=== PATIENT | female | born 1950 | race Caucasian/White ===

== ENCOUNTER → 2018-09-05 10:08 | Outpatient (CLI) | payer OTHER, SELFPAY ==
[2018-09-05 12:05] LABS: Hematocrit 44.3 % (36-46); Hemoglobin 15.4 g/dL (12.0-16.0); Mean Corpuscular HGB Conc 34.7 % (30-36); Mean Corpuscular Volume 92.1 fL (80-100); Platelet Count 171 X10^3/uL (150-400); Red Blood Cell Count 4.81 X10^6/uL (4.0-5.2); Red Cell Distribution Width 12.8 % (11.6-14.8); White Blood Cell Count 5.8 X10^3/uL (4.5-11.0)
[2018-09-05 12:30] LABS: Alanine Aminotransferase 29 IU/L (9-52); Albumin 4.1 g/dL (3.5-5.0); Albumin Globulin Ratio 1.5 (1.0-2.8); Alkaline Phosphatase 52 U/L (38-126); Aspartate Aminotransferase 19 IU/L (14-36); Bilirubin Total 0.8 mg/dL (0.2-1.3); Blood Urea Nitrogen 16 mg/dL (7-17); Calcium 9.4 mg/dL (8.4-10.2); Carbon Dioxide 29 mmol/L (22-32); Chloride 105 mmol/L (98-107); Cholesterol 161 mg/dL (140-199); Estimated Glomerular Filt Rate > 60.0 mL/min (>60); Globulin 2.7 g/dL (1.7-4.1); Glucose 108 mg/dL (80-110); HDL Cholesterol 46 mg/dL (40-60); HEMOLYSIS 15 (0-50); LDL Cholesterol Calculated 94 mg/dL (<100); Potassium 3.6 mmol/L (3.4-5.1); Sodium 145 mmol/L (137-145); Total Protein 6.8 g/dL (6.3-8.2); Triglycerides 105 mg/dL (35-150)
[2018-09-05 13:07] LABS: Thyroid Stimulating Hormone 2.31 uIU/mL (0.47-4.68)
[2018-09-05 20:02] LABS: Neutrophils Absolute Manual 3480 /uL (3000-5900); RBC Morphology Normal Morphology; Total Cells Counted 100
== END ==
PROVIDERS: PCP Family Medicine; Visit Provider Family Medicine
DX: E78.5 Hyperlipidemia, unspecified (principal); I10 Essential (primary) hypertension
CPT/HCPCS: 36415; 80053; 80061; 84443; 85025

== ENCOUNTER 2019-06-19 11:15 | Outpatient (RCR) | payer OTHER, SELFPAY ==
--- NOTE | 2019-03-05 14:37 | PT.OIE ---
Current Diagnoses Pain in right shoulder (03/05/19) Muscle weakness (generalized) (03/05/19) Past Medical History (Last Updated 09/08/18 @ 14:12 by Alicia Ya) Hypertension (Chronic 2005) Chronic back pain (Chronic 05/2014) Herpes (Chronic 1968) Statin myopathy (Chronic) Chicken pox (Resolved 1959) Depression (Resolved 1994) Hemorrhoids (Resolved 1983) Measles (Resolved 1959) Mumps (Resolved 1959) Rubella (Resolved 1959) Past Surgical History (Last Updated 09/08/18 @ 14:14 by Alicia Ya) Anesthesia (Resolved) Status post delivery (Resolved 1979) Status post delivery (Resolved 1981) Status post delivery (Resolved 1983) Status post cholecystectomy (Resolved) Status post tonsillectomy and adenoidectomy (Resolved 1955) Provider Visit Care Team Role Provider Type Zunilda Keyes MD Attending Provider Physician Primary Care Provider Specialty: [facility] Address: [address] [place] [address] Email: [email or web address] Physical Therapy Initial Evaluation PT-OP-A Visit Information Start: 03/02/19 16:56 Freq: Status: Active Protocol: Document 03/05/19 08:19 LRN (Rec: 03/05/19 09:21 VINCENTN [id number]) Out-Patient Physical Therapy Visit Information Visit Information Visit Type Initial Evaluation Visit Start Time 08:19 Visit Stop Time 09:10 Total Visit Minutes 51 Visit Number 1 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 She describes her pain as an insidious onset, but does recall her grandson jumping into her arms once, otherwise she denies any incident or injury to the shoulder. She states the R shoulder has progressively worsened. She is worse at night after working all day and states the shoulder aches all over with pain radiating into the elbow. If she moves wrong she gets a shooting pain. Reaching overhead and lifting is most painful. At rest she feels like her shoulder is falling out of the socket, so she feels the need to rest it on a pillow. She states her R shoulder hurts most of the time, aches at night, but once she gets to sleep she has no problem sleeping. She sleeps on L side with arm propped up on a pillow. She states her L shoulder is now starting to hurt because she is having to compensate for the right. She reports a prior incident of R shoulder pain when she picked up a huge sack of clothes, heard a pop, and had R shoulder pain. At that time tests showed a possible small tear. She had physical therapy with good results. Prior Treatments and Tests None. Future Testing and Treatments Planned None Developmental History Developmental History She sought medical care in November 2018, was seen by physician in December and was able to schedule for physical therapy today, 03/05/2019. Treatment Goals Patient/Caregiver Goals Pt goal is to have no pain in the R shoulder. Prior Functional Status Baseline Function- ADL's Independent Baseline Function- Mobility Independent Baseline Function- Work/School Looking after grandkids, ages 4,6,7 & 12, and does cooking and cleaning. Baseline Function- Other Always sleeps on L side. Able to cook, & clean without pain . Current Functional Impairments (Reported) Functional Limitations- ADL's Difficulty removing clothes, putting dishes high up on cupboards, lifting with R arm a gallon of milk, & making beds. Laundry is not a problem. Functional Limitations- Other Cooking and cleaning causes R shoulder pain. Personal Factors Other Personal Factors That May Effect Pt takes care of her grandkids Therapy/Recovery . PT-OP-C Subjective Start: 03/02/19 16:56 Freq: Status: Active Protocol: Document 03/05/19 08:19 LRN (Rec: 03/05/19 09:21 LRN [id number]) Patient Questionnaires Quick Dash- Upper Extremity Quick Dash UE Score 45.45 Quick Dash UE Impairment 40 to 59% Impaired (Score 40- 59) OP-PT Pain Assessment Location R shoulder Pain Location Details Around R shoulder joint and into the shoulder of the upper arm. Intensity 5 Scale Used Numeric (1 - 10) Description Aching Description- Other In AM, painfree R shoulder at rest. Frequency Constant Radiating Location Down lateral R arm to deltoid insertion. Pain Aggravating Factors Activity Lifting Pain Alleviating Factors Cold Heat Medication Other Pain Alleviating Factors IBP Patient Stated Pain Goal No pain Home Pain Medication Use Pain Medications Used Yes Home Pain Medication Frequency IBP as needed PT-OP-F Manual Assessment Start: 03/02/19 16:56 Freq: Status: Active Protocol: Document 03/05/19 08:19 LRN (Rec: 03/05/19 09:21 LRN [id number]) Manual Assessments Soft Tissue Assessment Soft Tissue Mobility Assessment Increased tension and tenderness to palpation at R UT, Levator Scapula, Supraspinatus, Deltoid, Pec Minor & Major, Rhomboids and Teres Major/Minor, Cervical paraspinals & Biceps Longus tendon attachment on the humerus. Joint Mobility Assessment Joint Mobility Assessment Decreased in Cervical spine due to pain. Other Manual Assessments Other Manual Assessments C3, C4, C5 tenderness at Transverse processes and facet joints. C5, C6, C7 tenderness at Transverse processes and rotated left. PT-OP-H Neuro Start: 03/02/19 16:56 Freq: Status: Active Protocol: Document 03/05/19 08:19 LRN (Rec: 03/05/19 09:21 LRN [id number]) Sensation Evaluation Gross Sensation Gross Sensation WNL Comments Summary Comments Sensation is normal to soft touch. Deep Tendon Reflex & Clonus Assessment Deep Tendon Reflex Bilateral Tricep Deep Tendon Reflex 0 Absent Bilateral Brachioradialis Deep Tendon Reflex 1+ Diminished Bilateral Bicep Deep Tendon Reflex 2+ Normal PT-OP-J Posture/Palpation/Skin Start: 03/02/19 16:56 Freq: Status: Active Protocol: Document 03/05/19 08:19 LRN (Rec: 03/05/19 09:21 LRN [id number]) Posture Evaluation Position Standing Evaluation View All positions Head/C-Spine Posture Forward Head T-Spine Posture Flattened Shoulder Posture (L) Rounded (R) Rounded (R) Forward (L) Elevated Scapula Posture (R) Depressed Arm Posture (L) Internally Rotated Palpation Assessment Location R shoulder Palpation Location Generally in shoulder and down upper arm, humeral head Palpation Findings Soft Tissue Tightness Tenderness PT-OP-K Range of Motion Start: 03/02/19 16:56 Freq: Status: Active Protocol: Document 03/05/19 08:19 LRN (Rec: 03/05/19 09:21 LRN [id number]) Cervical Spine Range of Motion Cervical Spine Active Percentage Testing Position Sitting Comments AROM is WNL. SB right caused L neck stiffness and kink Shoulder Goniometric Range of Motion Shoulder Measured in Degrees Right Active Shoulder ROM WFL Yes Testing Position Sitting Left Active Shoulder ROM WFL Yes Testing Position Sitting Shoulder ROM Limitations Shoulder ROM Limitations Pain Comments End-range pain, ROM was WNLs. PT-OP-L Special Tests Start: 03/02/19 16:56 Freq: Status: Active Protocol: Document 03/05/19 08:19 LRN (Rec: 03/05/19 09:21 LRN [id number]) Special Tests Cervical Spine Special Tests Traction Test Results Decreased R shoulder pain Shoulder Special Tests Elevation Impingement Test Results Positive Comments Onset of R shoulder pain. Briceño Teto Impingement Test Results Positive Comments Onset of R shoulder pain. PT-OP-M Strength Start: 03/02/19 16:56 Freq: Status: Active Protocol: Document 03/05/19 08:19 LRN (Rec: 03/05/19 09:21 LRN [id number]) Cervical Spine Strength Cervical Spine Manual Muscle Testing Testing Position Sitting Reason Not Measured WFL Shoulder Strength Shoulder Manual Muscle Testing Right Flexion 3 Fair Left Flexion 3- Fair- PT-OP-Q Treatments Start: 03/02/19 16:56 Freq: Status: Active Protocol: Document 03/05/19 08:19 LRN (Rec: 03/05/19 09:21 LRN [id number]) Therapeutic Exercises Supine Exercises Cervical Supine Exercise Name Deep Cervical Neck Flexors ( Neck Elongation) Reps/Minutes 8 reps Comments 2' Shoulder ER Side right Reps/Minutes 10 x Comments 2' Manual Therapy Treatment Manual Traction Cervical Body Position Supine Reps/Duration 4' Self-Care/Home Management Treatment Education Patient Education Home Exercise Program Activities Self-Care/Home Management Activities I/S pt in Neck Elongation & windshield wipe ex. PT-OP-T Assessment and Plan Start: 03/02/19 16:56 Freq: Status: Active Protocol: Document 03/05/19 08:19 LRN (Rec: 03/05/19 09:21 LRN [id number]) Physical Therapy Assessment Rehab Potential Rehabilitation Potential Good Evaluation Complexity Number of Personal Factors/Comorbidities 1-2 Number of Body Systems Impaired 4 or More Clinical Presentation at Evaluation Stable Impairments Impairments Activity Tolerance Functional Activities Functional Mobility Pain Posture ROM Soft Tissue Mobility Strength Other Concerns Age Related Concerns >65 yrs old Impact to self and family Barriers to Rehabilitation Caring for grandchildren Goals Three Impairment Pain with lifting 1 gallon and reaching into cabinets overhead. Care Home Goal (LTG) Improve R shoulder strength and scapulohumeral rhythm such that the pt will be able to lift a a gallon jug and reach into cabinets overhead without stokes. Two Impairment Pain in R shoulder with reaching overhead Short Term Goal (STG) Pt's normal R shoulder AROM and ability to dress without pain. STG Duration 03/30/19 One Impairment Pt lacks independent self care program. Rat Culturist Goal (LTG) Pt will be independent with a self care HEP LTG Duration 05/04/19 Assessment Summary Assessment Pt presents with a mechanical and soft tissue dysfunction of the neck and R shoulder, limiting mobility and function due to pain with R shoulder AROM and use. The pt shows positive signs of cervical involvement, possibly disc related, involving possibly C3 -C7. The pt will benefit from skilled physical therapy to improve mobility, strength and function of the R arm with treatments to the neck and R shoulder in order to return the patient to her prior level of function. Physical Therapy Plan Frequency and Duration Frequency of Treatment 2x/Week Therapeutic Interventions Therapeutic Interventions Aquatic Therapy Home Exercise Program Joint Mobilizations Manual Therapy Neuromuscular Re-education Patient/Caregiver Education Self-Care/Home Management Soft Tissue Mobilization Taping Therapeutic Exercises Modalities Cold Pack/Ice Massage Electric Stimulation Hot Packs Traction- Mechanical Ultrasound Next Visit Focus/Plan Next Note Type Treatment Note Next Visit Plan Manual mobilization of Cervical and thoracic spine, R rotator cuff stengthening & ending with mechanical cervical traction.
--- NOTE | 2019-03-05 14:38 | PT.OIE ---
Current Diagnoses Pain in right shoulder (03/05/19) Muscle weakness (generalized) (03/05/19) Past Medical History (Last Updated 09/08/18 @ 14:12 by Alicia Ya) Hypertension (Chronic 2005) Chronic back pain (Chronic 05/2014) Herpes (Chronic 1968) Statin myopathy (Chronic) Chicken pox (Resolved 1959) Depression (Resolved 1994) Hemorrhoids (Resolved 1983) Measles (Resolved 1959) Mumps (Resolved 1959) Rubella (Resolved 1959) Past Surgical History (Last Updated 09/08/18 @ 14:14 by Alicia Ya) Anesthesia (Resolved) Status post delivery (Resolved 1979) Status post delivery (Resolved 1981) Status post delivery (Resolved 1983) Status post cholecystectomy (Resolved) Status post tonsillectomy and adenoidectomy (Resolved 1955) Provider Visit Care Team Role Provider Type Zunilda Keyes MD Attending Provider Physician Primary Care Provider Specialty: [facility] Address: [address] [place] [address] Email: [email or web address] Physical Therapy Initial Evaluation PT-OP-A Visit Information Start: 03/02/19 16:56 Freq: Status: Active Protocol: Document 03/05/19 08:19 LRN (Rec: 03/05/19 09:21 VINCENTN [id number]) Out-Patient Physical Therapy Visit Information Visit Information Visit Type Initial Evaluation Visit Start Time 08:19 Visit Stop Time 09:10 Total Visit Minutes 51 Visit Number 1 Number of RN SURGICAL PCU Visits 0 Evaluation Information Evaluation Date 03/05/19 Precautions Precautions Back pain PT-OP-B Current Condition Start: 03/02/19 16:56 Freq: Status: Active Protocol: Document 03/05/19 08:19 LRN (Rec: 03/05/19 09:21 LRN [id number]) Current Condition History of Current Condition Onset Date 09/2018 Current Complaints R shoulder pain, mostly constant ache History of Current Condition Pt states she noticed one day that she could barely hold a gallon of milk with her R arm. She describes her pain as an insidious onset, but does recall her grandson jumping into her arms once, otherwise she denies any incident or injury to the shoulder. She states the R shoulder has progressively worsened. She is worse at night after working all day and states the shoulder aches all over with pain radiating into the elbow. If she moves wrong she gets a shooting pain. Reaching overhead and lifting is most painful. At rest she feels like her shoulder is falling out of the socket, so she feels the need to rest it on a pillow. She states her R shoulder hurts most of the time, aches at night, but once she gets to sleep she has no problem sleeping. She sleeps on L side with arm propped up on a pillow. She states her L shoulder is now starting to hurt because she is having to compensate for the right. She reports a prior incident of R shoulder pain when she picked up a huge sack of clothes, heard a pop, and had R shoulder pain. At that time tests showed a possible small tear. She had physical therapy with good results. Prior Treatments and Tests None. Future Testing and Treatments Planned None Developmental History Developmental History She sought medical care in November 2018, was seen by physician in December and was able to schedule for physical therapy today, 03/05/2019. Treatment Goals Patient/Caregiver Goals Pt goal is to have no pain in the R shoulder. Prior Functional Status Baseline Function- ADL's Independent Baseline Function- Mobility Independent Baseline Function- Work/School Looking after grandkids, ages 4,6,7 & 12, and does cooking and cleaning. Baseline Function- Other Always sleeps on L side. Able to cook, & clean without pain . Current Functional Impairments (Reported) Functional Limitations- ADL's Difficulty removing clothes, putting dishes high up on cupboards, lifting with R arm a gallon of milk, & making beds. Laundry is not a problem. Functional Limitations- Other Cooking and cleaning causes R shoulder pain. Personal Factors Other Personal Factors That May Effect Pt takes care of her grandkids Therapy/Recovery . PT-OP-C Subjective Start: 03/02/19 16:56 Freq: Status: Active Protocol: Document 03/05/19 08:19 LRN (Rec: 03/05/19 09:21 LRN [id number]) Patient Questionnaires Quick Dash- Upper Extremity Quick Dash UE Score 45.45 Quick Dash UE Impairment 40 to 59% Impaired (Score 40- 59) OP-PT Pain Assessment Location R shoulder Pain Location Details Around R shoulder joint and into the shoulder of the upper arm. Intensity 5 Scale Used Numeric (1 - 10) Description Aching Description- Other In AM, painfree R shoulder at rest. Frequency Constant Radiating Location Down lateral R arm to deltoid insertion. Pain Aggravating Factors Activity Lifting Pain Alleviating Factors Cold Heat Medication Other Pain Alleviating Factors IBP Patient Stated Pain Goal No pain Home Pain Medication Use Pain Medications Used Yes Home Pain Medication Frequency IBP as needed PT-OP-F Manual Assessment Start: 03/02/19 16:56 Freq: Status: Active Protocol: Document 03/05/19 08:19 LRN (Rec: 03/05/19 09:21 LRN [id number]) Manual Assessments Soft Tissue Assessment Soft Tissue Mobility Assessment Increased tension and tenderness to palpation at R UT, Levator Scapula, Supraspinatus, Deltoid, Pec Minor & Major, Rhomboids and Teres Major/Minor, Cervical paraspinals & Biceps Longus tendon attachment on the humerus. Joint Mobility Assessment Joint Mobility Assessment Decreased in Cervical spine due to pain. Other Manual Assessments Other Manual Assessments C3, C4, C5 tenderness at Transverse processes and facet joints. C5, C6, C7 tenderness at Transverse processes and rotated left. PT-OP-H Neuro Start: 03/02/19 16:56 Freq: Status: Active Protocol: Document 03/05/19 08:19 LRN (Rec: 03/05/19 09:21 LRN [id number]) Sensation Evaluation Gross Sensation Gross Sensation WNL Comments Summary Comments Sensation is normal to soft touch. Deep Tendon Reflex & Clonus Assessment Deep Tendon Reflex Bilateral Tricep Deep Tendon Reflex 0 Absent Bilateral Brachioradialis Deep Tendon Reflex 1+ Diminished Bilateral Bicep Deep Tendon Reflex 2+ Normal PT-OP-J Posture/Palpation/Skin Start: 03/02/19 16:56 Freq: Status: Active Protocol: Document 03/05/19 08:19 LRN (Rec: 03/05/19 09:21 LRN [id number]) Posture Evaluation Position Standing Evaluation View All positions Head/C-Spine Posture Forward Head T-Spine Posture Flattened Shoulder Posture (L) Rounded (R) Rounded (R) Forward (L) Elevated Scapula Posture (R) Depressed Arm Posture (L) Internally Rotated Palpation Assessment Location R shoulder Palpation Location Generally in shoulder and down upper arm, humeral head Palpation Findings Soft Tissue Tightness Tenderness PT-OP-K Range of Motion Start: 03/02/19 16:56 Freq: Status: Active Protocol: Document 03/05/19 08:19 LRN (Rec: 03/05/19 09:21 LRN [id number]) Cervical Spine Range of Motion Cervical Spine Active Percentage Testing Position Sitting Comments AROM is WNL. SB right caused L neck stiffness and kink Shoulder Goniometric Range of Motion Shoulder Measured in Degrees Right Active Shoulder ROM WFL Yes Testing Position Sitting Left Active Shoulder ROM WFL Yes Testing Position Sitting Shoulder ROM Limitations Shoulder ROM Limitations Pain Comments End-range pain, ROM was WNLs. PT-OP-L Special Tests Start: 03/02/19 16:56 Freq: Status: Active Protocol: Document 03/05/19 08:19 LRN (Rec: 03/05/19 09:21 LRN [id number]) Special Tests Cervical Spine Special Tests Traction Test Results Decreased R shoulder pain Shoulder Special Tests Elevation Impingement Test Results Positive Comments Onset of R shoulder pain. Briceño Teto Impingement Test Results Positive Comments Onset of R shoulder pain. PT-OP-M Strength Start: 03/02/19 16:56 Freq: Status: Active Protocol: Document 03/05/19 08:19 LRN (Rec: 03/05/19 09:21 LRN [id number]) Cervical Spine Strength Cervical Spine Manual Muscle Testing Testing Position Sitting Reason Not Measured WFL Shoulder Strength Shoulder Manual Muscle Testing Right Flexion 3 Fair Left Flexion 3- Fair- PT-OP-Q Treatments Start: 03/02/19 16:56 Freq: Status: Active Protocol: Document 03/05/19 08:19 LRN (Rec: 03/05/19 09:21 LRN [id number]) Therapeutic Exercises Supine Exercises Cervical Supine Exercise Name Deep Cervical Neck Flexors ( Neck Elongation) Reps/Minutes 8 reps Comments 2' Shoulder ER Side right Reps/Minutes 10 x Comments 2' Manual Therapy Treatment Manual Traction Cervical Body Position Supine Reps/Duration 4' Self-Care/Home Management Treatment Education Patient Education Home Exercise Program Activities Self-Care/Home Management Activities I/S pt in Neck Elongation & windshield wipe ex. PT-OP-T Assessment and Plan Start: 03/02/19 16:56 Freq: Status: Active Protocol: Document 03/05/19 08:19 LRN (Rec: 03/05/19 09:21 LRN [id number]) Physical Therapy Assessment Rehab Potential Rehabilitation Potential Good Evaluation Complexity Number of Personal Factors/Comorbidities 1-2 Number of Body Systems Impaired 4 or More Clinical Presentation at Evaluation Stable Impairments Impairments Activity Tolerance Functional Activities Functional Mobility Pain Posture ROM Soft Tissue Mobility Strength Other Concerns Age Related Concerns >65 yrs old Impact to self and family Barriers to Rehabilitation Caring for grandchildren Goals Three Impairment Pain with lifting 1 gallon and reaching into cabinets overhead. Correction Goal (LTG) Improve R shoulder strength and scapulohumeral rhythm such that the pt will be able to lift a a gallon jug and reach into cabinets overhead without stokes. LTG Duration 05/04/19 Two Impairment Pain in R shoulder with reaching overhead Short Term Goal (STG) Pt's normal R shoulder AROM and ability to dress without pain. STG Duration 03/30/19 One Impairment Pt lacks independent self care program. Correction Goal (LTG) Pt will be independent with a self care HEP LTG Duration 05/04/19 Assessment Summary Assessment Pt presents with a mechanical and soft tissue dysfunction of the neck and R shoulder, limiting mobility and function due to pain with R shoulder AROM and use. The pt shows positive signs of cervical involvement, possibly disc related, involving possibly C3 -C7. The pt will benefit from skilled physical therapy to improve mobility, strength and function of the R arm with treatments to the neck and R shoulder in order to return the patient to her prior level of function. Physical Therapy Plan Frequency and Duration Frequency of Treatment 2x/Week Plan of Care Start Date 03/05/19 Plan of Care End Date 05/04/19 Therapeutic Interventions Therapeutic Interventions Aquatic Therapy Home Exercise Program Joint Mobilizations Manual Therapy Neuromuscular Re-education Patient/Caregiver Education Self-Care/Home Management Soft Tissue Mobilization Taping Therapeutic Exercises Modalities Cold Pack/Ice Massage Electric Stimulation Hot Packs Traction- Mechanical Ultrasound Next Visit Focus/Plan Next Note Type Treatment Note Next Visit Plan Manual mobilization of Cervical and thoracic spine, R rotator cuff stengthening & ending with mechanical cervical traction.
--- NOTE | 2019-03-05 14:39 | PT.OPPOC ---
Current Diagnoses Pain in right shoulder (03/05/19) Muscle weakness (generalized) (03/05/19) Provider Visit Care Team Role Provider Type Zunilda Keyes MD Attending Provider Physician Primary Care Provider Specialty: Family Practice Address: [address] [place] [address], [facility] Email: [email or web address] Plan Of Care PT-OP-T Assessment and Plan Start: 03/02/19 16:56 Freq: Status: Active Protocol: Document 03/05/19 08:19 LRN (Rec: 03/05/19 09:21 LRN [id number]) Physical Therapy Assessment Rehab Potential Rehabilitation Potential Good Evaluation Complexity Number of Personal Factors/Comorbidities 1-2 Number of Body Systems Impaired 4 or More Clinical Presentation at Evaluation Stable Impairments Impairments Activity Tolerance Functional Activities Functional Mobility Pain Posture ROM Soft Tissue Mobility Strength Other Concerns Age Related Concerns >65 yrs old Impact to self and family Barriers to Rehabilitation Caring for grandchildren Goals Three Impairment Pain with lifting 1 gallon and reaching into cabinets overhead. Snf Goal (LTG) Improve R shoulder strength and scapulohumeral rhythm such that the pt will be able to lift a a gallon jug and reach into cabinets overhead without stokes. LTG Duration 05/04/19 Two Impairment Pain in R shoulder with reaching overhead Short Term Goal (STG) Pt's normal R shoulder AROM and ability to dress without pain. STG Duration 03/30/19 One Impairment Pt lacks independent self care program. Snf Goal (LTG) Pt will be independent with a self care HEP LTG Duration 05/04/19 Assessment Summary Assessment Pt presents with a mechanical and soft tissue dysfunction of the neck and R shoulder, limiting mobility and function due to pain with R shoulder AROM and use. The pt shows positive signs of cervical involvement, possibly disc related, involving possibly C3 -C7. The pt will benefit from skilled physical therapy to improve mobility, strength and function of the R arm with treatments to the neck and R shoulder in order to return the patient to her prior level of function. Physical Therapy Plan Frequency and Duration Frequency of Treatment 2x/Week Plan of Care Start Date 03/05/19 Plan of Care End Date 05/04/19 Therapeutic Interventions Therapeutic Interventions Aquatic Therapy Home Exercise Program Joint Mobilizations Manual Therapy Neuromuscular Re-education Patient/Caregiver Education Self-Care/Home Management Soft Tissue Mobilization Taping Therapeutic Exercises Modalities Cold Pack/Ice Massage Electric Stimulation Hot Packs Traction- Mechanical Ultrasound Next Visit Focus/Plan Next Note Type Treatment Note Next Visit Plan Manual mobilization of Cervical and thoracic spine, R rotator cuff stengthening & ending with mechanical cervical traction. Plan of Care Dates Plan of Care Start Date 03/05/19 Plan of Care End Date 05/04/19 Please Sign and Return: I have reviewed this Plan of Care and certify that the skilled therapy services above are required to meet the patient?s needs. Physician Signature Date Printed Name and Credentials Clinical Instructor Signature Printed Name and Credentials
--- NOTE | 2019-03-08 16:36 | PT.OTN ---
Current Diagnoses Pain in right shoulder (03/08/19) Physical Therapy Treatment Note PT-OP-A Visit Information Start: 03/02/19 16:56 Freq: Status: Active Protocol: Document 03/08/19 08:18 LRN (Rec: 03/08/19 09:04 LRN [id number]) Out-Patient Physical Therapy Visit Information Visit Information Visit Type Treatment Note Visit Start Time 08:18 Visit Stop Time 09:03 Total Visit Minutes 45 Visit Number 2 Number of MUSEUM EDUCATOR Visits 0 Evaluation Information Evaluation Date 03/05/19 Precautions Precautions Back pain PT-OP-B Current Condition Start: 03/02/19 16:56 Freq: Status: Active Protocol: Document 03/05/19 08:19 LRN (Rec: 03/05/19 09:21 LRN [id number]) Current Condition History of Current Condition Onset Date 09/2018 Current Complaints R shoulder pain, mostly constant ache History of Current Condition Pt states she noticed one day that she could barely hold a gallon of milk with her R arm. She describes her pain as an insidious onset, but does recall her grandson jumping into her arms once, otherwise she denies any incident or injury to the shoulder. She states the R shoulder has progressively worsened. She is worse at night after working all day and states the shoulder aches all over with pain radiating into the elbow. If she moves wrong she gets a shooting pain. Reaching overhead and lifting is most painful. At rest she feels like her shoulder is falling out of the socket, so she feels the need to rest it on a pillow. She states her R shoulder hurts most of the time, aches at night, but once she gets to sleep she has no problem sleeping. She sleeps on L side with arm propped up on a pillow. She states her L shoulder is now starting to hurt because she is having to compensate for the right. She reports a prior incident of R shoulder pain when she picked up a huge sack of clothes, heard a pop, and had R shoulder pain. At that time tests showed a possible small tear. She had physical therapy with good results. Prior Treatments and Tests None. Future Testing and Treatments Planned None Developmental History Developmental History She sought medical care in November 2018, was seen by physician in December and was able to schedule for physical therapy today, 03/05/2019. Treatment Goals Patient/Caregiver Goals Pt goal is to have no pain in the R shoulder. 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 Baseline Function- Other Always sleeps on L side. Able to cook, & clean without pain . Current Functional Impairments (Reported) Functional Limitations- ADL's Difficulty removing clothes, putting dishes high up on cupboards, lifting with R arm a gallon of milk, & making beds. Laundry is not a problem. Functional Limitations- Other Cooking and cleaning causes R shoulder pain. Personal Factors Other Personal Factors That May Effect Pt takes care of her grandkids Therapy/Recovery . PT-OP-C Subjective Start: 03/02/19 16:56 Freq: Status: Active Protocol: Document 03/08/19 08:18 LRN (Rec: 03/08/19 09:04 LRN [id number]) OP-PT Subjective Patient Comments Patient Comments Neck and R shoulder Pain 03/07 PT-OP-F Manual Assessment Start: 03/02/19 16:56 Freq: Status: Active Protocol: Document 03/05/19 08:19 LRN (Rec: 03/05/19 09:21 LRN [id number]) Manual Assessments Soft Tissue Assessment Soft Tissue Mobility Assessment Increased tension and tenderness to palpation at R UT, Levator Scapula, Supraspinatus, Deltoid, Pec Minor & Major, Rhomboids and Teres Major/Minor, Cervical paraspinals & Biceps Longus tendon attachment on the humerus. Joint Mobility Assessment Joint Mobility Assessment Decreased in Cervical spine due to pain. Other Manual Assessments Other Manual Assessments C3, C4, C5 tenderness at Transverse processes and facet joints. C5, C6, C7 tenderness at Transverse processes and rotated left. PT-OP-H Neuro Start: 03/02/19 16:56 Freq: Status: Active Protocol: Document 03/05/19 08:19 LRN (Rec: 03/05/19 09:21 LRN [id number]) Sensation Evaluation Gross Sensation Gross Sensation WNL Comments Summary Comments Sensation is normal to soft touch. Deep Tendon Reflex & Clonus Assessment Deep Tendon Reflex Bilateral Tricep Deep Tendon Reflex 0 Absent Bilateral Brachioradialis Deep Tendon Reflex 1+ Diminished Bilateral Bicep Deep Tendon Reflex 2+ Normal PT-OP-J Posture/Palpation/Skin Start: 03/02/19 16:56 Freq: Status: Active Protocol: Document 03/05/19 08:19 LRN (Rec: 03/05/19 09:21 LRN [id number]) Posture Evaluation Position Standing Evaluation View All positions Head/C-Spine Posture Forward Head T-Spine Posture Flattened Shoulder Posture (L) Rounded (R) Rounded (R) Forward (L) Elevated Scapula Posture (R) Depressed Arm Posture (L) Internally Rotated Palpation Assessment Location R shoulder Palpation Location Generally in shoulder and down upper arm, humeral head Palpation Findings Soft Tissue Tightness Tenderness PT-OP-K Range of Motion Start: 03/02/19 16:56 Freq: Status: Active Protocol: Document 03/05/19 08:19 LRN (Rec: 03/05/19 09:21 LRN [id number]) Cervical Spine Range of Motion Cervical Spine Active Percentage Testing Position Sitting Comments AROM is WNL. SB right caused L neck stiffness and kink Shoulder Goniometric Range of Motion Shoulder Measured in Degrees Right Active Shoulder ROM WFL Yes Testing Position Sitting Left Active Shoulder ROM WFL Yes Testing Position Sitting Shoulder ROM Limitations Shoulder ROM Limitations Pain Comments End-range pain, ROM was WNLs. PT-OP-L Special Tests Start: 03/02/19 16:56 Freq: Status: Active Protocol: Document 03/05/19 08:19 LRN (Rec: 03/05/19 09:21 LRN [id number]) Special Tests Cervical Spine Special Tests Traction Test Results Decreased R shoulder pain Shoulder Special Tests Elevation Impingement Test Results Positive Comments Onset of R shoulder pain. Briceño Teto Impingement Test Results Positive Comments Onset of R shoulder pain. PT-OP-M Strength Start: 03/02/19 16:56 Freq: Status: Active Protocol: Document 03/05/19 08:19 LRN (Rec: 03/05/19 09:21 LRN [id number]) Cervical Spine Strength Cervical Spine Manual Muscle Testing Testing Position Sitting Reason Not Measured WFL Shoulder Strength Shoulder Manual Muscle Testing Right Flexion 3 Fair Left Flexion 3- Fair- PT-OP-Q Treatments Start: 03/02/19 16:56 Freq: Status: Active Protocol: Document 03/08/19 08:18 LRN (Rec: 03/08/19 09:04 LRN [id number]) Therapeutic Exercises Supine Exercises R shoulder PROM Side right Shoulder ER Supine Exercise Name Shoulder ER with T-Band Side right Sitting Exercises Scapular pinches Side bilateral Resistance Lev 2 T-Band Reps/Minutes 15 x 2 Shoulder ER Sitting Exercise Name Strengthening Side bilateral Resistance Lev 2 T-Band Reps/Minutes 15 x 2 Deep Cervical Neck Flexors Reps/Minutes 3' Comments Manual cuing of finger pressure on top of head Manual Therapy Treatment Soft Tissue Mobilization C7-T2 Body Location C5-T1, primarily R side Mobilization Type Myofascial Release Strumming Intensity/Depth Moderate Body Position Prone Manual Traction Cervical Body Position Supine Reps/Duration 2' PT-OP-R Modalities Start: 03/02/19 16:56 Freq: Status: Active Protocol: Document 03/08/19 08:18 LRN (Rec: 03/08/19 09:04 LRN [id number]) Ultrasound Therapy Treatment R Shoulder Treatment Duration (minutes) 8 Patient Position Sitting Coupling Medium Ultrasound Gel Mode Setting Pulsed Duty Cycle 50% Intensity Setting (w/cm2) 1.0 R Neck Treatment Duration (minutes) 8 Patient Position Sitting Coupling Medium Ultrasound Gel Mode Setting Continuous Intensity Setting (w/cm2) 1.5 PT-OP-T Assessment and Plan Start: 03/02/19 16:56 Freq: Status: Active Protocol: Document 03/08/19 08:18 LRN (Rec: 03/08/19 09:04 LRN [id number]) Physical Therapy Assessment Assessment Summary Assessment The pt shows positive signs of cervical involvement, possibly disc related, involving possibly C3-C7 with R shoulder pain symptoms. The pt responded well to therapy with improved R shoulder mobility without an increase in pain. Physical Therapy Plan Frequency and Duration Frequency of Treatment 2x/Week Plan of Care Start Date 03/05/19 Plan of Care End Date 05/04/19 Next Visit Focus/Plan Next Note Type Treatment Note Next Visit Plan Manual mobilization of Cervical and upper thoracic spine, R rotator cuff stengthening & ending with cervical traction (?mechanical vs manual).
--- NOTE | 2019-03-12 15:39 | PT.OTN ---
Current Diagnoses Pain in right shoulder (03/12/19) Physical Therapy Treatment Note PT-OP-A Visit Information Start: 03/02/19 16:56 Freq: Status: Active Protocol: Document 03/12/19 08:15 LRN (Rec: 03/12/19 09:17 LRN [id number]) Out-Patient Physical Therapy Visit Information Visit Information Visit Type Treatment Note Visit Start Time 08:15 Visit Stop Time 09:10 Total Visit Minutes 55 Visit Number 3 Number of BOARD OF DIRECTORS Visits 0 Evaluation Information Evaluation Date 03/05/19 Precautions Precautions Back pain PT-OP-B Current Condition Start: 03/02/19 16:56 Freq: Status: Active Protocol: Document 03/05/19 08:19 LRN (Rec: 03/05/19 09:21 LRN [id number]) Current Condition History of Current Condition Onset Date 09/2018 Current Complaints R shoulder pain, mostly constant ache History of Current Condition Pt states she noticed one day that she could barely hold a gallon of milk with her R arm. She describes her pain as an insidious onset, but does recall her grandson jumping into her arms once, otherwise she denies any incident or injury to the shoulder. She states the R shoulder has progressively worsened. She is worse at night after working all day and states the shoulder aches all over with pain radiating into the elbow. If she moves wrong she gets a shooting pain. Reaching overhead and lifting is most painful. At rest she feels like her shoulder is falling out of the socket, so she feels the need to rest it on a pillow. She states her R shoulder hurts most of the time, aches at night, but once she gets to sleep she has no problem sleeping. She sleeps on L side with arm propped up on a pillow. She states her L shoulder is now starting to hurt because she is having to compensate for the right. She reports a prior incident of R shoulder pain when she picked up a huge sack of clothes, heard a pop, and had R shoulder pain. At that time tests showed a possible small tear. She had physical therapy with good results. Prior Treatments and Tests None. Future Testing and Treatments Planned None Developmental History Developmental History She sought medical care in November 2018, was seen by physician in December and was able to schedule for physical therapy today, 03/05/2019. Treatment Goals Patient/Caregiver Goals Pt goal is to have no pain in the R shoulder. 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 Baseline Function- Other Always sleeps on L side. Able to cook, & clean without pain . Current Functional Impairments (Reported) Functional Limitations- ADL's Difficulty removing clothes, putting dishes high up on cupboards, lifting with R arm a gallon of milk, & making beds. Laundry is not a problem. Functional Limitations- Other Cooking and cleaning causes R shoulder pain. Personal Factors Other Personal Factors That May Effect Pt takes care of her grandkids Therapy/Recovery . PT-OP-C Subjective Start: 03/02/19 16:56 Freq: Status: Active Protocol: Document 03/12/19 08:15 LRN (Rec: 03/12/19 09:17 LRN [id number]) OP-PT Subjective Patient Comments Patient Comments Pt states she was not able to do too much exercising. States her shoulder is more sore because she did a lot of driving 2 days ago. PT-OP-F Manual Assessment Start: 03/02/19 16:56 Freq: Status: Active Protocol: Document 03/05/19 08:19 LRN (Rec: 03/05/19 09:21 LRN [id number]) Manual Assessments Soft Tissue Assessment Soft Tissue Mobility Assessment Increased tension and tenderness to palpation at R UT, Levator Scapula, Supraspinatus, Deltoid, Pec Minor & Major, Rhomboids and Teres Major/Minor, Cervical paraspinals & Biceps Longus tendon attachment on the humerus. Joint Mobility Assessment Joint Mobility Assessment Decreased in Cervical spine due to pain. Other Manual Assessments Other Manual Assessments C3, C4, C5 tenderness at Transverse processes and facet joints. C5, C6, C7 tenderness at Transverse processes and rotated left. PT-OP-H Neuro Start: 03/02/19 16:56 Freq: Status: Active Protocol: Document 03/05/19 08:19 LRN (Rec: 03/05/19 09:21 LRN [id number]) Sensation Evaluation Gross Sensation Gross Sensation WNL Comments Summary Comments Sensation is normal to soft touch. Deep Tendon Reflex & Clonus Assessment Deep Tendon Reflex Bilateral Tricep Deep Tendon Reflex 0 Absent Bilateral Brachioradialis Deep Tendon Reflex 1+ Diminished Bilateral Bicep Deep Tendon Reflex 2+ Normal PT-OP-J Posture/Palpation/Skin Start: 03/02/19 16:56 Freq: Status: Active Protocol: Document 03/05/19 08:19 LRN (Rec: 03/05/19 09:21 LRN [id number]) Posture Evaluation Position Standing Evaluation View All positions Head/C-Spine Posture Forward Head T-Spine Posture Flattened Shoulder Posture (L) Rounded (R) Rounded (R) Forward (L) Elevated Scapula Posture (R) Depressed Arm Posture (L) Internally Rotated Palpation Assessment Location R shoulder Palpation Location Generally in shoulder and down upper arm, humeral head Palpation Findings Soft Tissue Tightness Tenderness PT-OP-K Range of Motion Start: 03/02/19 16:56 Freq: Status: Active Protocol: Document 03/05/19 08:19 LRN (Rec: 03/05/19 09:21 LRN [id number]) Cervical Spine Range of Motion Cervical Spine Active Percentage Testing Position Sitting Comments AROM is WNL. SB right caused L neck stiffness and kink Shoulder Goniometric Range of Motion Shoulder Measured in Degrees Right Active Shoulder ROM WFL Yes Testing Position Sitting Left Active Shoulder ROM WFL Yes Testing Position Sitting Shoulder ROM Limitations Shoulder ROM Limitations Pain Comments End-range pain, ROM was WNLs. PT-OP-L Special Tests Start: 03/02/19 16:56 Freq: Status: Active Protocol: Document 03/05/19 08:19 LRN (Rec: 03/05/19 09:21 LRN [id number]) Special Tests Cervical Spine Special Tests Traction Test Results Decreased R shoulder pain Shoulder Special Tests Elevation Impingement Test Results Positive Comments Onset of R shoulder pain. Briceño Teto Impingement Test Results Positive Comments Onset of R shoulder pain. PT-OP-M Strength Start: 03/02/19 16:56 Freq: Status: Active Protocol: Document 03/05/19 08:19 LRN (Rec: 03/05/19 09:21 LRN [id number]) Cervical Spine Strength Cervical Spine Manual Muscle Testing Testing Position Sitting Reason Not Measured WFL Shoulder Strength Shoulder Manual Muscle Testing Right Flexion 3 Fair Left Flexion 3- Fair- PT-OP-Q Treatments Start: 03/02/19 16:56 Freq: Status: Active Protocol: Document 03/12/19 08:15 LRN (Rec: 03/12/19 09:17 LRN [id number]) Therapeutic Exercises Supine Exercises Lat Pull Down Side bilateral Equipment Used Bar/Lev 2 T-Band R shoulder PROM Supine Exercise Name Jorge shoulder AROM Side bilateral Comments With and without C/S manual traction given Cervical Supine Exercise Name Isometric Deep Cervical Ext strengthening Reps/Minutes 10x with 5 sec hold Shoulder ER Supine Exercise Name Shoulder Active ER Comments Pain on return from ER; therefore discontinued after trial Sidelying Exercises Shoulder ER Side right Reps/Minutes 15x Sitting Exercises Scapular pinches Sitting Exercise Name In Standing: Training for Scapular depression/retraction Side right Reps/Minutes 15' Shoulder ER Sitting Exercise Name In standing: Jorge Shoulder ER with scapular retraction/ depression Side bilateral Equipment Used Lev 2 T-Band Comments Pt had difficulty performing it with scapular retraction/ depression Manual Therapy Treatment Soft Tissue Mobilization Pectoralis Minor/Enoc Body Location Left side Mobilization Type Sustained Pressure Trigger Point Release Intensity/Depth Superficial Body Position Supine Upper Trap/Suprapinatus Mobilization Type Strumming Intensity/Depth Moderate Body Position Prone C7-T2 Body Location C7-T3 paraspinals Mobilization Type Strumming Trigger Point Release Intensity/Depth Moderate Body Position Prone Comments Pt had some difficulty with nasal drainage and breathing that was indicated after treatment. Manual Traction Cervical Details Manual C/S traction with/ without AROM shoulders Body Position Supine Reps/Duration 5' Self-Care/Home Management Treatment Education Patient Education Home Exercise Program Activities Self-Care/Home Management Activities Issued and reviewed HEP: Sidelie active R shoulder ER PT-OP-R Modalities Start: 03/02/19 16:56 Freq: Status: Active Protocol: Document 03/12/19 08:15 LRN (Rec: 03/12/19 09:17 LR [id number]) Hot Pack/Cold Pack Treatment Cold Pack Location R shoulder Patient Position Supine Treatment Duration (minutes) 10 Patient Tolerance Good PT-OP-T Assessment and Plan Start: 03/02/19 16:56 Freq: Status: Active Protocol: Document 03/12/19 08:15 LRN (Rec: 03/12/19 09:17 [facility] [id number]) Physical Therapy Assessment Assessment Summary Assessment Pt shows positive signs of cervical involvement, involving possibly C3-C7 with R & L shoulder pain symptoms. Pt has improved painfree R shoulder mobility in supine. Pain primarily with return from end-range flexion @ ~20 deg's flexion. Pt also demonstrates poor scapulohumeral rhythm due to lack of scapular depression with retraction. Physical Therapy Plan Frequency and Duration Frequency of Treatment 2x/Week Plan of Care Start Date 03/05/19 Plan of Care End Date 05/04/19 Next Visit Focus/Plan Next Note Type Treatment Note Next Visit Plan Review scapular depression/ retraction, and in supine or sitting: manual mobilization of Cervical and upper thoracic spine, R rotator cuff stengthening & cervical traction (?mechanical vs manual).
--- NOTE | 2019-03-15 14:54 | PT.OTN ---
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 She describes her pain as an insidious onset, but does recall her grandson jumping into her arms once, otherwise she denies any incident or injury to the shoulder. She states the R shoulder has progressively worsened. She is worse at night after working all day and states the shoulder aches all over with pain radiating into the elbow. If she moves wrong she gets a shooting pain. Reaching overhead and lifting is most painful. At rest she feels like her shoulder is falling out of the socket, so she feels the need to rest it on a pillow. She states her R shoulder hurts most of the time, aches at night, but once she gets to sleep she has no problem sleeping. She sleeps on L side with arm propped up on a pillow. She states her L shoulder is now starting to hurt because she is having to compensate for the right. She reports a prior incident of R shoulder pain when she picked up a huge sack of clothes, heard a pop, and had R shoulder pain. At that time tests showed a possible small tear. She had physical therapy with good results. Prior Treatments and Tests None. Future Testing and Treatments Planned None Developmental History Developmental History She sought medical care in November 2018, was seen by physician in December and was able to schedule for physical therapy today, 03/05/2019. Treatment Goals Patient/Caregiver Goals Pt goal is to have no pain in the R shoulder. 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 Baseline Function- Other Always sleeps on L side. Able to cook, & clean without pain . Current Functional Impairments (Reported) Functional Limitations- ADL's Difficulty removing clothes, putting dishes high up on cupboards, lifting with R arm a gallon of milk, & making beds. Laundry is not a problem. Functional Limitations- Other Cooking and cleaning causes R shoulder pain. Personal Factors Other Personal Factors That May Effect Pt takes care of her maria fernandads Therapy/Recovery . PT-OP-C Subjective Start: 03/02/19 16:56 Freq: Status: Active Protocol: Document 03/15/19 08:17 LRN (Rec: 03/15/19 09:04 LRN [id number]) OP-PT Subjective Patient Comments Patient Comments Last night she felt pretty good. Feels good after therapy. No change from last visit. This morning pain in R shoulder in sitting no pain in supine. PT-OP-F Manual Assessment Start: 03/02/19 16:56 Freq: Status: Active Protocol: Document 03/05/19 08:19 LRN (Rec: 03/05/19 09:21 LRN [id number]) Manual Assessments Soft Tissue Assessment Soft Tissue Mobility Assessment Increased tension and tenderness to palpation at R UT, Levator Scapula, Supraspinatus, Deltoid, Pec Minor & Major, Rhomboids and Teres Major/Minor, Cervical paraspinals & Biceps Longus tendon attachment on the humerus. Joint Mobility Assessment Joint Mobility Assessment Decreased in Cervical spine due to pain. Other Manual Assessments Other Manual Assessments C3, C4, C5 tenderness at Transverse processes and facet joints. C5, C6, C7 tenderness at Transverse processes and rotated left. PT-OP-H Neuro Start: 03/02/19 16:56 Freq: Status: Active Protocol: Document 03/05/19 08:19 LRN (Rec: 03/05/19 09:21 LRN [id number]) Sensation Evaluation Gross Sensation Gross Sensation WNL Comments Summary Comments Sensation is normal to soft touch. Deep Tendon Reflex & Clonus Assessment Deep Tendon Reflex Bilateral Tricep Deep Tendon Reflex 0 Absent Bilateral Brachioradialis Deep Tendon Reflex 1+ Diminished Bilateral Bicep Deep Tendon Reflex 2+ Normal PT-OP-J Posture/Palpation/Skin Start: 03/02/19 16:56 Freq: Status: Active Protocol: Document 03/05/19 08:19 LRN (Rec: 03/05/19 09:21 LRN [id number]) Posture Evaluation Position Standing Evaluation View All positions Head/C-Spine Posture Forward Head T-Spine Posture Flattened Shoulder Posture (L) Rounded (R) Rounded (R) Forward (L) Elevated Scapula Posture (R) Depressed Arm Posture (L) Internally Rotated Palpation Assessment Location R shoulder Palpation Location Generally in shoulder and down upper arm, humeral head Palpation Findings Soft Tissue Tightness Tenderness PT-OP-K Range of Motion Start: 03/02/19 16:56 Freq: Status: Active Protocol: Document 03/05/19 08:19 LRN (Rec: 03/05/19 09:21 LRN [id number]) Cervical Spine Range of Motion Cervical Spine Active Percentage Testing Position Sitting Comments AROM is WNL. SB right caused L neck stiffness and kink Shoulder Goniometric Range of Motion Shoulder Measured in Degrees Right Active Shoulder ROM WFL Yes Testing Position Sitting Left Active Shoulder ROM WFL Yes Testing Position Sitting Shoulder ROM Limitations Shoulder ROM Limitations Pain Comments End-range pain, ROM was WNLs. PT-OP-L Special Tests Start: 03/02/19 16:56 Freq: Status: Active Protocol: Document 03/05/19 08:19 LRN (Rec: 03/05/19 09:21 LRN [id number]) Special Tests Cervical Spine Special Tests Traction Test Results Decreased R shoulder pain Shoulder Special Tests Elevation Impingement Test Results Positive Comments Onset of R shoulder pain. Briceño Teto Impingement Test Results Positive Comments Onset of R shoulder pain. PT-OP-M Strength Start: 03/02/19 16:56 Freq: Status: Active Protocol: Document 03/05/19 08:19 LRN (Rec: 03/05/19 09:21 LRN [id number]) Cervical Spine Strength Cervical Spine Manual Muscle Testing Testing Position Sitting Reason Not Measured WFL Shoulder Strength Shoulder Manual Muscle Testing Right Flexion 3 Fair Left Flexion 3- Fair- PT-OP-Q Treatments Start: 03/02/19 16:56 Freq: Status: Active Protocol: Document 03/15/19 08:17 LRN (Rec: 03/15/19 09:04 LRN [id number]) Therapeutic Exercises Supine Exercises Lat Pull Down Side bilateral Equipment Used Bar/Lev 2 T-Band Sitting Exercises Scapular Depression Sitting Exercise Name Scapular Depression Side right Resistance Manual Standing Exercises Scapular Depression Standing Exercise Name Scapular Depression Side bilateral Scapular pinches Side bilateral Shoulder IR Side bilateral Resistance Lev 2 T-Band Reps/Minutes 15 x Shoulder ER Side bilateral Resistance Lev 2 T-Band Reps/Minutes 15 x Manual Therapy Treatment Manual Traction Cervical Details Manual C/S traction supine & sitting Body Position Supine Reps/Duration 4' PT-OP-R Modalities Start: 03/02/19 16:56 Freq: Status: Active Protocol: Document 03/15/19 08:17 LRN (Rec: 03/15/19 09:04 LRN [id number]) Hot Pack/Cold Pack Treatment Cold Pack Location R shoulder Patient Position Supine Treatment Duration (minutes) 10 Patient Tolerance Good Ultrasound Therapy Treatment R Shoulder Treatment Duration (minutes) 8 Patient Position Sitting Coupling Medium Ultrasound Gel Mode Setting Pulsed Duty Cycle 50% Intensity Setting (w/cm2) 1.0 R Neck Treatment Duration (minutes) 8 Patient Position Sitting Coupling Medium Ultrasound Gel Mode Setting Continuous Intensity Setting (w/cm2) 1.5 PT-OP-T Assessment and Plan Start: 03/02/19 16:56 Freq: Status: Active Protocol: Document 03/15/19 08:17 LRN (Rec: 03/15/19 09:04 LRN [id number]) Physical Therapy Assessment Assessment Summary Assessment Pt has R shoulder pain in sitting not relieved with cervical traction but relieved with supine positioning. Possible C3-C7 involvement, but today only R shoulder pain . Pain primarily with return from end-range flexion @ ~20 deg's flexion. Pt with poor scapulohumeral rhythm due to minimal scapular depression with retraction. Relief of pain with ultrasound and some pain relief with cryotherapy. Physical Therapy Plan Frequency and Duration Frequency of Treatment 2x/Week Plan of Care Start Date 03/05/19 Plan of Care End Date 05/04/19 Next Visit Focus/Plan Next Note Type Treatment Note Next Visit Plan Review scapular depression/ retraction, and in supine or prone: manual mobilization of Cervical and upper thoracic spine, R rotator cuff stengthening & cervical traction (?mechanical vs manual), end with US or MH/ IFES trial to R shoulder.
--- NOTE | 2019-03-19 17:03 | PT.OTN ---
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 She describes her pain as an insidious onset, but does recall her grandson jumping into her arms once, otherwise she denies any incident or injury to the shoulder. She states the R shoulder has progressively worsened. She is worse at night after working all day and states the shoulder aches all over with pain radiating into the elbow. If she moves wrong she gets a shooting pain. Reaching overhead and lifting is most painful. At rest she feels like her shoulder is falling out of the socket, so she feels the need to rest it on a pillow. She states her R shoulder hurts most of the time, aches at night, but once she gets to sleep she has no problem sleeping. She sleeps on L side with arm propped up on a pillow. She states her L shoulder is now starting to hurt because she is having to compensate for the right. She reports a prior incident of R shoulder pain when she picked up a huge sack of clothes, heard a pop, and had R shoulder pain. At that time tests showed a possible small tear. She had physical therapy with good results. Prior Treatments and Tests None. Future Testing and Treatments Planned None Developmental History Developmental History She sought medical care in November 2018, was seen by physician in December and was able to schedule for physical therapy today, 03/05/2019. Treatment Goals Patient/Caregiver Goals Pt goal is to have no pain in the R shoulder. 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 Baseline Function- Other Always sleeps on L side. Able to cook, & clean without pain . Current Functional Impairments (Reported) Functional Limitations- ADL's Difficulty removing clothes, putting dishes high up on cupboards, lifting with R arm a gallon of milk, & making beds. Laundry is not a problem. Functional Limitations- Other Cooking and cleaning causes R shoulder pain. Personal Factors Other Personal Factors That May Effect Pt takes care of her grandkids Therapy/Recovery . PT-OP-C Subjective Start: 03/02/19 16:56 Freq: Status: Active Protocol: Document 03/19/19 08:16 LRN (Rec: 03/19/19 09:06 LRN [id number]) OP-PT Subjective Patient Comments Patient Comments States her R arm hurt a lot after the last session and the midback. Took medication and the next day the shoulder felt good. Today there is tightness. PT-OP-F Manual Assessment Start: 03/02/19 16:56 Freq: Status: Active Protocol: Document 03/05/19 08:19 LRN (Rec: 03/05/19 09:21 LRN [id number]) Manual Assessments Soft Tissue Assessment Soft Tissue Mobility Assessment Increased tension and tenderness to palpation at R UT, Levator Scapula, Supraspinatus, Deltoid, Pec Minor & Major, Rhomboids and Teres Major/Minor, Cervical paraspinals & Biceps Longus tendon attachment on the humerus. Joint Mobility Assessment Joint Mobility Assessment Decreased in Cervical spine due to pain. Other Manual Assessments Other Manual Assessments C3, C4, C5 tenderness at Transverse processes and facet joints. C5, C6, C7 tenderness at Transverse processes and rotated left. PT-OP-H Neuro Start: 03/02/19 16:56 Freq: Status: Active Protocol: Document 03/05/19 08:19 LRN (Rec: 03/05/19 09:21 LRN [id number]) Sensation Evaluation Gross Sensation Gross Sensation WNL Comments Summary Comments Sensation is normal to soft touch. Deep Tendon Reflex & Clonus Assessment Deep Tendon Reflex Bilateral Tricep Deep Tendon Reflex 0 Absent Bilateral Brachioradialis Deep Tendon Reflex 1+ Diminished Bilateral Bicep Deep Tendon Reflex 2+ Normal PT-OP-J Posture/Palpation/Skin Start: 03/02/19 16:56 Freq: Status: Active Protocol: Document 03/05/19 08:19 LRN (Rec: 03/05/19 09:21 LRN [id number]) Posture Evaluation Position Standing Evaluation View All positions Head/C-Spine Posture Forward Head T-Spine Posture Flattened Shoulder Posture (L) Rounded (R) Rounded (R) Forward (L) Elevated Scapula Posture (R) Depressed Arm Posture (L) Internally Rotated Palpation Assessment Location R shoulder Palpation Location Generally in shoulder and down upper arm, humeral head Palpation Findings Soft Tissue Tightness Tenderness PT-OP-K Range of Motion Start: 03/02/19 16:56 Freq: Status: Active Protocol: Document 03/05/19 08:19 LRN (Rec: 03/05/19 09:21 LRN [id number]) Cervical Spine Range of Motion Cervical Spine Active Percentage Testing Position Sitting Comments AROM is WNL. SB right caused L neck stiffness and kink Shoulder Goniometric Range of Motion Shoulder Measured in Degrees Right Active Shoulder ROM WFL Yes Testing Position Sitting Left Active Shoulder ROM WFL Yes Testing Position Sitting Shoulder ROM Limitations Shoulder ROM Limitations Pain Comments End-range pain, ROM was WNLs. PT-OP-L Special Tests Start: 03/02/19 16:56 Freq: Status: Active Protocol: Document 03/05/19 08:19 LRN (Rec: 03/05/19 09:21 LRN [id number]) Special Tests Cervical Spine Special Tests Traction Test Results Decreased R shoulder pain Shoulder Special Tests Elevation Impingement Test Results Positive Comments Onset of R shoulder pain. Briceño Teto Impingement Test Results Positive Comments Onset of R shoulder pain. PT-OP-M Strength Start: 03/02/19 16:56 Freq: Status: Active Protocol: Document 03/05/19 08:19 LRN (Rec: 03/05/19 09:21 LRN [id number]) Cervical Spine Strength Cervical Spine Manual Muscle Testing Testing Position Sitting Reason Not Measured WFL Shoulder Strength Shoulder Manual Muscle Testing Right Flexion 3 Fair Left Flexion 3- Fair- PT-OP-Q Treatments Start: 03/02/19 16:56 Freq: Status: Active Protocol: Document 03/19/19 08:16 LRN (Rec: 03/19/19 09:06 LRN [id number]) Cardio Equipment Recumbent Elliptical (Biodex) Duration (Minutes) 5 Resistance 1 Seat Position 8 Therapeutic Exercises Supine Exercises Lat Pull Down Side bilateral Equipment Used Bar/Lev 2 T-Band Reps/Minutes 15x R shoulder PROM Supine Exercise Name Jorge shoulder AROM Side bilateral Comments With and without C/S manual traction given Cervical Supine Exercise Name Isometric Deep Cervical Ext strengthening Reps/Minutes 10x with 5 sec hold Sidelying Exercises Shoulder ER Sidelying Exercise Name Shoulder ER Side right Resistance 2# Reps/Minutes 10 x 2, 5x Manual Therapy Treatment Soft Tissue Mobilization Upper Trap/Suprapinatus Mobilization Type Strumming Intensity/Depth Moderate Body Position Prone C7-T2 Body Location R Paraspinals Mobilization Type Sustained Pressure Trigger Point Release Intensity/Depth Moderate Body Position Supine Joint Mobilizations T3-T5 Joint T3-T4, T4-T5 Direction R Rotation Grade II Body Position Sidelying Comments Pt in L sidelye PT-OP-R Modalities Start: 03/02/19 16:56 Freq: Status: Active Protocol: Document 03/19/19 08:16 LRN (Rec: 03/19/19 09:06 LRN [id number]) Ultrasound Therapy Treatment R Shoulder Treatment Duration (minutes) 8 Frequency Setting (mHz) 1 Mode Setting Pulsed Duty Cycle 50% Comments R biceps tendon and supraspinatus attachment & Deltoid PT-OP-T Assessment and Plan Start: 03/02/19 16:56 Freq: Status: Active Protocol: Document 03/19/19 08:16 LRN (Rec: 03/19/19 09:06 LRN [id number]) Physical Therapy Assessment Goals Three Impairment Pain with lifting 1 gallon and reaching into cabinets overhead. Care Home Goal (LTG) Improve R shoulder strength and scapulohumeral rhythm such that the pt will be able to lift a a gallon jug and reach into cabinets overhead without stokes. LTG Duration 05/04/19 Two Impairment Pain in R shoulder with reaching overhead Short Term Goal (STG) Pt's normal R shoulder AROM and ability to dress without pain. STG Duration 03/30/19 One Impairment Pt lacks independent self care program. Immigration Law Specialist Goal (LTG) Pt will be independent with a self care HEP LTG Duration 05/04/19 Assessment Summary Assessment Pt R shoulder pain s/p therapy session in R Middle Deltoid. Pt had no pain with PROM in supine today. Ultrasound did not relieve the pain. Pt has a flattened mid thoracic probably causing her pain post therapy last session. Poor scapulohumeral rhythm but pt might not tolerate RC strengthening due to almost reverse curvature of the upper T/S spine at this time. Physical Therapy Plan Frequency and Duration Frequency of Treatment 2x/Week Plan of Care Start Date 03/05/19 Plan of Care End Date 05/04/19 Next Visit Focus/Plan Next Note Type Treatment Note Next Visit Plan Add T/S mob for flexion (T3-T6 ). Cont scapular depression/ retraction, and in supine; manual traction of Cervical spine, careful R rotator cuff stengthening, end MH/IFES trial to R shoulder/neck.
--- NOTE | 2019-03-22 16:30 | PT.OTN ---
Current Diagnoses Pain in right shoulder (03/22/19) Physical Therapy Treatment Note PT-OP-A Visit Information Start: 03/02/19 16:56 Freq: Status: Active Protocol: Document 03/22/19 08:16 LRN (Rec: 03/22/19 09:03 LRN [id number]) Out-Patient Physical Therapy Visit Information Visit Information Visit Type Treatment Note Visit Start Time 08:16 Visit Stop Time 09:06 Total Visit Minutes 50 Visit Number 6 Number of ENGRAVER PICTURE Visits 0 Evaluation Information Evaluation Date 03/05/19 Precautions Precautions Back pain PT-OP-B Current Condition Start: 03/02/19 16:56 Freq: Status: Active Protocol: Document 03/05/19 08:19 LRN (Rec: 03/05/19 09:21 LRN [id number]) Current Condition History of Current Condition Onset Date 09/2018 Current Complaints R shoulder pain, mostly constant ache History of Current Condition Pt states she noticed one day that she could barely hold a gallon of milk with her R arm. She describes her pain as an insidious onset, but does recall her grandson jumping into her arms once, otherwise she denies any incident or injury to the shoulder. She states the R shoulder has progressively worsened. She is worse at night after working all day and states the shoulder aches all over with pain radiating into the elbow. If she moves wrong she gets a shooting pain. Reaching overhead and lifting is most painful. At rest she feels like her shoulder is falling out of the socket, so she feels the need to rest it on a pillow. She states her R shoulder hurts most of the time, aches at night, but once she gets to sleep she has no problem sleeping. She sleeps on L side with arm propped up on a pillow. She states her L shoulder is now starting to hurt because she is having to compensate for the right. She reports a prior incident of R shoulder pain when she picked up a huge sack of clothes, heard a pop, and had R shoulder pain. At that time tests showed a possible small tear. She had physical therapy with good results. Prior Treatments and Tests None. Future Testing and Treatments Planned None Developmental History Developmental History She sought medical care in November 2018, was seen by physician in December and was able to schedule for physical therapy today, 03/05/2019. Treatment Goals Patient/Caregiver Goals Pt goal is to have no pain in the R shoulder. 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 Baseline Function- Other Always sleeps on L side. Able to cook, & clean without pain . Current Functional Impairments (Reported) Functional Limitations- ADL's Difficulty removing clothes, putting dishes high up on cupboards, lifting with R arm a gallon of milk, & making beds. Laundry is not a problem. Functional Limitations- Other Cooking and cleaning causes R shoulder pain. Personal Factors Other Personal Factors That May Effect Pt takes care of her grandkids Therapy/Recovery . PT-OP-C Subjective Start: 03/02/19 16:56 Freq: Status: Active Protocol: Document 03/22/19 08:16 LRN (Rec: 03/22/19 09:03 LRN [id number]) OP-PT Subjective Patient Comments Patient Comments States her shoulder didn't hurt as bad as the time before , but did hurt after last session and does hurt today. PT-OP-F Manual Assessment Start: 03/02/19 16:56 Freq: Status: Active Protocol: Document 03/05/19 08:19 LRN (Rec: 03/05/19 09:21 LRN [id number]) Manual Assessments Soft Tissue Assessment Soft Tissue Mobility Assessment Increased tension and tenderness to palpation at R UT, Levator Scapula, Supraspinatus, Deltoid, Pec Minor & Major, Rhomboids and Teres Major/Minor, Cervical paraspinals & Biceps Longus tendon attachment on the humerus. Joint Mobility Assessment Joint Mobility Assessment Decreased in Cervical spine due to pain. Other Manual Assessments Other Manual Assessments C3, C4, C5 tenderness at Transverse processes and facet joints. C5, C6, C7 tenderness at Transverse processes and rotated left. PT-OP-H Neuro Start: 03/02/19 16:56 Freq: Status: Active Protocol: Document 03/05/19 08:19 LRN (Rec: 03/05/19 09:21 LRN [id number]) Sensation Evaluation Gross Sensation Gross Sensation WNL Comments Summary Comments Sensation is normal to soft touch. Deep Tendon Reflex & Clonus Assessment Deep Tendon Reflex Bilateral Tricep Deep Tendon Reflex 0 Absent Bilateral Brachioradialis Deep Tendon Reflex 1+ Diminished Bilateral Bicep Deep Tendon Reflex 2+ Normal PT-OP-J Posture/Palpation/Skin Start: 03/02/19 16:56 Freq: Status: Active Protocol: Document 03/05/19 08:19 LRN (Rec: 03/05/19 09:21 LRN [id number]) Posture Evaluation Position Standing Evaluation View All positions Head/C-Spine Posture Forward Head T-Spine Posture Flattened Shoulder Posture (L) Rounded (R) Rounded (R) Forward (L) Elevated Scapula Posture (R) Depressed Arm Posture (L) Internally Rotated Palpation Assessment Location R shoulder Palpation Location Generally in shoulder and down upper arm, humeral head Palpation Findings Soft Tissue Tightness Tenderness PT-OP-K Range of Motion Start: 03/02/19 16:56 Freq: Status: Active Protocol: Document 03/05/19 08:19 LRN (Rec: 03/05/19 09:21 LRN [id number]) Cervical Spine Range of Motion Cervical Spine Active Percentage Testing Position Sitting Comments AROM is WNL. SB right caused L neck stiffness and kink Shoulder Goniometric Range of Motion Shoulder Measured in Degrees Right Active Shoulder ROM WFL Yes Testing Position Sitting Left Active Shoulder ROM WFL Yes Testing Position Sitting Shoulder ROM Limitations Shoulder ROM Limitations Pain Comments End-range pain, ROM was WNLs. PT-OP-L Special Tests Start: 03/02/19 16:56 Freq: Status: Active Protocol: Document 03/05/19 08:19 LRN (Rec: 03/05/19 09:21 LRN [id number]) Special Tests Cervical Spine Special Tests Traction Test Results Decreased R shoulder pain Shoulder Special Tests Elevation Impingement Test Results Positive Comments Onset of R shoulder pain. Briceño Teto Impingement Test Results Positive Comments Onset of R shoulder pain. PT-OP-M Strength Start: 03/02/19 16:56 Freq: Status: Active Protocol: Document 03/05/19 08:19 LRN (Rec: 03/05/19 09:21 LRN [id number]) Cervical Spine Strength Cervical Spine Manual Muscle Testing Testing Position Sitting Reason Not Measured WFL Shoulder Strength Shoulder Manual Muscle Testing Right Flexion 3 Fair Left Flexion 3- Fair- PT-OP-Q Treatments Start: 03/02/19 16:56 Freq: Status: Active Protocol: Document 03/22/19 08:16 LRN (Rec: 03/22/19 09:03 LRN [id number]) Cardio Equipment Recumbent Elliptical (Biodex) Duration (Minutes) 6 Resistance 1 Seat Position 8 Therapeutic Exercises Supine Exercises R shoulder PROM Supine Exercise Name R shoulder PROM/Arom Side bilateral Comments With and without C/S manual traction given Sitting Exercises Upper thoracic stretch Sitting Exercise Name Rounding shoulders and lying over T-Ball (red) Reps/Minutes 6' Scapular Depression Sitting Exercise Name Scapular Depression Side bilateral Reps/Minutes 8' Comments Manual cuing Standing Exercises Upper Rhomboid stretch Standing Exercise Name Doorway stretch (arms above 90 deg's) Side bilateral Reps/Minutes 3' Comments Upper thoracic rhomboid stretch Scapular Depression Standing Exercise Name Scapular Depression Side bilateral Manual Therapy Treatment Joint Mobilizations T3-T5 Joint T3-T4, T4-T5 Direction Flex mob Grade III Body Position Sitting Reps/Duration 5' Manual Techniques MWM Type R scapular depression/ retraction with flex Body Location R Scapula Body Position sitting & supine Reps/Duration 20' PT-OP-R Modalities Start: 03/02/19 16:56 Freq: Status: Active Protocol: Document 03/19/19 08:16 LRN (Rec: 03/19/19 09:06 LRN [id number]) Ultrasound Therapy Treatment R Shoulder Treatment Duration (minutes) 8 Frequency Setting (mHz) 1 Mode Setting Pulsed Duty Cycle 50% Comments R biceps tendon and supraspinatus attachment & Deltoid PT-OP-T Assessment and Plan Start: 03/02/19 16:56 Freq: Status: Active Protocol: Document 03/22/19 08:16 LRN (Rec: 03/22/19 09:03 LRN [id number]) Physical Therapy Assessment Assessment Summary Assessment Pt had no pain with AROM in supine or sitting with MWM of scapula after T/S mobs and stretching. Pt is able to round out the upper>mid thoracic spine with doorway stretching. Poor scapulohumeral rhythm. Further training needed. Physical Therapy Plan Frequency and Duration Frequency of Treatment 2x/Week Plan of Care Start Date 03/05/19 Plan of Care End Date 05/04/19 Next Visit Focus/Plan Next Note Type Treatment Note Next Visit Plan Cont T/S mob for flexion (T3- T6), MWM for training of scapular depression/retraction , careful R rotator cuff stengthening. Pt doing cervical traction at home with her purchased home device (10 -20' per session as needed).
--- NOTE | 2019-03-26 17:00 | PT.OTN ---
Current Diagnoses Pain in right shoulder (03/26/19) Physical Therapy Treatment Note PT-OP-A Visit Information Start: 03/02/19 16:56 Freq: Status: Active Protocol: Document 03/26/19 08:15 LRN (Rec: 03/26/19 09:05 LRN [id number]) Out-Patient Physical Therapy Visit Information Visit Information Visit Type Treatment Note Visit Start Time 08:15 Visit Stop Time 09:05 Total Visit Minutes 50 Visit Number 7 Number of LETTERER Visits 0 Evaluation Information Evaluation Date 03/05/19 Precautions Precautions Back pain PT-OP-B Current Condition Start: 03/02/19 16:56 Freq: Status: Active Protocol: Document 03/05/19 08:19 LRN (Rec: 03/05/19 09:21 LRN [id number]) Current Condition History of Current Condition Onset Date 09/2018 Current Complaints R shoulder pain, mostly constant ache History of Current Condition Pt states she noticed one day that she could barely hold a gallon of milk with her R arm. She describes her pain as an insidious onset, but does recall her grandson jumping into her arms once, otherwise she denies any incident or injury to the shoulder. She states the R shoulder has progressively worsened. She is worse at night after working all day and states the shoulder aches all over with pain radiating into the elbow. If she moves wrong she gets a shooting pain. Reaching overhead and lifting is most painful. At rest she feels like her shoulder is falling out of the socket, so she feels the need to rest it on a pillow. She states her R shoulder hurts most of the time, aches at night, but once she gets to sleep she has no problem sleeping. She sleeps on L side with arm propped up on a pillow. She states her L shoulder is now starting to hurt because she is having to compensate for the right. She reports a prior incident of R shoulder pain when she picked up a huge sack of clothes, heard a pop, and had R shoulder pain. At that time tests showed a possible small tear. She had physical therapy with good results. Prior Treatments and Tests None. Future Testing and Treatments Planned None Developmental History Developmental History She sought medical care in November 2018, was seen by physician in December and was able to schedule for physical therapy today, 03/05/2019. Treatment Goals Patient/Caregiver Goals Pt goal is to have no pain in the R shoulder. 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 Baseline Function- Other Always sleeps on L side. Able to cook, & clean without pain . Current Functional Impairments (Reported) Functional Limitations- ADL's Difficulty removing clothes, putting dishes high up on cupboards, lifting with R arm a gallon of milk, & making beds. Laundry is not a problem. Functional Limitations- Other Cooking and cleaning causes R shoulder pain. Personal Factors Other Personal Factors That May Effect Pt takes care of her grandkids Therapy/Recovery . PT-OP-C Subjective Start: 03/02/19 16:56 Freq: Status: Active Protocol: Document 03/26/19 08:15 LRN (Rec: 03/26/19 09:05 LRN [id number]) OP-PT Subjective Patient Comments Patient Comments States she was lifting things with the R shouloder and did ex that night and is in pain today with lifting of the arm. Feels she is way better. Slept OK, can lie on the shoulder to sleep. PT-OP-F Manual Assessment Start: 03/02/19 16:56 Freq: Status: Active Protocol: Document 03/05/19 08:19 LRN (Rec: 03/05/19 09:21 LRN [id number]) Manual Assessments Soft Tissue Assessment Soft Tissue Mobility Assessment Increased tension and tenderness to palpation at R UT, Levator Scapula, Supraspinatus, Deltoid, Pec Minor & Major, Rhomboids and Teres Major/Minor, Cervical paraspinals & Biceps Longus tendon attachment on the humerus. Joint Mobility Assessment Joint Mobility Assessment Decreased in Cervical spine due to pain. Other Manual Assessments Other Manual Assessments C3, C4, C5 tenderness at Transverse processes and facet joints. C5, C6, C7 tenderness at Transverse processes and rotated left. PT-OP-H Neuro Start: 03/02/19 16:56 Freq: Status: Active Protocol: Document 03/05/19 08:19 LRN (Rec: 03/05/19 09:21 LRN [id number]) Sensation Evaluation Gross Sensation Gross Sensation WNL Comments Summary Comments Sensation is normal to soft touch. Deep Tendon Reflex & Clonus Assessment Deep Tendon Reflex Bilateral Tricep Deep Tendon Reflex 0 Absent Bilateral Brachioradialis Deep Tendon Reflex 1+ Diminished Bilateral Bicep Deep Tendon Reflex 2+ Normal PT-OP-J Posture/Palpation/Skin Start: 03/02/19 16:56 Freq: Status: Active Protocol: Document 03/05/19 08:19 LRN (Rec: 03/05/19 09:21 LRN [id number]) Posture Evaluation Position Standing Evaluation View All positions Head/C-Spine Posture Forward Head T-Spine Posture Flattened Shoulder Posture (L) Rounded (R) Rounded (R) Forward (L) Elevated Scapula Posture (R) Depressed Arm Posture (L) Internally Rotated Palpation Assessment Location R shoulder Palpation Location Generally in shoulder and down upper arm, humeral head Palpation Findings Soft Tissue Tightness Tenderness PT-OP-K Range of Motion Start: 03/02/19 16:56 Freq: Status: Active Protocol: Document 03/05/19 08:19 LRN (Rec: 03/05/19 09:21 LRN [id number]) Cervical Spine Range of Motion Cervical Spine Active Percentage Testing Position Sitting Comments AROM is WNL. SB right caused L neck stiffness and kink Shoulder Goniometric Range of Motion Shoulder Measured in Degrees Right Active Shoulder ROM WFL Yes Testing Position Sitting Left Active Shoulder ROM WFL Yes Testing Position Sitting Shoulder ROM Limitations Shoulder ROM Limitations Pain Comments End-range pain, ROM was WNLs. PT-OP-L Special Tests Start: 03/02/19 16:56 Freq: Status: Active Protocol: Document 03/05/19 08:19 LRN (Rec: 03/05/19 09:21 LRN [id number]) Special Tests Cervical Spine Special Tests Traction Test Results Decreased R shoulder pain Shoulder Special Tests Elevation Impingement Test Results Positive Comments Onset of R shoulder pain. Briceño Teto Impingement Test Results Positive Comments Onset of R shoulder pain. PT-OP-M Strength Start: 03/02/19 16:56 Freq: Status: Active Protocol: Document 03/05/19 08:19 LRN (Rec: 03/05/19 09:21 LRN [id number]) Cervical Spine Strength Cervical Spine Manual Muscle Testing Testing Position Sitting Reason Not Measured WFL Shoulder Strength Shoulder Manual Muscle Testing Right Flexion 3 Fair Left Flexion 3- Fair- PT-OP-Q Treatments Start: 04/05/19 16:56 Freq: Status: Active Protocol: Document 03/26/19 08:15 LRN (Rec: 03/26/19 09:05 LRN [id number]) Cardio Equipment Recumbent Elliptical (Biodex) Duration (Minutes) 7 Resistance 1 Seat Position 8 Other MWM to start: scapular retraction with PA of Humeral head Therapeutic Exercises Supine Exercises Shoulder IR Supine Exercise Name Active IR with MWM Reps/Minutes 10x 2 Lat Pull Down Side bilateral Equipment Used Bar/Lev 2 T-Band Reps/Minutes 15x2 R shoulder PROM Supine Exercise Name R shoulder PROM/Arom Side bilateral Comments With and without C/S manual traction given Sitting Exercises Upper thoracic stretch Sitting Exercise Name Rounding shoulders and lying over T-Ball (red) Reps/Minutes 4' Standing Exercises Upper Rhomboid stretch Standing Exercise Name Doorway stretch (arms above 90 deg's) Side bilateral Reps/Minutes 3' Comments Upper thoracic rhomboid stretch Scapular Depression Standing Exercise Name Scapular Depression Side bilateral Manual Therapy Treatment Soft Tissue Mobilization Upper Trap/Suprapinatus Mobilization Type Strumming Intensity/Depth Moderate Body Position Prone C7-T2 Body Location R Paraspinals Mobilization Type Sustained Pressure Trigger Point Release Intensity/Depth Moderate Body Position Supine Joint Mobilizations T3-T5 Joint T3-T4, T4-T5 Direction Flex mob Grade III Body Position Sitting Reps/Duration 5' Manual Techniques MWM Type R scapular depression/ retraction with flex Body Location R Scapula Body Position sitting & supine Reps/Duration 20' PT-OP-R Modalities Start: 03/02/19 16:56 Freq: Status: Active Protocol: Document 03/19/19 08:16 LRN (Rec: 03/19/19 09:06 LRN [id number]) Ultrasound Therapy Treatment R Shoulder Treatment Duration (minutes) 8 Frequency Setting (mHz) 1 Mode Setting Pulsed Duty Cycle 50% Comments R biceps tendon and supraspinatus attachment & Deltoid PT-OP-T Assessment and Plan Start: 03/02/19 16:56 Freq: Status: Active Protocol: Document 03/26/19 08:15 LRN (Rec: 03/26/19 09:05 LRN [id number]) Physical Therapy Assessment Goals Three Impairment Pain with lifting 1 gallon and reaching into cabinets overhead. Special Distribution Clerk Goal (LTG) Improve R shoulder strength and scapulohumeral rhythm such that the pt will be able to lift a a gallon jug and reach into cabinets overhead without stokes. LTG Duration 05/04/19 Two Impairment Pain in R shoulder with reaching overhead Short Term Goal (STG) Pt's normal R shoulder AROM and ability to dress without pain. STG Duration 03/30/19 One Impairment Pt lacks independent self care program. Penitentiary Goal (LTG) Pt will be independent with a self care HEP LTG Duration 05/04/19 Assessment Summary Assessment Able to achieve painfree full range for R shoulder flex, ER with MWM to mobilize scapula in retraction/depression. R Rhomboids tight, possible Subscapularis soft tissue dysfunction with tenderness along the medial scapular border. Pt can raise arms overhead after MWM training. 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 Possible use of US at R medial scapular border for pain relief. Pt doing cervical traction at home with her purchased home device (10-20' per session as needed).
--- NOTE | 2019-03-29 09:21 | PT.OTN ---
Current Diagnoses Pain in right shoulder (03/29/19) Physical Therapy Treatment Note PT-OP-A Visit Information Start: 03/02/19 16:56 Freq: Status: Active Protocol: Document 03/29/19 08:15 LRN (Rec: 03/29/19 09:18 LRN [id number]) Out-Patient Physical Therapy Visit Information Visit Information Visit Type Treatment Note Visit Start Time 08:15 Visit Stop Time 09:00 Total Visit Minutes 45 Visit Number 8 Number of DRAFTER SEISMOGRAPH Visits 0 Evaluation Information Evaluation Date 03/05/19 Precautions Precautions Back pain PT-OP-B Current Condition Start: 03/02/19 16:56 Freq: Status: Active Protocol: Document 03/05/19 08:19 LRN (Rec: 03/05/19 09:21 LRN [id number]) Current Condition History of Current Condition Onset Date 09/2018 Current Complaints R shoulder pain, mostly constant ache History of Current Condition Pt states she noticed one day that she could barely hold a gallon of milk with her R arm. She describes her pain as an insidious onset, but does recall her grandson jumping into her arms once, otherwise she denies any incident or injury to the shoulder. She states the R shoulder has progressively worsened. She is worse at night after working all day and states the shoulder aches all over with pain radiating into the elbow. If she moves wrong she gets a shooting pain. Reaching overhead and lifting is most painful. At rest she feels like her shoulder is falling out of the socket, so she feels the need to rest it on a pillow. She states her R shoulder hurts most of the time, aches at night, but once she gets to sleep she has no problem sleeping. She sleeps on L side with arm propped up on a pillow. She states her L shoulder is now starting to hurt because she is having to compensate for the right. She reports a prior incident of R shoulder pain when she picked up a huge sack of clothes, heard a pop, and had R shoulder pain. At that time tests showed a possible small tear. She had physical therapy with good results. Prior Treatments and Tests None. Future Testing and Treatments Planned None Developmental History Developmental History She sought medical care in November 2018, was seen by physician in December and was able to schedule for physical therapy today, 03/05/2019. Treatment Goals Patient/Caregiver Goals Pt goal is to have no pain in the R shoulder. 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 Baseline Function- Other Always sleeps on L side. Able to cook, & clean without pain . Current Functional Impairments (Reported) Functional Limitations- ADL's Difficulty removing clothes, putting dishes high up on cupboards, lifting with R arm a gallon of milk, & making beds. Laundry is not a problem. Functional Limitations- Other Cooking and cleaning causes R shoulder pain. Personal Factors Other Personal Factors That May Effect Pt takes care of her grandkids Therapy/Recovery . PT-OP-C Subjective Start: 03/02/19 16:56 Freq: Status: Active Protocol: Document 03/29/19 08:15 LRN (Rec: 03/29/19 09:18 LRN [id number]) OP-PT Subjective Patient Comments Patient Comments .............. PT-OP-F Manual Assessment Start: 03/02/19 16:56 Freq: Status: Active Protocol: Document 03/05/19 08:19 LRN (Rec: 03/05/19 09:21 LRN [id number]) Manual Assessments Soft Tissue Assessment Soft Tissue Mobility Assessment Increased tension and tenderness to palpation at R UT, Levator Scapula, Supraspinatus, Deltoid, Pec Minor & Major, Rhomboids and Teres Major/Minor, Cervical paraspinals & Biceps Longus tendon attachment on the humerus. Joint Mobility Assessment Joint Mobility Assessment Decreased in Cervical spine due to pain. Other Manual Assessments Other Manual Assessments C3, C4, C5 tenderness at Transverse processes and facet joints. C5, C6, C7 tenderness at Transverse processes and rotated left. PT-OP-H Neuro Start: 03/02/19 16:56 Freq: Status: Active Protocol: Document 03/05/19 08:19 LRN (Rec: 03/05/19 09:21 LRN [id number]) Sensation Evaluation Gross Sensation Gross Sensation WNL Comments Summary Comments Sensation is normal to soft touch. Deep Tendon Reflex & Clonus Assessment Deep Tendon Reflex Bilateral Tricep Deep Tendon Reflex 0 Absent Bilateral Brachioradialis Deep Tendon Reflex 1+ Diminished Bilateral Bicep Deep Tendon Reflex 2+ Normal PT-OP-J Posture/Palpation/Skin Start: 03/02/19 16:56 Freq: Status: Active Protocol: Document 03/05/19 08:19 LRN (Rec: 03/05/19 09:21 LRN [id number]) Posture Evaluation Position Standing Evaluation View All positions Head/C-Spine Posture Forward Head T-Spine Posture Flattened Shoulder Posture (L) Rounded (R) Rounded (R) Forward (L) Elevated Scapula Posture (R) Depressed Arm Posture (L) Internally Rotated Palpation Assessment Location R shoulder Palpation Location Generally in shoulder and down upper arm, humeral head Palpation Findings Soft Tissue Tightness Tenderness PT-OP-K Range of Motion Start: 03/02/19 16:56 Freq: Status: Active Protocol: Document 03/05/19 08:19 LRN (Rec: 03/05/19 09:21 LRN [id number]) Cervical Spine Range of Motion Cervical Spine Active Percentage Testing Position Sitting Comments AROM is WNL. SB right caused L neck stiffness and kink Shoulder Goniometric Range of Motion Shoulder Measured in Degrees Right Active Shoulder ROM WFL Yes Testing Position Sitting Left Active Shoulder ROM WFL Yes Testing Position Sitting Shoulder ROM Limitations Shoulder ROM Limitations Pain Comments End-range pain, ROM was WNLs. PT-OP-L Special Tests Start: 03/02/19 16:56 Freq: Status: Active Protocol: Document 03/05/19 08:19 LRN (Rec: 03/05/19 09:21 LRN [id number]) Special Tests Cervical Spine Special Tests Traction Test Results Decreased R shoulder pain Shoulder Special Tests Elevation Impingement Test Results Positive Comments Onset of R shoulder pain. Briceño Teto Impingement Test Results Positive Comments Onset of R shoulder pain. PT-OP-M Strength Start: 03/02/19 16:56 Freq: Status: Active Protocol: Document 03/05/19 08:19 LRN (Rec: 03/05/19 09:21 LRN [id number]) Cervical Spine Strength Cervical Spine Manual Muscle Testing Testing Position Sitting Reason Not Measured WFL Shoulder Strength Shoulder Manual Muscle Testing Right Flexion 3 Fair Left Flexion 3- Fair- PT-OP-Q Treatments Start: 03/02/19 16:56 Freq: Status: Active Protocol: Document 03/29/19 08:15 LRN (Rec: 03/29/19 09:18 LRN [id number]) Cardio Equipment Upper Body Ergometer (UBE) Duration (Minutes) 8 RPM 70 Seat Position 14 Height 3.5 Therapeutic Exercises Supine Exercises Lat Pull Down Side bilateral Equipment Used Bar/Lev 3 T-Band Reps/Minutes 10x1 R shoulder PROM Supine Exercise Name R shoulder PROM/Arom Side bilateral Reps/Minutes 4' Sitting Exercises Lifting overhead Sitting Exercise Name Press ups overhead holding wgt w/both hands Side bilateral Resistance 1.5 Equipment Used Hand weight Comments 30 & 90 deg's arch pain on lift without cognitive scapular training Upper thoracic stretch Sitting Exercise Name Rounding shoulders and lying over T-Ball (red) Reps/Minutes 4' Scapular Depression Sitting Exercise Name Scapular Depression Side bilateral Reps/Minutes 8' Comments Manual cuing Manual Therapy Treatment Manual Techniques MWM Type R scapular depression/ retraction with flex Body Location R Scapula Body Position sitting & supine Reps/Duration 15' Self-Care/Home Management Treatment Education Patient Education Safety Activities Self-Care/Home Management Activities Reviewed with pt her inflatable cervical traction unit for safety and discussed usage. PT-OP-R Modalities Start: 03/02/19 16:56 Freq: Status: Active Protocol: Document 03/19/19 08:16 LRN (Rec: 03/19/19 09:06 LRN [id number]) Ultrasound Therapy Treatment R Shoulder Treatment Duration (minutes) 8 Frequency Setting (mHz) 1 Mode Setting Pulsed Duty Cycle 50% Comments R biceps tendon and supraspinatus attachment & Deltoid PT-OP-T Assessment and Plan Start: 03/02/19 16:56 Freq: Status: Active Protocol: Document 03/29/19 08:15 LRN (Rec: 03/29/19 09:18 LRN [id number]) Physical Therapy Assessment Goals Three Impairment Pain with lifting 1 gallon and reaching into cabinets overhead. Mcfp Goal (LTG) Improve R shoulder strength and scapulohumeral rhythm such that the pt will be able to lift a a gallon jug and reach into cabinets overhead without stokes. LTG Duration 05/04/19 Two Impairment Pain in R shoulder with reaching overhead Short Term Goal (STG) Pt's normal R shoulder AROM and ability to dress without pain. STG Duration 03/30/19 One Impairment Pt lacks independent self care program. Development Officer Goal (LTG) Pt will be independent with a self care HEP LTG Duration 05/04/19 Assessment Summary Assessment Pain free R shoulder AROM in sit and supine with MWM of scapular depression and mild retraction. Tightness present in R Rhomboids. Palpable pain at R subacromial region, possibly Supraspinatus and/or Subscapularis attachment. Physical Therapy Plan Frequency and Duration Frequency of Treatment 2x/Week Plan of Care Start Date 03/05/19 Plan of Care End Date 05/04/19 Next Visit Focus/Plan Next Note Type Treatment Note Next Visit Plan Start scapularhumeral rhythm training for lifting. Cont T /S for flexion (T3-T6) & stretch R rhomboids, MWM for training of R scapular depression/retraction, careful R rotator cuff stengthening with pt report of prior RCT of unknown muscle group, possibly Subscapularis or Supraspinatus or Subscapularis . Check for need of US at R medial scapular border for pain relief. Pt doing cervical traction at home with her purchased home device (10 -20' per session as needed).
--- NOTE | 2019-04-02 16:57 | PT.OTN ---
Current Diagnoses Pain in right shoulder (04/02/19) Physical Therapy Treatment Note PT-OP-A Visit Information Start: 03/02/19 16:56 Freq: Status: Active Protocol: Document 04/02/19 08:18 LRN (Rec: 04/02/19 09:04 LRN [id number]) Out-Patient Physical Therapy Visit Information Visit Information Visit Type Treatment Note Visit Start Time 08:18 Visit Stop Time 09:00 Total Visit Minutes 42 Visit Number 9 Number of JEEPER OPERATOR Visits 0 Evaluation Information Evaluation Date 03/05/19 Precautions Precautions Back pain PT-OP-B Current Condition Start: 03/02/19 16:56 Freq: Status: Active Protocol: Document 03/05/19 08:19 LRN (Rec: 03/05/19 09:21 LRN [id number]) Current Condition History of Current Condition Onset Date 09/2018 Current Complaints R shoulder pain, mostly constant ache History of Current Condition Pt states she noticed one day that she could barely hold a gallon of milk with her R arm. She describes her pain as an insidious onset, but does recall her grandson jumping into her arms once, otherwise she denies any incident or injury to the shoulder. She states the R shoulder has progressively worsened. She is worse at night after working all day and states the shoulder aches all over with pain radiating into the elbow. If she moves wrong she gets a shooting pain. Reaching overhead and lifting is most painful. At rest she feels like her shoulder is falling out of the socket, so she feels the need to rest it on a pillow. She states her R shoulder hurts most of the time, aches at night, but once she gets to sleep she has no problem sleeping. She sleeps on L side with arm propped up on a pillow. She states her L shoulder is now starting to hurt because she is having to compensate for the right. She reports a prior incident of R shoulder pain when she picked up a huge sack of clothes, heard a pop, and had R shoulder pain. At that time tests showed a possible small tear. She had physical therapy with good results. Prior Treatments and Tests None. Future Testing and Treatments Planned None Developmental History Developmental History She sought medical care in November 2018, was seen by physician in December and was able to schedule for physical therapy today, 03/05/2019. Treatment Goals Patient/Caregiver Goals Pt goal is to have no pain in the R shoulder. 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 Baseline Function- Other Always sleeps on L side. Able to cook, & clean without pain . Current Functional Impairments (Reported) Functional Limitations- ADL's Difficulty removing clothes, putting dishes high up on cupboards, lifting with R arm a gallon of milk, & making beds. Laundry is not a problem. Functional Limitations- Other Cooking and cleaning causes R shoulder pain. Personal Factors Other Personal Factors That May Effect Pt takes care of her grandkids Therapy/Recovery . PT-OP-C Subjective Start: 03/02/19 16:56 Freq: Status: Active Protocol: Document 04/02/19 08:18 LRN (Rec: 04/02/19 09:04 LRN [id number]) OP-PT Subjective Patient Comments Patient Comments States she is doing better. When she has the pain she pulls her scapula down and in and her pain goes away. PT-OP-F Manual Assessment Start: 03/02/19 16:56 Freq: Status: Active Protocol: Document 03/05/19 08:19 LRN (Rec: 03/05/19 09:21 LRN [id number]) Manual Assessments Soft Tissue Assessment Soft Tissue Mobility Assessment Increased tension and tenderness to palpation at R UT, Levator Scapula, Supraspinatus, Deltoid, Pec Minor & Major, Rhomboids and Teres Major/Minor, Cervical paraspinals & Biceps Longus tendon attachment on the humerus. Joint Mobility Assessment Joint Mobility Assessment Decreased in Cervical spine due to pain. Other Manual Assessments Other Manual Assessments C3, C4, C5 tenderness at Transverse processes and facet joints. C5, C6, C7 tenderness at Transverse processes and rotated left. PT-OP-H Neuro Start: 03/02/19 16:56 Freq: Status: Active Protocol: Document 03/05/19 08:19 LRN (Rec: 03/05/19 09:21 LRN [id number]) Sensation Evaluation Gross Sensation Gross Sensation WNL Comments Summary Comments Sensation is normal to soft touch. Deep Tendon Reflex & Clonus Assessment Deep Tendon Reflex Bilateral Tricep Deep Tendon Reflex 0 Absent Bilateral Brachioradialis Deep Tendon Reflex 1+ Diminished Bilateral Bicep Deep Tendon Reflex 2+ Normal PT-OP-J Posture/Palpation/Skin Start: 03/02/19 16:56 Freq: Status: Active Protocol: Document 03/05/19 08:19 LRN (Rec: 03/05/19 09:21 LRN [id number]) Posture Evaluation Position Standing Evaluation View All positions Head/C-Spine Posture Forward Head T-Spine Posture Flattened Shoulder Posture (L) Rounded (R) Rounded (R) Forward (L) Elevated Scapula Posture (R) Depressed Arm Posture (L) Internally Rotated Palpation Assessment Location R shoulder Palpation Location Generally in shoulder and down upper arm, humeral head Palpation Findings Soft Tissue Tightness Tenderness PT-OP-K Range of Motion Start: 03/02/19 16:56 Freq: Status: Active Protocol: Document 03/05/19 08:19 LRN (Rec: 03/05/19 09:21 LRN [id number]) Cervical Spine Range of Motion Cervical Spine Active Percentage Testing Position Sitting Comments AROM is WNL. SB right caused L neck stiffness and kink Shoulder Goniometric Range of Motion Shoulder Measured in Degrees Right Active Shoulder ROM WFL Yes Testing Position Sitting Left Active Shoulder ROM WFL Yes Testing Position Sitting Shoulder ROM Limitations Shoulder ROM Limitations Pain Comments End-range pain, ROM was WNLs. PT-OP-L Special Tests Start: 03/02/19 16:56 Freq: Status: Active Protocol: Document 03/05/19 08:19 LRN (Rec: 03/05/19 09:21 LRN [id number]) Special Tests Cervical Spine Special Tests Traction Test Results Decreased R shoulder pain Shoulder Special Tests Elevation Impingement Test Results Positive Comments Onset of R shoulder pain. Briceño Teto Impingement Test Results Positive Comments Onset of R shoulder pain. PT-OP-M Strength Start: 03/02/19 16:56 Freq: Status: Active Protocol: Document 03/05/19 08:19 LRN (Rec: 03/05/19 09:21 LRN [id number]) Cervical Spine Strength Cervical Spine Manual Muscle Testing Testing Position Sitting Reason Not Measured WFL Shoulder Strength Shoulder Manual Muscle Testing Right Flexion 3 Fair Left Flexion 3- Fair- PT-OP-Q Treatments Start: 03/02/19 16:56 Freq: Status: Active Protocol: Document 04/02/19 08:18 LRN (Rec: 04/02/19 09:04 LRN [id number]) Cardio Equipment Upper Body Ergometer (UBE) Duration (Minutes) 9 RPM 70 Seat Position 14 Height 3.5 Other fwd/bkwd Therapeutic Exercises Supine Exercises Shoulder IR Supine Exercise Name Active IR Reps/Minutes 5x Lat Pull Down Side bilateral Equipment Used Bar/Lev 3 T-Band Reps/Minutes 10x1 R shoulder PROM Supine Exercise Name R shoulder PROM/Arom Side bilateral Reps/Minutes 2' Sitting Exercises Lifting overhead Sitting Exercise Name Press ups overhead holding wgt w/both hands Side bilateral Resistance 1#, 2# Equipment Used Hand weight Comments No pain with full arch Upper thoracic stretch Sitting Exercise Name Rounding shoulders and lying over T-Ball (red) Reps/Minutes 4' Standing Exercises Shoulder Horiz ADD Standing Exercise Name R Shoulder horiz AD Side right Comments 10x after MWM Upper Rhomboid stretch Standing Exercise Name Doorway stretch (arms above 90 deg's) Side bilateral Reps/Minutes 4' Comments Upper thoracic rhomboid stretch, focus on R Manual Therapy Treatment Joint Mobilizations T3-T5 Joint T3-T4, T4-T5 Direction Flex mob Grade III Body Position Sitting Reps/Duration 5' Manual Techniques MWM Type R scapular depression/ retraction with flex & horiz ADD Body Location R Scapula Body Position sitting & supine Reps/Duration 15' Self-Care/Home Management Treatment Education Patient Education Home Exercise Program Activities Self-Care/Home Management Activities I/S pt to start overhead lift ex at home 2#, stretch to R rhomboid in doorway and sitting forward bending. PT-OP-R Modalities Start: 03/02/19 16:56 Freq: Status: Active Protocol: Document 03/19/19 08:16 LRN (Rec: 03/19/19 09:06 LRN [id number]) Ultrasound Therapy Treatment R Shoulder Treatment Duration (minutes) 8 Frequency Setting (mHz) 1 Mode Setting Pulsed Duty Cycle 50% Comments R biceps tendon and supraspinatus attachment & Deltoid PT-OP-T Assessment and Plan Start: 03/02/19 16:56 Freq: Status: Active Protocol: Document 04/02/19 08:18 LRN (Rec: 04/02/19 09:04 LRN [id number]) Physical Therapy Assessment Assessment Summary Assessment Pt progressing, she is able to independently reach overhead with a light weight without pain. Tightness is present in R Rhomboids, but no pain with palpation at R medial scapular border. Palpable pain at R subacromial region, possibly Supraspinatus and/or Subscapularis attachment. Pt is not using Cervical pillow unless needed for neck or shoulder pain. Physical Therapy Plan Frequency and Duration Frequency of Treatment 2x/Week Plan of Care Start Date 03/05/19 Plan of Care End Date 05/04/19 Next Visit Focus/Plan Next Note Type Progress Note Next Visit Plan SHR training for lifting overhead Mobilize T3-T6 for flex MWM for SHR training Very careful RC strengthening due to possible injury to Supra or Subscap, if needed .
--- NOTE | 2019-04-05 16:59 | PT.OTN ---
Current Diagnoses Pain in right shoulder (04/05/19) Physical Therapy Treatment Note PT-OP-A Visit Information Start: 03/02/19 16:56 Freq: Status: Active Protocol: Document 04/05/19 08:17 LRN (Rec: 04/05/19 09:20 LRN [id number]) Out-Patient Physical Therapy Visit Information Visit Information Visit Type Progress Note Visit Start Time 08:17 Visit Stop Time 09:01 Total Visit Minutes 46 Visit Number 10 Number of MANUFACTURING RECRUITER Visits 0 Evaluation Information Evaluation Date 03/05/19 Precautions Precautions Back pain PT-OP-B Current Condition Start: 03/02/19 16:56 Freq: Status: Active Protocol: Document 03/05/19 08:19 LRN (Rec: 03/05/19 09:21 LRN [id number]) Current Condition History of Current Condition Onset Date 09/2018 Current Complaints R shoulder pain, mostly constant ache History of Current Condition Pt states she noticed one day that she could barely hold a gallon of milk with her R arm. She describes her pain as an insidious onset, but does recall her grandson jumping into her arms once, otherwise she denies any incident or injury to the shoulder. She states the R shoulder has progressively worsened. She is worse at night after working all day and states the shoulder aches all over with pain radiating into the elbow. If she moves wrong she gets a shooting pain. Reaching overhead and lifting is most painful. At rest she feels like her shoulder is falling out of the socket, so she feels the need to rest it on a pillow. She states her R shoulder hurts most of the time, aches at night, but once she gets to sleep she has no problem sleeping. She sleeps on L side with arm propped up on a pillow. She states her L shoulder is now starting to hurt because she is having to compensate for the right. She reports a prior incident of R shoulder pain when she picked up a huge sack of clothes, heard a pop, and had R shoulder pain. At that time tests showed a possible small tear. She had physical therapy with good results. Prior Treatments and Tests None. Future Testing and Treatments Planned None Developmental History Developmental History She sought medical care in November 2018, was seen by physician in December and was able to schedule for physical therapy today, 03/05/2019. Treatment Goals Patient/Caregiver Goals Pt goal is to have no pain in the R shoulder. 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 Baseline Function- Other Always sleeps on L side. Able to cook, & clean without pain . Current Functional Impairments (Reported) Functional Limitations- ADL's Difficulty removing clothes, putting dishes high up on cupboards, lifting with R arm a gallon of milk, & making beds. Laundry is not a problem. Functional Limitations- Other Cooking and cleaning causes R shoulder pain. Personal Factors Other Personal Factors That May Effect Pt takes care of her grandkids Therapy/Recovery . PT-OP-C Subjective Start: 03/02/19 16:56 Freq: Status: Active Protocol: Document 04/05/19 08:17 LRN (Rec: 04/05/19 09:20 LRN [id number]) OP-PT Subjective Patient Comments Patient Comments 80% better. Going on cruise ship vacation May 20. PT-OP-F Manual Assessment Start: 03/02/19 16:56 Freq: Status: Active Protocol: Document 03/05/19 08:19 LRN (Rec: 03/05/19 09:21 LRN [id number]) Manual Assessments Soft Tissue Assessment Soft Tissue Mobility Assessment Increased tension and tenderness to palpation at R UT, Levator Scapula, Supraspinatus, Deltoid, Pec Minor & Major, Rhomboids and Teres Major/Minor, Cervical paraspinals & Biceps Longus tendon attachment on the humerus. Joint Mobility Assessment Joint Mobility Assessment Decreased in Cervical spine due to pain. Other Manual Assessments Other Manual Assessments C3, C4, C5 tenderness at Transverse processes and facet joints. C5, C6, C7 tenderness at Transverse processes and rotated left. PT-OP-H Neuro Start: 03/02/19 16:56 Freq: Status: Active Protocol: Document 03/05/19 08:19 LRN (Rec: 03/05/19 09:21 LRN [id number]) Sensation Evaluation Gross Sensation Gross Sensation WNL Comments Summary Comments Sensation is normal to soft touch. Deep Tendon Reflex & Clonus Assessment Deep Tendon Reflex Bilateral Tricep Deep Tendon Reflex 0 Absent Bilateral Brachioradialis Deep Tendon Reflex 1+ Diminished Bilateral Bicep Deep Tendon Reflex 2+ Normal PT-OP-J Posture/Palpation/Skin Start: 03/02/19 16:56 Freq: Status: Active Protocol: Document 03/05/19 08:19 LRN (Rec: 03/05/19 09:21 LRN [id number]) Posture Evaluation Position Standing Evaluation View All positions Head/C-Spine Posture Forward Head T-Spine Posture Flattened Shoulder Posture (L) Rounded (R) Rounded (R) Forward (L) Elevated Scapula Posture (R) Depressed Arm Posture (L) Internally Rotated Palpation Assessment Location R shoulder Palpation Location Generally in shoulder and down upper arm, humeral head Palpation Findings Soft Tissue Tightness Tenderness PT-OP-K Range of Motion Start: 03/02/19 16:56 Freq: Status: Active Protocol: Document 04/05/19 08:17 LRN (Rec: 04/05/19 09:20 LRN [id number]) Shoulder Goniometric Range of Motion Shoulder Measured in Degrees Right Active Shoulder ROM WFL Yes Testing Position Sitting Internal Rotation Behind Back (text) L4, T2 Left Active Shoulder ROM WFL Yes Testing Position Sitting Internal Rotation Behind Back (text) L4, T2 Shoulder ROM Limitations Shoulder ROM Limitations Pain Comments R shoulder AROM is normal, except with occasional painful arc. PT-OP-L Special Tests Start: 03/02/19 16:56 Freq: Status: Active Protocol: Document 03/05/19 08:19 LRN (Rec: 03/05/19 09:21 LRN [id number]) Special Tests Cervical Spine Special Tests Traction Test Results Decreased R shoulder pain Shoulder Special Tests Elevation Impingement Test Results Positive Comments Onset of R shoulder pain. Briceño Teto Impingement Test Results Positive Comments Onset of R shoulder pain. PT-OP-M Strength Start: 03/02/19 16:56 Freq: Status: Active Protocol: Document 03/05/19 08:19 LRN (Rec: 03/05/19 09:21 LRN [id number]) Cervical Spine Strength Cervical Spine Manual Muscle Testing Testing Position Sitting Reason Not Measured WFL Shoulder Strength Shoulder Manual Muscle Testing Right Flexion 3 Fair Left Flexion 3- Fair- PT-OP-Q Treatments Start: 03/02/19 16:56 Freq: Status: Active Protocol: Document 04/05/19 08:17 LRN (Rec: 04/05/19 09:20 LRN [id number]) Cardio Equipment Upper Body Ergometer (UBE) Duration (Minutes) 10 RPM 65 Seat Position 13 Height 3.5 Other fwd/bkwd Therapeutic Exercises Supine Exercises Lat Pull Down Side bilateral Equipment Used Bar/Lev 3 T-Band Reps/Minutes 15x1 Sitting Exercises Upper thoracic stretch Sitting Exercise Name Rounding shoulders and lying over T-Ball (red) Reps/Minutes 4' Comments Stretch in lower intrascapular area: in sitting and standing Standing Exercises Lifting Overhead Standing Exercise Name Press ups overhead holding wgt w/both hands Side bilateral Resistance 2#, 3# Reps/Minutes 10x, 10x2 respectively Manual Therapy Treatment Joint Mobilizations T3-T5 Joint T3-T4, T4-T5 Direction Flex mob Grade III Body Position Sitting Reps/Duration 8' Self-Care/Home Management Treatment Activities Self-Care/Home Management Activities I/S Pt to stretch lower on the doorway stretch and sitting stretch (~T3-T6) and to do no more than 3x10@3# on overhead lift ex. PT-OP-R Modalities Start: 03/02/19 16:56 Freq: Status: Active Protocol: Document 03/19/19 08:16 LRN (Rec: 03/19/19 09:06 [facility] [id number]) Ultrasound Therapy Treatment R Shoulder Treatment Duration (minutes) 8 Frequency Setting (mHz) 1 Mode Setting Pulsed Duty Cycle 50% Comments R biceps tendon and supraspinatus attachment & Deltoid PT-OP-T Assessment and Plan Start: 03/02/19 16:56 Freq: Status: Active Protocol: Document 04/05/19 08:17 LRN (Rec: 04/05/19 09:20 [facility] [id number]) Physical Therapy Assessment Rehab Potential Rehabilitation Potential Good Evaluation Complexity Number of Personal Factors/Comorbidities 1-2 Number of Body Systems Impaired 4 or More Clinical Presentation at Evaluation Stable Impairments Impairments Activity Tolerance Functional Activities Functional Mobility Pain Posture ROM Soft Tissue Mobility Strength Goals Three Impairment Pain with lifting 1 gallon and reaching into cabinets overhead. Route Process Administrator Goal (LTG) Improve R shoulder strength and scapulohumeral rhythm such that the pt will be able to lift a a gallon jug and reach into cabinets overhead without stokes. LTG Duration 05/04/19 (05/06/19: Goal Partially Met) Two Impairment Pain in R shoulder with reaching overhead Short Term Goal (STG) Pt's normal R shoulder AROM and ability to dress without pain. STG Duration 03/30/19 (05/06/19: Goal Partially Met) One Impairment Pt lacks independent self care program. Route Process Administrator Goal (LTG) Pt will be independent with a self care HEP LTG Duration 05/04/19 (04/05/19: Not met, progressing) Progress Towards Goals Progress Comments #3: Goal Partially Met. Can reach into cabinet without pain. Not yet able to lift a gallon jug without pain. Weakness is present. #2: Goal Partially Met. Removing Shirt causes a little pain, otherwise painfree. #1: Goal Progressing on placement on HEP. Assessment Summary Assessment Pt notes being 80% better. She occasional R shoulder pain with AROM. She is limited in strength for reaching into cupboards due to pain at end range. She has R shoulder pain with strength testing flexion and abduction, indicating probable Supraspinatus dysfunction. With mostly normal R shoulder ROM the pt has recently been progressed with strengthening of the shoulder. The pt will benefit from continued skilled physical therapy for strengthening of the R shoulder to return to her prior level of functional use of the R UE. Physical Therapy Plan Frequency and Duration Frequency of Treatment 2x/Week Plan of Care Start Date 03/05/19 Plan of Care End Date 05/04/19 Therapeutic Interventions Therapeutic Interventions Home Exercise Program Joint Mobilizations Manual Therapy Neuromuscular Re-education Patient/Caregiver Education Self-Care/Home Management Soft Tissue Mobilization Taping Therapeutic Exercises Modalities Cold Pack/Ice Massage Electric Stimulation Hot Packs Ultrasound Next Visit Focus/Plan Next Note Type Treatment Note Next Visit Plan Scapulohumeral rhythm (SHR) training for lifting overhead Mobilize T3-T6 for flex MWM for SHR training and possible use of K-tape. Very careful RC strengthening due to probable injury to Supraspinatus as needed.
--- NOTE | 2019-04-09 16:06 | PT.OTN ---
Current Diagnoses Pain in right shoulder (04/09/19) Physical Therapy Treatment Note PT-OP-A Visit Information Start: 03/02/19 16:56 Freq: Status: Active Protocol: Document 04/09/19 08:19 LRN (Rec: 04/09/19 09:05 LRN [id number]) Out-Patient Physical Therapy Visit Information Visit Information Visit Type Treatment Note Visit Start Time 08:19 Visit Stop Time 09:05 Total Visit Minutes 46 Visit Number 11 Number of STRUCTURES ENGINEER Visits 0 Evaluation Information Evaluation Date 03/05/19 Precautions Precautions Back pain PT-OP-B Current Condition Start: 03/02/19 16:56 Freq: Status: Active Protocol: Document 03/05/19 08:19 LRN (Rec: 03/05/19 09:21 LRN [id number]) Current Condition History of Current Condition Onset Date 09/2018 Current Complaints R shoulder pain, mostly constant ache History of Current Condition Pt states she noticed one day that she could barely hold a gallon of milk with her R arm. She describes her pain as an insidious onset, but does recall her grandson jumping into her arms once, otherwise she denies any incident or injury to the shoulder. She states the R shoulder has progressively worsened. She is worse at night after working all day and states the shoulder aches all over with pain radiating into the elbow. If she moves wrong she gets a shooting pain. Reaching overhead and lifting is most painful. At rest she feels like her shoulder is falling out of the socket, so she feels the need to rest it on a pillow. She states her R shoulder hurts most of the time, aches at night, but once she gets to sleep she has no problem sleeping. She sleeps on L side with arm propped up on a pillow. She states her L shoulder is now starting to hurt because she is having to compensate for the right. She reports a prior incident of R shoulder pain when she picked up a huge sack of clothes, heard a pop, and had R shoulder pain. At that time tests showed a possible small tear. She had physical therapy with good results. Prior Treatments and Tests None. Future Testing and Treatments Planned None Developmental History Developmental History She sought medical care in November 2018, was seen by physician in December and was able to schedule for physical therapy today, 03/05/2019. Treatment Goals Patient/Caregiver Goals Pt goal is to have no pain in the R shoulder. 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 Baseline Function- Other Always sleeps on L side. Able to cook, & clean without pain . Current Functional Impairments (Reported) Functional Limitations- ADL's Difficulty removing clothes, putting dishes high up on cupboards, lifting with R arm a gallon of milk, & making beds. Laundry is not a problem. Functional Limitations- Other Cooking and cleaning causes R shoulder pain. Personal Factors Other Personal Factors That May Effect Pt takes care of her grandkids Therapy/Recovery . PT-OP-C Subjective Start: 03/02/19 16:56 Freq: Status: Active Protocol: Document 04/09/19 08:19 LRN (Rec: 04/09/19 09:05 LRN [id number]) OP-PT Subjective Patient Comments Patient Comments Hurt shoulder over weekend, used vacuum fur cleaner to vacuum up a swarm of espinoza ants. Pain rated 5/10. OP-PT Pain Assessment Pain Assessment Grid Paper Pain Assessment Grid Completed No Location R shoulder Pain Location Details Top of shoulder, subacromial and anterior chest at Pec Minor Intensity 5 Description Aching PT-OP-F Manual Assessment Start: 03/02/19 16:56 Freq: Status: Active Protocol: Document 03/05/19 08:19 LRN (Rec: 03/05/19 09:21 LRN [id number]) Manual Assessments Soft Tissue Assessment Soft Tissue Mobility Assessment Increased tension and tenderness to palpation at R UT, Levator Scapula, Supraspinatus, Deltoid, Pec Minor & Major, Rhomboids and Teres Major/Minor, Cervical paraspinals & Biceps Longus tendon attachment on the humerus. Joint Mobility Assessment Joint Mobility Assessment Decreased in Cervical spine due to pain. Other Manual Assessments Other Manual Assessments C3, C4, C5 tenderness at Transverse processes and facet joints. C5, C6, C7 tenderness at Transverse processes and rotated left. PT-OP-H Neuro Start: 03/02/19 16:56 Freq: Status: Active Protocol: Document 03/05/19 08:19 LRN (Rec: 03/05/19 09:21 LRN [id number]) Sensation Evaluation Gross Sensation Gross Sensation WNL Comments Summary Comments Sensation is normal to soft touch. Deep Tendon Reflex & Clonus Assessment Deep Tendon Reflex Bilateral Tricep Deep Tendon Reflex 0 Absent Bilateral Brachioradialis Deep Tendon Reflex 1+ Diminished Bilateral Bicep Deep Tendon Reflex 2+ Normal PT-OP-J Posture/Palpation/Skin Start: 03/02/19 16:56 Freq: Status: Active Protocol: Document 03/05/19 08:19 LRN (Rec: 03/05/19 09:21 LRN [id number]) Posture Evaluation Position Standing Evaluation View All positions Head/C-Spine Posture Forward Head T-Spine Posture Flattened Shoulder Posture (L) Rounded (R) Rounded (R) Forward (L) Elevated Scapula Posture (R) Depressed Arm Posture (L) Internally Rotated Palpation Assessment Location R shoulder Palpation Location Generally in shoulder and down upper arm, humeral head Palpation Findings Soft Tissue Tightness Tenderness PT-OP-K Range of Motion Start: 03/02/19 16:56 Freq: Status: Active Protocol: Document 04/05/19 08:17 LRN (Rec: 04/05/19 09:20 LRN [id number]) Shoulder Goniometric Range of Motion Shoulder Measured in Degrees Right Active Shoulder ROM WFL Yes Testing Position Sitting Internal Rotation Behind Back (text) L4, T2 Left Active Shoulder ROM WFL Yes Testing Position Sitting Internal Rotation Behind Back (text) L4, T2 Shoulder ROM Limitations Shoulder ROM Limitations Pain Comments R shoulder AROM is normal, except with occasional painful arc. PT-OP-L Special Tests Start: 03/02/19 16:56 Freq: Status: Active Protocol: Document 03/05/19 08:19 LRN (Rec: 03/05/19 09:21 LRN [id number]) Special Tests Cervical Spine Special Tests Traction Test Results Decreased R shoulder pain Shoulder Special Tests Elevation Impingement Test Results Positive Comments Onset of R shoulder pain. Briceño Tteo Impingement Test Results Positive Comments Onset of R shoulder pain. PT-OP-M Strength Start: 03/02/19 16:56 Freq: Status: Active Protocol: Document 03/05/19 08:19 LRN (Rec: 03/05/19 09:21 LRN [id number]) Cervical Spine Strength Cervical Spine Manual Muscle Testing Testing Position Sitting Reason Not Measured WFL Shoulder Strength Shoulder Manual Muscle Testing Right Flexion 3 Fair Left Flexion 3- Fair- PT-OP-Q Treatments Start: 04/05/19 16:56 Freq: Status: Active Protocol: Document 04/09/19 08:19 LRN (Rec: 04/09/19 09:05 LRN [id number]) Therapeutic Exercises Supine Exercises Lat Pull Down Side bilateral Equipment Used Bar/Lev 3 T-Band Reps/Minutes 15x1 Manual Therapy Treatment Soft Tissue Mobilization Pectoralis Minor/Enoc Body Location Left side Mobilization Type Sustained Pressure Trigger Point Release Intensity/Depth Superficial to moderate Body Position Supine Upper Trap/Suprapinatus Body Location Upper Trap/Supraspinatus Mobilization Type Strumming Sustained Pressure Trigger Point Release Intensity/Depth Moderate Body Position Sidelying PT-OP-R Modalities Start: 03/02/19 16:56 Freq: Status: Active Protocol: Document 04/09/19 08:19 LATASHA (Rec: 04/09/19 09:05 LRN [id number]) Ultrasound Therapy Treatment R Shoulder Treatment Duration (minutes) 8 Patient Position Sitting Frequency Setting (mHz) 1 Mode Setting Pulsed Duty Cycle 50% Comments R biceps tendon and supraspinatus attachment on humeral head (1.0 W/cm2) & Supraspinatus muscle (1.5W/cm2 ) PT-OP-T Assessment and Plan Start: 03/02/19 16:56 Freq: Status: Active Protocol: Document 04/09/19 08:19 LATASHA (Rec: 04/09/19 09:05 LRN [id number]) Physical Therapy Assessment Assessment Summary Assessment Pt appears to have flared up her R supraspinatus muscle and RC attachments at the humeral head. + response to therapy today with reduction in pain and gained full PROM without pain s/p therapy. Pt may need to take it easy for the next few days. Physical Therapy Plan Frequency and Duration Frequency of Treatment 2x/Week Plan of Care Start Date 03/05/19 Plan of Care End Date 05/04/19 Next Visit Focus/Plan Next Note Type Treatment Note Next Visit Plan Recheck and resume slowly into ex if appropriate for scapulohumeral rhythm (SHR) training for lifting overhead Mobilize T3-T6 for flex MWM for SHR training and possible use of K-tape. Very careful RC strengthening due to probable injury to Supraspinatus as needed.
--- NOTE | 2019-04-12 15:57 | PT.OTN ---
Current Diagnoses Pain in right shoulder (04/12/19) Physical Therapy Treatment Note PT-OP-A Visit Information Start: 03/02/19 16:56 Freq: Status: Active Protocol: Document 04/12/19 08:19 LRN (Rec: 04/12/19 09:02 LRN [id number]) Out-Patient Physical Therapy Visit Information Visit Information Visit Start Time 08:19 Visit Stop Time 09:05 Total Visit Minutes 46 Visit Number 12 Number of PARTS CHASER Visits 0 Evaluation Information Evaluation Date 03/05/19 Precautions Precautions Back pain PT-OP-B Current Condition Start: 03/02/19 16:56 Freq: Status: Active Protocol: Document 03/05/19 08:19 LRN (Rec: 03/05/19 09:21 LRN [id number]) Current Condition History of Current Condition Onset Date 09/2018 Current Complaints R shoulder pain, mostly constant ache History of Current Condition Pt states she noticed one day that she could barely hold a gallon of milk with her R arm. She describes her pain as an insidious onset, but does recall her grandson jumping into her arms once, otherwise she denies any incident or injury to the shoulder. She states the R shoulder has progressively worsened. She is worse at night after working all day and states the shoulder aches all over with pain radiating into the elbow. If she moves wrong she gets a shooting pain. Reaching overhead and lifting is most painful. At rest she feels like her shoulder is falling out of the socket, so she feels the need to rest it on a pillow. She states her R shoulder hurts most of the time, aches at night, but once she gets to sleep she has no problem sleeping. She sleeps on L side with arm propped up on a pillow. She states her L shoulder is now starting to hurt because she is having to compensate for the right. She reports a prior incident of R shoulder pain when she picked up a huge sack of clothes, heard a pop, and had R shoulder pain. At that time tests showed a possible small tear. She had physical therapy with good results. Prior Treatments and Tests None. Future Testing and Treatments Planned None Developmental History Developmental History She sought medical care in November 2018, was seen by physician in December and was able to schedule for physical therapy today, 03/05/2019. Treatment Goals Patient/Caregiver Goals Pt goal is to have no pain in the R shoulder. 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 Baseline Function- Other Always sleeps on L side. Able to cook, & clean without pain . Current Functional Impairments (Reported) Functional Limitations- ADL's Difficulty removing clothes, putting dishes high up on cupboards, lifting with R arm a gallon of milk, & making beds. Laundry is not a problem. Functional Limitations- Other Cooking and cleaning causes R shoulder pain. Personal Factors Other Personal Factors That May Effect Pt takes care of her maria fernandads Therapy/Recovery . PT-OP-C Subjective Start: 03/02/19 16:56 Freq: Status: Active Protocol: Document 04/12/19 08:19 LRN (Rec: 04/12/19 09:02 LRN [id number]) OP-PT Subjective Patient Comments Patient Comments Better, pain 3/10. Was good for 2 days after last session, but today pain returned, but not as bad. PT-OP-F Manual Assessment Start: 03/02/19 16:56 Freq: Status: Active Protocol: Document 03/05/19 08:19 LRN (Rec: 03/05/19 09:21 LRN [id number]) Manual Assessments Soft Tissue Assessment Soft Tissue Mobility Assessment Increased tension and tenderness to palpation at R UT, Levator Scapula, Supraspinatus, Deltoid, Pec Minor & Major, Rhomboids and Teres Major/Minor, Cervical paraspinals & Biceps Longus tendon attachment on the humerus. Joint Mobility Assessment Joint Mobility Assessment Decreased in Cervical spine due to pain. Other Manual Assessments Other Manual Assessments C3, C4, C5 tenderness at Transverse processes and facet joints. C5, C6, C7 tenderness at Transverse processes and rotated left. PT-OP-H Neuro Start: 03/02/19 16:56 Freq: Status: Active Protocol: Document 03/05/19 08:19 LRN (Rec: 03/05/19 09:21 LRN [id number]) Sensation Evaluation Gross Sensation Gross Sensation WNL Comments Summary Comments Sensation is normal to soft touch. Deep Tendon Reflex & Clonus Assessment Deep Tendon Reflex Bilateral Tricep Deep Tendon Reflex 0 Absent Bilateral Brachioradialis Deep Tendon Reflex 1+ Diminished Bilateral Bicep Deep Tendon Reflex 2+ Normal PT-OP-J Posture/Palpation/Skin Start: 03/02/19 16:56 Freq: Status: Active Protocol: Document 03/05/19 08:19 LRN (Rec: 03/05/19 09:21 LRN [id number]) Posture Evaluation Position Standing Evaluation View All positions Head/C-Spine Posture Forward Head T-Spine Posture Flattened Shoulder Posture (L) Rounded (R) Rounded (R) Forward (L) Elevated Scapula Posture (R) Depressed Arm Posture (L) Internally Rotated Palpation Assessment Location R shoulder Palpation Location Generally in shoulder and down upper arm, humeral head Palpation Findings Soft Tissue Tightness Tenderness PT-OP-K Range of Motion Start: 03/02/19 16:56 Freq: Status: Active Protocol: Document 04/05/19 08:17 LRN (Rec: 04/05/19 09:20 LRN [id number]) Shoulder Goniometric Range of Motion Shoulder Measured in Degrees Right Active Shoulder ROM WFL Yes Testing Position Sitting Internal Rotation Behind Back (text) L4, T2 Left Active Shoulder ROM WFL Yes Testing Position Sitting Internal Rotation Behind Back (text) L4, T2 Shoulder ROM Limitations Shoulder ROM Limitations Pain Comments R shoulder AROM is normal, except with occasional painful arc. PT-OP-L Special Tests Start: 03/02/19 16:56 Freq: Status: Active Protocol: Document 03/05/19 08:19 LRN (Rec: 03/05/19 09:21 LRN [id number]) Special Tests Cervical Spine Special Tests Traction Test Results Decreased R shoulder pain Shoulder Special Tests Elevation Impingement Test Results Positive Comments Onset of R shoulder pain. Briceño Teto Impingement Test Results Positive Comments Onset of R shoulder pain. PT-OP-M Strength Start: 03/02/19 16:56 Freq: Status: Active Protocol: Document 03/05/19 08:19 LRN (Rec: 03/05/19 09:21 LRN [id number]) Cervical Spine Strength Cervical Spine Manual Muscle Testing Testing Position Sitting Reason Not Measured WFL Shoulder Strength Shoulder Manual Muscle Testing Right Flexion 3 Fair Left Flexion 3- Fair- PT-OP-Q Treatments Start: 03/02/19 16:56 Freq: Status: Active Protocol: Document 04/12/19 08:19 LRN (Rec: 04/12/19 09:02 LRN [id number]) Cardio Equipment Upper Body Ergometer (UBE) Duration (Minutes) 8 RPM 90 Seat Position 13 Height 3.5 Other fwd/bkwd Therapeutic Exercises Supine Exercises Pec Minor stretch Supine Exercise Name Pec Minor stretch Side right Reps/Minutes 3' R shoulder PROM Supine Exercise Name R shoulder PROM/Arom Side bilateral Reps/Minutes 2' Sitting Exercises PROM Sitting Exercise Name Flex Equipment Used Elodia Manual Therapy Treatment Soft Tissue Mobilization Pectoralis Minor/Enoc Body Location Left side Mobilization Type Sustained Pressure Trigger Point Release Intensity/Depth Superficial to moderate Body Position Supine Upper Trap/Suprapinatus Body Location Upper Trap/Supraspinatus Mobilization Type Strumming Sustained Pressure Trigger Point Release Intensity/Depth Moderate Body Position Sidelying Manual Traction Cervical Details Manual C/S traction supine Body Position Supine Reps/Duration 4' Manual Techniques MWM Type R scapular depression/ retraction with flex & horiz ADD Body Location R Scapula Body Position Supine Reps/Duration 3' PT-OP-R Modalities Start: 03/02/19 16:56 Freq: Status: Active Protocol: Document 04/12/19 08:19 LRN (Rec: 04/12/19 09:02 LRN [id number]) Ultrasound Therapy Treatment R Shoulder Treatment Duration (minutes) 8 Patient Position Sitting Frequency Setting (mHz) 1 Mode Setting Pulsed Duty Cycle 50% Comments R biceps tendon and supraspinatus attachment on humeral head (1.0 W/cm2) & Supraspinatus muscle (1.5W/cm2 ) PT-OP-T Assessment and Plan Start: 03/02/19 16:56 Freq: Status: Active Protocol: Document 04/12/19 08:19 LRN (Rec: 04/12/19 09:02 LRN [id number]) Physical Therapy Assessment Goals Three Impairment Pain with lifting 1 gallon and reaching into cabinets overhead. Longterm Goal (LTG) Improve R shoulder strength and scapulohumeral rhythm such that the pt will be able to lift a a gallon jug and reach into cabinets overhead without stokes. LTG Duration 05/04/19 (05/06/19: Goal Partially Met) Two Impairment Pain in R shoulder with reaching overhead Short Term Goal (STG) Pt's normal R shoulder AROM and ability to dress without pain. STG Duration 03/30/19 (05/06/19: Goal Partially Met) Progress Towards Goals Progress Comments Pt slow recovery from flare up since incident at home ~. Assessment Summary Assessment Pt has end-range R shoulder pain. Tender with palpation at R Supraspinatus and Pec Minor. Pt is mildly tender at medial border of the scapula; therefore a cervical component is possible. No change with pain at shoulder with manual cervical traction. Physical Therapy Plan Frequency and Duration Frequency of Treatment 2x/Week Plan of Care Start Date 03/05/19 Plan of Care End Date 05/04/19 Next Visit Focus/Plan Next Note Type Treatment Note Next Visit Plan MWM for SHR training and possible use of K-tape for Supraspinatus support. Recheck and resume slowly into ex if appropriate for scapulohumeral rhythm (SHR) training for lifting overhead. Mobilize T3-T6 for flex. Very careful RC strengthening due to probable injury to Supraspinatus as needed.
--- NOTE | 2019-04-19 16:11 | PT.OTN ---
Current Diagnoses Pain in right shoulder (04/19/19) Physical Therapy Treatment Note PT-OP-A Visit Information Start: 03/02/19 16:56 Freq: Status: Active Protocol: Document 04/19/19 12:49 LRN (Rec: 04/19/19 13:34 LRN [id number]) Out-Patient Physical Therapy Visit Information Visit Information Visit Type Treatment Note Visit Start Time 12:49 Visit Stop Time 13:37 Total Visit Minutes 48 Visit Number 13 Number of OPTICIAN Visits 0 Precautions Precautions Back pain PT-OP-B Current Condition Start: 03/02/19 16:56 Freq: Status: Active Protocol: Document 03/05/19 08:19 LRN (Rec: 03/05/19 09:21 LRN [id number]) Current Condition History of Current Condition Onset Date 09/2018 Current Complaints R shoulder pain, mostly constant ache History of Current Condition Pt states she noticed one day that she could barely hold a gallon of milk with her R arm. She describes her pain as an insidious onset, but does recall her grandson jumping into her arms once, otherwise she denies any incident or injury to the shoulder. She states the R shoulder has progressively worsened. She is worse at night after working all day and states the shoulder aches all over with pain radiating into the elbow. If she moves wrong she gets a shooting pain. Reaching overhead and lifting is most painful. At rest she feels like her shoulder is falling out of the socket, so she feels the need to rest it on a pillow. She states her R shoulder hurts most of the time, aches at night, but once she gets to sleep she has no problem sleeping. She sleeps on L side with arm propped up on a pillow. She states her L shoulder is now starting to hurt because she is having to compensate for the right. She reports a prior incident of R shoulder pain when she picked up a huge sack of clothes, heard a pop, and had R shoulder pain. At that time tests showed a possible small tear. She had physical therapy with good results. Prior Treatments and Tests None. Future Testing and Treatments Planned None Developmental History Developmental History She sought medical care in November 2018, was seen by physician in December and was able to schedule for physical therapy today, 03/05/2019. Treatment Goals Patient/Caregiver Goals Pt goal is to have no pain in the R shoulder. 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 Baseline Function- Other Always sleeps on L side. Able to cook, & clean without pain . Current Functional Impairments (Reported) Functional Limitations- ADL's Difficulty removing clothes, putting dishes high up on cupboards, lifting with R arm a gallon of milk, & making beds. Laundry is not a problem. Functional Limitations- Other Cooking and cleaning causes R shoulder pain. Personal Factors Other Personal Factors That May Effect Pt takes care of her maria fernandads Therapy/Recovery . PT-OP-C Subjective Start: 03/02/19 16:56 Freq: Status: Active Protocol: Document 04/19/19 12:49 LRN (Rec: 04/19/19 16:04 LRN [id number]) OP-PT Subjective Patient Comments Patient Comments Frustrated she is not better. Patient Reported Progress Same PT-OP-F Manual Assessment Start: 03/02/19 16:56 Freq: Status: Active Protocol: Document 03/05/19 08:19 LRN (Rec: 03/05/19 09:21 LRN [id number]) Manual Assessments Soft Tissue Assessment Soft Tissue Mobility Assessment Increased tension and tenderness to palpation at R UT, Levator Scapula, Supraspinatus, Deltoid, Pec Minor & Major, Rhomboids and Teres Major/Minor, Cervical paraspinals & Biceps Longus tendon attachment on the humerus. Joint Mobility Assessment Joint Mobility Assessment Decreased in Cervical spine due to pain. Other Manual Assessments Other Manual Assessments C3, C4, C5 tenderness at Transverse processes and facet joints. C5, C6, C7 tenderness at Transverse processes and rotated left. PT-OP-H Neuro Start: 03/02/19 16:56 Freq: Status: Active Protocol: Document 03/05/19 08:19 LRN (Rec: 03/05/19 09:21 LRN [id number]) Sensation Evaluation Gross Sensation Gross Sensation WNL Comments Summary Comments Sensation is normal to soft touch. Deep Tendon Reflex & Clonus Assessment Deep Tendon Reflex Bilateral Tricep Deep Tendon Reflex 0 Absent Bilateral Brachioradialis Deep Tendon Reflex 1+ Diminished Bilateral Bicep Deep Tendon Reflex 2+ Normal PT-OP-J Posture/Palpation/Skin Start: 03/02/19 16:56 Freq: Status: Active Protocol: Document 03/05/19 08:19 LRN (Rec: 03/05/19 09:21 LRN [id number]) Posture Evaluation Position Standing Evaluation View All positions Head/C-Spine Posture Forward Head T-Spine Posture Flattened Shoulder Posture (L) Rounded (R) Rounded (R) Forward (L) Elevated Scapula Posture (R) Depressed Arm Posture (L) Internally Rotated Palpation Assessment Location R shoulder Palpation Location Generally in shoulder and down upper arm, humeral head Palpation Findings Soft Tissue Tightness Tenderness PT-OP-K Range of Motion Start: 03/02/19 16:56 Freq: Status: Active Protocol: Document 04/05/19 08:17 LRN (Rec: 04/05/19 09:20 LRN [id number]) Shoulder Goniometric Range of Motion Shoulder Measured in Degrees Right Active Shoulder ROM WFL Yes Testing Position Sitting Internal Rotation Behind Back (text) L4, T2 Left Active Shoulder ROM WFL Yes Testing Position Sitting Internal Rotation Behind Back (text) L4, T2 Shoulder ROM Limitations Shoulder ROM Limitations Pain Comments R shoulder AROM is normal, except with occasional painful arc. PT-OP-L Special Tests Start: 03/02/19 16:56 Freq: Status: Active Protocol: Document 03/05/19 08:19 LRN (Rec: 03/05/19 09:21 LRN [id number]) Special Tests Cervical Spine Special Tests Traction Test Results Decreased R shoulder pain Shoulder Special Tests Elevation Impingement Test Results Positive Comments Onset of R shoulder pain. Briceño Teto Impingement Test Results Positive Comments Onset of R shoulder pain. PT-OP-M Strength Start: 03/02/19 16:56 Freq: Status: Active Protocol: Document 03/05/19 08:19 LRN (Rec: 03/05/19 09:21 LRN [id number]) Cervical Spine Strength Cervical Spine Manual Muscle Testing Testing Position Sitting Reason Not Measured WFL Shoulder Strength Shoulder Manual Muscle Testing Right Flexion 3 Fair Left Flexion 3- Fair- PT-OP-Q Treatments Start: 03/02/19 16:56 Freq: Status: Active Protocol: Document 04/19/19 12:49 LRN (Rec: 04/19/19 16:04 LRN [id number]) Therapeutic Exercises Supine Exercises Pec Minor stretch Supine Exercise Name Pec Minor stretch Side right Reps/Minutes 3' Lat Pull Down Side bilateral Equipment Used Bar/Lev 3 T-Band Reps/Minutes 15x2 Sitting Exercises Upper thoracic stretch Sitting Exercise Name Rounding shoulders Reps/Minutes 2' Comments Stretch in lower intrascapular area: in sitting Manual Therapy Treatment Soft Tissue Mobilization Pectoralis Minor/Enoc Body Location R side Mobilization Type Sustained Pressure Trigger Point Release Intensity/Depth Superficial to moderate Body Position Supine Upper Trap/Suprapinatus Body Location Right Upper Trap/Supraspinatus Mobilization Type Trigger Point Release Intensity/Depth Moderate Body Position Supine Joint Mobilizations T3-T5 Joint T3-T4, T4-T5 Direction Flex & L rotation mob Grade III Body Position Sitting Reps/Duration 8' Manual Traction Cervical Details Manual C/S traction supine Body Position Supine Reps/Duration 4' Manual Techniques MWM Type R scapular retraction & upward rotation with flex Body Location R Scapula Body Position Sitting Reps/Duration 3' PT-OP-R Modalities Start: 03/02/19 16:56 Freq: Status: Active Protocol: Document 04/19/19 12:49 LRN (Rec: 04/19/19 16:04 LRN [id number]) Electric Stimulation Electric Stimulation Interferential Current (IFC) Body Location Upper T/S (T1>T5) Duration (Minutes) 15 Intensity 24 Target/Sweep Sweep Patient Position Supine Combined With Heat/Cold Hot Pack PT-OP-T Assessment and Plan Start: 03/02/19 16:56 Freq: Status: Active Protocol: Document 04/19/19 12:49 LRN (Rec: 04/19/19 13:34 LRN [id number]) Physical Therapy Assessment Progress Towards Goals Progress Comments Pt slow recovery from flare up since incident at home ~. Assessment Summary Assessment Pt still in flare up. Thoracic spine is R rotated and R shoulder is low. Tender at R Supraspinatus & pec minor. Some pain relief with C. traction until pt returns to sitting, then pain in R shoulder (supraspinatus) returns. Pt is having occasional elbow pain; therefore Cervical involvement along with RC soft tissue dysfunction is likely. MWM helps dec pain with shoulder flexion to 90 deg's. Physical Therapy Plan Frequency and Duration Frequency of Treatment 2x/Week Plan of Care Start Date 03/05/19 Plan of Care End Date 06/07/19 Next Visit Focus/Plan Next Note Type Treatment Note Next Visit Plan Very careful RC strengthening due to probable injury to Supraspinatus as needed. Possible use of K-tape for Supraspinatus support. Recheck and resume slowly into ex if appropriate for, MWM for scapulohumeral rhythm (SHR ) training for lifting overhead. Mobilize T3-T6 for flex and if needed for rotation. Pt planning trip 05/20/19.
--- NOTE | 2019-04-24 15:04 | PT.OTN ---
Current Diagnoses Pain in right shoulder (04/24/19) Physical Therapy Treatment Note PT-OP-A Visit Information Start: 03/02/19 16:56 Freq: Status: Active Protocol: Document 04/24/19 12:46 LRN (Rec: 04/24/19 13:48 LRN [id number]) Out-Patient Physical Therapy Visit Information Visit Information Visit Type Treatment Note Visit Start Time 12:46 Visit Stop Time 13:34 Total Visit Minutes 48 Visit Number 14 Number of DIRECTOR RECREATION Visits 0 Evaluation Information Evaluation Date 03/05/19 Precautions Precautions Back pain PT-OP-B Current Condition Start: 03/02/19 16:56 Freq: Status: Active Protocol: Document 03/05/19 08:19 LRN (Rec: 03/05/19 09:21 LRN [id number]) Current Condition History of Current Condition Onset Date 09/2018 Current Complaints R shoulder pain, mostly constant ache History of Current Condition Pt states she noticed one day that she could barely hold a gallon of milk with her R arm. She describes her pain as an insidious onset, but does recall her grandson jumping into her arms once, otherwise she denies any incident or injury to the shoulder. She states the R shoulder has progressively worsened. She is worse at night after working all day and states the shoulder aches all over with pain radiating into the elbow. If she moves wrong she gets a shooting pain. Reaching overhead and lifting is most painful. At rest she feels like her shoulder is falling out of the socket, so she feels the need to rest it on a pillow. She states her R shoulder hurts most of the time, aches at night, but once she gets to sleep she has no problem sleeping. She sleeps on L side with arm propped up on a pillow. She states her L shoulder is now starting to hurt because she is having to compensate for the right. She reports a prior incident of R shoulder pain when she picked up a huge sack of clothes, heard a pop, and had R shoulder pain. At that time tests showed a possible small tear. She had physical therapy with good results. Prior Treatments and Tests None. Future Testing and Treatments Planned None Developmental History Developmental History She sought medical care in November 2018, was seen by physician in December and was able to schedule for physical therapy today, 03/05/2019. Treatment Goals Patient/Caregiver Goals Pt goal is to have no pain in the R shoulder. 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 Baseline Function- Other Always sleeps on L side. Able to cook, & clean without pain . Current Functional Impairments (Reported) Functional Limitations- ADL's Difficulty removing clothes, putting dishes high up on cupboards, lifting with R arm a gallon of milk, & making beds. Laundry is not a problem. Functional Limitations- Other Cooking and cleaning causes R shoulder pain. Personal Factors Other Personal Factors That May Effect Pt takes care of her grandkids Therapy/Recovery . PT-OP-C Subjective Start: 03/02/19 16:56 Freq: Status: Active Protocol: Document 04/24/19 12:46 LRN (Rec: 04/24/19 13:48 LRN [id number]) OP-PT Subjective Patient Comments Patient Comments States her shoulder is better, no pain. Has been not lifting. OP-PT Pain Assessment Pain Assessment Grid Paper Pain Assessment Grid Completed No Location R shoulder Pain Location Details Top of shoulder, subacromial and anterior chest at Pec Minor Intensity 0 PT-OP-F Manual Assessment Start: 03/02/19 16:56 Freq: Status: Active Protocol: Document 03/05/19 08:19 LRN (Rec: 03/05/19 09:21 LRN [id number]) Manual Assessments Soft Tissue Assessment Soft Tissue Mobility Assessment Increased tension and tenderness to palpation at R UT, Levator Scapula, Supraspinatus, Deltoid, Pec Minor & Major, Rhomboids and Teres Major/Minor, Cervical paraspinals & Biceps Longus tendon attachment on the humerus. Joint Mobility Assessment Joint Mobility Assessment Decreased in Cervical spine due to pain. Other Manual Assessments Other Manual Assessments C3, C4, C5 tenderness at Transverse processes and facet joints. C5, C6, C7 tenderness at Transverse processes and rotated left. PT-OP-H Neuro Start: 03/02/19 16:56 Freq: Status: Active Protocol: Document 03/05/19 08:19 LRN (Rec: 03/05/19 09:21 LRN [id number]) Sensation Evaluation Gross Sensation Gross Sensation WNL Comments Summary Comments Sensation is normal to soft touch. Deep Tendon Reflex & Clonus Assessment Deep Tendon Reflex Bilateral Tricep Deep Tendon Reflex 0 Absent Bilateral Brachioradialis Deep Tendon Reflex 1+ Diminished Bilateral Bicep Deep Tendon Reflex 2+ Normal PT-OP-J Posture/Palpation/Skin Start: 03/02/19 16:56 Freq: Status: Active Protocol: Document 03/05/19 08:19 LRN (Rec: 03/05/19 09:21 LRN [id number]) Posture Evaluation Position Standing Evaluation View All positions Head/C-Spine Posture Forward Head T-Spine Posture Flattened Shoulder Posture (L) Rounded (R) Rounded (R) Forward (L) Elevated Scapula Posture (R) Depressed Arm Posture (L) Internally Rotated Palpation Assessment Location R shoulder Palpation Location Generally in shoulder and down upper arm, humeral head Palpation Findings Soft Tissue Tightness Tenderness PT-OP-K Range of Motion Start: 03/02/19 16:56 Freq: Status: Active Protocol: Document 04/05/19 08:17 LRN (Rec: 04/05/19 09:20 LRN [id number]) Shoulder Goniometric Range of Motion Shoulder Measured in Degrees Right Active Shoulder ROM WFL Yes Testing Position Sitting Internal Rotation Behind Back (text) L4, T2 Left Active Shoulder ROM WFL Yes Testing Position Sitting Internal Rotation Behind Back (text) L4, T2 Shoulder ROM Limitations Shoulder ROM Limitations Pain Comments R shoulder AROM is normal, except with occasional painful arc. PT-OP-L Special Tests Start: 03/02/19 16:56 Freq: Status: Active Protocol: Document 03/05/19 08:19 LRN (Rec: 03/05/19 09:21 LRN [id number]) Special Tests Cervical Spine Special Tests Traction Test Results Decreased R shoulder pain Shoulder Special Tests Elevation Impingement Test Results Positive Comments Onset of R shoulder pain. Briceño Teto Impingement Test Results Positive Comments Onset of R shoulder pain. PT-OP-M Strength Start: 03/02/19 16:56 Freq: Status: Active Protocol: Document 03/05/19 08:19 LRN (Rec: 03/05/19 09:21 LRN [id number]) Cervical Spine Strength Cervical Spine Manual Muscle Testing Testing Position Sitting Reason Not Measured WFL Shoulder Strength Shoulder Manual Muscle Testing Right Flexion 3 Fair Left Flexion 3- Fair- PT-OP-Q Treatments Start: 03/02/19 16:56 Freq: Status: Active Protocol: Document 04/24/19 12:46 LRN (Rec: 04/24/19 13:48 LRN [id number]) Cardio Equipment Upper Body Ergometer (UBE) Duration (Minutes) 8 RPM 70 Seat Position 13 Height 3.5 Other fwd/bkwd Gym Equipment Cable Column (Body Solid) Lat Pull Down Details Lat Pull Down Resistance 15# Reps/Time 15x Therapeutic Exercises Supine Exercises Shoulder IR Supine Exercise Name Active IR Side bilateral Resistance Lev 1 T-Band Reps/Minutes 10x3 left, 15x2 right R shoulder PROM Supine Exercise Name R shoulder PROM/Arom Side bilateral Reps/Minutes 2' Shoulder ER Supine Exercise Name Shoulder Active ER Side bilateral Reps/Minutes 10x3 left, 15x2 right Manual Therapy Treatment Taping K-tape Body Location Shoulders Treatment Focus Eliminating Rotator Cuff Impingement Type of Tape Kinesio Tape Skin Inspection Good Comments Rubbing alcohol to clean skin to start. Taping to both shoulders. PT-OP-R Modalities Start: 03/02/19 16:56 Freq: Status: Active Protocol: Document 04/19/19 12:49 LRN (Rec: 04/19/19 16:04 LRN [id number]) Electric Stimulation Electric Stimulation Interferential Current (IFC) Body Location Upper T/S (T1>T5) Duration (Minutes) 15 Intensity 24 Target/Sweep Sweep Patient Position Supine Combined With Heat/Cold Hot Pack PT-OP-T Assessment and Plan Start: 03/02/19 16:56 Freq: Status: Active Protocol: Document 04/24/19 12:46 LRN (Rec: 04/24/19 13:48 LRN [id number]) Physical Therapy Assessment Goals Three Impairment Pain with lifting 1 gallon and reaching into cabinets overhead. Grout Machine Tender Goal (LTG) Improve R shoulder strength and scapulohumeral rhythm such that the pt will be able to lift a a gallon jug and reach into cabinets overhead without stokes. LTG Duration 05/04/19 (05/06/19: Goal Partially Met) Two Impairment Pain in R shoulder with reaching overhead Short Term Goal (STG) Pt's normal R shoulder AROM and ability to dress without pain. STG Duration 03/30/19 (05/06/19: Goal Partially Met) One Impairment Pt lacks independent self care program. Nursing Home Goal (LTG) Pt will be independent with a self care HEP LTG Duration 05/04/19 (04/05/19: Not met, progressing) Progress Towards Goals Progress Comments Pt to level prior to flare up. Assessment Summary Assessment Pt is again painfree with active and passive R shoulder ROM. She has mild tightness in posterior brachium with end -range shoulder flexion. No onset of pain with strengthening of R shoulder rotators and depressors. Pt has + impingement with Briceño positioning; therefore impingement present with testing position. Pt is ready to progress RC careful strengthening. Physical Therapy Plan Frequency and Duration Frequency of Treatment 2x/Week Plan of Care Start Date 03/05/19 Plan of Care End Date 05/04/19 Next Visit Focus/Plan Next Note Type Treatment Note Next Visit Plan Very careful RC strengthening due to probable injury to Supraspinatus as needed. Assess response to use of K- tape for Supraspinatus support /RC impingement. Recheck and resume slowly into ex if appropriate for, MWM for scapulohumeral rhythm (SHR ) training for lifting overhead. Mobilize T3-T6 for flex and if needed for rotation. Pt planning trip 05/20/19.
--- NOTE | 2019-05-03 12:57 | PT.OTN ---
Current Diagnoses Pain in right shoulder (05/03/19) Physical Therapy Treatment Note PT-OP-A Visit Information Start: 03/02/19 16:56 Freq: Status: Active Protocol: Document 05/03/19 09:53 LRN (Rec: 05/03/19 10:38 LRN [id number]) Out-Patient Physical Therapy Visit Information Visit Information Visit Type Treatment Note Visit Start Time 09:53 Visit Stop Time 10:38 Total Visit Minutes 45 Visit Number 15 Number of SHUTTLE TRUCK DRIVER Visits 0 Evaluation Information Evaluation Date 03/05/19 Precautions Precautions Back pain PT-OP-B Current Condition Start: 03/02/19 16:56 Freq: Status: Active Protocol: Document 03/05/19 08:19 LRN (Rec: 03/05/19 09:21 LRN [id number]) Current Condition History of Current Condition Onset Date 09/2018 Current Complaints R shoulder pain, mostly constant ache History of Current Condition Pt states she noticed one day that she could barely hold a gallon of milk with her R arm. She describes her pain as an insidious onset, but does recall her grandson jumping into her arms once, otherwise she denies any incident or injury to the shoulder. She states the R shoulder has progressively worsened. She is worse at night after working all day and states the shoulder aches all over with pain radiating into the elbow. If she moves wrong she gets a shooting pain. Reaching overhead and lifting is most painful. At rest she feels like her shoulder is falling out of the socket, so she feels the need to rest it on a pillow. She states her R shoulder hurts most of the time, aches at night, but once she gets to sleep she has no problem sleeping. She sleeps on L side with arm propped up on a pillow. She states her L shoulder is now starting to hurt because she is having to compensate for the right. She reports a prior incident of R shoulder pain when she picked up a huge sack of clothes, heard a pop, and had R shoulder pain. At that time tests showed a possible small tear. She had physical therapy with good results. Prior Treatments and Tests None. Future Testing and Treatments Planned None Developmental History Developmental History She sought medical care in November 2018, was seen by physician in December and was able to schedule for physical therapy today, 03/05/2019. Treatment Goals Patient/Caregiver Goals Pt goal is to have no pain in the R shoulder. 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 Baseline Function- Other Always sleeps on L side. Able to cook, & clean without pain . Current Functional Impairments (Reported) Functional Limitations- ADL's Difficulty removing clothes, putting dishes high up on cupboards, lifting with R arm a gallon of milk, & making beds. Laundry is not a problem. Functional Limitations- Other Cooking and cleaning causes R shoulder pain. Personal Factors Other Personal Factors That May Effect Pt takes care of her grandkids Therapy/Recovery . PT-OP-C Subjective Start: 03/02/19 16:56 Freq: Status: Active Protocol: Document 05/03/19 09:53 LRN (Rec: 05/03/19 10:38 LRN [id number]) OP-PT Subjective Patient Comments Patient Comments Pt states the tape did not help and wore for 2 days, then began to have signs of allergic reaction, so removed. States she itched, then turned red, then blistered, took some skin off, pt showed area with small scab that is just bigger than pinpoint sized. PT-OP-F Manual Assessment Start: 03/02/19 16:56 Freq: Status: Active Protocol: Document 03/05/19 08:19 LRN (Rec: 03/05/19 09:21 LRN [id number]) Manual Assessments Soft Tissue Assessment Soft Tissue Mobility Assessment Increased tension and tenderness to palpation at R UT, Levator Scapula, Supraspinatus, Deltoid, Pec Minor & Major, Rhomboids and Teres Major/Minor, Cervical paraspinals & Biceps Longus tendon attachment on the humerus. Joint Mobility Assessment Joint Mobility Assessment Decreased in Cervical spine due to pain. Other Manual Assessments Other Manual Assessments C3, C4, C5 tenderness at Transverse processes and facet joints. C5, C6, C7 tenderness at Transverse processes and rotated left. PT-OP-H Neuro Start: 03/02/19 16:56 Freq: Status: Active Protocol: Document 03/05/19 08:19 LRN (Rec: 03/05/19 09:21 LRN [id number]) Sensation Evaluation Gross Sensation Gross Sensation WNL Comments Summary Comments Sensation is normal to soft touch. Deep Tendon Reflex & Clonus Assessment Deep Tendon Reflex Bilateral Tricep Deep Tendon Reflex 0 Absent Bilateral Brachioradialis Deep Tendon Reflex 1+ Diminished Bilateral Bicep Deep Tendon Reflex 2+ Normal PT-OP-J Posture/Palpation/Skin Start: 03/02/19 16:56 Freq: Status: Active Protocol: Document 03/05/19 08:19 LRN (Rec: 03/05/19 09:21 LRN [id number]) Posture Evaluation Position Standing Evaluation View All positions Head/C-Spine Posture Forward Head T-Spine Posture Flattened Shoulder Posture (L) Rounded (R) Rounded (R) Forward (L) Elevated Scapula Posture (R) Depressed Arm Posture (L) Internally Rotated Palpation Assessment Location R shoulder Palpation Location Generally in shoulder and down upper arm, humeral head Palpation Findings Soft Tissue Tightness Tenderness PT-OP-K Range of Motion Start: 03/02/19 16:56 Freq: Status: Active Protocol: Document 04/05/19 08:17 LRN (Rec: 04/05/19 09:20 LRN [id number]) Shoulder Goniometric Range of Motion Shoulder Measured in Degrees Right Active Shoulder ROM WFL Yes Testing Position Sitting Internal Rotation Behind Back (text) L4, T2 Left Active Shoulder ROM WFL Yes Testing Position Sitting Internal Rotation Behind Back (text) L4, T2 Shoulder ROM Limitations Shoulder ROM Limitations Pain Comments R shoulder AROM is normal, except with occasional painful arc. PT-OP-L Special Tests Start: 03/02/19 16:56 Freq: Status: Active Protocol: Document 03/05/19 08:19 LRN (Rec: 03/05/19 09:21 LRN [id number]) Special Tests Cervical Spine Special Tests Traction Test Results Decreased R shoulder pain Shoulder Special Tests Elevation Impingement Test Results Positive Comments Onset of R shoulder pain. Briceño Teto Impingement Test Results Positive Comments Onset of R shoulder pain. PT-OP-M Strength Start: 03/02/19 16:56 Freq: Status: Active Protocol: Document 03/05/19 08:19 LRN (Rec: 03/05/19 09:21 LRN [id number]) Cervical Spine Strength Cervical Spine Manual Muscle Testing Testing Position Sitting Reason Not Measured WFL Shoulder Strength Shoulder Manual Muscle Testing Right Flexion 3 Fair Left Flexion 3- Fair- PT-OP-Q Treatments Start: 03/02/19 16:56 Freq: Status: Active Protocol: Document 05/03/19 09:53 LRN (Rec: 05/03/19 10:38 LRN [id number]) Cardio Equipment Upper Body Ergometer (UBE) Duration (Minutes) 10 RPM 70 Seat Position 13 Height 3.5 Other fwd/bkwd Gym Equipment Cable Column (Body Solid) Lat Pull Down Details Lat Pull Down Resistance 20# Reps/Time 15x2 Shuttle Recovery Shoulder protraction Details Chest press with extra shove Resistance 12 Shuttle Recovery Platform Stable Reps/Time 10x Therapeutic Exercises Sitting Exercises Upper thoracic stretch Sitting Exercise Name Rounding shoulders Reps/Minutes 3' Comments Stretch in mid to lower intrascapular area: in sitting Standing Exercises Lifting Overhead Standing Exercise Name Press ups overhead holding wgt w/both hands Side bilateral Resistance 1#, 2#, 3# Reps/Minutes 10x1 each Shoulder Horiz ADD Standing Exercise Name R Shoulder horiz AD Side right Comments until discomfort Shoulder IR Side bilateral Resistance Lev 2 T-Band Reps/Minutes 15 x Shoulder ER Standing Exercise Name Shoulder ER Side bilateral Resistance Lev 2 T-Band Reps/Minutes 10x Manual Therapy Treatment Joint Mobilizations T3-T5 Joint T3-T4, T4-T5 Direction Flex & L rotation mob Grade III Body Position Sitting Reps/Duration 8' Manual Techniques MWM Type R scapular retraction & upward rotation with flex Body Location R Scapula Body Position Sitting Reps/Duration 8' PT-OP-R Modalities Start: 03/02/19 16:56 Freq: Status: Active Protocol: Document 04/19/19 12:49 LRN (Rec: 04/19/19 16:04 LRN [id number]) Electric Stimulation Electric Stimulation Interferential Current (IFC) Body Location Upper T/S (T1>T5) Duration (Minutes) 15 Intensity 24 Target/Sweep Sweep Patient Position Supine Combined With Heat/Cold Hot Pack PT-OP-T Assessment and Plan Start: 03/02/19 16:56 Freq: Status: Active Protocol: Document 05/03/19 09:53 LRN (Rec: 05/03/19 12:47 LRN [id number]) Physical Therapy Assessment Progress Towards Goals Progress Comments Pt with occasional onset of impingement pain in the R shoulder with shoulder flexion . Pt able to lift weights without pain after MWM technique. Assessment Summary Assessment Poor response to K-tape with a reaction of redness, blistering and skin tear that pt shows as a small pin-point area of scab on the R anterolateral chest. Pt has episodes of impingement type pain with R shoulder flexion, that easily cleared with MWM. She had pressure in the anterior R shoulder with horizontal AD and pain subacromial after stretching; therefore probable Supraspinatus impingement. Pt tolerated ex well and has resumed ability to lift 3# overhead without pain. Pt mid back lacks flex mobility and Pec Minor forward rolls shoulders. Pt is weak with scapular protraction because scapula doesn't appear to return to a neutral position on the posterior ribcage. Rhomboid strength doesn't appear to be the reason; therefore further assessment is needed. Physical Therapy Plan Frequency and Duration Frequency of Treatment 2x/Week Plan of Care Start Date 03/05/19 Plan of Care End Date 05/04/19 Next Visit Focus/Plan Next Note Type Treatment Note Next Visit Plan Very careful RC strengthening due to probable injury to Supraspinatus as needed. No K-tape due to allergic reaction. Resume slowly into strengthening for, MWM for scapulohumeral rhythm (SHR) training for lifting overhead. Mobilize T3-T6 for flex and if needed for L rotation. Pt planning trip 05/20/19, expect DC to HEP prior to trip as pt progresses to painfree dressing and lifting gallon jug overhead (to simulate putting milk into a fridge).
--- NOTE | 2019-05-03 14:12 | PT.OPPN ---
Current Diagnoses Pain in right shoulder (05/03/19) Physical Therapy Progress Note PT-OP-A Visit Information Start: 03/02/19 16:56 Freq: Status: Active Protocol: Document 05/03/19 09:53 LRN (Rec: 05/03/19 10:38 LRN [id number]) Out-Patient Physical Therapy Visit Information Visit Information Visit Type Treatment Note Visit Start Time 09:53 Visit Stop Time 10:38 Total Visit Minutes 45 Visit Number 15 Number of FOREST FI[employer]HTERS DISPATCHER Visits 0 Evaluation Information Evaluation Date 03/05/19 Precautions Precautions Back pain PT-OP-B Current Condition Start: 03/02/19 16:56 Freq: Status: Active Protocol: Document 03/05/19 08:19 LRN (Rec: 03/05/19 09:21 LRN [id number]) Current Condition History of Current Condition Onset Date 09/2018 Current Complaints R shoulder pain, mostly constant ache History of Current Condition Pt states she noticed one day that she could barely hold a gallon of milk with her R arm. She describes her pain as an insidious onset, but does recall her grandson jumping into her arms once, otherwise she denies any incident or injury to the shoulder. She states the R shoulder has progressively worsened. She is worse at night after working all day and states the shoulder aches all over with pain radiating into the elbow. If she moves wrong she gets a shooting pain. Reaching overhead and lifting is most painful. At rest she feels like her shoulder is falling out of the socket, so she feels the need to rest it on a pillow. She states her R shoulder hurts most of the time, aches at night, but once she gets to sleep she has no problem sleeping. She sleeps on L side with arm propped up on a pillow. She states her L shoulder is now starting to hurt because she is having to compensate for the right. She reports a prior incident of R shoulder pain when she picked up a huge sack of clothes, heard a pop, and had R shoulder pain. At that time tests showed a possible small tear. She had physical therapy with good results. Prior Treatments and Tests None. Future Testing and Treatments Planned None Developmental History Developmental History She sought medical care in November 2018, was seen by physician in December and was able to schedule for physical therapy today, 03/05/2019. Treatment Goals Patient/Caregiver Goals Pt goal is to have no pain in the R shoulder. 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 Baseline Function- Other Always sleeps on L side. Able to cook, & clean without pain . Current Functional Impairments (Reported) Functional Limitations- ADL's Difficulty removing clothes, putting dishes high up on cupboards, lifting with R arm a gallon of milk, & making beds. Laundry is not a problem. Functional Limitations- Other Cooking and cleaning causes R shoulder pain. Personal Factors Other Personal Factors That May Effect Pt takes care of her grandkids Therapy/Recovery . PT-OP-C Subjective Start: 03/02/19 16:56 Freq: Status: Active Protocol: Document 05/03/19 09:53 LRN (Rec: 05/03/19 10:38 LRN [id number]) OP-PT Subjective Patient Comments Patient Comments Pt states the tape did not help and wore for 2 days, then began to have signs of allergic reaction, so removed. States she itched, then turned red, then blistered, took some skin off, pt showed area with small scab that is just bigger than pinpoint sized. PT-OP-F Manual Assessment Start: 03/02/19 16:56 Freq: Status: Active Protocol: Document 03/05/19 08:19 LRN (Rec: 03/05/19 09:21 LRN [id number]) Manual Assessments Soft Tissue Assessment Soft Tissue Mobility Assessment Increased tension and tenderness to palpation at R UT, Levator Scapula, Supraspinatus, Deltoid, Pec Minor & Major, Rhomboids and Teres Major/Minor, Cervical paraspinals & Biceps Longus tendon attachment on the humerus. Joint Mobility Assessment Joint Mobility Assessment Decreased in Cervical spine due to pain. Other Manual Assessments Other Manual Assessments C3, C4, C5 tenderness at Transverse processes and facet joints. C5, C6, C7 tenderness at Transverse processes and rotated left. PT-OP-H Neuro Start: 03/02/19 16:56 Freq: Status: Active Protocol: Document 03/05/19 08:19 LRN (Rec: 03/05/19 09:21 LRN [id number]) Sensation Evaluation Gross Sensation Gross Sensation WNL Comments Summary Comments Sensation is normal to soft touch. Deep Tendon Reflex & Clonus Assessment Deep Tendon Reflex Bilateral Tricep Deep Tendon Reflex 0 Absent Bilateral Brachioradialis Deep Tendon Reflex 1+ Diminished Bilateral Bicep Deep Tendon Reflex 2+ Normal PT-OP-J Posture/Palpation/Skin Start: 03/02/19 16:56 Freq: Status: Active Protocol: Document 03/05/19 08:19 LRN (Rec: 03/05/19 09:21 LRN [id number]) Posture Evaluation Position Standing Evaluation View All positions Head/C-Spine Posture Forward Head T-Spine Posture Flattened Shoulder Posture (L) Rounded (R) Rounded (R) Forward (L) Elevated Scapula Posture (R) Depressed Arm Posture (L) Internally Rotated Palpation Assessment Location R shoulder Palpation Location Generally in shoulder and down upper arm, humeral head Palpation Findings Soft Tissue Tightness Tenderness PT-OP-K Range of Motion Start: 03/02/19 16:56 Freq: Status: Active Protocol: Document 04/05/19 08:17 LRN (Rec: 04/05/19 09:20 LRN [id number]) Shoulder Goniometric Range of Motion Shoulder Measured in Degrees Right Active Shoulder ROM WFL Yes Testing Position Sitting Internal Rotation Behind Back (text) L4, T2 Left Active Shoulder ROM WFL Yes Testing Position Sitting Internal Rotation Behind Back (text) L4, T2 Shoulder ROM Limitations Shoulder ROM Limitations Pain Comments R shoulder AROM is normal, except with occasional painful arc. PT-OP-L Special Tests Start: 03/02/19 16:56 Freq: Status: Active Protocol: Document 03/05/19 08:19 LRN (Rec: 03/05/19 09:21 LRN [id number]) Special Tests Cervical Spine Special Tests Traction Test Results Decreased R shoulder pain Shoulder Special Tests Elevation Impingement Test Results Positive Comments Onset of R shoulder pain. Briceño Teto Impingement Test Results Positive Comments Onset of R shoulder pain. PT-OP-M Strength Start: 03/02/19 16:56 Freq: Status: Active Protocol: Document 03/05/19 08:19 LRN (Rec: 03/05/19 09:21 LRN [id number]) Cervical Spine Strength Cervical Spine Manual Muscle Testing Testing Position Sitting Reason Not Measured WFL Shoulder Strength Shoulder Manual Muscle Testing Right Flexion 3 Fair Left Flexion 3- Fair- PT-OP-T Assessment and Plan Start: 03/02/19 16:56 Freq: Status: Active Protocol: Document 05/03/19 09:53 LRN (Rec: 05/03/19 12:47 LRN [id number]) Physical Therapy Assessment Goals Three Impairment Pain with lifting 1 gallon and reaching into cabinets overhead. Mcc Goal (LTG) Improve R shoulder strength and scapulohumeral rhythm such that the pt will be able to lift a a gallon jug and reach into cabinets overhead without stokes. LTG Duration 05/04/19 (05/06/19: Goal Partially Met) Two Impairment Pain in R shoulder with reaching overhead Short Term Goal (STG) Pt's normal R shoulder AROM and ability to dress without pain. STG Duration 03/30/19 (05/06/19: Goal Partially Met) One Impairment Pt lacks independent self care program. Mcc Goal (LTG) Pt will be independent with a self care HEP LTG Duration 05/04/19 (04/05/19: Progressing) Progress Towards Goals Progress Comments Pt with occasional onset of impingement pain in the R shoulder with shoulder flexion . Pt able to lift weights without pain after MWM technique. Assessment Summary Assessment Pt presents with R rotator cuff dysfunction, probably involving the Supraspinatus. She has had a couple flare up episodes from overuse before she was full rehabilitated; therefore extended the time needed for rehabilitation. Recently she demonstrated poor response to K-tape with a reaction of redness, blistering and skin tear that pt shows as a small healing pin-point scab at the R anterolateral chest. Pt has episodes of impingement type pain with R shoulder flexion, that easily clears with treatment of mobilization with movement (MWM). She had pressure discomfort in the anterior R shoulder with horizontal AD and pain subacromial after stretching; therefore probable Supraspinatus impingement. Pt tolerated ex well today, and has resumed ability to lift 3# overhead without pain. Pt mid back thoracic spine lacks flex mobility and decreased mobility of Pec Minor. Pt is weak with scapular protraction because scapula doesn't appear to return to a neutral position on the posterior ribcage after protraction. Her Rhomboid strength is good. The pt will benefit from further skilled physical therapy to progress her R shoulder rehab for improved shoulder stability, strength, and functional mobility. Her therapy might have to be postponed and continued once she returns from her vacation if she is not able to achieve stability before her trip on . Physical Therapy Plan Frequency and Duration Frequency of Treatment 2x/Week Plan of Care Start Date 05/03/19 Plan of Care End Date 08/04/19 Therapeutic Interventions Therapeutic Interventions Home Exercise Program Joint Mobilizations Manual Therapy Neuromuscular Re-education Patient/Caregiver Education Self-Care/Home Management Soft Tissue Mobilization Taping Therapeutic Exercises Modalities Cold Pack/Ice Massage Electric Stimulation Hot Packs Ultrasound Next Visit Focus/Plan Next Note Type Treatment Note Next Visit Plan Very careful RC strengthening due to probable injury to Supraspinatus. No K-tape due to allergic reaction. Resume slowly into strengthening for, MWM for scapulohumeral rhythm (SHR) training for lifting overhead. Mobilize T3-T6 for flex and if needed for L rotation. Pt planning trip 05/20/19, expect DC to HEP prior to trip as pt progresses to painfree dressing and lifting gallon jug overhead (to simulate putting milk into a fridge).
--- NOTE | 2019-05-03 14:13 | PT.OPPOC ---
Current Diagnoses Pain in right shoulder (05/03/19) Provider Visit Care Team Role Provider Type Zunilda Keyes MD Attending Provider Physician Primary Care Provider Specialty: Family Practice Address: [address] [place] [address], [id number] Email: [email or web address] Plan Of Care PT-OP-T Assessment and Plan Start: 03/02/19 16:56 Freq: Status: Active Protocol: Document 05/03/19 09:53 LRN (Rec: 05/03/19 12:47 LRN [id number]) Physical Therapy Assessment Goals Three Impairment Pain with lifting 1 gallon and reaching into cabinets overhead. Digital Media Strategist Goal (LTG) Improve R shoulder strength and scapulohumeral rhythm such that the pt will be able to lift a a gallon jug and reach into cabinets overhead without stokes. LTG Duration 08/04/19 (05/06/19: Goal Partially Met) Two Impairment Pain in R shoulder with reaching overhead Short Term Goal (STG) Pt's normal R shoulder AROM and ability to dress without pain. STG Duration 05/20/19 (05/06/19: Goal Partially Met) One Impairment Pt lacks independent self care program. Digital Media Strategist Goal (LTG) Pt will be independent with a self care HEP LTG Duration 08/04/19 (04/05/19: Progressing) Progress Towards Goals Progress Comments Pt with occasional onset of impingement pain in the R shoulder with shoulder flexion . Pt able to lift weights without pain after MWM technique. Assessment Summary Assessment Pt presents with R rotator cuff dysfunction, probably involving the Supraspinatus. She has had a couple flare up episodes from overuse before she was full rehabilitated; therefore extended the time needed for rehabilitation. Recently she demonstrated poor response to K-tape with a reaction of redness, blistering and skin tear that pt shows as a small healing pin-point scab at the R anterolateral chest. Pt has episodes of impingement type pain with R shoulder flexion, that easily clears with treatment of mobilization with movement (MWM). She had pressure discomfort in the anterior R shoulder with horizontal AD and pain subacromial after stretching; therefore probable Supraspinatus impingement. Pt tolerated ex well today, and has resumed ability to lift 3# overhead without pain. Pt mid back thoracic spine lacks flex mobility and decreased mobility of Pec Minor. Pt is weak with scapular protraction because scapula doesn't appear to return to a neutral position on the posterior ribcage after protraction. Her Rhomboid strength is good. The pt will benefit from further skilled physical therapy to progress her R shoulder rehab for improved shoulder stability, strength, and functional mobility. Her therapy might have to be postponed and continued once she returns from her vacation if she is not able to achieve stability before her trip on . Physical Therapy Plan Frequency and Duration Frequency of Treatment 2x/Week Plan of Care Start Date 05/03/19 Plan of Care End Date 08/04/19 Therapeutic Interventions Therapeutic Interventions Home Exercise Program Joint Mobilizations Manual Therapy Neuromuscular Re-education Patient/Caregiver Education Self-Care/Home Management Soft Tissue Mobilization Taping Therapeutic Exercises Modalities Cold Pack/Ice Massage Electric Stimulation Hot Packs Ultrasound Next Visit Focus/Plan Next Note Type Treatment Note Next Visit Plan Very careful RC strengthening due to probable injury to Supraspinatus. No K-tape due to allergic reaction. Resume slowly into strengthening for, MWM for scapulohumeral rhythm (SHR) training for lifting overhead. Mobilize T3-T6 for flex and if needed for L rotation. Pt planning trip 05/20/19, expect DC to HEP prior to trip as pt progresses to painfree dressing and lifting gallon jug overhead (to simulate putting milk into a fridge). Plan of Care Dates Plan of Care Start Date 05/03/19 Plan of Care End Date 08/04/19 Please Sign and Return: I have reviewed this Plan of Care and certify that the skilled therapy services above are required to meet the patient?s needs. Physician Signature Date Printed Name and Credentials Clinical Instructor Signature Printed Name and Credentials
--- NOTE | 2019-05-07 15:13 | PT.OTN ---
Current Diagnoses Pain in right shoulder (05/07/19) Physical Therapy Treatment Note PT-OP-A Visit Information Start: 03/02/19 16:56 Freq: Status: Active Protocol: Document 05/07/19 12:45 LRN (Rec: 05/07/19 13:32 LRN [id number]) Out-Patient Physical Therapy Visit Information Visit Information Visit Type Treatment Note Visit Start Time 12:45 Visit Stop Time 13:37 Total Visit Minutes 52 Visit Number 16 Number of LINING FELLER BLINDSTITCH Visits 0 Evaluation Information Evaluation Date 03/05/19 Precautions Precautions Back pain PT-OP-B Current Condition Start: 03/02/19 16:56 Freq: Status: Active Protocol: Document 03/05/19 08:19 LRN (Rec: 03/05/19 09:21 LRN [id number]) Current Condition History of Current Condition Onset Date 09/2018 Current Complaints R shoulder pain, mostly constant ache History of Current Condition Pt states she noticed one day that she could barely hold a gallon of milk with her R arm. She describes her pain as an insidious onset, but does recall her grandson jumping into her arms once, otherwise she denies any incident or injury to the shoulder. She states the R shoulder has progressively worsened. She is worse at night after working all day and states the shoulder aches all over with pain radiating into the elbow. If she moves wrong she gets a shooting pain. Reaching overhead and lifting is most painful. At rest she feels like her shoulder is falling out of the socket, so she feels the need to rest it on a pillow. She states her R shoulder hurts most of the time, aches at night, but once she gets to sleep she has no problem sleeping. She sleeps on L side with arm propped up on a pillow. She states her L shoulder is now starting to hurt because she is having to compensate for the right. She reports a prior incident of R shoulder pain when she picked up a huge sack of clothes, heard a pop, and had R shoulder pain. At that time tests showed a possible small tear. She had physical therapy with good results. Prior Treatments and Tests None. Future Testing and Treatments Planned None Developmental History Developmental History She sought medical care in November 2018, was seen by physician in December and was able to schedule for physical therapy today, 03/05/2019. Treatment Goals Patient/Caregiver Goals Pt goal is to have no pain in the R shoulder. 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 Baseline Function- Other Always sleeps on L side. Able to cook, & clean without pain . Current Functional Impairments (Reported) Functional Limitations- ADL's Difficulty removing clothes, putting dishes high up on cupboards, lifting with R arm a gallon of milk, & making beds. Laundry is not a problem. Functional Limitations- Other Cooking and cleaning causes R shoulder pain. Personal Factors Other Personal Factors That May Effect Pt takes care of her grandkids Therapy/Recovery . PT-OP-C Subjective Start: 03/02/19 16:56 Freq: Status: Active Protocol: Document 05/07/19 12:45 LRN (Rec: 05/07/19 13:32 LRN [id number]) OP-PT Subjective Patient Comments Patient Comments R shoulder is doing good PT-OP-F Manual Assessment Start: 03/02/19 16:56 Freq: Status: Active Protocol: Document 03/05/19 08:19 LRN (Rec: 03/05/19 09:21 LRN [id number]) Manual Assessments Soft Tissue Assessment Soft Tissue Mobility Assessment Increased tension and tenderness to palpation at R UT, Levator Scapula, Supraspinatus, Deltoid, Pec Minor & Major, Rhomboids and Teres Major/Minor, Cervical paraspinals & Biceps Longus tendon attachment on the humerus. Joint Mobility Assessment Joint Mobility Assessment Decreased in Cervical spine due to pain. Other Manual Assessments Other Manual Assessments C3, C4, C5 tenderness at Transverse processes and facet joints. C5, C6, C7 tenderness at Transverse processes and rotated left. PT-OP-H Neuro Start: 03/02/19 16:56 Freq: Status: Active Protocol: Document 03/05/19 08:19 LRN (Rec: 03/05/19 09:21 LRN [id number]) Sensation Evaluation Gross Sensation Gross Sensation WNL Comments Summary Comments Sensation is normal to soft touch. Deep Tendon Reflex & Clonus Assessment Deep Tendon Reflex Bilateral Tricep Deep Tendon Reflex 0 Absent Bilateral Brachioradialis Deep Tendon Reflex 1+ Diminished Bilateral Bicep Deep Tendon Reflex 2+ Normal PT-OP-J Posture/Palpation/Skin Start: 03/02/19 16:56 Freq: Status: Active Protocol: Document 03/05/19 08:19 LRN (Rec: 03/05/19 09:21 LRN [id number]) Posture Evaluation Position Standing Evaluation View All positions Head/C-Spine Posture Forward Head T-Spine Posture Flattened Shoulder Posture (L) Rounded (R) Rounded (R) Forward (L) Elevated Scapula Posture (R) Depressed Arm Posture (L) Internally Rotated Palpation Assessment Location R shoulder Palpation Location Generally in shoulder and down upper arm, humeral head Palpation Findings Soft Tissue Tightness Tenderness PT-OP-K Range of Motion Start: 03/02/19 16:56 Freq: Status: Active Protocol: Document 04/05/19 08:17 LRN (Rec: 04/05/19 09:20 LRN [id number]) Shoulder Goniometric Range of Motion Shoulder Measured in Degrees Right Active Shoulder ROM WFL Yes Testing Position Sitting Internal Rotation Behind Back (text) L4, T2 Left Active Shoulder ROM WFL Yes Testing Position Sitting Internal Rotation Behind Back (text) L4, T2 Shoulder ROM Limitations Shoulder ROM Limitations Pain Comments R shoulder AROM is normal, except with occasional painful arc. PT-OP-L Special Tests Start: 03/02/19 16:56 Freq: Status: Active Protocol: Document 03/05/19 08:19 LRN (Rec: 03/05/19 09:21 LRN [id number]) Special Tests Cervical Spine Special Tests Traction Test Results Decreased R shoulder pain Shoulder Special Tests Elevation Impingement Test Results Positive Comments Onset of R shoulder pain. Briceño Teto Impingement Test Results Positive Comments Onset of R shoulder pain. PT-OP-M Strength Start: 03/02/19 16:56 Freq: Status: Active Protocol: Document 03/05/19 08:19 LRN (Rec: 03/05/19 09:21 LRN [id number]) Cervical Spine Strength Cervical Spine Manual Muscle Testing Testing Position Sitting Reason Not Measured WFL Shoulder Strength Shoulder Manual Muscle Testing Right Flexion 3 Fair Left Flexion 3- Fair- PT-OP-Q Treatments Start: 03/02/19 16:56 Freq: Status: Active Protocol: Document 05/07/19 12:45 LRN (Rec: 05/07/19 13:32 LRN [id number]) Cardio Equipment Upper Body Ergometer (UBE) Duration (Minutes) 10 RPM 65 Seat Position 13 Height 4 Therapeutic Exercises Supine Exercises Shoulder AB Supine Exercise Name Shoulder AB to 90 deg's Side right Reps/Minutes 10 x Sitting Exercises Upper thoracic stretch Sitting Exercise Name Rounding shoulders Reps/Minutes 3' Comments Stretch in mid to lower intrascapular area: in sitting Scapular Depression Sitting Exercise Name L Scapular Depression Side left Reps/Minutes 2' Comments Manual cuing Standing Exercises Lifting Overhead Standing Exercise Name Press ups overhead holding wgt w/both hands Side bilateral Resistance 3# Reps/Minutes 15x2 each Shoulder Horiz ADD Standing Exercise Name R Shoulder horiz AD Side right Resistance 1# Reps/Minutes 15x2 Upper Rhomboid stretch Standing Exercise Name Doorway stretch (arms above 90 deg's) Side bilateral Reps/Minutes 4' Comments Upper thoracic rhomboid stretch, focus on R Scapular Depression Standing Exercise Name Scapular Depression Side left Shoulder IR Side bilateral Resistance Lev 2 T-Band Reps/Minutes 15 x Shoulder ER Standing Exercise Name Shoulder ER Side bilateral Resistance Lev 2 T-Band Reps/Minutes 15 x Manual Therapy Treatment Joint Mobilizations T3-T5 Joint T3-T4, T4-T5 Direction Flex & L rotation mob Grade III Body Position Sitting Reps/Duration 8' Self-Care/Home Management Treatment Activities Self-Care/Home Management Activities Pt to focus on L shoulder depression & AB (to 90 degs) ex and RC strengthening. PT-OP-R Modalities Start: 03/02/19 16:56 Freq: Status: Active Protocol: Document 05/07/19 12:45 LRN (Rec: 05/07/19 15:01 LRN [id number]) Hot Pack/Cold Pack Treatment Cold Pack Location R shoulder Patient Position Supine Treatment Duration (minutes) 10 Patient Tolerance Good PT-OP-T Assessment and Plan Start: 03/02/19 16:56 Freq: Status: Active Protocol: Document 05/07/19 12:45 LRN (Rec: 05/07/19 13:32 LRN [id number]) Physical Therapy Assessment Assessment Summary Assessment Pt has regained her full painfree R shoulder AROM. She only experienced pain with shoulder shrug motion. Her R shoulder appears dropped due to ?inhibition of UT? Further assessment is needed. Probable Supraspinatus dysfunction. Physical Therapy Plan Frequency and Duration Frequency of Treatment 2x/Week Plan of Care Start Date 05/03/19 Plan of Care End Date 08/04/19 Next Visit Focus/Plan Next Note Type Treatment Note Next Visit Plan Assess progress to goals. Very careful RC strengthening due to probable injury to Supraspinatus. No K-tape due to allergic reaction. Resume slowly into strengthening for, MWM for scapulohumeral rhythm (SHR) training for lifting overhead. Mobilize T3-T6 for flex and if needed for L rotation. Pt planning trip 05/20/19, expect DC to HEP prior to trip as pt progresses to painfree dressing and lifting gallon jug overhead (to simulate putting milk into a fridge).
--- NOTE | 2019-06-12 17:11 | PT.OTN ---
Current Diagnoses Pain in right shoulder (06/12/19) Physical Therapy Treatment Note PT-OP-A Visit Information Start: 03/02/19 16:56 Freq: Status: Active Protocol: Document 06/12/19 11:20 LRN (Rec: 06/12/19 12:13 LRN [id number]) Out-Patient Physical Therapy Visit Information Visit Information Visit Type Treatment Note Visit Start Time 11:20 Visit Stop Time 11:58 Total Visit Minutes 38 Visit Number 17 Number of ACCOUNTS COLLECTOR Visits 0 Evaluation Information Evaluation Date 03/05/19 Precautions Precautions Back pain PT-OP-B Current Condition Start: 03/02/19 16:56 Freq: Status: Active Protocol: Document 03/05/19 08:19 LRN (Rec: 03/05/19 09:21 LRN [id number]) Current Condition History of Current Condition Onset Date 09/2018 Current Complaints R shoulder pain, mostly constant ache History of Current Condition Pt states she noticed one day that she could barely hold a gallon of milk with her R arm. She describes her pain as an insidious onset, but does recall her grandson jumping into her arms once, otherwise she denies any incident or injury to the shoulder. She states the R shoulder has progressively worsened. She is worse at night after working all day and states the shoulder aches all over with pain radiating into the elbow. If she moves wrong she gets a shooting pain. Reaching overhead and lifting is most painful. At rest she feels like her shoulder is falling out of the socket, so she feels the need to rest it on a pillow. She states her R shoulder hurts most of the time, aches at night, but once she gets to sleep she has no problem sleeping. She sleeps on L side with arm propped up on a pillow. She states her L shoulder is now starting to hurt because she is having to compensate for the right. She reports a prior incident of R shoulder pain when she picked up a huge sack of clothes, heard a pop, and had R shoulder pain. At that time tests showed a possible small tear. She had physical therapy with good results. Prior Treatments and Tests None. Future Testing and Treatments Planned None Developmental History Developmental History She sought medical care in November 2018, was seen by physician in December and was able to schedule for physical therapy today, 03/05/2019. Treatment Goals Patient/Caregiver Goals Pt goal is to have no pain in the R shoulder. 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 Baseline Function- Other Always sleeps on L side. Able to cook, & clean without pain . Current Functional Impairments (Reported) Functional Limitations- ADL's Difficulty removing clothes, putting dishes high up on cupboards, lifting with R arm a gallon of milk, & making beds. Laundry is not a problem. Functional Limitations- Other Cooking and cleaning causes R shoulder pain. Personal Factors Other Personal Factors That May Effect Pt takes care of her kids Therapy/Recovery . PT-OP-C Subjective Start: 03/02/19 16:56 Freq: Status: Active Protocol: Document 06/12/19 11:20 LRN (Rec: 06/12/19 12:13 LRN [id number]) OP-PT Subjective Patient Comments Patient Comments Need strength ex's to strengthen all muscles. Once in a while when reaching for something, the L shoulder feels like it is coming out of socket. Doesn't ache all the time anymore, and sleeps well . PT-OP-F Manual Assessment Start: 03/02/19 16:56 Freq: Status: Active Protocol: Document 03/05/19 08:19 LRN (Rec: 03/05/19 09:21 LRN [id number]) Manual Assessments Soft Tissue Assessment Soft Tissue Mobility Assessment Increased tension and tenderness to palpation at R UT, Levator Scapula, Supraspinatus, Deltoid, Pec Minor & Major, Rhomboids and Teres Major/Minor, Cervical paraspinals & Biceps Longus tendon attachment on the humerus. Joint Mobility Assessment Joint Mobility Assessment Decreased in Cervical spine due to pain. Other Manual Assessments Other Manual Assessments C3, C4, C5 tenderness at Transverse processes and facet joints. C5, C6, C7 tenderness at Transverse processes and rotated left. PT-OP-H Neuro Start: 03/02/19 16:56 Freq: Status: Active Protocol: Document 03/05/19 08:19 LRN (Rec: 03/05/19 09:21 LRN [id number]) Sensation Evaluation Gross Sensation Gross Sensation WNL Comments Summary Comments Sensation is normal to soft touch. Deep Tendon Reflex & Clonus Assessment Deep Tendon Reflex Bilateral Tricep Deep Tendon Reflex 0 Absent Bilateral Brachioradialis Deep Tendon Reflex 1+ Diminished Bilateral Bicep Deep Tendon Reflex 2+ Normal PT-OP-J Posture/Palpation/Skin Start: 03/02/19 16:56 Freq: Status: Active Protocol: Document 06/12/19 11:20 LRN (Rec: 06/12/19 12:13 LRN [id number]) Posture Evaluation Position Standing T-Spine Posture Flattened Shoulder Posture (L) Rounded (R) Rounded (R) Forward (L) Elevated PT-OP-K Range of Motion Start: 03/02/19 16:56 Freq: Status: Active Protocol: Document 06/12/19 11:20 LRN (Rec: 06/12/19 12:13 LRN [id number]) Shoulder Goniometric Range of Motion Shoulder Right Active Shoulder ROM WFL Yes Left Active Shoulder ROM WFL Yes Shoulder ROM Limitations Comments Shoulder IR reaching behind back causes some discomfort is doing it too much. PT-OP-L Special Tests Start: 03/02/19 16:56 Freq: Status: Active Protocol: Document 03/05/19 08:19 LRN (Rec: 03/05/19 09:21 LRN [id number]) Special Tests Cervical Spine Special Tests Traction Test Results Decreased R shoulder pain Shoulder Special Tests Elevation Impingement Test Results Positive Comments Onset of R shoulder pain. Briceño Teto Impingement Test Results Positive Comments Onset of R shoulder pain. PT-OP-M Strength Start: 03/02/19 16:56 Freq: Status: Active Protocol: Document 06/12/19 11:20 LRN (Rec: 06/12/19 12:13 LRN [id number]) Shoulder Strength Shoulder Manual Muscle Testing Right Comments Generally 5/5 Left External Rotation 4+ Good+ Comments Generally 5/5 except for ER above. PT-OP-Q Treatments Start: 03/02/19 16:56 Freq: Status: Active Protocol: Document 06/12/19 11:20 LRN (Rec: 06/12/19 12:13 LRN [id number]) Cardio Equipment Upper Body Ergometer (UBE) Duration (Minutes) 10 RPM 65 Seat Position 13 Height 4 Therapeutic Exercises Sitting Exercises Shoulder AROM Sitting Exercise Name Shoulder AROM Side bilateral Comments ROM & MMT taken Upper thoracic stretch Sitting Exercise Name Rounding shoulders Reps/Minutes 3' Comments Performed a few times throughout therapy Standing Exercises Shoulder punches foward Standing Exercise Name T-Band around shoulders for shoulder punches Side bilateral Resistance Lev 2 T-Band Reps/Minutes 15x Shoulder Horiz ADD Standing Exercise Name R Shoulder horiz AD Side bilateral Resistance lev 2 T-Band Reps/Minutes 15x2 Shoulder IR Side bilateral Resistance Lev 2 T-Band Reps/Minutes 15 x Shoulder ER Standing Exercise Name Shoulder ER Side bilateral Resistance Lev 2 T-Band Reps/Minutes 15 x Self-Care/Home Management Treatment Education Patient Education Home Exercise Program Activities Self-Care/Home Management Activities Issued & reviewed HEP of shoulder strengthening ex's with T-Band. PT-OP-R Modalities Start: 03/02/19 16:56 Freq: Status: Active Protocol: Document 05/07/19 12:45 LRN (Rec: 05/07/19 15:01 LRN [id number]) Hot Pack/Cold Pack Treatment Cold Pack Location R shoulder Patient Position Supine Treatment Duration (minutes) 10 Patient Tolerance Good PT-OP-T Assessment and Plan Start: 03/02/19 16:56 Freq: Status: Active Protocol: Document 06/12/19 11:20 LRN (Rec: 06/12/19 12:13 LRN [id number]) Physical Therapy Assessment Goals Three Impairment Pain with lifting 1 gallon and reaching into cabinets overhead. Sound Truck Operator Goal (LTG) Improve R shoulder strength and scapulohumeral rhythm such that the pt will be able to lift a a gallon jug and reach into cabinets overhead without stokes. LTG Duration 08/04/19 (06/12/19: Goal Met if moving the correct way) Two Impairment Pain in R shoulder with reaching overhead Short Term Goal (STG) Pt's normal R shoulder AROM and ability to dress without pain. STG Duration 05/20/19 (06/12/19: Goal Met) One Impairment Pt lacks independent self care program. Custodial Goal (LTG) Pt will be independent with a self care HEP LTG Duration 08/04/19 (06/12/19: Pt not able to recall T-Band ex's) Progress Towards Goals Progress Towards Goals Progressing Toward Goals Progress Comments Goal #1: Pt not independent with HEP. Goal #2: GOAL MET. Able to dress without pain. Goal #3: GOAL MET for reaching cabinets and lifting 1# jug without pain if moving correctly, which pt is able to demonstrate Assessment Summary Assessment Pt appears to know what to do for her shoulders during a flare up. Pt is having R low back/SIJ pain causing tightness in R upper back and tightness in scapular stabilizers; therefore general LB stretches may be helpful to minimize effect on scapular stabilizers and shoulders. Physical Therapy Plan Frequency and Duration Frequency of Treatment 2x/Week Plan of Care Start Date 05/03/19 Plan of Care End Date 08/04/19 Next Visit Focus/Plan Next Note Type Discharge Summary Next Visit Plan DC next visit to HEP if pt independent and familiar with ex's. Review HEP, add resisted shoulder AD. Add R LB stretches to minimize postural changes in upper back : [place] hip flex & lateral hip stretch. Check R shoulder IR A/PROM for comparison to L side.
--- NOTE | 2019-06-19 12:25 | PT.OTN ---
Current Diagnoses Pain in right shoulder (06/19/19) Physical Therapy Treatment Note PT-OP-A Visit Information Start: 03/02/19 16:56 Freq: Status: Active Protocol: Document 06/19/19 12:07 LRN (Rec: 06/19/19 12:24 LRN [id number]) Out-Patient Physical Therapy Visit Information Visit Information Visit Type Treatment Note Visit Start Time 11:15 Visit Stop Time 12:00 Total Visit Minutes 45 Visit Number 18 Number of CAN CLOSING MACHINE TENDER Visits 0 Evaluation Information Evaluation Date 03/05/19 Precautions Precautions Back pain PT-OP-B Current Condition Start: 03/02/19 16:56 Freq: Status: Active Protocol: Document 03/05/19 08:19 LRN (Rec: 03/05/19 09:21 LRN [id number]) Current Condition History of Current Condition Onset Date 09/2018 Current Complaints R shoulder pain, mostly constant ache History of Current Condition Pt states she noticed one day that she could barely hold a gallon of milk with her R arm. She describes her pain as an insidious onset, but does recall her grandson jumping into her arms once, otherwise she denies any incident or injury to the shoulder. She states the R shoulder has progressively worsened. She is worse at night after working all day and states the shoulder aches all over with pain radiating into the elbow. If she moves wrong she gets a shooting pain. Reaching overhead and lifting is most painful. At rest she feels like her shoulder is falling out of the socket, so she feels the need to rest it on a pillow. She states her R shoulder hurts most of the time, aches at night, but once she gets to sleep she has no problem sleeping. She sleeps on L side with arm propped up on a pillow. She states her L shoulder is now starting to hurt because she is having to compensate for the right. She reports a prior incident of R shoulder pain when she picked up a huge sack of clothes, heard a pop, and had R shoulder pain. At that time tests showed a possible small tear. She had physical therapy with good results. Prior Treatments and Tests None. Future Testing and Treatments Planned None Developmental History Developmental History She sought medical care in November 2018, was seen by physician in December and was able to schedule for physical therapy today, 03/05/2019. Treatment Goals Patient/Caregiver Goals Pt goal is to have no pain in the R shoulder. 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 Baseline Function- Other Always sleeps on L side. Able to cook, & clean without pain . Current Functional Impairments (Reported) Functional Limitations- ADL's Difficulty removing clothes, putting dishes high up on cupboards, lifting with R arm a gallon of milk, & making beds. Laundry is not a problem. Functional Limitations- Other Cooking and cleaning causes R shoulder pain. Personal Factors Other Personal Factors That May Effect Pt takes care of her grandkids Therapy/Recovery . PT-OP-C Subjective Start: 03/02/19 16:56 Freq: Status: Active Protocol: Document 06/19/19 12:07 LRN (Rec: 06/19/19 12:24 LRN [id number]) OP-PT Subjective Patient Comments Patient Comments Pt states she has had no shoulder pain, only occasional twinges. States her limitation in function (per UE Quick DASH) is because of caution, not because she can't do activities. States she is ready for discharge. Patient Questionnaires Quick Dash- Upper Extremity Quick Dash UE Score 9.09 Quick Dash UE Impairment 1 to 19% Impaired (Score 1-19) OP-PT Pain Assessment Pain Assessment Grid Paper Pain Assessment Grid Completed Yes Location R shoulder Intensity 0 Scale Used Numeric (1 - 10) PT-OP-F Manual Assessment Start: 03/02/19 16:56 Freq: Status: Active Protocol: Document 03/05/19 08:19 LRN (Rec: 03/05/19 09:21 LRN [id number]) Manual Assessments Soft Tissue Assessment Soft Tissue Mobility Assessment Increased tension and tenderness to palpation at R UT, Levator Scapula, Supraspinatus, Deltoid, Pec Minor & Major, Rhomboids and Teres Major/Minor, Cervical paraspinals & Biceps Longus tendon attachment on the humerus. Joint Mobility Assessment Joint Mobility Assessment Decreased in Cervical spine due to pain. Other Manual Assessments Other Manual Assessments C3, C4, C5 tenderness at Transverse processes and facet joints. C5, C6, C7 tenderness at Transverse processes and rotated left. PT-OP-H Neuro Start: 03/02/19 16:56 Freq: Status: Active Protocol: Document 03/05/19 08:19 LRN (Rec: 03/05/19 09:21 LRN [id number]) Sensation Evaluation Gross Sensation Gross Sensation WNL Comments Summary Comments Sensation is normal to soft touch. Deep Tendon Reflex & Clonus Assessment Deep Tendon Reflex Bilateral Tricep Deep Tendon Reflex 0 Absent Bilateral Brachioradialis Deep Tendon Reflex 1+ Diminished Bilateral Bicep Deep Tendon Reflex 2+ Normal PT-OP-J Posture/Palpation/Skin Start: 03/02/19 16:56 Freq: Status: Active Protocol: Document 06/19/19 12:07 LRN (Rec: 06/19/19 12:24 LRN [id number]) Palpation Assessment Location R shoulder Palpation Location Generally in shoulder and down upper arm, humeral head Palpation Findings None/Normal PT-OP-K Range of Motion Start: 03/02/19 16:56 Freq: Status: Active Protocol: Document 06/19/19 12:07 LRN (Rec: 06/19/19 12:24 LRN [id number]) Shoulder Goniometric Range of Motion Shoulder Right Active Testing Position Supine Flexion 165 External Rotation at 90 degrees 90 Abduction Internal Rotation 60 Left Active Testing Position Supine Flexion 165 External Rotation at 90 degrees 70 Abduction Internal Rotation 62 PT-OP-L Special Tests Start: 03/02/19 16:56 Freq: Status: Active Protocol: Document 03/05/19 08:19 LRN (Rec: 03/05/19 09:21 LRN [id number]) Special Tests Cervical Spine Special Tests Traction Test Results Decreased R shoulder pain Shoulder Special Tests Elevation Impingement Test Results Positive Comments Onset of R shoulder pain. Briceño Teto Impingement Test Results Positive Comments Onset of R shoulder pain. PT-OP-M Strength Start: 03/02/19 16:56 Freq: Status: Active Protocol: Document 06/12/19 11:20 LRN (Rec: 06/12/19 12:13 LRN [id number]) Shoulder Strength Shoulder Manual Muscle Testing Right Comments Generally 5/5 Left External Rotation 4+ Good+ Comments Generally 5/5 except for ER above. PT-OP-Q Treatments Start: 03/02/19 16:56 Freq: Status: Active Protocol: Document 06/19/19 12:07 LRN (Rec: 06/19/19 12:24 LRN [id number]) Therapeutic Exercises Supine Exercises Lateral hip stretch Supine Exercise Name Lateral Hip stretch Side bilateral Reps/Minutes 6 x 10 sec holds DKTC Supine Exercise Name DKTC Reps/Minutes 6 x 10 sec holds SKTC stretch Supine Exercise Name SKTC Side bilateral Reps/Minutes 6 x 10 sec holds Sitting Exercises Shoulder AROM Sitting Exercise Name Shoulder AROM Side bilateral Comments ROM & MMT taken Standing Exercises Shoulder punches foward Standing Exercise Name T-Band around shoulders for shoulder punches Side bilateral Resistance Lev 2 T-Band Reps/Minutes 15x Shoulder Horiz ADD Standing Exercise Name R Shoulder horiz AD Side bilateral Resistance lev 2 T-Band Reps/Minutes 15x2 Shoulder IR Side bilateral Resistance Lev 2 T-Band Reps/Minutes 15 x Shoulder ER Standing Exercise Name Shoulder ER Side bilateral Resistance Lev 2 T-Band Reps/Minutes 15 x Self-Care/Home Management Treatment Education Patient Education Home Exercise Program Activities Self-Care/Home Management Activities Issued & reviewed HEP: Shoulder horiz AD, SKTC, DKTC, lateral hip stretch PT-OP-R Modalities Start: 03/02/19 16:56 Freq: Status: Active Protocol: Document 05/07/19 12:45 LRN (Rec: 05/07/19 15:01 LRN [id number]) Hot Pack/Cold Pack Treatment Cold Pack Location R shoulder Patient Position Supine Treatment Duration (minutes) 10 Patient Tolerance Good PT-OP-T Assessment and Plan Start: 03/02/19 16:56 Freq: Status: Active Protocol: Document 06/19/19 12:07 LRN (Rec: 06/19/19 12:24 LRN [id number]) Physical Therapy Assessment Goals Three Impairment Pain with lifting 1 gallon and reaching into cabinets overhead. Sponge Buffer Goal (LTG) Improve R shoulder strength and scapulohumeral rhythm such that the pt will be able to lift a a gallon jug and reach into cabinets overhead without stokes. LTG Duration 08/04/19 (06/19/19: GOAL MET) Two Impairment Pain in R shoulder with reaching overhead Short Term Goal (STG) Pt's normal R shoulder AROM and ability to dress without pain. STG Duration 05/20/19 (06/12/19: GOAL MET) One Impairment Pt lacks independent self care program. Fdc Goal (LTG) Pt will be independent with a self care HEP LTG Duration 08/04/19 (06/19/19: GOAL MET) Progress Towards Goals Progress Towards Goals Progressing Toward Goals Progress Comments Goal #1: GOAL MET. Goal #2: GOAL MET. Able to dress without pain. Goal #3: GOAL MET for reaching cabinets and lifting 1# jug without pain if moving correctly, which pt is able to demonstrate Assessment Summary Assessment Pt has met all goals. She has returned to her prior function with occasional twinges of pain in the R shoulder. She has normal R shoulder ROM and is actually limited with shoulder ER; otherwise she demonstrates good symmetrical mobility of the shoulders. Physical Therapy Plan Discharge Physical Therapy Discharge Reasons Goals Met Discharge Comments Pt is being discharged to an independent HEP. Thank you for your referral
== END 2019-06-21 13:05 | disposition home or self-care (01) ==
LOC: PHYS 11:15
PROVIDERS: PCP Family Medicine; Visit Provider Family Medicine
DX: M25.511 Pain in right shoulder (principal)
CPT/HCPCS: 97014; 97035; 97110; 97140; 97161; 97535; G0283

== ENCOUNTER → 2020-05-30 11:39 | Outpatient (CLI) | payer OTHER, SELFPAY ==
[2020-05-30 13:19] LABS: Alanine Aminotransferase 20 IU/L (<35); Albumin 4.3 g/dL (3.5-5.0); Albumin Globulin Ratio 1.7 (1.0-2.8); Alkaline Phosphatase 53 U/L (38-126); Aspartate Aminotransferase 20 IU/L (14-36); BUN Creatinine Ratio 30.3 (6-22); Bilirubin Total 0.9 mg/dL (0.2-1.3); Blood Urea Nitrogen 23 mg/dL (7-17); Calcium 9.9 mg/dL (8.4-10.2); Carbon Dioxide 31 mmol/L (22-32); Chloride 102 mmol/L (98-107); Cholesterol 179 mg/dL (140-199); Estimated Glomerular Filt Rate > 60.0 mL/min (>60); Globulin 2.5 g/dL (1.7-4.1); Glucose 108 mg/dL (80-110); HDL Cholesterol 51 mg/dL (40-60); HEMOLYSIS < 15 (0-50); LDL Cholesterol Calculated 103 mg/dL (<100); Potassium 3.8 mmol/L (3.4-5.1); Sodium 139 mmol/L (137-145); Total Protein 6.8 g/dL (6.3-8.2); Triglycerides 123 mg/dL (35-150)
[2020-05-30 16:20] LABS: Creatinine Urine Random 181.6 mg/dL
[2020-05-30 16:27] LABS: Microalbumi Creatinin Ratio Ur 5.5 ug/mg CR (<30)
== END ==
PROVIDERS: PCP Family Medicine; Referring Provider Family Medicine; Visit Provider Family Medicine
DX: I10 Essential (primary) hypertension (principal)
CPT/HCPCS: 36415; 80053; 80061; 82043; 82570

== ENCOUNTER → 2020-09-12 13:26 | Outpatient (CLI) | payer OTHER, SELFPAY ==
[2020-09-13 23:47] LABS: COVID19 Sendout Not Detected (Not Detect)
== END ==
PROVIDERS: PCP Family Medicine; Visit Provider Physician Assistant
DX: Z01.812 Encounter for preprocedural laboratory examination (principal)
CPT/HCPCS: 87635

== ENCOUNTER 2020-09-15 10:25 | Day surgery (SDC) | payer OTHER, SELFPAY ==
[2020-09-11 07:51] VITALS: BMI 40.0
[2020-09-15] VITALS (12 sets, daily range): BP systolic 127–182; BP diastolic 63–91; PULSE 65–85; RESP 10–18; TEMP 36.4–37.2; O2SAT 93–98; BMI 39.7
--- NOTE | 2020-09-15 | PATH_ITS ---
[facility] Accession Number: [id number] . 01 Material submitted: . PART A: cervix - CERVICAL POLYP, UTERINE POLYP PART B: vulva - RIGHT VULVAR MASS . 01 Clinical history: . SDC . 02 Diagnosis: A. Cervical Polyp, Uterine Polyp, Excisions: Fragments of endocervical and endometrial polyps. No evidence of malignancy. . B. Right Vulvar Mass, Excision: Subcutaneous lipoma. No evidence of malignancy. MRV 09/17/2020 1302 Local . 02 Electronically signed: . Payam Elizabeth MD, PhD, Pathologist NPI- [id number] . 01 Gross description: . A. Specimen A is received in formalin, labeled uterine cervical polyps and consists of multiple prakash-pink fragments of soft tissue admixed with mucous, measuring 3.0 x 2.5 x 0.8 cm in aggregate. The specimen is entirely submitted in cassettes A1-A2. B. Specimen B is received in formalin, labeled vulvar mass right and consists of a 3.5 x 2.2 cm prakash wrinkled skin excised to a depth of 1.1 cm. The skin surface displays a 2.5 x 1.8 x 1.0 cm prakash nodule abutting the margin. The margin is inked blue. The specimen is serially sectioned to reveal prakash-yellow, lobulated cut surfaces. The specimen is entirely submitted. . B1 - Tips. B2-B6 - Central cross-sections. ([id number]) /[facility] 09/16/2020 1609 Local . 02 Pathologist provided ICD-10: N84.0, N84.1, D17.30 . 02 CPT . 246730, [id number] Performed at: [address], [facility] [place] [id number] MD Melchor Wilson MD Phone: [phone] Performed at: 02 [facility] [address] [place] [id number] MD Roxi Pond MD Phone: [phone]
[2020-09-15] MEDS: LACTATED RINGERS 1,000 ML 42 ML IV ×2 (12:00→13:38)
--- NOTE | 2020-09-15 13:13 | PM.PREOP ---
Pre-operative Note COVID-19 COVID-19 status: Negative Result date/Date tested (Pos, Neg/Pending): 09/12/20 Interval Note History & Physical reviewed/Exam performed by Physician: Yes Changes to H&P: No H&P completed within 30 days and has changed as indicated here:: 09/15/20
--- NOTE | 2020-09-15 13:15 | PM.HP.1 ---
History of Present Illness History of Present Illness Date Patient Seen: 09/15/20 Time Patient Seen: 13:15 Chief complaint: SDC Narrative: Patient is a 70-year-old 6 para 3 with postmenopausal bleeding, thickened endometrial lining, and right vulvar mass She is here for a D&C hysteroscopy with possible polypectomy and excision of right vulvar mass Patient History Medical History (Updated 09/11/20 @ 07:56 by Renetta Sunshine RN) Chicken pox (Resolved 1959) Chronic back pain (Chronic 05/2014) Depression (Resolved 1994) Hemorrhoids (Resolved 1983) Herpes (Chronic 1968) HLD (hyperlipidemia) (Acute) Hypertension (Chronic 2005) Measles (Resolved 1959) Mumps (Resolved 1959) Rubella (Resolved 1959) Statin myopathy (Chronic) Surgical History (Updated 09/08/18 @ 14:14 by Alicia Ya) Anesthesia (Resolved) Status post delivery (Resolved 1979) Status post delivery (Resolved 1981) Status post delivery (Resolved 1983) Status post cholecystectomy (Resolved) Status post tonsillectomy and adenoidectomy (Resolved 1955) Family & Social History Family History (Updated 09/08/18 @ 14:13 by Alicia Ya) Father Asbestos exposure Bladder cancer Congestive heart failure Heart failure Mother Age: 88 Diabetes mellitus Heart disease High cholesterol Sister Accident Sister No problems noted. Social History: household members spouse Tobacco & Substance use: Smoking Status Former smoker alcohol intake frequency a few times a month Substance Use Type does not use Meds Home Medications and Allergies Home Medications Medication Instructions Recorded Confirmed Type cholecalciferol (vitamin D3) 50 mcg PO DAILY #0 03/17/12 09/15/20 History [Vitamin D3] coenzyme Q10 [Co Q-10] 50 mg PO DAILY #0 03/17/12 09/15/20 History multivitamin 1 cap PO DAILY #0 03/17/12 09/15/20 History omega 9-ycy-xsv-fish oil [Fish Oil] 1 cap PO DAILY #0 03/17/12 09/15/20 History acyclovir 400 mg tablet 400 mg PO TID #30 tab 02/04/20 09/11/20 Rx atorvastatin 10 mg tablet 10 mg PO DAILY #90 tab 06/06/20 09/15/20 Rx metoprolol succinate 50 mg 50 mg PO BID #180 tab 07/01/20 09/15/20 Rx tablet,extended release 24 hr betamethasone dipropionate TOP 08/12/20 08/12/20 History estradiol 1 gram VAG 2XW 08/12/20 09/15/20 History hydrochlorothiazide 25 mg tablet 25 mg PO DAILY 08/12/20 09/15/20 History Allergies Allergy/AdvReac Type Severity Reaction Status Date / Time cefaclor [CEFACLOR] Allergy Severe HIVES Verified 08/12/20 12:08 Sulfa (Sulfonamide Allergy Severe hives Verified 08/12/20 12:08 Antibiotics) [SULFA (SULFONAMIDE ANTIBIOTICS)] codeine [CODEINE] AdvReac Mild GI DISTRESS Verified 08/12/20 12:08 erythromycin base AdvReac Mild STOMACH Verified 08/12/20 12:08 [ERYTHROMYCIN BASE] PAIN Exam Vital Signs (past 8 hours): - 09/15/20 10:57 Temperature 98.1 F Pulse Rate 85 Respiratory Rate 16 Blood Pressure 182/91 H Pulse Oximetry 98 Oxygen Delivery Method Room Air Narrative Exam Narrative: HEENT: No thyromegaly, no anterior cervical or supraclavicular lymphadenopathy. Lungs:Clear to auscultation bilaterally, no wheezes. Cardiovascular: Regular rate and rhythm, no murmurs, rubs, or gallops. Abdomen: Well-healed Pfannenstiel scars. No hepatosplenomegaly. No masses palpable. External genitalia: Normal Vagina: Normal Cervix: Parous Bimanual exam: 7 Week size slightly retroverted uterus. Mobile. Rectal: No masses. Assessment & Plan Assessment & Plan narrative: Assessment: 70-year-old 6 para 3 with postmenopausal bleeding, thickened endometrial lining, and a right vulvar mass Plan: D&C hysteroscopy with possible polypectomy, excision of right vulvar mass The risks, benefits, and alternatives to the procedure were explained to the patient. The risks including bleeding, infection, and uterine perforation. She understands these risks and agrees to proceed. A full par Q was held and consent form was signed. COVID-19 COVID-19 status: Negative Result date/Date tested (Pos, Neg/Pending): 09/12/20 Time Spent With Patient Time with patient: less than 15 minutes
--- NOTE | 2020-09-15 13:35 | SUR.OPER ---
Lithotomy on padded OR bed, head on pillow, arms secured on padded arm boards at <90 degrees abduction. Legs secured in padded yellow fins stirrups.
[2020-09-15] MEDS: LIDOCAINE 1% W/EPI 20 ML INJ (14:16)
[2020-09-15] MEDS: fentaNYL 100 MCG/2 ML INJ IV (14:57)
--- NOTE | 2020-09-15 16:22 | SUR.PHASEII ---
Dr. sims's office called, verified no orders for wound care for mass removed. Pt assisted to BR to void, steady when up. Small amount bloody vaginal drainage. Nisa bottle given to help pt cleanse nisa area. Instructed pt to gently clean area.
--- NOTE | 2020-09-15 16:48 | SUR.PHASEII ---
Pt ready to go, left in stable condition.
--- NOTE | 2020-09-16 07:57 | P.OP_ITS ---
Operative Date/Time/Diagnoses Date of procedure: 09/15/20 Time of procedure: 14:00 Pre-op diagnosis: Postmenopausal bleeding Endometrial hyperplasia Right vulvar mass Post-op diagnosis: same Procedure & Clinicians Procedure: Procedures Operation Date: 09/15/20 11:45 Actual Procedures Side Surgeon p Akbar Hysteroscopy with resection of endometrial and endocervical polyps, Excision of right Vulvar Mass Mi Espino MD Indications: Postmenopausal bleeding Endometrial hyperplasia Right vulvar mass Surgeon: Mi Espino Anesthesia Type: General (LMA) Operative Notes Findings: After informed consent was obtained, the patient was taken to the operating room where she was placed in the dorsal supine position. After adequate LMA general anesthesia was achieved, she was placed in the dorsal lithotomy position, and prepped and draped in the usual sterile fashion. A time-out was performed. A bivalve speculum was placed into the vagina and the anterior lip of the cervix was grasped with a single-tooth tenaculum. Cervical os was sequentially dilated to the # 8 Hegar dilator. The hysteroscope passed easily into the endometrial cavity. There were 2 polyps in the uterus and 4 5 polyps in the endocervical canal. There was also a polyp at the ectocervix. The hysteroscope was removed. The polyp on the ectocervix was removed with polyp forceps. The cervix was further dilated to the # 9 Hegar dilator. The resectoscope passed easily into the endometrial cavity. With settings at 80 cut and 60 coag, multiple polyps were excised using the resectoscope. The rese ctoscope was removed. Polyp forceps were used to grasp all of the loose polyps and these were handed off for specimen. The instruments were removed from the uterus. The single-tooth tenaculum was removed from the anterior lip of the cervix. The bivalve speculum was removed from the vagina. Attention was then turned to the right vulva. There was a 2 cm x 1.5 cm mass that was soft. 6 cc of 0.5% Marcaine with epinephrine were injected below the mass. An elliptical incision using the 15. Blade measuring 4.5 cm was made around the mass and the mass was removed. The Bovie was used for hemostasis. Using 2 0 chromic, 5 simple interrupted sutures were placed to reapproximate the incision. Hemostasis was achieved. Sponge, lap, and instrument counts were correct x2. The patient tolerated the procedure well, and was taken to PACU in stable condition. Closure Type: not applicable Specimen(s): endometrial curettings, endometrial polyp and other (endocervical polyp) Estimated blood loss (mL): 10 Blood products transfused: none Complications: none Post-operative Condition: stable Disposition: PACU Plan for aftercare: Home after recovery
== END 2020-09-15 16:49 | disposition home or self-care (01) ==
PROVIDERS: PCP Family Medicine; Referring Provider Family Medicine; Visit Provider Obstetrics & Gynecology
PROC: 0UDB8ZZ Extraction of Endometrium, Via Natural or Artificial Opening Endoscopic (ICD-10-PCS; CPT 58558; principal; 2020-09-15 11:45)
DX: N84.1 Polyp of cervix uteri (principal); D17.72 Benign lipomatous neoplasm of other genitourinary organ; I10 Essential (primary) hypertension; E78.5 Hyperlipidemia, unspecified; E66.01 Morbid (severe) obesity due to excess calories; N84.0 Polyp of corpus uteri
CPT/HCPCS: 58558; 11426; J1100; J2250; J2405; J2704; J3010

== ENCOUNTER → 2020-11-04 17:32 | Outpatient (CLI) | payer OTHER, SELFPAY ==
--- NOTE | 2020-11-04 17:33 | DI.MG.S_ITS ---
BILATERAL DIGITAL SCREENING MAMMOGRAM 3D/2D WITH CAD: 11/04/2020 CLINICAL: Routine screening. Family history of breast cancer. Comparison is made to exams dated: 11/02/2019 mammogram, 10/05/2018 mammogram, and 09/28/2017 mammogram - [facility]. There are scattered fibroglandular elements in both breasts. Current study was also evaluated with a Computer Aided Detection (CAD) system. No significant masses, calcifications, or other findings are seen in either breast. There has been no significant interval change. IMPRESSION: NEGATIVE There is no mammographic evidence of malignancy. A 1 year screening mammogram is recommended. This exam was interpreted at Station ID: [id number]. NOTE: For mammograms, a report in lay terms will be sent to the patient. Approximately 15% of breast malignancies will not be visualized mammographically. In the management of a palpable breast mass, a negative mammogram must not discourage biopsy of a clinically suspicious lesion. Electronically Signed By: Christopher Sánchez M.D. at/robin:11/05/2020 10:31:46 copy to: Zunilda Keyes M.D., [employer], ph: [phone], fax: [phone] letter sent: Normal Exam ACR BI-RADS Category 1: Negative 3341F
== END ==
PROVIDERS: PCP Family Medicine; Referring Provider Obstetrics & Gynecology; Visit Provider Obstetrics & Gynecology
DX: Z12.31 Encounter for screening mammogram for malignant neoplasm of breast (principal); Z80.3 Family history of malignant neoplasm of breast
CPT/HCPCS: 77063; 77067

== ENCOUNTER → 2021-05-30 11:03 | Outpatient (CLI) | payer OTHER, SELFPAY ==
[2021-05-30 12:21] LABS: Add Manual Diff / Slide Review NO; Basophils Absolute Auto 0 /uL (0-100); Basophils Percent Auto 0.4 % (0-2); Eosinophils Absolute Auto 200 /uL (0-450); Eosinophils Percent Auto 4.4 % (2-4); Hematocrit 45.4 % (36-46); Hemoglobin 15.2 g/dL (12.0-16.0); Lymphocytes Absolute Auto 1700 /uL (1100-4500); Lymphocytes Percent Auto 33.2 % (25-40); Mean Corpuscular HGB Conc 33.5 % (30-36); Mean Corpuscular Hemoglobin 30.8 PG (26-34); Mean Corpuscular Volume 92.1 fL (80-100); Monocytes Absolute Auto 300 /uL (0-900); Monocytes Percent Auto 6.4 % (3-14); Neutrophils Absolute Auto 2800 /uL (1500-7000); Neutrophils Percent Auto 55.6 % (50-75); Platelet Count 163 X10^3/uL (150-400); Red Blood Cell Count 4.93 X10^6/uL (4.0-5.2); Red Cell Distribution Width 13.1 % (11.6-14.8)
[2021-05-30 12:34] LABS: Alanine Aminotransferase 22 IU/L (<35); Albumin 4.1 g/dL (3.5-5.0); Albumin Globulin Ratio 1.5 (1.0-2.8); Alkaline Phosphatase 54 U/L (38-126); Aspartate Aminotransferase 22 IU/L (14-36); BUN Creatinine Ratio 26.9 (6-22); Blood Urea Nitrogen 21 mg/dL (7-17); Calcium 9.8 mg/dL (8.4-10.2); Carbon Dioxide 27 mmol/L (22-32); Chloride 106 mmol/L (98-107); Cholesterol 167 mg/dL (140-199); Estimated Glomerular Filt Rate > 60.0 mL/min (>60); Globulin 2.8 g/dL (1.7-4.1); Glucose 115 mg/dL (80-110); HDL Cholesterol 44 mg/dL (40-60); HEMOLYSIS 17 (0-50); LDL Cholesterol Calculated 101 mg/dL (<100); Potassium 3.5 mmol/L (3.4-5.1); Sodium 140 mmol/L (137-145); Total Protein 6.9 g/dL (6.3-8.2); Triglycerides 112 mg/dL (35-150)
[2021-05-30 13:48] LABS: Microalbumi Creatinin Ratio Ur 11.8 ug/mg CR (<30); Microalbumin Urine Random 3.1 mg/dL (0-1.6)
[2021-06-04 19:21] LABS: Hemoglobin A1C% w Est Avg Glu 5.4 % (4.0-6.0)
== END ==
PROVIDERS: PCP Family Medicine; Referring Provider Family Medicine; Visit Provider Family Medicine
DX: I10 Essential (primary) hypertension (principal); R73.09 Other abnormal glucose; E78.5 Hyperlipidemia, unspecified
CPT/HCPCS: 36415; 80053; 80061; 82043; 82570; 83036; 85025

== ENCOUNTER → 2021-11-06 16:21 | Outpatient (CLI) | payer OTHER, SELFPAY ==
--- NOTE | 2021-11-06 | DI.MG.S_ITS ---
BILATERAL DIGITAL SCREENING MAMMOGRAM 3D/2D WITH CAD: 11/06/2021 CLINICAL: Routine screening. Family history of breast cancer. Comparison is made to exams dated: 11/04/2020 mammogram - [facility], 11/02/2019 mammogram, and 10/05/2018 mammogram - [facility]. There are scattered fibroglandular elements in both breasts. Current study was also evaluated with a Computer Aided Detection (CAD) system. No significant masses, calcifications, or other findings are seen in either breast. There has been no significant interval change. IMPRESSION: NEGATIVE There is no mammographic evidence of malignancy. A 1 year screening mammogram is recommended. This exam was interpreted at Station ID: [id number]. NOTE: For mammograms, a report in lay terms will be sent to the patient. Approximately 15% of breast malignancies will not be visualized mammographically. In the management of a palpable breast mass, a negative mammogram must not discourage biopsy of a clinically suspicious lesion. Electronically Signed By: Christopher Sánchez M.D. at/robin:11/06/2021 17:00:23 copy to: Zunilda Keyes M.D., [employer], ph: [phone], fax: [phone] letter sent: Normal Exam ACR BI-RADS Category 1: Negative 3341F
== END ==
PROVIDERS: PCP Family Medicine; Referring Provider Family Medicine; Visit Provider Family Medicine
DX: Z12.31 Encounter for screening mammogram for malignant neoplasm of breast (principal); Z80.3 Family history of malignant neoplasm of breast
CPT/HCPCS: 77063; 77067

== ENCOUNTER → 2022-05-01 18:03 | Outpatient (CLI) | payer OTHER, SELFPAY | PROVIDERS: PCP Family Medicine; Visit Provider Physician Assistant | DX: N39.0 Urinary tract infection, site not specified (principal) | CPT/HCPCS: 87077; 87086; 87186 ==

== ENCOUNTER → 2022-09-07 10:31 | Outpatient (CLI) | payer OTHER, SELFPAY ==
[2022-09-07 11:53] LABS: Add Manual Diff / Slide Review NO; Basophils Absolute Auto 0 /uL (0-100); Basophils Percent Auto 0.5 % (0-2); Eosinophils Absolute Auto 300 /uL (0-450); Eosinophils Percent Auto 5.1 % (2-4); Hematocrit 45.2 % (36-46); Hemoglobin 15.5 g/dL (12.0-16.0); Lymphocytes Absolute Auto 1900 /uL (1100-4500); Lymphocytes Percent Auto 31.4 % (25-40); Mean Corpuscular HGB Conc 34.3 % (30-36); Mean Corpuscular Hemoglobin 31.2 PG (26-34); Mean Corpuscular Volume 91.2 fL (80-100); Monocytes Absolute Auto 400 /uL (0-900); Neutrophils Absolute Auto 3400 /uL (1500-7000); Platelet Count 169 X10^3/uL (150-400); Red Blood Cell Count 4.96 X10^6/uL (4.0-5.2); Red Cell Distribution Width 12.8 % (11.6-14.8); White Blood Cell Count 5.9 X10^3/uL (4.5-11.0)
[2022-09-07 12:13] LABS: Alanine Aminotransferase 25 IU/L (<35); Albumin 4.3 g/dL (3.5-5.0); Albumin Globulin Ratio 1.5 (1.0-2.8); Alkaline Phosphatase 57 U/L (38-126); Aspartate Aminotransferase 22 IU/L (14-36); BUN Creatinine Ratio 23.8 (6-22); Bilirubin Total 1.2 mg/dL (0.2-1.3); Blood Urea Nitrogen 20 mg/dL (7-17); Calcium 9.8 mg/dL (8.4-10.2); Carbon Dioxide 31 mmol/L (22-32); Chloride 100 mmol/L (98-107); Cholesterol 187 mg/dL (140-199); Estimated Glomerular Filt Rate > 60 mL/min (>60); Globulin 2.8 g/dL (1.7-4.1); Glucose 124 mg/dL (80-110); HDL Cholesterol 52 mg/dL (40-60); HEMOLYSIS < 15 (0-50); LDL Cholesterol Calculated 109 mg/dL (<100); Potassium 4.2 mmol/L (3.4-5.1); Sodium 140 mmol/L (137-145); Total Protein 7.1 g/dL (6.3-8.2); Triglycerides 128 mg/dL (35-150)
[2022-09-07 14:50] LABS: Microalbumi Creatinin Ratio Ur 10.8 ug/mg CR (<30); Microalbumin Urine Random 2.7 mg/dL (0-1.6)
[2022-09-07 19:05] LABS: Hemoglobin A1C% w Est Avg Glu 5.8 % (4.0-6.0)
== END ==
PROVIDERS: PCP Family Medicine; Referring Provider Family Medicine; Visit Provider Family Medicine
DX: E78.5 Hyperlipidemia, unspecified (principal); R73.9 Hyperglycemia, unspecified; I10 Essential (primary) hypertension
CPT/HCPCS: 36415; 80053; 80061; 82043; 82570; 83036; 85025

== ENCOUNTER → 2022-11-09 07:36 | Outpatient (CLI) | payer OTHER, SELFPAY ==
--- NOTE | 2022-11-09 07:37 | DI.MG.S_ITS ---
BILATERAL DIGITAL SCREENING MAMMOGRAM 3D/2D WITH CAD: 11/09/2022 CLINICAL: Routine screening. Family history of breast cancer. Comparison is made to exams dated: 11/06/2021 mammogram, 11/04/2020 mammogram - [facility], and 11/02/2019 mammogram - [facility]. There are scattered areas of fibroglandular density in both breasts (category b / 25%-50% glandular tissue). Current study was also evaluated with a Computer Aided Detection (CAD) system. No significant masses, calcifications, or other findings are seen in either breast. There has been no significant interval change. IMPRESSION: NEGATIVE There is no mammographic evidence of malignancy. A 1 year screening mammogram is recommended. Based on the Tyrer Cuzick model (a risk assessment model) the patient's lifetime risk is 4.5% and her 10 year risk is 3.1%. According to the ACR, ACS, and NCCN guidelines, an annual breast MRI exam along with mammogram is recommended if the patient's lifetime risk is 20% or greater. This exam was interpreted at Station ID: [id number]. NOTE: For mammograms, a report in lay terms will be sent to the patient. Approximately 15% of breast malignancies will not be visualized mammographically. In the management of a palpable breast mass, a negative mammogram must not discourage biopsy of a clinically suspicious lesion. Electronically Signed By: Rich sanabria/robin:11/09/2022 10:08:08 copy to: Zunilda Keyes M.D., [facility] [employer], ph: [phone], fax: [phone] letter sent: Normal Exam ACR BI-RADS Category 1: Negative 3341F
== END ==
PROVIDERS: PCP Family Medicine; Referring Provider Family Medicine; Visit Provider Family Medicine
DX: Z12.31 Encounter for screening mammogram for malignant neoplasm of breast (principal); Z80.3 Family history of malignant neoplasm of breast
CPT/HCPCS: 77063; 77067

== ENCOUNTER → 2022-12-14 12:19 | Outpatient (CLI) | payer OTHER, SELFPAY ==
--- NOTE | 2022-12-14 12:21 | DI.RAD.S_ITS ---
PROCEDURE: XR KNEE RT 3V INDICATIONS: B knee pain, R > L TECHNIQUE: 3 views of the knee were acquired. COMPARISON: [facility], , KNEE 3V LEFT, 09/07/2011, 17:06. FINDINGS: Bones: No fractures or dislocations. [id number] tricompartmental osteoarthritis in right knee is seen most notably in medial femoral tibial compartment with joint space narrowing, subchondral sclerosis and marginal osteophyte formation. No suspicious bony lesions. Soft tissues: No joint effusion. No suspicious soft tissue calcifications. IMPRESSION: [id number] tricompartmental osteoarthritis in right knee most notably in medial femoral tibial compartment. No fracture or dislocation. No significant joint effusion. Dictated by: Mike Leroy M.D. on 12/14/2022 at 15:18 Approved by: Mike Leroy M.D. on 12/14/2022 at 15:19
--- NOTE | 2022-12-14 12:21 | DI.RAD.S_ITS ---
PROCEDURE: XR KNEE LT 3V INDICATIONS: B knee pain TECHNIQUE: 3 views of the knee were acquired. COMPARISON: [facility], , KNEE 3V LEFT, 09/07/2011, 17:06. FINDINGS: Bones: No fractures or dislocations. Yvmq-[id number] tricompartmental osteoarthritis is seen most notably in medial femoral tibial compartment with significant joint space narrowing, subchondral sclerosis and marginal osteophyte formation. No suspicious bony lesions. Soft tissues: No joint effusion. No suspicious soft tissue calcifications. IMPRESSION: [id number] tricompartmental osteoarthritis of right knee as above. No fracture or dislocation. No significant joint effusion. Dictated by: Mike Leroy M.D. on 12/14/2022 at 15:17 Approved by: Mike Leroy M.D. on 12/14/2022 at 15:17
[2022-12-14 14:14] LABS: D Dimer 261 ng/ml (<500)
== END ==
PROVIDERS: PCP Family Medicine; Referring Provider Family Medicine; Visit Provider Family Medicine
DX: M17.0 Bilateral primary osteoarthritis of knee (principal); M25.561 Pain in right knee; M25.562 Pain in left knee; R22.43 Localized swelling, mass and lump, lower limb, bilateral
CPT/HCPCS: 36415; 73562; 85379

== ENCOUNTER 2023-02-22 13:00 | Outpatient (RCR) | payer OTHER, SELFPAY ==
--- NOTE | 2022-12-20 15:13 | PT.OIE ---
Current Diagnoses Pain in right knee (12/20/22) Pain in left knee (12/20/22) Pain in right lower leg (12/20/22) Pain in left lower leg (12/20/22) Difficulty in walking, not elsewhere classified (12/20/22) Weakness (12/20/22) Past Medical History (Last Reviewed 05/01/22 @ 18:15 by Christine Marroquin PA-C) Chicken pox (1959) Chronic back pain (05/2014) Depression (1994) Hemorrhoids (1983) Herpes (1968) HLD (hyperlipidemia) Hypertension (2005) Measles (1959) Mumps (1959) Rubella (1959) Statin myopathy Past Surgical History (Last Reviewed 05/01/22 @ 18:15 by Christine Marroquin PA-C) Anesthesia Status post delivery (1979) Status post delivery (1981) Status post delivery (1983) Status post cholecystectomy Status post tonsillectomy and adenoidectomy (1955) Visit Care Team Role Provider Type Zunilda Keyes MD Attending Provider Physician Primary Care Provider Referring Provider Specialty: [facility] Address: [address] [place] [address] Email: [email or web address] Physical Therapy Initial Evaluation PT-OP-A Visit Information Start: 12/16/22 18:03 Freq: Status: Active Protocol: Document 12/20/22 13:41 [facility] (Rec: 12/20/22 15:13 [facility] [id number]) Out-Patient Physical Therapy Visit Information Visit Information Visit Type Initial Evaluation Visit Start Time 13:45 Visit Stop Time 14:30 Total Visit Minutes 45 Visit Number 1 Number of DISTRIBUTION DRIVER Visits 0 PT-OP-B Current Condition Start: 12/16/22 18:03 Freq: Status: Active Protocol: Document 12/20/22 13:41 [facility] (Rec: 12/20/22 15:13 [facility] [id number]) Current Condition History of Current Condition Onset Date Aug 2021 L knee, Sep 2022 R knee, calf pain B soon after she got back Current Complaints B knee and calf pain History of Current Condition Pt reports she started having B knee popping for a while. She twisted her L knee getting out of bed in the night and heard a pop. In [place] in Sep, she had pain and culdn't straighten R knee and had to hobble to the bathroom. Its gradually gotten better. She felt better the next day but is still limited with long walks. Now she is mostly irritated in B calves. SHe was doing a lot of walking when in [place] and is wondering if that caused it They tested for blood clots and it was neg. Xrays showed min arthritis. She has been wearing compression brace that looks like for knees but places it on calves and makes it so she can walk w/less pain. Since she has been compensating d/t pain in legs, her back has started to hurt. Pt typically likes to be able to walk 2-3 miles for 3 days a week. Has been riding her indoor bike about 3x/week for 20-25 min without issue. Prior Treatments and Tests IMPRESSION: Pran-ip-fromrysz tricompartmental osteoarthritis of right knee as above. No fracture or dislocation. No significant joint effusion. Treatment Goals Patient/Caregiver Goals Get back to walking without pain; be ready for her cruise to [place] in February PT-OP-C Subjective Start: 12/16/22 18:03 Freq: Status: Active Protocol: Document 12/20/22 13:41 [facility] (Rec: 12/20/22 15:13 [facility] [id number]) Patient Questionnaires Lower Extremity Functional Scale LEFS Score 54 OP-PT Pain Assessment Location legs Pain Location Details B calves & med knee Intensity 6 Scale Used Numeric (0 - 10) Description Aching,With Movement Frequency Intermittent Pain Duration last an entire day Pain Aggravating Factors Standing,Walking,Stair Climbing Other Pain Aggravating Factors get up from sitting (stiff) Pain Alleviating Factors Medication PT-OP-D Balance Start: 12/16/22 18:03 Freq: Status: Active Protocol: Document 12/20/22 13:41 [facility] (Rec: 12/20/22 15:13 [facility] [id number]) Balance Tests Single Limb Standing Single Limb- Right 4 sec Single Limb- Left 4 sec PT-OP-F Manual Assessment Start: 12/16/22 18:03 Freq: Status: Active Protocol: Document 12/20/22 13:41 [facility] (Rec: 12/20/22 15:13 [facility] [id number]) Manual Assessments Soft Tissue Assessment Soft Tissue Mobility Assessment tenderness along med calf R, L tenderness lat calf-more proximally near knees Joint Mobility Assessment Joint Mobility Assessment R knee significant IR w/knee bending; R>L foot toes out in standing. Other Manual Assessments Other Manual Assessments R 29 cm; L 28.5-a round malleoli PT-OP-G Mobility & Gait Start: 12/16/22 18:03 Freq: Status: Active Protocol: Document 12/20/22 13:41 [facility] (Rec: 12/20/22 15:13 [facility] [id number]) OP Gait Assessment Comments Gait Comments Dec post dep, dec push off, hard foot slap PT-OP-K Range of Motion Start: 12/16/22 18:03 Freq: Status: Active Protocol: Document 12/20/22 13:41 [facility] (Rec: 12/20/22 15:13 [facility] [id number]) Knee Goniometric Range of Motion Knee Right Flexion Active (degrees) 98 Extension Active (degrees) 1 Left Flexion Active (degrees) 104 Extension Active (degrees) 2 Ankle and Foot Goniometric Range of Motion Ankle and Foot Right Active Dorsiflexion with Knee Flexed 7 Dorsiflexion with Knee Extended 0 Plantarflexion 56 Inversion 30 Eversion 28 Left Active Dorsiflexion with Knee Flexed 5 Dorsiflexion with Knee Extended 2 Plantarflexion 60 Inversion 38 Eversion 30 PT-OP-L Special Tests Start: 12/16/22 18:03 Freq: Status: Active Protocol: Document 12/20/22 13:41 [facility] (Rec: 12/20/22 15:13 [facility] [id number]) Special Tests Knee Special Tests Apley's Compression Test Results neg B Ash Test Test Results neg B Thessaly Test 5 Degrees Test Results neg B ligamentous testing Test Results neg B Straight Leg Raise Test Results L 82: R 68 Bruce Test Results neg B PT-OP-M Strength Start: 12/16/22 18:03 Freq: Status: Active Protocol: Document 12/20/22 13:41 [facility] (Rec: 12/20/22 15:13 [facility] [id number]) Hip Strength Hip Manual Muscle Testing Right Flexion (L2) 3+ Fair+ Extension (S1) 3 Fair Abduction 3+ Fair+ Adduction 4- Good- External Rotation 4- Good- Internal Rotation 4 Good Comments pain in back ER Left Flexion (L2) 3+ Fair+ Extension (S1) 3 Fair Abduction 3+ Fair+ Adduction 4- Good- External Rotation 4+ Good+ Internal Rotation 4+ Good+ Knee Strength Knee Manual Muscle Testing Right Flexion (S2) 4- Good- Extension (L3) 4 Good Left Flexion (S2) 4- Good- Extension (L3) 4 Good Ankle/Foot Strength Ankle and Foot Manual Muscle Testing Right Dorsiflexion (L4) 5 Normal Plantarflexion (S1) 4- Good- Inversion 5 Normal Eversion (S1) 5 Normal Comments 10 heel raises Left Dorsiflexion (L4) 5 Normal Plantarflexion (S1) 4- Good- Inversion 5 Normal Eversion (S1) 5 Normal Comments 10 heel raises PT-OP-Q Treatments Start: 12/16/22 18:03 Freq: Status: Active Protocol: Document 12/20/22 13:41 [facility] (Rec: 12/20/22 15:13 [facility] [id number]) Self-Care/Home Management Treatment Education Other Education discussed importance of comrpession for swelling and showed pt how there was obvious lower leg swelling based upon her indents from her socks. Edu to start with calf stretch w/lean to wall. Discussed that she does have some calf tightness; edu that popping noises not always bad but are if they do cause pain x8 min PT-OP-T Assessment and Plan Start: 12/16/22 18:03 Freq: Status: Active Protocol: Document 12/20/22 13:41 [facility] (Rec: 12/20/22 15:13 [facility] [id number]) Physical Therapy Assessment Rehab Potential Rehabilitation Potential Good Evaluation Complexity Number of Personal Factors/Comorbidities 3 or More Number of Body Systems Impaired 4 or More Clinical Presentation at Evaluation Evolving Impairments Impairments Activity Tolerance,Balance, Functional Activities, Functional Mobility,Gait,Pain, Posture,ROM,Soft Tissue Mobility,Strength,Transfers Goals ROM Fdc Goal (LTG) Pt will have DF to at least 7 deg B AROM in knee ext position to show improved ROM to allow for improved gait and less calf tension. LTG Duration 03/13/23 strength Short Term Goal (STG) Pt will be indep w/HEP STG Duration 01/26/23 Robot Designer Goal (LTG) Pt will score at least 4+/5 MMT on BLE MMT in order to show improved strength in order to allow pt to return to walking and standing activities w/less pain. LTG Duration 03/13/23 walking Short Term Goal (STG) Pt will be able to return to walking .5 mile a couple times a week without inc pain greater than 2/10 in lower legs or B knees. STG Duration 01/26/23 Robot Designer Goal (LTG) Pt will be able to returnt o walking 2 miles w/o pain greater than 2/10 in lower leg or knees B LTG Duration 03/13/23 LEFS Impairment 54 Fdc Goal (LTG) pt will improve score to at least 62/80 to show improved functional ability. LTG Duration 03/13 Assessment Summary Assessment Pt presents w/B calf pain that started after she had 2 separate instances where she was getting out of bed and each knee popped and she started to have knee pain after these instances. She then started to have calf pain after her trip to [place]. D- Dimer was negative and pt has no other signs of DVT (no redness, warmness or tenderness to veins specifically). She does have B lower leg swelling that is notable when pulling down her socks that sit at her lower calf. pt encouraged to wear a light compression sock to help with this. Per MD note, MD has low concern re: DVT at this time. Pt is motivated to get better and able to walk longer distances again as she typically walks a ew times a week and on trips and is worried she will not be able to walk as needed for her cruise in February. Pt would benefit from skilled PT to address these deficits and improve pt ability to return back to inc activity including walking w/o inc pain. Physical Therapy Plan Frequency and Duration Frequency of Treatment 2x/Week Duration of treatment (weeks) 12 Plan of Care Start Date 12/20/22 Plan of Care End Date 03/14/23 Therapeutic Interventions Therapeutic Interventions Balance Training,Gait Training ,Home Exercise Program,Joint Mobilizations,Manual Therapy, Neuromuscular Re-education, Orthotic/Prosthetic Management ,Patient/Caregiver Education, Self-Care/Home Management,Soft Tissue Mobilization,Taping, Therapeutic Activities, Therapeutic Exercises Modalities Cold Pack/Ice Massage,Electric Stimulation,Hot Packs, Infrared Therapy,Ultrasound Next Visit Focus/Plan Next Note Type Treatment Note Next Visit Plan standing DF, calf stretch fwd lean & w/stair, calf/HS belt stretch, side step resisted B, sit to stands for HEP; manual to ankle jt mobility, MFR to superficial tissue of lower leg
--- NOTE | 2022-12-20 15:13 | PT.OPPOC ---
Physical, Occupational & Speech Therapy At [facility] Current Diagnoses Pain in right knee (12/20/22) Pain in left knee (12/20/22) Pain in right lower leg (12/20/22) Pain in left lower leg (12/20/22) Difficulty in walking, not elsewhere classified (12/20/22) Weakness (12/20/22) Visit Care Team Role Provider Type Zunilda Keyes MD Attending Provider Physician Primary Care Provider Referring Provider Specialty: Family Practice Address: [address] [place] [address], [id number] Email: [email or web address] Plan Of Care PT-OP-T Assessment and Plan Start: 12/16/22 18:03 Freq: Status: Active Protocol: Document 12/20/22 13:41 [facility] (Rec: 12/20/22 15:13 [facility] [id number]) Physical Therapy Assessment Rehab Potential Rehabilitation Potential Good Evaluation Complexity Number of Personal Factors/Comorbidities 3 or More Number of Body Systems Impaired 4 or More Clinical Presentation at Evaluation Evolving Impairments Impairments Activity Tolerance,Balance, Functional Activities, Functional Mobility,Gait,Pain, Posture,ROM,Soft Tissue Mobility,Strength,Transfers Goals ROM Grease Worker Goal (LTG) Pt will have DF to at least 7 deg B AROM in knee ext position to show improved ROM to allow for improved gait and less calf tension. LTG Duration 03/13/23 strength Short Term Goal (STG) Pt will be indep w/HEP STG Duration 01/26/23 Grease Worker Goal (LTG) Pt will score at least 4+/5 MMT on BLE MMT in order to show improved strength in order to allow pt to return to walking and standing activities w/less pain. LTG Duration 03/13/23 walking Short Term Goal (STG) Pt will be able to return to walking .5 mile a couple times a week without inc pain greater than 2/10 in lower legs or B knees. STG Duration 01/26/23 Longterm Goal (LTG) Pt will be able to returnt o walking 2 miles w/o pain greater than 2/10 in lower leg or knees B LTG Duration 03/13/23 LEFS Impairment 54 Grease Worker Goal (LTG) pt will improve score to at least 62/80 to show improved functional ability. LTG Duration 03/13 Assessment Summary Assessment Pt presents w/B calf pain that started after she had 2 separate instances where she was getting out of bed and each knee popped and she started to have knee pain after these instances. She then started to have calf pain after her trip to [place]. D- Dimer was negative and pt has no other signs of DVT (no redness, warmness or tenderness to veins specifically). She does have B lower leg swelling that is notable when pulling down her socks that sit at her lower calf. pt encouraged to wear a light compression sock to help with this. Per MD note, MD has low concern re: DVT at this time. Pt is motivated to get better and able to walk longer distances again as she typically walks a ew times a week and on trips and is worried she will not be able to walk as needed for her cruise in February. Pt would benefit from skilled PT to address these deficits and improve pt ability to return back to inc activity including walking w/o inc pain. Physical Therapy Plan Frequency and Duration Frequency of Treatment 2x/Week Duration of treatment (weeks) 12 Plan of Care Start Date 12/20/22 Plan of Care End Date 03/14/23 Therapeutic Interventions Therapeutic Interventions Balance Training,Gait Training ,Home Exercise Program,Joint Mobilizations,Manual Therapy, Neuromuscular Re-education, Orthotic/Prosthetic Management ,Patient/Caregiver Education, Self-Care/Home Management,Soft Tissue Mobilization,Taping, Therapeutic Activities, Therapeutic Exercises Modalities Cold Pack/Ice Massage,Electric Stimulation,Hot Packs, Infrared Therapy,Ultrasound Next Visit Focus/Plan Next Note Type Treatment Note Next Visit Plan standing DF, calf stretch fwd lean & w/stair, calf/HS belt stretch, side step resisted B, sit to stands for HEP; manual to ankle jt mobility, MFR to superficial tissue of lower leg Plan of Care Dates Plan of Care Start Date 12/20/22 Plan of Care End Date 03/14/23 Electronically Signed by: Zunilad Zeng, PT 12/20/22 0323 If you are in agreement with this Plan of Care, please return a signed and dated copy. I have reviewed this Plan of Care and certify that the skilled therapy services above are required to meet the patient?s needs. Physician Signature Date Printed Name and Credentials Clinical Instructor Signature Printed Name and Credentials
--- NOTE | 2022-12-22 14:35 | PT.OTN ---
Current Diagnoses Pain in right knee (12/22/22) Pain in left knee (12/22/22) Pain in right lower leg (12/22/22) Pain in left lower leg (12/22/22) Difficulty in walking, not elsewhere classified (12/22/22) Weakness (12/22/22) Physical Therapy Treatment Note PT-OP-A Visit Information Start: 12/16/22 18:03 Freq: Status: Active Protocol: Document 12/22/22 13:30 [facility] (Rec: 12/22/22 14:35 [facility] [id number]) Out-Patient Physical Therapy Visit Information Visit Information Visit Type Treatment Note Visit Note 01/07 Visit Start Time 13:47 Visit Stop Time 14:27 Total Visit Minutes 40 Visit Number 2 Number of SCALE MANAGER Visits 0 PT-OP-B Current Condition Start: 12/16/22 18:03 Freq: Status: Active Protocol: Document 12/20/22 13:41 [facility] (Rec: 12/20/22 15:13 [facility] [id number]) Current Condition History of Current Condition Onset Date Aug 2021 L knee, Sep 2022 R knee, calf pain B soon after she got back Current Complaints B knee and calf pain History of Current Condition Pt reports she started having B knee popping for a while. She twisted her L knee getting out of bed in the night and heard a pop. In [place] in Sep, she had pain and culdn't straighten R knee and had to hobble to the bathroom. Its gradually gotten better. She felt better the next day but is still limited with long walks. Now she is mostly irritated in B calves. SHe was doing a lot of walking when in [place] and is wondering if that caused it They tested for blood clots and it was neg. Xrays showed min arthritis. She has been wearing compression brace that looks like for knees but places it on calves and makes it so she can walk w/less pain. Since she has been compensating d/t pain in legs, her back has started to hurt. Pt typically likes to be able to walk 2-3 miles for 3 days a week. Has been riding her indoor bike about 3x/week for 20-25 min without issue. Prior Treatments and Tests IMPRESSION: [id number] tricompartmental osteoarthritis of right knee as above. No fracture or dislocation. No significant joint effusion. Treatment Goals Patient/Caregiver Goals Get back to walking without pain; be ready for her cruise to [place] in February PT-OP-C Subjective Start: 12/16/22 18:03 Freq: Status: Active Protocol: Document 12/22/22 13:30 [facility] (Rec: 12/22/22 14:35 [facility] [id number]) OP-PT Subjective Patient Comments Patient Comments she stretched before going down the stiars and that helped a little PT-OP-D Balance Start: 12/16/22 18:03 Freq: Status: Active Protocol: Document 12/20/22 13:41 [facility] (Rec: 12/20/22 15:13 [facility] [id number]) Balance Tests Single Limb Standing Single Limb- Right 4 sec Single Limb- Left 4 sec PT-OP-F Manual Assessment Start: 12/16/22 18:03 Freq: Status: Active Protocol: Document 12/20/22 13:41 [facility] (Rec: 12/20/22 15:13 [facility] [id number]) Manual Assessments Soft Tissue Assessment Soft Tissue Mobility Assessment tenderness along med calf R, L tenderness lat calf-more proximally near knees Joint Mobility Assessment Joint Mobility Assessment R knee significant IR w/knee bending; R>L foot toes out in standing. Other Manual Assessments Other Manual Assessments R 29 cm; L 28.5-a round malleoli PT-OP-G Mobility & Gait Start: 12/16/22 18:03 Freq: Status: Active Protocol: Document 12/20/22 13:41 [facility] (Rec: 12/20/22 15:13 [facility] [id number]) OP Gait Assessment Comments Gait Comments Dec post dep, dec push off, hard foot slap PT-OP-K Range of Motion Start: 12/16/22 18:03 Freq: Status: Active Protocol: Document 12/20/22 13:41 [facility] (Rec: 12/20/22 15:13 [facility] [id number]) Knee Goniometric Range of Motion Knee Right Flexion Active (degrees) 98 Extension Active (degrees) 1 Left Flexion Active (degrees) 104 Extension Active (degrees) 2 Ankle and Foot Goniometric Range of Motion Ankle and Foot Right Active Dorsiflexion with Knee Flexed 7 Dorsiflexion with Knee Extended 0 Plantarflexion 56 Inversion 30 Eversion 28 Left Active Dorsiflexion with Knee Flexed 5 Dorsiflexion with Knee Extended 2 Plantarflexion 60 Inversion 38 Eversion 30 PT-OP-L Special Tests Start: 12/16/22 18:03 Freq: Status: Active Protocol: Document 12/20/22 13:41 [facility] (Rec: 12/20/22 15:13 [facility] [id number]) Special Tests Knee Special Tests Apley's Compression Test Results neg B Ash Test Test Results neg B Thessaly Test 5 Degrees Test Results neg B ligamentous testing Test Results neg B Straight Leg Raise Test Results L 82: R 68 Bruce Test Results neg B PT-OP-M Strength Start: 12/16/22 18:03 Freq: Status: Active Protocol: Document 12/20/22 13:41 [facility] (Rec: 12/20/22 15:13 [facility] [id number]) Hip Strength Hip Manual Muscle Testing Right Flexion (L2) 3+ Fair+ Extension (S1) 3 Fair Abduction 3+ Fair+ Adduction 4- Good- External Rotation 4- Good- Internal Rotation 4 Good Comments pain in back ER Left Flexion (L2) 3+ Fair+ Extension (S1) 3 Fair Abduction 3+ Fair+ Adduction 4- Good- External Rotation 4+ Good+ Internal Rotation 4+ Good+ Knee Strength Knee Manual Muscle Testing Right Flexion (S2) 4- Good- Extension (L3) 4 Good Left Flexion (S2) 4- Good- Extension (L3) 4 Good Ankle/Foot Strength Ankle and Foot Manual Muscle Testing Right Dorsiflexion (L4) 5 Normal Plantarflexion (S1) 4- Good- Inversion 5 Normal Eversion (S1) 5 Normal Comments 10 heel raises Left Dorsiflexion (L4) 5 Normal Plantarflexion (S1) 4- Good- Inversion 5 Normal Eversion (S1) 5 Normal Comments 10 heel raises PT-OP-Q Treatments Start: 12/16/22 18:03 Freq: Status: Active Protocol: Document 12/22/22 13:30 [facility] (Rec: 12/22/22 14:35 [facility] [id number]) Therapeutic Exercises Supine Exercises stretch Supine Exercise Name HS/calf stretch Side bilateral Reps/Minutes 30 sec ea Standing Exercises sidestep Side bilateral Equipment Used lvl 1, lvl 2 Reps/Minutes 20ft ea sit to stand Side bilateral Reps/Minutes 10, 5 w/lvl band at knees Comments no hands calf stretch Standing Exercise Name 1. stairs 2. fwd lean Side bilateral Reps/Minutes 30 sec DF Side bilateral Reps/Minutes 20 Manual Therapy Treatment Soft Tissue Mobilization calf Body Location circumfrential Mobilization Type Myofascial Release Intensity/Depth Superficial Body Position Hooklying Comments w/AP Joint Mobilizations calcaneus Joint B distraction FM talus Joint AP FM B Tibfib Joint AP FM B PT-OP-T Assessment and Plan Start: 12/16/22 18:03 Freq: Status: Active Protocol: Document 12/22/22 13:30 [facility] (Rec: 12/22/22 14:35 [facility] [id number]) Physical Therapy Assessment Goals ROM Group Home Goal (LTG) Pt will have DF to at least 7 deg B AROM in knee ext position to show improved ROM to allow for improved gait and less calf tension. LTG Duration 03/13/23 strength Short Term Goal (STG) Pt will be indep w/HEP STG Duration 01/26/23 Group Home Goal (LTG) Pt will score at least 4+/5 MMT on BLE MMT in order to show improved strength in order to allow pt to return to walking and standing activities w/less pain. LTG Duration 03/13/23 walking Short Term Goal (STG) Pt will be able to return to walking .5 mile a couple times a week without inc pain greater than 2/10 in lower legs or B knees. STG Duration 01/26/23 Group Home Goal (LTG) Pt will be able to returnt o walking 2 miles w/o pain greater than 2/10 in lower leg or knees B LTG Duration 03/13/23 LEFS Impairment 54 Acute Dialysis Nurse Goal (LTG) pt will improve score to at least 62/80 to show improved functional ability. LTG Duration 03/13 Assessment Summary Assessment Pt did well with exercises with PT today w/o c/o pain except w/sit to stands. Adjusted to w/tband around knees and that dec pt pain. some discomfort during manual noted. Physical Therapy Plan Frequency and Duration Frequency of Treatment 2x/Week Duration of treatment (weeks) 12 Plan of Care Start Date 12/20/22 Plan of Care End Date 03/14/23 Next Visit Focus/Plan Next Note Type Treatment Note Next Visit Plan review:standing DF, calf stretch fwd lean & w/stair, calf/HS belt stretch, side step resisted B, sit to stands for HEP; manual to ankle jt mobility, MFR to superficial tissue of lower leg
--- NOTE | 2022-12-31 17:27 | PT.OTN ---
Current Diagnoses Pain in right knee (12/31/22) Pain in left knee (12/31/22) Pain in right lower leg (12/31/22) Pain in left lower leg (12/31/22) Difficulty in walking, not elsewhere classified (12/31/22) Weakness (12/31/22) Physical Therapy Treatment Note PT-OP-A Visit Information Start: 12/16/22 18:03 Freq: Status: Active Protocol: Document 12/31/22 13:50 [facility] (Rec: 12/31/22 14:34 [facility] [id number]) Out-Patient Physical Therapy Visit Information Visit Information Visit Type Treatment Note Visit Note 01/07 Visit Start Time 13:50 Visit Stop Time 14:30 Total Visit Minutes 40 Visit Number 3 Number of SENIOR BACKUP ADMINISTRATOR Visits 1 PT-OP-B Current Condition Start: 12/16/22 18:03 Freq: Status: Active Protocol: Document 12/20/22 13:41 [facility] (Rec: 12/20/22 15:13 [facility] [id number]) Current Condition History of Current Condition Onset Date Aug 2021 L knee, Sep 2022 R knee, calf pain B soon after she got back Current Complaints B knee and calf pain History of Current Condition Pt reports she started having B knee popping for a while. She twisted her L knee getting out of bed in the night and heard a pop. In [place] in Sep, she had pain and culdn't straighten R knee and had to hobble to the bathroom. Its gradually gotten better. She felt better the next day but is still limited with long walks. Now she is mostly irritated in B calves. SHe was doing a lot of walking when in [place] and is wondering if that caused it They tested for blood clots and it was neg. Xrays showed min arthritis. She has been wearing compression brace that looks like for knees but places it on calves and makes it so she can walk w/less pain. Since she has been compensating d/t pain in legs, her back has started to hurt. Pt typically likes to be able to walk 2-3 miles for 3 days a week. Has been riding her indoor bike about 3x/week for 20-25 min without issue. Prior Treatments and Tests IMPRESSION: [id number] tricompartmental osteoarthritis of right knee as above. No fracture or dislocation. No significant joint effusion. Treatment Goals Patient/Caregiver Goals Get back to walking without pain; be ready for her cruise to [place] in February PT-OP-C Subjective Start: 12/16/22 18:03 Freq: Status: Active Protocol: Document 12/31/22 13:50 [facility] (Rec: 12/31/22 14:34 [facility] [id number]) OP-PT Subjective Patient Comments Patient Comments Pt reports she forgot to report [place] [address] Zachariah Harper: DNC, removal of cysts and growth on inside of R thigh, and it took her a long time to recover. She thinks she started getting weaker then and never got to level of walking before. PT-OP-D Balance Start: 12/16/22 18:03 Freq: Status: Active Protocol: Document 12/20/22 13:41 [facility] (Rec: 12/20/22 15:13 [facility] [id number]) Balance Tests Single Limb Standing Single Limb- Right 4 sec Single Limb- Left 4 sec PT-OP-F Manual Assessment Start: 12/16/22 18:03 Freq: Status: Active Protocol: Document 12/20/22 13:41 [facility] (Rec: 12/20/22 15:13 [facility] [id number]) Manual Assessments Soft Tissue Assessment Soft Tissue Mobility Assessment tenderness along med calf R, L tenderness lat calf-more proximally near knees Joint Mobility Assessment Joint Mobility Assessment R knee significant IR w/knee bending; R>L foot toes out in standing. Other Manual Assessments Other Manual Assessments R 29 cm; L 28.5-a round malleoli PT-OP-G Mobility & Gait Start: 12/16/22 18:03 Freq: Status: Active Protocol: Document 12/20/22 13:41 [facility] (Rec: 12/20/22 15:13 [facility] [id number]) OP Gait Assessment Comments Gait Comments Dec post dep, dec push off, hard foot slap PT-OP-K Range of Motion Start: 12/16/22 18:03 Freq: Status: Active Protocol: Document 12/20/22 13:41 [facility] (Rec: 12/20/22 15:13 [facility] [id number]) Knee Goniometric Range of Motion Knee Right Flexion Active (degrees) 98 Extension Active (degrees) 1 Left Flexion Active (degrees) 104 Extension Active (degrees) 2 Ankle and Foot Goniometric Range of Motion Ankle and Foot Right Active Dorsiflexion with Knee Flexed 7 Dorsiflexion with Knee Extended 0 Plantarflexion 56 Inversion 30 Eversion 28 Left Active Dorsiflexion with Knee Flexed 5 Dorsiflexion with Knee Extended 2 Plantarflexion 60 Inversion 38 Eversion 30 PT-OP-L Special Tests Start: 12/16/22 18:03 Freq: Status: Active Protocol: Document 12/20/22 13:41 [facility] (Rec: 12/20/22 15:13 [facility] [id number]) Special Tests Knee Special Tests Apley's Compression Test Results neg B Ash Test Test Results neg B Thessaly Test 5 Degrees Test Results neg B ligamentous testing Test Results neg B Straight Leg Raise Test Results L 82: R 68 Bruce Test Results neg B PT-OP-M Strength Start: 12/16/22 18:03 Freq: Status: Active Protocol: Document 12/20/22 13:41 [facility] (Rec: 12/20/22 15:13 [facility] [id number]) Hip Strength Hip Manual Muscle Testing Right Flexion (L2) 3+ Fair+ Extension (S1) 3 Fair Abduction 3+ Fair+ Adduction 4- Good- External Rotation 4- Good- Internal Rotation 4 Good Comments pain in back ER Left Flexion (L2) 3+ Fair+ Extension (S1) 3 Fair Abduction 3+ Fair+ Adduction 4- Good- External Rotation 4+ Good+ Internal Rotation 4+ Good+ Knee Strength Knee Manual Muscle Testing Right Flexion (S2) 4- Good- Extension (L3) 4 Good Left Flexion (S2) 4- Good- Extension (L3) 4 Good Ankle/Foot Strength Ankle and Foot Manual Muscle Testing Right Dorsiflexion (L4) 5 Normal Plantarflexion (S1) 4- Good- Inversion 5 Normal Eversion (S1) 5 Normal Comments 10 heel raises Left Dorsiflexion (L4) 5 Normal Plantarflexion (S1) 4- Good- Inversion 5 Normal Eversion (S1) 5 Normal Comments 10 heel raises PT-OP-Q Treatments Start: 12/16/22 18:03 Freq: Status: Active Protocol: Document 12/31/22 13:50 [facility] (Rec: 12/31/22 14:34 [facility] [id number]) Therapeutic Exercises Sitting Exercises Hamstring stretch Sitting Exercise Name added to HEP to replace supine HS stretch Side bilateral Equipment Used standard mesh chair Reps/Minutes 2 x 30 ea Standing Exercises sidestep Side bilateral Equipment Used lvl 1, lvl 2 Reps/Minutes 20ft ea sit to stand Side bilateral Reps/Minutes 10, 5 w/lvl 1 band at knees Comments no hands calf stretch Standing Exercise Name 1. stairs 2. fwd lean Side bilateral Reps/Minutes 30 sec DF Side bilateral Reps/Minutes 20 Manual Therapy Treatment Soft Tissue Mobilization calf Body Location circumfrential, bilateral Mobilization Type Myofascial Release Intensity/Depth Superficial Body Position Hooklying Comments w/AP Self-Care/Home Management Treatment Education Patient Education Home Exercise Program Other Education HEP review and discussion of how ex's carry over into walking and cruise trip. Added seated HS stretch to HEP d/t pt not able to do supine HS/calf stretch on soft bed - HO declined. PT-OP-T Assessment and Plan Start: 12/16/22 18:03 Freq: Status: Active Protocol: Document 12/31/22 13:50 [facility] (Rec: 12/31/22 14:34 [facility] [id number]) Physical Therapy Assessment Impairments Impairments Activity Tolerance,Balance, Functional Activities, Functional Mobility,Gait,Pain, Posture,ROM,Soft Tissue Mobility,Strength,Transfers Goals ROM Presser [employer] Ginning Goal (LTG) Pt will have DF to at least 7 deg B AROM in knee ext position to show improved ROM to allow for improved gait and less calf tension. LTG Duration 03/13/23 strength Short Term Goal (STG) Pt will be indep w/HEP STG Duration 01/26/23 [facility] Goal (LTG) Pt will score at least 4+/5 MMT on BLE MMT in order to show improved strength in order to allow pt to return to walking and standing activities w/less pain. LTG Duration 03/13/23 walking Short Term Goal (STG) Pt will be able to return to walking .5 mile a couple times a week without inc pain greater than 2/10 in lower legs or B knees. STG Duration 01/26/23 [facility] Goal (LTG) Pt will be able to returnt o walking 2 miles w/o pain greater than 2/10 in lower leg or knees B LTG Duration 03/13/23 LEFS Impairment 54 [employer] Goal (LTG) pt will improve score to at least 62/80 to show improved functional ability. LTG Duration 03/13 Assessment Summary Assessment Treatment focus on HEP review and discussion of how exercises carry over into walking and [place] trip. Pt requires cues for neutral foot positioning w/ lateral resisted sidesteps and cues for bilateral LE alignment with sit to stands - initial pain in R knee resolved w/ repetitions of sit to stand with corrected LE alignemnt. LE swelling noted to be greater in R>L. Added seated HS stretch to HEP d/t pt not able to do supine HS/calf stretch on soft bed - HO declined. Physical Therapy Plan Frequency and Duration Frequency of Treatment 2x/Week Duration of treatment (weeks) 12 Plan of Care Start Date 12/20/22 Plan of Care End Date 03/14/23 Therapeutic Interventions Therapeutic Interventions Balance Training,Gait Training ,Home Exercise Program,Joint Mobilizations,Manual Therapy, Neuromuscular Re-education, Orthotic/Prosthetic Management ,Patient/Caregiver Education, Self-Care/Home Management,Soft Tissue Mobilization,Taping, Therapeutic Activities, Therapeutic Exercises Modalities Cold Pack/Ice Massage,Electric Stimulation,Hot Packs, Infrared Therapy,Ultrasound Next Visit Focus/Plan Next Note Type Treatment Note Next Visit Plan review:standing DF, calf stretch fwd lean & w/stair, seated calf/HS stretch, side step resisted B, sit to stands for HEP; manual to ankle jt mobility, MFR to superficial tissue of lower leg
--- NOTE | 2023-01-03 14:36 | PT.OTN ---
Current Diagnoses Pain in right knee (01/03/23) Pain in left knee (01/03/23) Pain in right lower leg (01/03/23) Pain in left lower leg (01/03/23) Difficulty in walking, not elsewhere classified (01/03/23) Weakness (01/03/23) Physical Therapy Treatment Note PT-OP-A Visit Information Start: 12/16/22 18:03 Freq: Status: Active Protocol: Document 01/03/23 13:50 [facility] (Rec: 01/03/23 14:35 [facility] [id number]) Out-Patient Physical Therapy Visit Information Visit Information Visit Type Treatment Note Visit Note 02/04 Visit Start Time 13:51 Visit Stop Time 14:40 Total Visit Minutes 49 Visit Number 4 Number of WAGON PERSON Visits 0 PT-OP-B Current Condition Start: 12/16/22 18:03 Freq: Status: Active Protocol: Document 12/20/22 13:41 [facility] (Rec: 12/20/22 15:13 [facility] [id number]) Current Condition History of Current Condition Onset Date Aug 2021 L knee, Sep 2022 R knee, calf pain B soon after she got back Current Complaints B knee and calf pain History of Current Condition Pt reports she started having B knee popping for a while. She twisted her L knee getting out of bed in the night and heard a pop. In [place] in Sep, she had pain and culdn't straighten R knee and had to hobble to the bathroom. Its gradually gotten better. She felt better the next day but is still limited with long walks. Now she is mostly irritated in B calves. SHe was doing a lot of walking when in [place] and is wondering if that caused it They tested for blood clots and it was neg. Xrays showed min arthritis. She has been wearing compression brace that looks like for knees but places it on calves and makes it so she can walk w/less pain. Since she has been compensating d/t pain in legs, her back has started to hurt. Pt typically likes to be able to walk 2-3 miles for 3 days a week. Has been riding her indoor bike about 3x/week for 20-25 min without issue. Prior Treatments and Tests IMPRESSION: [id number] tricompartmental osteoarthritis of right knee as above. No fracture or dislocation. No significant joint effusion. Treatment Goals Patient/Caregiver Goals Get back to walking without pain; be ready for her cruise to [place] in February PT-OP-C Subjective Start: 12/16/22 18:03 Freq: Status: Active Protocol: Document 01/03/23 13:50 [facility] (Rec: 01/03/23 14:35 [facility] [id number]) OP-PT Subjective Patient Comments Patient Comments pt reports some R Knee pain with the stairs yesterday at [employer] game. Another day, she had her [employer] and did her exercsies so was more active nd B calves were sore at end of day PT-OP-D Balance Start: 12/16/22 18:03 Freq: Status: Active Protocol: Document 12/20/22 13:41 [facility] (Rec: 12/20/22 15:13 [facility] [id number]) Balance Tests Single Limb Standing Single Limb- Right 4 sec Single Limb- Left 4 sec PT-OP-F Manual Assessment Start: 12/16/22 18:03 Freq: Status: Active Protocol: Document 12/20/22 13:41 [facility] (Rec: 12/20/22 15:13 [facility] [id number]) Manual Assessments Soft Tissue Assessment Soft Tissue Mobility Assessment tenderness along med calf R, L tenderness lat calf-more proximally near knees Joint Mobility Assessment Joint Mobility Assessment R knee significant IR w/knee bending; R>L foot toes out in standing. Other Manual Assessments Other Manual Assessments R 29 cm; L 28.5-a round malleoli PT-OP-G Mobility & Gait Start: 12/16/22 18:03 Freq: Status: Active Protocol: Document 12/20/22 13:41 [facility] (Rec: 12/20/22 15:13 [facility] [id number]) OP Gait Assessment Comments Gait Comments Dec post dep, dec push off, hard foot slap PT-OP-K Range of Motion Start: 12/16/22 18:03 Freq: Status: Active Protocol: Document 12/20/22 13:41 [facility] (Rec: 12/20/22 15:13 [facility] [id number]) Knee Goniometric Range of Motion Knee Right Flexion Active (degrees) 98 Extension Active (degrees) 1 Left Flexion Active (degrees) 104 Extension Active (degrees) 2 Ankle and Foot Goniometric Range of Motion Ankle and Foot Right Active Dorsiflexion with Knee Flexed 7 Dorsiflexion with Knee Extended 0 Plantarflexion 56 Inversion 30 Eversion 28 Left Active Dorsiflexion with Knee Flexed 5 Dorsiflexion with Knee Extended 2 Plantarflexion 60 Inversion 38 Eversion 30 PT-OP-L Special Tests Start: 12/16/22 18:03 Freq: Status: Active Protocol: Document 12/20/22 13:41 [facility] (Rec: 12/20/22 15:13 [facility] [id number]) Special Tests Knee Special Tests Apley's Compression Test Results neg B Ash Test Test Results neg B Thessaly Test 5 Degrees Test Results neg B ligamentous testing Test Results neg B Straight Leg Raise Test Results L 82: R 68 Bruce Test Results neg B PT-OP-M Strength Start: 12/16/22 18:03 Freq: Status: Active Protocol: Document 12/20/22 13:41 [facility] (Rec: 12/20/22 15:13 [facility] [id number]) Hip Strength Hip Manual Muscle Testing Right Flexion (L2) 3+ Fair+ Extension (S1) 3 Fair Abduction 3+ Fair+ Adduction 4- Good- External Rotation 4- Good- Internal Rotation 4 Good Comments pain in back ER Left Flexion (L2) 3+ Fair+ Extension (S1) 3 Fair Abduction 3+ Fair+ Adduction 4- Good- External Rotation 4+ Good+ Internal Rotation 4+ Good+ Knee Strength Knee Manual Muscle Testing Right Flexion (S2) 4- Good- Extension (L3) 4 Good Left Flexion (S2) 4- Good- Extension (L3) 4 Good Ankle/Foot Strength Ankle and Foot Manual Muscle Testing Right Dorsiflexion (L4) 5 Normal Plantarflexion (S1) 4- Good- Inversion 5 Normal Eversion (S1) 5 Normal Comments 10 heel raises Left Dorsiflexion (L4) 5 Normal Plantarflexion (S1) 4- Good- Inversion 5 Normal Eversion (S1) 5 Normal Comments 10 heel raises PT-OP-Q Treatments Start: 12/16/22 18:03 Freq: Status: Active Protocol: Document 01/03/23 13:50 [facility] (Rec: 01/03/23 14:35 [facility] [id number]) Therapeutic Exercises Prone Exercises hip ext Side bilateral Reps/Minutes 4 Comments stopped d/t pt feeling hot Sitting Exercises HS curl Side bilateral Equipment Used L1 Reps/Minutes 15 Standing Exercises hip ext Side bilateral Equipment Used lvl 1 Reps/Minutes 15 sidestep Side bilateral Equipment Used lvl 2 Reps/Minutes 20ft ea sit to stand Side bilateral Reps/Minutes 15 w/lvl 1 band at knees Comments no hands Manual Therapy Treatment Soft Tissue Mobilization patellar tendon Body Location R lower leg Body Location R ant tib and peroneals Mobilization Type Rolling Intensity/Depth Moderate Joint Mobilizations calcaneus Joint R distraction FM talus Joint R distraction FM Tibfib Comments proximal R distraction & AP distal AP tib FM PT-OP-R Modalities Start: 12/16/22 18:03 Freq: Status: Active Protocol: Document 01/03/23 13:50 [facility] (Rec: 01/03/23 14:36 [id number] Hot Pack/Cold Pack Treatment Cold Pack Location R knee and lat /post calf Patient Position Hooklying Treatment Duration (minutes) 10 PT-OP-T Assessment and Plan Start: 12/16/22 18:03 Freq: Status: Active Protocol: Document 01/03/23 13:50 [facility] (Rec: 01/03/23 14:35 [id number] Physical Therapy Assessment Goals ROM Quality Assurance Monitor Goal (LTG) Pt will have DF to at least 7 deg B AROM in knee ext position to show improved ROM to allow for improved gait and less calf tension. LTG Duration 03/13/23 strength Short Term Goal (STG) Pt will be indep w/HEP STG Duration 01/26/23 Quality Assurance Monitor Goal (LTG) Pt will score at least 4+/5 MMT on BLE MMT in order to show improved strength in order to allow pt to return to walking and standing activities w/less pain. LTG Duration 03/13/23 walking Short Term Goal (STG) Pt will be able to return to walking .5 mile a couple times a week without inc pain greater than 2/10 in lower legs or B knees. STG Duration 01/26/23 Nursing Home Goal (LTG) Pt will be able to returnt o walking 2 miles w/o pain greater than 2/10 in lower leg or knees B LTG Duration 03/13/23 LEFS Impairment 54 Nursing Home Goal (LTG) pt will improve score to at least 62/80 to show improved functional ability. LTG Duration 03/13 Assessment Summary Assessment Pt did note some discomfort in R Knee with satnding exercises and knee flex today. She had improved ROM w/manual but was tender at proximal tib fib joint Physical Therapy Plan Frequency and Duration Frequency of Treatment 2x/Week Duration of treatment (weeks) 12 Plan of Care Start Date 12/20/22 Plan of Care End Date 03/14/23 Next Visit Focus/Plan Next Note Type Treatment Note Next Visit Plan manual to ankle and knee joints to dec pain; cont to advance LE and core stability
--- NOTE | 2023-01-05 14:33 | PT.OTN ---
Current Diagnoses Pain in right knee (01/05/23) Pain in left knee (01/05/23) Pain in right lower leg (01/05/23) Pain in left lower leg (01/05/23) Difficulty in walking, not elsewhere classified (01/05/23) Weakness (01/05/23) Physical Therapy Treatment Note PT-OP-A Visit Information Start: 12/16/22 18:03 Freq: Status: Active Protocol: Document 01/05/23 13:01 [facility] (Rec: 01/05/23 14:30 [facility] [id number]) Out-Patient Physical Therapy Visit Information Visit Information Visit Type Treatment Note Visit Note 04/06 Visit Start Time 13:02 Visit Stop Time 13:43 Total Visit Minutes 51 Visit Number 5 Number of HANDKERCHIEF CUTTER Visits 0 PT-OP-B Current Condition Start: 12/16/22 18:03 Freq: Status: Active Protocol: Document 12/20/22 13:41 [facility] (Rec: 12/20/22 15:13 [facility] [id number]) Current Condition History of Current Condition Onset Date Aug 2021 L knee, Sep 2022 R knee, calf pain B soon after she got back Current Complaints B knee and calf pain History of Current Condition Pt reports she started having B knee popping for a while. She twisted her L knee getting out of bed in the night and heard a pop. In [place] in Sep, she had pain and culdn't straighten R knee and had to hobble to the bathroom. Its gradually gotten better. She felt better the next day but is still limited with long walks. Now she is mostly irritated in B calves. SHe was doing a lot of walking when in [place] and is wondering if that caused it They tested for blood clots and it was neg. Xrays showed min arthritis. She has been wearing compression brace that looks like for knees but places it on calves and makes it so she can walk w/less pain. Since she has been compensating d/t pain in legs, her back has started to hurt. Pt typically likes to be able to walk 2-3 miles for 3 days a week. Has been riding her indoor bike about 3x/week for 20-25 min without issue. Prior Treatments and Tests IMPRESSION: [id number] tricompartmental osteoarthritis of right knee as above. No fracture or dislocation. No significant joint effusion. Treatment Goals Patient/Caregiver Goals Get back to walking without pain; be ready for her cruise to [place] in February PT-OP-C Subjective Start: 12/16/22 18:03 Freq: Status: Active Protocol: Document 01/05/23 13:01 [facility] (Rec: 01/05/23 14:30 [facility] [id number]) OP-PT Subjective Patient Comments Patient Comments Pt reports she didn't sleep well dar night. She took ibuprofen but not melatonin. Pt reports was hurting all over in B knees and calves after last session. PT-OP-D Balance Start: 12/16/22 18:03 Freq: Status: Active Protocol: Document 12/20/22 13:41 [facility] (Rec: 12/20/22 15:13 [facility] [id number]) Balance Tests Single Limb Standing Single Limb- Right 4 sec Single Limb- Left 4 sec PT-OP-F Manual Assessment Start: 12/16/22 18:03 Freq: Status: Active Protocol: Document 12/20/22 13:41 [facility] (Rec: 12/20/22 15:13 [facility] [id number]) Manual Assessments Soft Tissue Assessment Soft Tissue Mobility Assessment tenderness along med calf R, L tenderness lat calf-more proximally near knees Joint Mobility Assessment Joint Mobility Assessment R knee significant IR w/knee bending; R>L foot toes out in standing. Other Manual Assessments Other Manual Assessments R 29 cm; L 28.5-a round malleoli PT-OP-G Mobility & Gait Start: 12/16/22 18:03 Freq: Status: Active Protocol: Document 12/20/22 13:41 [facility] (Rec: 12/20/22 15:13 [facility] [id number]) OP Gait Assessment Comments Gait Comments Dec post dep, dec push off, hard foot slap PT-OP-K Range of Motion Start: 12/16/22 18:03 Freq: Status: Active Protocol: Document 12/20/22 13:41 [facility] (Rec: 12/20/22 15:13 [facility] [id number]) Knee Goniometric Range of Motion Knee Right Flexion Active (degrees) 98 Extension Active (degrees) 1 Left Flexion Active (degrees) 104 Extension Active (degrees) 2 Ankle and Foot Goniometric Range of Motion Ankle and Foot Right Active Dorsiflexion with Knee Flexed 7 Dorsiflexion with Knee Extended 0 Plantarflexion 56 Inversion 30 Eversion 28 Left Active Dorsiflexion with Knee Flexed 5 Dorsiflexion with Knee Extended 2 Plantarflexion 60 Inversion 38 Eversion 30 PT-OP-L Special Tests Start: 12/16/22 18:03 Freq: Status: Active Protocol: Document 12/20/22 13:41 [facility] (Rec: 12/20/22 15:13 [facility] [id number]) Special Tests Knee Special Tests Apley's Compression Test Results neg B Ash Test Test Results neg B Thessaly Test 5 Degrees Test Results neg B ligamentous testing Test Results neg B Straight Leg Raise Test Results L 82: R 68 Bruce Test Results neg B PT-OP-M Strength Start: 12/16/22 18:03 Freq: Status: Active Protocol: Document 12/20/22 13:41 [facility] (Rec: 12/20/22 15:13 [facility] [id number]) Hip Strength Hip Manual Muscle Testing Right Flexion (L2) 3+ Fair+ Extension (S1) 3 Fair Abduction 3+ Fair+ Adduction 4- Good- External Rotation 4- Good- Internal Rotation 4 Good Comments pain in back ER Left Flexion (L2) 3+ Fair+ Extension (S1) 3 Fair Abduction 3+ Fair+ Adduction 4- Good- External Rotation 4+ Good+ Internal Rotation 4+ Good+ Knee Strength Knee Manual Muscle Testing Right Flexion (S2) 4- Good- Extension (L3) 4 Good Left Flexion (S2) 4- Good- Extension (L3) 4 Good Ankle/Foot Strength Ankle and Foot Manual Muscle Testing Right Dorsiflexion (L4) 5 Normal Plantarflexion (S1) 4- Good- Inversion 5 Normal Eversion (S1) 5 Normal Comments 10 heel raises Left Dorsiflexion (L4) 5 Normal Plantarflexion (S1) 4- Good- Inversion 5 Normal Eversion (S1) 5 Normal Comments 10 heel raises PT-OP-Q Treatments Start: 12/16/22 18:03 Freq: Status: Active Protocol: Document 01/05/23 13:01 [facility] (Rec: 01/05/23 14:30 [facility] [id number]) Cardio Equipment Recumbent Elliptical (Biodex) Duration (Minutes) 6 Resistance 4 Seat Position 6 Therapeutic Exercises Supine Exercises core Supine Exercise Name SL isometric Side bilateral Reps/Minutes 30 sec bridge Supine Exercise Name cues for core and glute then B DF Side bilateral Reps/Minutes 5 sec holds x15 Sitting Exercises HS curl Side bilateral Equipment Used L1 Reps/Minutes 15 Standing Exercises hip ext Standing Exercise Name bent over in counter height to work on neutral spine Side bilateral Equipment Used lvl 1 Reps/Minutes 15 Manual Therapy Treatment Soft Tissue Mobilization calf Body Location circumfrential, bilateral Mobilization Type Myofascial Release Intensity/Depth Superficial- moderate Body Position Hooklying Comments w/AP PT-OP-R Modalities Start: 12/16/22 18:03 Freq: Status: Active Protocol: Document 01/05/23 13:01 [facility] (Rec: 01/05/23 14:30 [facility] [id number]) Hot Pack/Cold Pack Treatment Cold Pack Location B calf Patient Position Hooklying Treatment Duration (minutes) 10 PT-OP-T Assessment and Plan Start: 12/16/22 18:03 Freq: Status: Active Protocol: Document 01/05/23 13:01 [facility] (Rec: 01/05/23 14:30 [facility] [id number]) Physical Therapy Assessment Goals ROM Half-Way Goal (LTG) Pt will have DF to at least 7 deg B AROM in knee ext position to show improved ROM to allow for improved gait and less calf tension. LTG Duration 03/13/23 strength Short Term Goal (STG) Pt will be indep w/HEP STG Duration 01/26/23 Half-Way Goal (LTG) Pt will score at least 4+/5 MMT on BLE MMT in order to show improved strength in order to allow pt to return to walking and standing activities w/less pain. LTG Duration 03/13/23 walking Short Term Goal (STG) Pt will be able to return to walking .5 mile a couple times a week without inc pain greater than 2/10 in lower legs or B knees. STG Duration 01/26/23 Half-Way Goal (LTG) Pt will be able to returnt o walking 2 miles w/o pain greater than 2/10 in lower leg or knees B LTG Duration 03/13/23 LEFS Impairment 54 Furniture Mechanic Goal (LTG) pt will improve score to at least 62/80 to show improved functional ability. LTG Duration 03/13 Assessment Summary Assessment Pt did well with exercises today and did not report pain during exercises except minor discomfort during stepper initially but resolved quickly . Pt has more tolerance to manual massage. Physical Therapy Plan Frequency and Duration Frequency of Treatment 2x/Week Duration of treatment (weeks) 12 Plan of Care Start Date 12/20/22 Plan of Care End Date 03/14/23 Next Visit Focus/Plan Next Note Type Treatment Note Next Visit Plan manual to ankle and knee joints to dec pain; cont to advance LE and core stability
--- NOTE | 2023-01-11 15:48 | PT.OTN ---
Current Diagnoses Pain in right knee (01/11/23) Pain in left knee (01/11/23) Pain in right lower leg (01/11/23) Pain in left lower leg (01/11/23) Difficulty in walking, not elsewhere classified (01/11/23) Weakness (01/11/23) Physical Therapy Treatment Note PT-OP-A Visit Information Start: 12/16/22 18:03 Freq: Status: Active Protocol: Document 01/11/23 13:49 [facility] (Rec: 01/11/23 15:47 [facility] [id number]) Out-Patient Physical Therapy Visit Information Visit Information Visit Type Treatment Note Visit Note 05/07 Visit Start Time 13:50 Visit Stop Time 14:30 Total Visit Minutes 40 Visit Number 6 Number of LINE DECORATOR Visits 0 PT-OP-B Current Condition Start: 12/16/22 18:03 Freq: Status: Active Protocol: Document 12/20/22 13:41 [facility] (Rec: 12/20/22 15:13 [facility] [id number]) Current Condition History of Current Condition Onset Date Aug 2021 L knee, Sep 2022 R knee, calf pain B soon after she got back Current Complaints B knee and calf pain History of Current Condition Pt reports she started having B knee popping for a while. She twisted her L knee getting out of bed in the night and heard a pop. In [place] in Sep, she had pain and culdn't straighten R knee and had to hobble to the bathroom. Its gradually gotten better. She felt better the next day but is still limited with long walks. Now she is mostly irritated in B calves. SHe was doing a lot of walking when in [place] and is wondering if that caused it They tested for blood clots and it was neg. Xrays showed min arthritis. She has been wearing compression brace that looks like for knees but places it on calves and makes it so she can walk w/less pain. Since she has been compensating d/t pain in legs, her back has started to hurt. Pt typically likes to be able to walk 2-3 miles for 3 days a week. Has been riding her indoor bike about 3x/week for 20-25 min without issue. Prior Treatments and Tests IMPRESSION: [id number] tricompartmental osteoarthritis of right knee as above. No fracture or dislocation. No significant joint effusion. Treatment Goals Patient/Caregiver Goals Get back to walking without pain; be ready for her cruise to [place] in February PT-OP-C Subjective Start: 12/16/22 18:03 Freq: Status: Active Protocol: Document 01/11/23 13:49 [facility] (Rec: 01/11/23 15:47 [facility] [id number]) OP-PT Subjective Patient Comments Patient Comments Pt reports pain has been up/ down. Hurt a bit last night. She did exercsies and that helped. FEels like the ext helped the most PT-OP-D Balance Start: 12/16/22 18:03 Freq: Status: Active Protocol: Document 12/20/22 13:41 [facility] (Rec: 12/20/22 15:13 [facility] [id number]) Balance Tests Single Limb Standing Single Limb- Right 4 sec Single Limb- Left 4 sec PT-OP-F Manual Assessment Start: 12/16/22 18:03 Freq: Status: Active Protocol: Document 12/20/22 13:41 [facility] (Rec: 12/20/22 15:13 [facility] [id number]) Manual Assessments Soft Tissue Assessment Soft Tissue Mobility Assessment tenderness along med calf R, L tenderness lat calf-more proximally near knees Joint Mobility Assessment Joint Mobility Assessment R knee significant IR w/knee bending; R>L foot toes out in standing. Other Manual Assessments Other Manual Assessments R 29 cm; L 28.5-a round malleoli PT-OP-G Mobility & Gait Start: 12/16/22 18:03 Freq: Status: Active Protocol: Document 12/20/22 13:41 [facility] (Rec: 12/20/22 15:13 [facility] [id number]) OP Gait Assessment Comments Gait Comments Dec post dep, dec push off, hard foot slap PT-OP-K Range of Motion Start: 12/16/22 18:03 Freq: Status: Active Protocol: Document 12/20/22 13:41 [facility] (Rec: 12/20/22 15:13 [facility] [id number]) Knee Goniometric Range of Motion Knee Right Flexion Active (degrees) 98 Extension Active (degrees) 1 Left Flexion Active (degrees) 104 Extension Active (degrees) 2 Ankle and Foot Goniometric Range of Motion Ankle and Foot Right Active Dorsiflexion with Knee Flexed 7 Dorsiflexion with Knee Extended 0 Plantarflexion 56 Inversion 30 Eversion 28 Left Active Dorsiflexion with Knee Flexed 5 Dorsiflexion with Knee Extended 2 Plantarflexion 60 Inversion 38 Eversion 30 PT-OP-L Special Tests Start: 12/16/22 18:03 Freq: Status: Active Protocol: Document 12/20/22 13:41 [facility] (Rec: 12/20/22 15:13 [facility] [id number]) Special Tests Knee Special Tests Apley's Compression Test Results neg B Ash Test Test Results neg B Thessaly Test 5 Degrees Test Results neg B ligamentous testing Test Results neg B Straight Leg Raise Test Results L 82: R 68 Bruce Test Results neg B PT-OP-M Strength Start: 12/16/22 18:03 Freq: Status: Active Protocol: Document 12/20/22 13:41 [facility] (Rec: 12/20/22 15:13 [facility] [id number]) Hip Strength Hip Manual Muscle Testing Right Flexion (L2) 3+ Fair+ Extension (S1) 3 Fair Abduction 3+ Fair+ Adduction 4- Good- External Rotation 4- Good- Internal Rotation 4 Good Comments pain in back ER Left Flexion (L2) 3+ Fair+ Extension (S1) 3 Fair Abduction 3+ Fair+ Adduction 4- Good- External Rotation 4+ Good+ Internal Rotation 4+ Good+ Knee Strength Knee Manual Muscle Testing Right Flexion (S2) 4- Good- Extension (L3) 4 Good Left Flexion (S2) 4- Good- Extension (L3) 4 Good Ankle/Foot Strength Ankle and Foot Manual Muscle Testing Right Dorsiflexion (L4) 5 Normal Plantarflexion (S1) 4- Good- Inversion 5 Normal Eversion (S1) 5 Normal Comments 10 heel raises Left Dorsiflexion (L4) 5 Normal Plantarflexion (S1) 4- Good- Inversion 5 Normal Eversion (S1) 5 Normal Comments 10 heel raises PT-OP-Q Treatments Start: 12/16/22 18:03 Freq: Status: Active Protocol: Document 01/11/23 13:49 [facility] (Rec: 01/11/23 15:47 [facility] [id number]) Cardio Equipment Recumbent Stepper (Sci-Fit) Duration (Minutes) 3 Resistance 4 Seat Position 9 Gym Equipment Shuttle Balance red clips Comments fwd & side: WBOS & NBOS fwd: staggered stance Therapeutic Exercises Supine Exercises core Supine Exercise Name SL isometric Side bilateral Reps/Minutes 30 sec Sitting Exercises HS curl Sitting Exercise Name w/ opp LE ext Side bilateral Equipment Used L2 Reps/Minutes 15 Standing Exercises hip ext Standing Exercise Name bent over in counter height to work on neutral spine Side bilateral Equipment Used lvl 1 Reps/Minutes 15 calf stretch Standing Exercise Name NIKOLE Side bilateral Reps/Minutes 1 min Manual Therapy Treatment Soft Tissue Mobilization HS\ Body Location B Mobilization Type Rolling Intensity/Depth Moderate Body Position Hooklying Comments w/knee ext PT-OP-R Modalities Start: 12/16/22 18:03 Freq: Status: Active Protocol: Document 01/05/23 13:01 [facility] (Rec: 01/05/23 14:30 [facility] [id number]) Hot Pack/Cold Pack Treatment Cold Pack Location B calf Patient Position Hooklying Treatment Duration (minutes) 10 PT-OP-T Assessment and Plan Start: 12/16/22 18:03 Freq: Status: Active Protocol: Document 01/11/23 13:49 [facility] (Rec: 01/11/23 15:47 [facility] [id number]) Physical Therapy Assessment Goals ROM Shipping And Receiving Operator Goal (LTG) Pt will have DF to at least 7 deg B AROM in knee ext position to show improved ROM to allow for improved gait and less calf tension. LTG Duration 03/13/23 strength Short Term Goal (STG) Pt will be indep w/HEP STG Duration 01/26/23 Shipping And Receiving Operator Goal (LTG) Pt will score at least 4+/5 MMT on BLE MMT in order to show improved strength in order to allow pt to return to walking and standing activities w/less pain. LTG Duration 03/13/23 walking Short Term Goal (STG) Pt will be able to return to walking .5 mile a couple times a week without inc pain greater than 2/10 in lower legs or B knees. STG Duration 01/26/23 Penitentiary Goal (LTG) Pt will be able to returnt o walking 2 miles w/o pain greater than 2/10 in lower leg or knees B LTG Duration 03/13/23 LEFS Impairment 54 Penitentiary Goal (LTG) pt will improve score to at least 62/80 to show improved functional ability. LTG Duration 03/13 Assessment Summary Assessment Pt had significant tenderness in B HS. She no longer has tenderness in either calf with palpation. She did well with exercises but does require cues to avoid back ext w/hip ext. instructed to try a rolling pin on HS. Physical Therapy Plan Frequency and Duration Frequency of Treatment 2x/Week Duration of treatment (weeks) 12 Plan of Care Start Date 12/20/22 Plan of Care End Date 03/14/23 Next Visit Focus/Plan Next Note Type Treatment Note Next Visit Plan manual to ankle and knee joints to dec pain; cont to advance LE and core stability
--- NOTE | 2023-01-13 14:29 | PT.OTN ---
Current Diagnoses Pain in right knee (01/13/23) Pain in left knee (01/13/23) Pain in right lower leg (01/13/23) Pain in left lower leg (01/13/23) Difficulty in walking, not elsewhere classified (01/13/23) Weakness (01/13/23) Physical Therapy Treatment Note PT-OP-A Visit Information Start: 12/16/22 18:03 Freq: Status: Active Protocol: Document 01/13/23 13:47 [facility] (Rec: 01/13/23 14:29 [facility] [id number]) Out-Patient Physical Therapy Visit Information Visit Information Visit Type Treatment Note Visit Note 06/06 Visit Start Time 13:46 Visit Stop Time 14:27 Total Visit Minutes 41 Visit Number 7 Number of [employer] TE[employer]ER LIBRARIAN Visits 0 PT-OP-B Current Condition Start: 12/16/22 18:03 Freq: Status: Active Protocol: Document 12/20/22 13:41 [facility] (Rec: 12/20/22 15:13 [facility] [id number]) Current Condition History of Current Condition Onset Date Aug 2021 L knee, Sep 2022 R knee, calf pain B soon after she got back Current Complaints B knee and calf pain History of Current Condition Pt reports she started having B knee popping for a while. She twisted her L knee getting out of bed in the night and heard a pop. In [place] in Sep, she had pain and culdn't straighten R knee and had to hobble to the bathroom. Its gradually gotten better. She felt better the next day but is still limited with long walks. Now she is mostly irritated in B calves. SHe was doing a lot of walking when in [place] and is wondering if that caused it They tested for blood clots and it was neg. Xrays showed min arthritis. She has been wearing compression brace that looks like for knees but places it on calves and makes it so she can walk w/less pain. Since she has been compensating d/t pain in legs, her back has started to hurt. Pt typically likes to be able to walk 2-3 miles for 3 days a week. Has been riding her indoor bike about 3x/week for 20-25 min without issue. Prior Treatments and Tests IMPRESSION: [id number] tricompartmental osteoarthritis of right knee as above. No fracture or dislocation. No significant joint effusion. Treatment Goals Patient/Caregiver Goals Get back to walking without pain; be ready for her cruise to [place] in February PT-OP-C Subjective Start: 12/16/22 18:03 Freq: Status: Active Protocol: Document 01/13/23 13:47 [facility] (Rec: 01/13/23 14:29 [facility] [id number]) OP-PT Subjective Patient Comments Patient Comments Pt reports she rolled out her HS last night and it made her R HS sore and it hurt while doing it. Notes feels off todayand BP is elevated PT-OP-D Balance Start: 12/16/22 18:03 Freq: Status: Active Protocol: Document 12/20/22 13:41 [facility] (Rec: 12/20/22 15:13 [facility] [id number]) Balance Tests Single Limb Standing Single Limb- Right 4 sec Single Limb- Left 4 sec PT-OP-F Manual Assessment Start: 12/16/22 18:03 Freq: Status: Active Protocol: Document 12/20/22 13:41 [facility] (Rec: 12/20/22 15:13 [facility] [id number]) Manual Assessments Soft Tissue Assessment Soft Tissue Mobility Assessment tenderness along med calf R, L tenderness lat calf-more proximally near knees Joint Mobility Assessment Joint Mobility Assessment R knee significant IR w/knee bending; R>L foot toes out in standing. Other Manual Assessments Other Manual Assessments R 29 cm; L 28.5-a round malleoli PT-OP-G Mobility & Gait Start: 12/16/22 18:03 Freq: Status: Active Protocol: Document 12/20/22 13:41 [facility] (Rec: 12/20/22 15:13 [facility] [id number]) OP Gait Assessment Comments Gait Comments Dec post dep, dec push off, hard foot slap PT-OP-K Range of Motion Start: 12/16/22 18:03 Freq: Status: Active Protocol: Document 12/20/22 13:41 [facility] (Rec: 12/20/22 15:13 [facility] [id number]) Knee Goniometric Range of Motion Knee Right Flexion Active (degrees) 98 Extension Active (degrees) 1 Left Flexion Active (degrees) 104 Extension Active (degrees) 2 Ankle and Foot Goniometric Range of Motion Ankle and Foot Right Active Dorsiflexion with Knee Flexed 7 Dorsiflexion with Knee Extended 0 Plantarflexion 56 Inversion 30 Eversion 28 Left Active Dorsiflexion with Knee Flexed 5 Dorsiflexion with Knee Extended 2 Plantarflexion 60 Inversion 38 Eversion 30 PT-OP-L Special Tests Start: 12/16/22 18:03 Freq: Status: Active Protocol: Document 12/20/22 13:41 [facility] (Rec: 12/20/22 15:13 [facility] [id number]) Special Tests Knee Special Tests Apley's Compression Test Results neg B Ash Test Test Results neg B Thessaly Test 5 Degrees Test Results neg B ligamentous testing Test Results neg B Straight Leg Raise Test Results L 82: R 68 Bruce Test Results neg B PT-OP-M Strength Start: 12/16/22 18:03 Freq: Status: Active Protocol: Document 12/20/22 13:41 [facility] (Rec: 12/20/22 15:13 [facility] [id number]) Hip Strength Hip Manual Muscle Testing Right Flexion (L2) 3+ Fair+ Extension (S1) 3 Fair Abduction 3+ Fair+ Adduction 4- Good- External Rotation 4- Good- Internal Rotation 4 Good Comments pain in back ER Left Flexion (L2) 3+ Fair+ Extension (S1) 3 Fair Abduction 3+ Fair+ Adduction 4- Good- External Rotation 4+ Good+ Internal Rotation 4+ Good+ Knee Strength Knee Manual Muscle Testing Right Flexion (S2) 4- Good- Extension (L3) 4 Good Left Flexion (S2) 4- Good- Extension (L3) 4 Good Ankle/Foot Strength Ankle and Foot Manual Muscle Testing Right Dorsiflexion (L4) 5 Normal Plantarflexion (S1) 4- Good- Inversion 5 Normal Eversion (S1) 5 Normal Comments 10 heel raises Left Dorsiflexion (L4) 5 Normal Plantarflexion (S1) 4- Good- Inversion 5 Normal Eversion (S1) 5 Normal Comments 10 heel raises PT-OP-Q Treatments Start: 12/16/22 18:03 Freq: Status: Active Protocol: Document 01/13/23 13:47 [facility] (Rec: 01/13/23 14:29 [facility] [id number]) Therapeutic Exercises Supine Exercises core Supine Exercise Name SL isometric Side bilateral Reps/Minutes 30 sec bridge Supine Exercise Name cues for core and glute then B DF Side bilateral Reps/Minutes 30 sec hold in bridge w/DF stretch Supine Exercise Name HS/calf stretch Side bilateral Reps/Minutes 30 sec ea Standing Exercises heel raises Standing Exercise Name on step Side bilateral Reps/Minutes 20 Manual Therapy Treatment Soft Tissue Mobilization HS\ Body Location B Mobilization Type Rolling Intensity/Depth Superficial Body Position Hooklying Comments w/knee ext calf Body Location circumfrential, bilateral & achilles Mobilization Type Myofascial Release Intensity/Depth Superficial- moderate Body Position Hooklying Comments w/AP Self-Care/Home Management Treatment Education Other Education review of HS rolling; discussed not pressing too hard as it does not require heavy pressing; edu to give it a break for a few days and to ice as needed, edu to germaine w/MD re: BP if it remains elevated and to also discuss LE [id number] Activities Self-Care/Home Management Activities HR: 69; BP 158/86; O2 98% PT-OP-R Modalities Start: 12/16/22 18:03 Freq: Status: Active Protocol: Document 01/05/23 13:01 [facility] (Rec: 01/05/23 14:30 [facility] [id number]) Hot Pack/Cold Pack Treatment Cold Pack Location B calf Patient Position Hooklying Treatment Duration (minutes) 10 PT-OP-T Assessment and Plan Start: 12/16/22 18:03 Freq: Status: Active Protocol: Document 01/13/23 13:47 [facility] (Rec: 01/13/23 14:29 [facility] [id number]) Physical Therapy Assessment Goals ROM [employer] Goal (LTG) Pt will have DF to at least 7 deg B AROM in knee ext position to show improved ROM to allow for improved gait and less calf tension. LTG Duration 03/13/23 strength Short Term Goal (STG) Pt will be indep w/HEP STG Duration 01/26/23 [employer] Goal (LTG) Pt will score at least 4+/5 MMT on BLE MMT in order to show improved strength in order to allow pt to return to walking and standing activities w/less pain. LTG Duration 03/13/23 walking Short Term Goal (STG) Pt will be able to return to walking .5 mile a couple times a week without inc pain greater than 2/10 in lower legs or B knees. STG Duration 01/26/23 [employer] Coach Goal (LTG) Pt will be able to returnt o walking 2 miles w/o pain greater than 2/10 in lower leg or knees B LTG Duration 03/13/23 LEFS Impairment 54 [employer] Sports Coach Goal (LTG) pt will improve score to at least 62/80 to show improved functional ability. LTG Duration 03/13 Assessment Summary Assessment Pt had less tenderness in calf overall but does have tightnes in R>L achilles. Did well with min cues w/exercises w/o c/o pian Physical Therapy Plan Frequency and Duration Frequency of Treatment 2x/Week Duration of treatment (weeks) 12 Plan of Care Start Date 12/20/22 Plan of Care End Date 03/14/23 Next Visit Focus/Plan Next Note Type Treatment Note Next Visit Plan manual to ankle and knee joints to dec pain; cont to advance LE and core stability
--- NOTE | 2023-01-18 09:24 | PT.OTN ---
Current Diagnoses Pain in right knee (01/18/23) Pain in left knee (01/18/23) Pain in right lower leg (01/18/23) Pain in left lower leg (01/18/23) Difficulty in walking, not elsewhere classified (01/18/23) Weakness (01/18/23) Physical Therapy Treatment Note PT-OP-A Visit Information Start: 12/16/22 18:03 Freq: Status: Active Protocol: Document 01/18/23 08:19 [facility] (Rec: 01/18/23 09:08 [facility] [id number]) Out-Patient Physical Therapy Visit Information Visit Information Visit Type Treatment Note Visit Note 07/07 Visit Start Time 08:18 Visit Stop Time 08:58 Total Visit Minutes 40 Visit Number 8 Number of SPECIAL CLIENT BUS DRIVER Visits 0 PT-OP-B Current Condition Start: 12/16/22 18:03 Freq: Status: Active Protocol: Document 12/20/22 13:41 [facility] (Rec: 12/20/22 15:13 [facility] [id number]) Current Condition History of Current Condition Onset Date Aug 2021 L knee, Sep 2022 R knee, calf pain B soon after she got back Current Complaints B knee and calf pain History of Current Condition Pt reports she started having B knee popping for a while. She twisted her L knee getting out of bed in the night and heard a pop. In [place] in Sep, she had pain and culdn't straighten R knee and had to hobble to the bathroom. Its gradually gotten better. She felt better the next day but is still limited with long walks. Now she is mostly irritated in B calves. SHe was doing a lot of walking when in [place] and is wondering if that caused it They tested for blood clots and it was neg. Xrays showed min arthritis. She has been wearing compression brace that looks like for knees but places it on calves and makes it so she can walk w/less pain. Since she has been compensating d/t pain in legs, her back has started to hurt. Pt typically likes to be able to walk 2-3 miles for 3 days a week. Has been riding her indoor bike about 3x/week for 20-25 min without issue. Prior Treatments and Tests IMPRESSION: [id number] tricompartmental osteoarthritis of right knee as above. No fracture or dislocation. No significant joint effusion. Treatment Goals Patient/Caregiver Goals Get back to walking without pain; be ready for her cruise to [place] in February PT-OP-C Subjective Start: 12/16/22 18:03 Freq: Status: Active Protocol: Document 01/18/23 08:19 [facility] (Rec: 01/18/23 09:08 [facility] [id number]) OP-PT Subjective Patient Comments Patient Comments Pt reports she had a great weekend where her calves felt pretty good. 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 (Rec: 12/20/22 15:13 [facility] [id number]) Balance Tests Single Limb Standing Single Limb- Right 4 sec Single Limb- Left 4 sec PT-OP-F Manual Assessment Start: 12/16/22 18:03 Freq: Status: Active Protocol: Document 12/20/22 13:41 [facility] (Rec: 12/20/22 15:13 [facility] [id number]) Manual Assessments Soft Tissue Assessment Soft Tissue Mobility Assessment tenderness along med calf R, L tenderness lat calf-more proximally near knees Joint Mobility Assessment Joint Mobility Assessment R knee significant IR w/knee bending; R>L foot toes out in standing. Other Manual Assessments Other Manual Assessments R 29 cm; L 28.5-a round malleoli PT-OP-G Mobility & Gait Start: 12/16/22 18:03 Freq: Status: Active Protocol: Document 12/20/22 13:41 [facility] (Rec: 12/20/22 15:13 [facility] [id number]) OP Gait Assessment Comments Gait Comments Dec post dep, dec push off, hard foot slap PT-OP-K Range of Motion Start: 12/16/22 18:03 Freq: Status: Active Protocol: Document 12/20/22 13:41 [facility] (Rec: 12/20/22 15:13 [facility] [id number]) Knee Goniometric Range of Motion Knee Right Flexion Active (degrees) 98 Extension Active (degrees) 1 Left Flexion Active (degrees) 104 Extension Active (degrees) 2 Ankle and Foot Goniometric Range of Motion Ankle and Foot Right Active Dorsiflexion with Knee Flexed 7 Dorsiflexion with Knee Extended 0 Plantarflexion 56 Inversion 30 Eversion 28 Left Active Dorsiflexion with Knee Flexed 5 Dorsiflexion with Knee Extended 2 Plantarflexion 60 Inversion 38 Eversion 30 PT-OP-L Special Tests Start: 12/16/22 18:03 Freq: Status: Active Protocol: Document 12/20/22 13:41 [facility] (Rec: 12/20/22 15:13 [facility] [id number]) Special Tests Knee Special Tests Apley's Compression Test Results neg B Ash Test Test Results neg B Thessaly Test 5 Degrees Test Results neg B ligamentous testing Test Results neg B Straight Leg Raise Test Results L 82: R 68 Bruce Test Results neg B PT-OP-M Strength Start: 12/16/22 18:03 Freq: Status: Active Protocol: Document 12/20/22 13:41 [facility] (Rec: 12/20/22 15:13 [facility] [id number]) Hip Strength Hip Manual Muscle Testing Right Flexion (L2) 3+ Fair+ Extension (S1) 3 Fair Abduction 3+ Fair+ Adduction 4- Good- External Rotation 4- Good- Internal Rotation 4 Good Comments pain in back ER Left Flexion (L2) 3+ Fair+ Extension (S1) 3 Fair Abduction 3+ Fair+ Adduction 4- Good- External Rotation 4+ Good+ Internal Rotation 4+ Good+ Knee Strength Knee Manual Muscle Testing Right Flexion (S2) 4- Good- Extension (L3) 4 Good Left Flexion (S2) 4- Good- Extension (L3) 4 Good Ankle/Foot Strength Ankle and Foot Manual Muscle Testing Right Dorsiflexion (L4) 5 Normal Plantarflexion (S1) 4- Good- Inversion 5 Normal Eversion (S1) 5 Normal Comments 10 heel raises Left Dorsiflexion (L4) 5 Normal Plantarflexion (S1) 4- Good- Inversion 5 Normal Eversion (S1) 5 Normal Comments 10 heel raises PT-OP-Q Treatments Start: 12/16/22 18:03 Freq: Status: Active Protocol: Document 01/18/23 08:19 [facility] (Rec: 01/18/23 09:08 [facility] [id number]) Manual Therapy Treatment Soft Tissue Mobilization lower leg Body Location R peroneals Mobilization Type Rolling Intensity/Depth Moderate calf Body Location circumfrential, bilateral & achilles Mobilization Type Myofascial Release Intensity/Depth Superficial- moderate Body Position Hooklying Comments w/AP Joint Mobilizations calcaneus Joint R distraction & lat glide FM talus Joint R distraction, med glide & AP FM PT-OP-R Modalities Start: 12/16/22 18:03 Freq: Status: Active Protocol: Document 01/05/23 13:01 [facility] (Rec: 01/05/23 14:30 [facility] [id number]) Hot Pack/Cold Pack Treatment Cold Pack Location B calf Patient Position Hooklying Treatment Duration (minutes) 10 PT-OP-T Assessment and Plan Start: 12/16/22 18:03 Freq: Status: Active Protocol: Document 01/18/23 08:19 [facility] (Rec: 01/18/23 09:08 [facility] [id number]) Physical Therapy Assessment Goals ROM Jack Spinner Goal (LTG) Pt will have DF to at least 7 deg B AROM in knee ext position to show improved ROM to allow for improved gait and less calf tension. LTG Duration 03/13/23 strength Short Term Goal (STG) Pt will be indep w/HEP STG Duration 01/26/23 Senior Care Goal (LTG) Pt will score at least 4+/5 MMT on BLE MMT in order to show improved strength in order to allow pt to return to walking and standing activities w/less pain. LTG Duration 03/13/23 walking Short Term Goal (STG) Pt will be able to return to walking .5 mile a couple times a week without inc pain greater than 2/10 in lower legs or B knees. STG Duration 01/26/23 Jack Spinner Goal (LTG) Pt will be able to returnt o walking 2 miles w/o pain greater than 2/10 in lower leg or knees B LTG Duration 03/13/23 LEFS Impairment 54 Jack Spinner Goal (LTG) pt will improve score to at least 62/80 to show improved functional ability. LTG Duration 03/13 Assessment Summary Assessment Pt has R>L dec ROM but does improve w/manual treatment w/ ankle mobility. Physical Therapy Plan Frequency and Duration Frequency of Treatment 2x/Week Duration of treatment (weeks) 12 Plan of Care Start Date 12/20/22 Plan of Care End Date 03/14/23 Next Visit Focus/Plan Next Note Type Treatment Note Next Visit Plan manual to ankle and knee joints to dec pain; cont to advance LE and core stability
--- NOTE | 2023-01-24 13:52 | PT.OTN ---
Current Diagnoses Pain in right knee (01/24/23) Pain in left knee (01/24/23) Pain in right lower leg (01/24/23) Pain in left lower leg (01/24/23) Difficulty in walking, not elsewhere classified (01/24/23) Weakness (01/24/23) Physical Therapy Treatment Note PT-OP-A Visit Information Start: 12/16/22 18:03 Freq: Status: Active Protocol: Document 01/24/23 13:08 [facility] (Rec: 01/24/23 13:52 [facility] [id number]) Out-Patient Physical Therapy Visit Information Visit Information Visit Type Treatment Note Visit Note 08/07 Visit Start Time 13:08 Visit Stop Time 13:48 Total Visit Minutes 40 Visit Number 9 Number of ANNUAL GIVING DIRECTOR Visits 1 PT-OP-B Current Condition Start: 12/16/22 18:03 Freq: Status: Active Protocol: Document 12/20/22 13:41 [facility] (Rec: 12/20/22 15:13 [facility] [id number]) Current Condition History of Current Condition Onset Date Aug 2021 L knee, Sep 2022 R knee, calf pain B soon after she got back Current Complaints B knee and calf pain History of Current Condition Pt reports she started having B knee popping for a while. She twisted her L knee getting out of bed in the night and heard a pop. In [place] in Sep, she had pain and culdn't straighten R knee and had to hobble to the bathroom. Its gradually gotten better. She felt better the next day but is still limited with long walks. Now she is mostly irritated in B calves. SHe was doing a lot of walking when in [place] and is wondering if that caused it They tested for blood clots and it was neg. Xrays showed min arthritis. She has been wearing compression brace that looks like for knees but places it on calves and makes it so she can walk w/less pain. Since she has been compensating d/t pain in legs, her back has started to hurt. Pt typically likes to be able to walk 2-3 miles for 3 days a week. Has been riding her indoor bike about 3x/week for 20-25 min without issue. Prior Treatments and Tests IMPRESSION: [id number] tricompartmental osteoarthritis of right knee as above. No fracture or dislocation. No significant joint effusion. Treatment Goals Patient/Caregiver Goals Get back to walking without pain; be ready for her cruise to [place] in February PT-OP-C Subjective Start: 12/16/22 18:03 Freq: Status: Active Protocol: Document 01/24/23 13:08 [facility] (Rec: 01/24/23 13:52 [facility] [id number]) OP-PT Subjective Patient Comments Patient Comments Pt reports she is doing better . When she has pain she uses stretches to help and the pain gets better. Federica reports she likes the lunge stretch at the counter. PT-OP-D Balance Start: 12/16/22 18:03 Freq: Status: Active Protocol: Document 12/20/22 13:41 [facility] (Rec: 12/20/22 15:13 [facility] [id number]) Balance Tests Single Limb Standing Single Limb- Right 4 sec Single Limb- Left 4 sec PT-OP-F Manual Assessment Start: 12/16/22 18:03 Freq: Status: Active Protocol: Document 12/20/22 13:41 [facility] (Rec: 12/20/22 15:13 [facility] [id number]) Manual Assessments Soft Tissue Assessment Soft Tissue Mobility Assessment tenderness along med calf R, L tenderness lat calf-more proximally near knees Joint Mobility Assessment Joint Mobility Assessment R knee significant IR w/knee bending; R>L foot toes out in standing. Other Manual Assessments Other Manual Assessments R 29 cm; L 28.5-a round malleoli PT-OP-G Mobility & Gait Start: 12/16/22 18:03 Freq: Status: Active Protocol: Document 12/20/22 13:41 [facility] (Rec: 12/20/22 15:13 [facility] [id number]) OP Gait Assessment Comments Gait Comments Dec post dep, dec push off, hard foot slap PT-OP-K Range of Motion Start: 12/16/22 18:03 Freq: Status: Active Protocol: Document 12/20/22 13:41 [facility] (Rec: 12/20/22 15:13 [facility] [id number]) Knee Goniometric Range of Motion Knee Right Flexion Active (degrees) 98 Extension Active (degrees) 1 Left Flexion Active (degrees) 104 Extension Active (degrees) 2 Ankle and Foot Goniometric Range of Motion Ankle and Foot Right Active Dorsiflexion with Knee Flexed 7 Dorsiflexion with Knee Extended 0 Plantarflexion 56 Inversion 30 Eversion 28 Left Active Dorsiflexion with Knee Flexed 5 Dorsiflexion with Knee Extended 2 Plantarflexion 60 Inversion 38 Eversion 30 PT-OP-L Special Tests Start: 12/16/22 18:03 Freq: Status: Active Protocol: Document 12/20/22 13:41 [facility] (Rec: 12/20/22 15:13 [facility] [id number]) Special Tests Knee Special Tests Apley's Compression Test Results neg B Ash Test Test Results neg B Thessaly Test 5 Degrees Test Results neg B ligamentous testing Test Results neg B Straight Leg Raise Test Results L 82: R 68 Bruce Test Results neg B PT-OP-M Strength Start: 12/16/22 18:03 Freq: Status: Active Protocol: Document 12/20/22 13:41 [facility] (Rec: 12/20/22 15:13 [facility] [id number]) Hip Strength Hip Manual Muscle Testing Right Flexion (L2) 3+ Fair+ Extension (S1) 3 Fair Abduction 3+ Fair+ Adduction 4- Good- External Rotation 4- Good- Internal Rotation 4 Good Comments pain in back ER Left Flexion (L2) 3+ Fair+ Extension (S1) 3 Fair Abduction 3+ Fair+ Adduction 4- Good- External Rotation 4+ Good+ Internal Rotation 4+ Good+ Knee Strength Knee Manual Muscle Testing Right Flexion (S2) 4- Good- Extension (L3) 4 Good Left Flexion (S2) 4- Good- Extension (L3) 4 Good Ankle/Foot Strength Ankle and Foot Manual Muscle Testing Right Dorsiflexion (L4) 5 Normal Plantarflexion (S1) 4- Good- Inversion 5 Normal Eversion (S1) 5 Normal Comments 10 heel raises Left Dorsiflexion (L4) 5 Normal Plantarflexion (S1) 4- Good- Inversion 5 Normal Eversion (S1) 5 Normal Comments 10 heel raises PT-OP-Q Treatments Start: 12/16/22 18:03 Freq: Status: Active Protocol: Document 01/24/23 13:08 [facility] (Rec: 01/24/23 13:52 [facility] [id number]) Therapeutic Exercises Supine Exercises core Supine Exercise Name SL isometric Side bilateral Reps/Minutes 30 sec bridge Supine Exercise Name cues for core and glute then B DF Side bilateral Reps/Minutes 2x30 sec hold in bridge w/DF Comments cues for breathing stretch Supine Exercise Name HS/calf stretch Side bilateral Reps/Minutes 30 sec ea Standing Exercises heel raises Standing Exercise Name on step Side bilateral Reps/Minutes 20 hip ext Standing Exercise Name bent over in counter height to work on neutral spine Side bilateral Equipment Used lvl 1 Reps/Minutes 15 Comments smaller ROM, no lumbar hypertension sidestep Side bilateral Equipment Used lvl 2 Reps/Minutes 20ft ea Comments cues for reaching with heel, toes fwd, slow eccentric sit to stand Side bilateral Reps/Minutes 15 w/lvl 1 band at knees Comments no hands, hip hinge calf stretch Side bilateral Equipment Used mat table Reps/Minutes 1 min Manual Therapy Treatment Soft Tissue Mobilization lower leg Body Location Jorge peroneals Mobilization Type Rolling Intensity/Depth Moderate Body Position Hooklying Comments tightness R>L calf Body Location circumfrential, bilateral & achilles Mobilization Type Myofascial Release Intensity/Depth Superficial- moderate Body Position Hooklying Comments w/AP PT-OP-R Modalities Start: 12/16/22 18:03 Freq: Status: Active Protocol: Document 01/05/23 13:01 [facility] (Rec: 01/05/23 14:30 [facility] [id number]) Hot Pack/Cold Pack Treatment Cold Pack Location B calf Patient Position Hooklying Treatment Duration (minutes) 10 PT-OP-T Assessment and Plan Start: 12/16/22 18:03 Freq: Status: Active Protocol: Document 01/24/23 13:08 [facility] (Rec: 01/24/23 13:52 [facility] [id number]) Physical Therapy Assessment Impairments Impairments Activity Tolerance,Balance, Functional Activities, Functional Mobility,Gait,Pain, Posture,ROM,Soft Tissue Mobility,Strength,Transfers Other Concerns Age Related Concerns >65 yrs old Impact to self and family Goals ROM Fdc Goal (LTG) Pt will have DF to at least 7 deg B AROM in knee ext position to show improved ROM to allow for improved gait and less calf tension. LTG Duration 03/13/23 strength Short Term Goal (STG) Pt will be indep w/HEP STG Duration 01/26/23 [employer] Machine Operator Goal (LTG) Pt will score at least 4+/5 MMT on BLE MMT in order to show improved strength in order to allow pt to return to walking and standing activities w/less pain. LTG Duration 03/13/23 walking Short Term Goal (STG) Pt will be able to return to walking .5 mile a couple times a week without inc pain greater than 2/10 in lower legs or B knees. STG Duration 01/26/23 [employer] Machine Operator Goal (LTG) Pt will be able to returnt o walking 2 miles w/o pain greater than 2/10 in lower leg or knees B LTG Duration 03/13/23 LEFS Impairment 54 [employer] Machine Operator Goal (LTG) pt will improve score to at least 62/80 to show improved functional ability. LTG Duration 03/13 Assessment Summary Assessment Pt requires cues for keeping toes forward with resisted sidesteps and for hip hinge w/ sit to stand but improves w/ repetition. Palpable tightness to peroneals and calves L>R today but improves w/ manual therapy. Pt encouraged to use rolling pin for self-STM. Physical Therapy Plan Frequency and Duration Frequency of Treatment 2x/Week Duration of treatment (weeks) 12 Plan of Care Start Date 12/20/22 Plan of Care End Date 03/14/23 Therapeutic Interventions Therapeutic Interventions Balance Training,Gait Training ,Home Exercise Program,Joint Mobilizations,Manual Therapy, Neuromuscular Re-education, Orthotic/Prosthetic Management ,Patient/Caregiver Education, Self-Care/Home Management,Soft Tissue Mobilization,Taping, Therapeutic Activities, Therapeutic Exercises Modalities Cold Pack/Ice Massage,Electric Stimulation,Hot Packs, Infrared Therapy,Ultrasound Next Visit Focus/Plan Next Note Type Treatment Note Next Visit Plan manual to ankle and knee joints to dec pain; cont to advance LE and core stability
--- NOTE | 2023-01-31 13:48 | PT.OTN ---
Current Diagnoses Pain in right knee (01/31/23) Pain in left knee (01/31/23) Pain in right lower leg (01/31/23) Pain in left lower leg (01/31/23) Difficulty in walking, not elsewhere classified (01/31/23) Weakness (01/31/23) Physical Therapy Treatment Note PT-OP-A Visit Information Start: 12/16/22 18:03 Freq: Status: Active Protocol: Document 01/31/23 12:41 [facility] (Rec: 01/31/23 13:48 [facility] [id number]) Out-Patient Physical Therapy Visit Information Visit Information Visit Type Treatment Note Visit Note 09/06 Visit Start Time 13:00 Visit Stop Time 13:45 Total Visit Minutes 45 Visit Number 10 Number of FINANCIAL SERVICES CONSULTANT Visits 2 PT-OP-B Current Condition Start: 12/16/22 18:03 Freq: Status: Active Protocol: Document 12/20/22 13:41 [facility] (Rec: 12/20/22 15:13 [facility] [id number]) Current Condition History of Current Condition Onset Date Aug 2021 L knee, Sep 2022 R knee, calf pain B soon after she got back Current Complaints B knee and calf pain History of Current Condition Pt reports she started having B knee popping for a while. She twisted her L knee getting out of bed in the night and heard a pop. In [place] in Sep, she had pain and culdn't straighten R knee and had to hobble to the bathroom. Its gradually gotten better. She felt better the next day but is still limited with long walks. Now she is mostly irritated in B calves. SHe was doing a lot of walking when in [place] and is wondering if that caused it They tested for blood clots and it was neg. Xrays showed min arthritis. She has been wearing compression brace that looks like for knees but places it on calves and makes it so she can walk w/less pain. Since she has been compensating d/t pain in legs, her back has started to hurt. Pt typically likes to be able to walk 2-3 miles for 3 days a week. Has been riding her indoor bike about 3x/week for 20-25 min without issue. Prior Treatments and Tests IMPRESSION: [id number] tricompartmental osteoarthritis of right knee as above. No fracture or dislocation. No significant joint effusion. Treatment Goals Patient/Caregiver Goals Get back to walking without pain; be ready for her cruise to [place] in February PT-OP-C Subjective Start: 12/16/22 18:03 Freq: Status: Active Protocol: Document 01/31/23 12:41 [facility] (Rec: 01/31/23 13:48 [facility] [id number]) OP-PT Subjective Patient Comments Patient Comments Pt states she got new compression socks last Tuesday and thinks they have helped her calves a lot. She plans to buy more. No knee pain today. Walking a long time (over 2000 steps at one time) brings on leg pain. PT-OP-D Balance Start: 12/16/22 18:03 Freq: Status: Active Protocol: Document 12/20/22 13:41 [facility] (Rec: 12/20/22 15:13 [facility] [id number]) Balance Tests Single Limb Standing Single Limb- Right 4 sec Single Limb- Left 4 sec PT-OP-F Manual Assessment Start: 12/16/22 18:03 Freq: Status: Active Protocol: Document 12/20/22 13:41 [facility] (Rec: 12/20/22 15:13 [facility] [id number]) Manual Assessments Soft Tissue Assessment Soft Tissue Mobility Assessment tenderness along med calf R, L tenderness lat calf-more proximally near knees Joint Mobility Assessment Joint Mobility Assessment R knee significant IR w/knee bending; R>L foot toes out in standing. Other Manual Assessments Other Manual Assessments R 29 cm; L 28.5-a round malleoli PT-OP-G Mobility & Gait Start: 12/16/22 18:03 Freq: Status: Active Protocol: Document 12/20/22 13:41 [facility] (Rec: 12/20/22 15:13 [facility] [id number]) OP Gait Assessment Comments Gait Comments Dec post dep, dec push off, hard foot slap PT-OP-K Range of Motion Start: 12/16/22 18:03 Freq: Status: Active Protocol: Document 12/20/22 13:41 [facility] (Rec: 12/20/22 15:13 [facility] [id number]) Knee Goniometric Range of Motion Knee Right Flexion Active (degrees) 98 Extension Active (degrees) 1 Left Flexion Active (degrees) 104 Extension Active (degrees) 2 Ankle and Foot Goniometric Range of Motion Ankle and Foot Right Active Dorsiflexion with Knee Flexed 7 Dorsiflexion with Knee Extended 0 Plantarflexion 56 Inversion 30 Eversion 28 Left Active Dorsiflexion with Knee Flexed 5 Dorsiflexion with Knee Extended 2 Plantarflexion 60 Inversion 38 Eversion 30 PT-OP-L Special Tests Start: 12/16/22 18:03 Freq: Status: Active Protocol: Document 12/20/22 13:41 [facility] (Rec: 12/20/22 15:13 [facility] [id number]) Special Tests Knee Special Tests Apley's Compression Test Results neg B Ash Test Test Results neg B Thessaly Test 5 Degrees Test Results neg B ligamentous testing Test Results neg B Straight Leg Raise Test Results L 82: R 68 Bruce Test Results neg B PT-OP-M Strength Start: 12/16/22 18:03 Freq: Status: Active Protocol: Document 12/20/22 13:41 [facility] (Rec: 12/20/22 15:13 [facility] [id number]) Hip Strength Hip Manual Muscle Testing Right Flexion (L2) 3+ Fair+ Extension (S1) 3 Fair Abduction 3+ Fair+ Adduction 4- Good- External Rotation 4- Good- Internal Rotation 4 Good Comments pain in back ER Left Flexion (L2) 3+ Fair+ Extension (S1) 3 Fair Abduction 3+ Fair+ Adduction 4- Good- External Rotation 4+ Good+ Internal Rotation 4+ Good+ Knee Strength Knee Manual Muscle Testing Right Flexion (S2) 4- Good- Extension (L3) 4 Good Left Flexion (S2) 4- Good- Extension (L3) 4 Good Ankle/Foot Strength Ankle and Foot Manual Muscle Testing Right Dorsiflexion (L4) 5 Normal Plantarflexion (S1) 4- Good- Inversion 5 Normal Eversion (S1) 5 Normal Comments 10 heel raises Left Dorsiflexion (L4) 5 Normal Plantarflexion (S1) 4- Good- Inversion 5 Normal Eversion (S1) 5 Normal Comments 10 heel raises PT-OP-Q Treatments Start: 12/16/22 18:03 Freq: Status: Active Protocol: Document 01/31/23 12:41 [facility] (Rec: 01/31/23 13:48 [facility] [id number]) Cardio Equipment Recumbent Elliptical (Pwinty) Duration (Minutes) 6 Resistance 1>4 Seat Position 6 Other LE alignment focus Therapeutic Exercises Supine Exercises core Supine Exercise Name SL isometric Side bilateral Reps/Minutes 30 sec Comments cues for neutral foot/hip position bridge Supine Exercise Name cues for core and glute then B DF Side bilateral Reps/Minutes 2x30 sec hold in bridge w/DF Comments cues for breathing stretch Supine Exercise Name HS/calf stretch Side bilateral Reps/Minutes 30 sec ea Prone Exercises hip ext Side bilateral Reps/Minutes 4 Comments stopped d/t pt feeling hot Standing Exercises hip ext Side bilateral Equipment Used lvl 2 Reps/Minutes 15 Comments smaller ROM, no lumbar hypertension sidestep Side bilateral Equipment Used lvl 2 at ankles Reps/Minutes 20ft ea Comments cues for reaching with heel, toes fwd, slow eccentric sit to stand Side bilateral Reps/Minutes 15 w/lvl 1 band at knees Comments no hands, hip hinge calf stretch Side bilateral Equipment Used handrail Reps/Minutes 1 min DF Side bilateral Reps/Minutes 20 Comments L<R ROM, L calf tightness Self-Care/Home Management Treatment Education Patient Education Home Exercise Program Other Education Progressed resisted sidesteps to band around ankles instead of knees. Added to HEP: standing DF - HO given. HO of last HEP given as well (bridge, SL iso, standing hip ext). PT-OP-R Modalities Start: 12/16/22 18:03 Freq: Status: Active Protocol: Document 01/05/23 13:01 [facility] (Rec: 01/05/23 14:30 [facility] [id number]) Hot Pack/Cold Pack Treatment Cold Pack Location B calf Patient Position Hooklying Treatment Duration (minutes) 10 PT-OP-T Assessment and Plan Start: 12/16/22 18:03 Freq: Status: Active Protocol: Document 01/31/23 12:41 [facility] (Rec: 01/31/23 13:48 [facility] [id number]) Physical Therapy Assessment Goals ROM [facility] Goal (LTG) Pt will have DF to at least 7 deg B AROM in knee ext position to show improved ROM to allow for improved gait and less calf tension. LTG Duration 03/13/23 strength Short Term Goal (STG) Pt will be indep w/HEP STG Duration 01/26/23 [facility] Goal (LTG) Pt will score at least 4+/5 MMT on BLE MMT in order to show improved strength in order to allow pt to return to walking and standing activities w/less pain. LTG Duration 03/13/23 walking Short Term Goal (STG) Pt will be able to return to walking .5 mile a couple times a week without inc pain greater than 2/10 in lower legs or B knees. STG Duration 01/26/23 [facility] Goal (LTG) Pt will be able to returnt o walking 2 miles w/o pain greater than 2/10 in lower leg or knees B LTG Duration 03/13/23 LEFS Impairment 54 Food Aide Goal (LTG) pt will improve score to at least 62/80 to show improved functional ability. LTG Duration 03/13 Assessment Summary Assessment L DF ROM more limited than R DF ROM, possibly related to L calf tightness today. Progressed resisted sidesteps to band around ankles instead of knees. Added to HEP: standing DF - HO given. HO of last HEP given as well (bridge, SL iso, standing hip ext). Physical Therapy Plan Frequency and Duration Frequency of Treatment 2x/Week Duration of treatment (weeks) 12 Plan of Care Start Date 12/20/22 Plan of Care End Date 03/14/23 Therapeutic Interventions Therapeutic Interventions Balance Training,Gait Training ,Home Exercise Program,Joint Mobilizations,Manual Therapy, Neuromuscular Re-education, Orthotic/Prosthetic Management ,Patient/Caregiver Education, Self-Care/Home Management,Soft Tissue Mobilization,Taping, Therapeutic Activities, Therapeutic Exercises Modalities Cold Pack/Ice Massage,Electric Stimulation,Hot Packs, Infrared Therapy,Ultrasound Next Visit Focus/Plan Next Note Type Treatment Note Next Visit Plan manual to ankle and knee joints to dec pain; cont to advance LE and core stability
--- NOTE | 2023-02-08 13:49 | PT.OTN ---
Current Diagnoses Pain in right knee (02/08/23) Pain in left knee (02/08/23) Pain in right lower leg (02/08/23) Pain in left lower leg (02/08/23) Difficulty in walking, not elsewhere classified (02/08/23) Weakness (02/08/23) Physical Therapy Treatment Note PT-OP-A Visit Information Start: 12/16/22 18:03 Freq: Status: Active Protocol: Document 02/08/23 13:01 [facility] (Rec: 02/08/23 13:49 [facility] [id number]) Out-Patient Physical Therapy Visit Information Visit Information Visit Type Progress Note Visit Note 12/07 Visit Start Time 13:01 Visit Stop Time 13:44 Total Visit Minutes 43 Visit Number 11 Number of HI RANGER OPERATOR Visits 0 PT-OP-B Current Condition Start: 12/16/22 18:03 Freq: Status: Active Protocol: Document 12/20/22 13:41 [facility] (Rec: 12/20/22 15:13 [facility] [id number]) Current Condition History of Current Condition Onset Date Aug 2021 L knee, Sep 2022 R knee, calf pain B soon after she got back Current Complaints B knee and calf pain History of Current Condition Pt reports she started having B knee popping for a while. She twisted her L knee getting out of bed in the night and heard a pop. In [place] in Sep, she had pain and culdn't straighten R knee and had to hobble to the bathroom. Its gradually gotten better. She felt better the next day but is still limited with long walks. Now she is mostly irritated in B calves. SHe was doing a lot of walking when in [place] and is wondering if that caused it They tested for blood clots and it was neg. Xrays showed min arthritis. She has been wearing compression brace that looks like for knees but places it on calves and makes it so she can walk w/less pain. Since she has been compensating d/t pain in legs, her back has started to hurt. Pt typically likes to be able to walk 2-3 miles for 3 days a week. Has been riding her indoor bike about 3x/week for 20-25 min without issue. Prior Treatments and Tests IMPRESSION: [id number] tricompartmental osteoarthritis of right knee as above. No fracture or dislocation. No significant joint effusion. Treatment Goals Patient/Caregiver Goals Get back to walking without pain; be ready for her cruise to [place] in February PT-OP-C Subjective Start: 12/16/22 18:03 Freq: Status: Active Protocol: Document 02/08/23 13:01 [facility] (Rec: 02/08/23 13:49 [facility] [id number]) OP-PT Subjective Patient Comments Patient Comments Pt report she has not had knee pain except w/kneeling. notes no calf pain in past week PT-OP-D Balance Start: 12/16/22 18:03 Freq: Status: Active Protocol: Document 12/20/22 13:41 [facility] (Rec: 12/20/22 15:13 [facility] [id number]) Balance Tests Single Limb Standing Single Limb- Right 4 sec Single Limb- Left 4 sec PT-OP-F Manual Assessment Start: 12/16/22 18:03 Freq: Status: Active Protocol: Document 12/20/22 13:41 [facility] (Rec: 12/20/22 15:13 [facility] [id number]) Manual Assessments Soft Tissue Assessment Soft Tissue Mobility Assessment tenderness along med calf R, L tenderness lat calf-more proximally near knees Joint Mobility Assessment Joint Mobility Assessment R knee significant IR w/knee bending; R>L foot toes out in standing. Other Manual Assessments Other Manual Assessments R 29 cm; L 28.5-a round malleoli PT-OP-G Mobility & Gait Start: 12/16/22 18:03 Freq: Status: Active Protocol: Document 12/20/22 13:41 [facility] (Rec: 12/20/22 15:13 [facility] [id number]) OP Gait Assessment Comments Gait Comments Dec post dep, dec push off, hard foot slap PT-OP-K Range of Motion Start: 12/16/22 18:03 Freq: Status: Active Protocol: Document 02/08/23 13:01 [facility] (Rec: 02/08/23 13:49 [facility] [id number]) Ankle and Foot Goniometric Range of Motion Ankle and Foot Right Active Dorsiflexion with Knee Flexed 10 Dorsiflexion with Knee Extended 3 Left Active Dorsiflexion with Knee Flexed 8 Dorsiflexion with Knee Extended 3 PT-OP-L Special Tests Start: 12/16/22 18:03 Freq: Status: Active Protocol: Document 12/20/22 13:41 [facility] (Rec: 12/20/22 15:13 [facility] [id number]) Special Tests Knee Special Tests Apley's Compression Test Results neg B Ash Test Test Results neg B Thessaly Test 5 Degrees Test Results neg B ligamentous testing Test Results neg B Straight Leg Raise Test Results L 82: R 68 Bruce Test Results neg B PT-OP-M Strength Start: 12/16/22 18:03 Freq: Status: Active Protocol: Document 02/08/23 13:01 [facility] (Rec: 02/08/23 13:49 [facility] [id number]) Hip Strength Hip Manual Muscle Testing Right Flexion (L2) 4 Good Extension (S1) 4 Good Abduction 4 Good Adduction 5 Normal External Rotation 5 Normal Internal Rotation 5 Normal Left Flexion (L2) 4 Good Extension (S1) 5 Normal Abduction 4- Good- Adduction 5 Normal External Rotation 5 Normal Internal Rotation 5 Normal Knee Strength Knee Manual Muscle Testing Right Flexion (S2) 4+ Good+ Extension (L3) 4+ Good+ Left Flexion (S2) 5 Normal Extension (L3) 5 Normal Ankle/Foot Strength Ankle and Foot Manual Muscle Testing Right Dorsiflexion (L4) 5 Normal Plantarflexion (S1) 5 Normal Inversion 5 Normal Eversion (S1) 5 Normal Comments 20 heel raises w/difficulty Left Dorsiflexion (L4) 5 Normal Plantarflexion (S1) 4+ Good+ Inversion 5 Normal Eversion (S1) 5 Normal Comments 15 heel raises PT-OP-Q Treatments Start: 12/16/22 18:03 Freq: Status: Active Protocol: Document 02/08/23 13:01 [facility] (Rec: 02/08/23 13:49 [facility] [id number]) Therapeutic Exercises Standing Exercises gait at wall Side bilateral Reps/Minutes 5 sec x4 Comments extra time for set up and form heel raises Standing Exercise Name on step SL Side bilateral Reps/Minutes 8 sit to stand Side bilateral Reps/Minutes 10 Comments no hands, hip hinge-cues to engage glutes calf stretch Standing Exercise Name stair Side bilateral Equipment Used handrail Reps/Minutes 30 secx2 DF Standing Exercise Name SL DF Side bilateral Reps/Minutes 15 Manual Therapy Treatment Soft Tissue Mobilization calf Body Location proximal Mobilization Type Myofascial Release,Rolling Intensity/Depth Moderate Body Position Hooklying Comments w/AP PT-OP-R Modalities Start: 12/16/22 18:03 Freq: Status: Active Protocol: Document 01/05/23 13:01 [facility] (Rec: 01/05/23 14:30 [facility] [id number]) Hot Pack/Cold Pack Treatment Cold Pack Location B calf Patient Position Hooklying Treatment Duration (minutes) 10 PT-OP-T Assessment and Plan Start: 12/16/22 18:03 Freq: Status: Active Protocol: Document 02/08/23 13:01 [facility] (Rec: 02/08/23 13:49 [facility] [id number]) Physical Therapy Assessment Goals ROM Fpc Goal (LTG) Pt will have DF to at least 7 deg B AROM in knee ext position to show improved ROM to allow for improved gait and less calf tension. 02/08-improving LTG Duration 03/13/23 strength Short Term Goal (STG) Pt will be indep w/HEP STG Duration achieved advancing as tolerated Fpc Goal (LTG) Pt will score at least 4+/5 MMT on BLE MMT in order to show improved strength in order to allow pt to return to walking and standing activities w/less pain. 02/08-improving LTG Duration 03/13/23 walking Short Term Goal (STG) Pt will be able to return to walking .5 mile a couple times a week without inc pain greater than 2/10 in lower legs or B knees. 02/08-has not tried walkin but no pain w/daily activities. to start this week STG Duration 01/26/23 Crusher Goal (LTG) Pt will be able to returnt o walking 2 miles w/o pain greater than 2/10 in lower leg or knees B LTG Duration 03/13/23 LEFS Impairment 54 Fpc Goal (LTG) pt will improve score to at least 62/80 to show improved functional ability. 02/08-no change LTG Duration 03/13 Assessment Summary Assessment Pt is reporting no pain in her typical daily life and has improved in strength and ROM. She has not resumed walking and was encouraged to start w/ 1/2 mile for the next 3 days and if it is ok, then inc by 1 /4 mile every few days to work her way up prior to her trip. She did well with exercises w /some cues needed. Physical Therapy Plan Frequency and Duration Frequency of Treatment 2x/Week Duration of treatment (weeks) 12 Plan of Care Start Date 12/20/22 Plan of Care End Date 03/14/23 Therapeutic Interventions Therapeutic Interventions Balance Training,Gait Training ,Home Exercise Program,Joint Mobilizations,Manual Therapy, Neuromuscular Re-education, Orthotic/Prosthetic Management ,Patient/Caregiver Education, Self-Care/Home Management,Soft Tissue Mobilization,Taping, Therapeutic Activities, Therapeutic Exercises Modalities Cold Pack/Ice Massage,Electric Stimulation,Hot Packs, Infrared Therapy,Ultrasound Next Visit Focus/Plan Next Note Type Treatment Note Next Visit Plan manual to ankle and knee joints to dec pain; cont to advance LE and core stability
--- NOTE | 2023-02-08 17:01 | PT.OPPN ---
Current Diagnoses Pain in right knee (02/15/23) Pain in left knee (02/15/23) Pain in right lower leg (02/15/23) Pain in left lower leg (02/15/23) Difficulty in walking, not elsewhere classified (02/15/23) Weakness (02/15/23) Physical Therapy Progress Note PT-OP-A Visit Information Start: 12/16/22 18:03 Freq: Status: Active Protocol: Document 02/08/23 13:01 [facility] (Rec: 02/08/23 13:49 [facility] [id number]) Out-Patient Physical Therapy Visit Information Visit Information Visit Type Progress Note Visit Note 12/07 Visit Start Time 13:01 Visit Stop Time 13:44 Total Visit Minutes 43 Visit Number 11 Number of SPEECH AND LANGUAGE SPECIALIST Visits 0 PT-OP-B Current Condition Start: 12/16/22 18:03 Freq: Status: Active Protocol: Document 12/20/22 13:41 [facility] (Rec: 12/20/22 15:13 [facility] [id number]) Current Condition History of Current Condition Onset Date Aug 2021 L knee, Sep 2022 R knee, calf pain B soon after she got back Current Complaints B knee and calf pain History of Current Condition Pt reports she started having B knee popping for a while. She twisted her L knee getting out of bed in the night and heard a pop. In [place] in Sep, she had pain and culdn't straighten R knee and had to hobble to the bathroom. Its gradually gotten better. She felt better the next day but is still limited with long walks. Now she is mostly irritated in B calves. SHe was doing a lot of walking when in [place] and is wondering if that caused it They tested for blood clots and it was neg. Xrays showed min arthritis. She has been wearing compression brace that looks like for knees but places it on calves and makes it so she can walk w/less pain. Since she has been compensating d/t pain in legs, her back has started to hurt. Pt typically likes to be able to walk 2-3 miles for 3 days a week. Has been riding her indoor bike about 3x/week for 20-25 min without issue. Prior Treatments and Tests IMPRESSION: [id number] tricompartmental osteoarthritis of right knee as above. No fracture or dislocation. No significant joint effusion. Treatment Goals Patient/Caregiver Goals Get back to walking without pain; be ready for her cruise to [place] in February PT-OP-C Subjective Start: 12/16/22 18:03 Freq: Status: Active Protocol: Document 02/08/23 13:01 [facility] (Rec: 02/08/23 13:49 [facility] [id number]) OP-PT Subjective Patient Comments Patient Comments Pt report she has not had knee pain except w/kneeling. notes no calf pain in past week PT-OP-D Balance Start: 12/16/22 18:03 Freq: Status: Active Protocol: Document 12/20/22 13:41 [facility] (Rec: 12/20/22 15:13 [facility] [id number]) Balance Tests Single Limb Standing Single Limb- Right 4 sec Single Limb- Left 4 sec PT-OP-F Manual Assessment Start: 12/16/22 18:03 Freq: Status: Active Protocol: Document 12/20/22 13:41 [facility] (Rec: 12/20/22 15:13 [facility] [id number]) Manual Assessments Soft Tissue Assessment Soft Tissue Mobility Assessment tenderness along med calf R, L tenderness lat calf-more proximally near knees Joint Mobility Assessment Joint Mobility Assessment R knee significant IR w/knee bending; R>L foot toes out in standing. Other Manual Assessments Other Manual Assessments R 29 cm; L 28.5-a round malleoli PT-OP-G Mobility & Gait Start: 12/16/22 18:03 Freq: Status: Active Protocol: Document 12/20/22 13:41 [facility] (Rec: 12/20/22 15:13 [facility] [id number]) OP Gait Assessment Comments Gait Comments Dec post dep, dec push off, hard foot slap PT-OP-K Range of Motion Start: 12/16/22 18:03 Freq: Status: Active Protocol: Document 02/08/23 13:01 [facility] (Rec: 02/08/23 13:49 [facility] [id number]) Ankle and Foot Goniometric Range of Motion Ankle and Foot Measured in Degrees Right Active Dorsiflexion with Knee Flexed 10 Dorsiflexion with Knee Extended 3 Left Active Dorsiflexion with Knee Flexed 8 Dorsiflexion with Knee Extended 3 PT-OP-L Special Tests Start: 12/16/22 18:03 Freq: Status: Active Protocol: Document 12/20/22 13:41 [facility] (Rec: 12/20/22 15:13 [facility] [id number]) Special Tests Knee Special Tests Apley's Compression Test Results neg B Ash Test Test Results neg B Thessaly Test 5 Degrees Test Results neg B ligamentous testing Test Results neg B Straight Leg Raise Test Results L 82: R 68 Bruce Test Results neg B PT-OP-M Strength Start: 12/16/22 18:03 Freq: Status: Active Protocol: Document 02/08/23 13:01 [facility] (Rec: 02/08/23 13:49 [facility] [id number]) Hip Strength Hip Manual Muscle Testing Right Flexion (L2) 4 Good Extension (S1) 4 Good Abduction 4 Good Adduction 5 Normal External Rotation 5 Normal Internal Rotation 5 Normal Left Flexion (L2) 4 Good Extension (S1) 5 Normal Abduction 4- Good- Adduction 5 Normal External Rotation 5 Normal Internal Rotation 5 Normal Knee Strength Knee Manual Muscle Testing Right Flexion (S2) 4+ Good+ Extension (L3) 4+ Good+ Left Flexion (S2) 5 Normal Extension (L3) 5 Normal Ankle/Foot Strength Ankle and Foot Manual Muscle Testing Right Dorsiflexion (L4) 5 Normal Plantarflexion (S1) 5 Normal Inversion 5 Normal Eversion (S1) 5 Normal Comments 20 heel raises w/difficulty Left Dorsiflexion (L4) 5 Normal Plantarflexion (S1) 4+ Good+ Inversion 5 Normal Eversion (S1) 5 Normal Comments 15 heel raises PT-OP-T Assessment and Plan Start: 12/16/22 18:03 Freq: Status: Active Protocol: Document 02/08/23 13:01 [facility] (Rec: 02/08/23 13:49 [facility] [id number]) Physical Therapy Assessment Goals ROM Longterm Goal (LTG) Pt will have DF to at least 7 deg B AROM in knee ext position to show improved ROM to allow for improved gait and less calf tension. 02/08-improving LTG Duration 03/13/23 strength Short Term Goal (STG) Pt will be indep w/HEP STG Duration achieved advancing as tolerated Behavior Interventionist Goal (LTG) Pt will score at least 4+/5 MMT on BLE MMT in order to show improved strength in order to allow pt to return to walking and standing activities w/less pain. 02/08-improving LTG Duration 03/13/23 walking Short Term Goal (STG) Pt will be able to return to walking .5 mile a couple times a week without inc pain greater than 2/10 in lower legs or B knees. 02/08-has not tried walkin but no pain w/daily activities. to start this week STG Duration 01/26/23 Longterm Goal (LTG) Pt will be able to returnt o walking 2 miles w/o pain greater than 2/10 in lower leg or knees B LTG Duration 03/13/23 LEFS Impairment 54 Behavior Interventionist Goal (LTG) pt will improve score to at least 62/80 to show improved functional ability. 02/08-no change LTG Duration 03/13 Assessment Summary Assessment Pt is reporting no pain in her typical daily life and has improved in strength and ROM. She has not resumed walking and was encouraged to start w/ 1/2 mile for the next 3 days and if it is ok, then inc by 1 /4 mile every few days to work her way up prior to her trip. She did well with exercises w /some cues needed. Physical Therapy Plan Frequency and Duration Frequency of Treatment 2x/Week Duration of treatment (weeks) 12 Plan of Care Start Date 12/20/22 Plan of Care End Date 03/14/23 Therapeutic Interventions Therapeutic Interventions Balance Training,Gait Training ,Home Exercise Program,Joint Mobilizations,Manual Therapy, Neuromuscular Re-education, Orthotic/Prosthetic Management ,Patient/Caregiver Education, Self-Care/Home Management,Soft Tissue Mobilization,Taping, Therapeutic Activities, Therapeutic Exercises Modalities Cold Pack/Ice Massage,Electric Stimulation,Hot Packs, Infrared Therapy,Ultrasound Next Visit Focus/Plan Next Note Type Treatment Note Next Visit Plan manual to ankle and knee joints to dec pain; cont to advance LE and core stability
--- NOTE | 2023-02-15 13:48 | PT.OTN ---
Current Diagnoses Pain in right knee (02/15/23) Pain in left knee (02/15/23) Pain in right lower leg (02/15/23) Pain in left lower leg (02/15/23) Difficulty in walking, not elsewhere classified (02/15/23) Weakness (02/15/23) Physical Therapy Treatment Note PT-OP-A Visit Information Start: 12/16/22 18:03 Freq: Status: Active Protocol: Document 02/15/23 13:02 [facility] (Rec: 02/15/23 13:48 [facility] [id number]) Out-Patient Physical Therapy Visit Information Visit Information Visit Type Treatment Note Visit Note 01/07 Visit Start Time 13:01 Visit Stop Time 13:43 Total Visit Minutes 42 Visit Number 12 Number of STORE SALES CONSULTANT Visits 0 PT-OP-B Current Condition Start: 12/16/22 18:03 Freq: Status: Active Protocol: Document 12/20/22 13:41 [facility] (Rec: 12/20/22 15:13 [facility] [id number]) Current Condition History of Current Condition Onset Date Aug 2021 L knee, Sep 2022 R knee, calf pain B soon after she got back Current Complaints B knee and calf pain History of Current Condition Pt reports she started having B knee popping for a while. She twisted her L knee getting out of bed in the night and heard a pop. In [place] in Sep, she had pain and culdn't straighten R knee and had to hobble to the bathroom. Its gradually gotten better. She felt better the next day but is still limited with long walks. Now she is mostly irritated in B calves. SHe was doing a lot of walking when in [place] and is wondering if that caused it They tested for blood clots and it was neg. Xrays showed min arthritis. She has been wearing compression brace that looks like for knees but places it on calves and makes it so she can walk w/less pain. Since she has been compensating d/t pain in legs, her back has started to hurt. Pt typically likes to be able to walk 2-3 miles for 3 days a week. Has been riding her indoor bike about 3x/week for 20-25 min without issue. Prior Treatments and Tests IMPRESSION: [id number] tricompartmental osteoarthritis of right knee as above. No fracture or dislocation. No significant joint effusion. Treatment Goals Patient/Caregiver Goals Get back to walking without pain; be ready for her cruise to [place] in February PT-OP-C Subjective Start: 12/16/22 18:03 Freq: Status: Active Protocol: Document 02/15/23 13:02 [facility] (Rec: 02/15/23 13:48 [facility] [id number]) OP-PT Subjective Patient Comments Patient Comments Pt reports B knees bothered her one day with a walk. She has worked up to .75 mile walk so far. PT-OP-D Balance Start: 12/16/22 18:03 Freq: Status: Active Protocol: Document 12/20/22 13:41 [facility] (Rec: 12/20/22 15:13 [facility] [id number]) Balance Tests Single Limb Standing Single Limb- Right 4 sec Single Limb- Left 4 sec PT-OP-F Manual Assessment Start: 12/16/22 18:03 Freq: Status: Active Protocol: Document 12/20/22 13:41 [facility] (Rec: 12/20/22 15:13 [facility] [id number]) Manual Assessments Soft Tissue Assessment Soft Tissue Mobility Assessment tenderness along med calf R, L tenderness lat calf-more proximally near knees Joint Mobility Assessment Joint Mobility Assessment R knee significant IR w/knee bending; R>L foot toes out in standing. Other Manual Assessments Other Manual Assessments R 29 cm; L 28.5-a round malleoli PT-OP-G Mobility & Gait Start: 12/16/22 18:03 Freq: Status: Active Protocol: Document 12/20/22 13:41 [facility] (Rec: 12/20/22 15:13 [facility] [id number]) OP Gait Assessment Comments Gait Comments Dec post dep, dec push off, hard foot slap PT-OP-K Range of Motion Start: 12/16/22 18:03 Freq: Status: Active Protocol: Document 02/08/23 13:01 [facility] (Rec: 02/08/23 13:49 [facility] [id number]) Ankle and Foot Goniometric Range of Motion Ankle and Foot Right Active Dorsiflexion with Knee Flexed 10 Dorsiflexion with Knee Extended 3 Left Active Dorsiflexion with Knee Flexed 8 Dorsiflexion with Knee Extended 3 PT-OP-L Special Tests Start: 12/16/22 18:03 Freq: Status: Active Protocol: Document 12/20/22 13:41 [facility] (Rec: 12/20/22 15:13 [facility] [id number]) Special Tests Knee Special Tests Apley's Compression Test Results neg B Ash Test Test Results neg B Thessaly Test 5 Degrees Test Results neg B ligamentous testing Test Results neg B Straight Leg Raise Test Results L 82: R 68 Bruce Test Results neg B PT-OP-M Strength Start: 12/16/22 18:03 Freq: Status: Active Protocol: Document 02/08/23 13:01 [facility] (Rec: 02/08/23 13:49 [facility] [id number]) Hip Strength Hip Manual Muscle Testing Right Flexion (L2) 4 Good Extension (S1) 4 Good Abduction 4 Good Adduction 5 Normal External Rotation 5 Normal Internal Rotation 5 Normal Left Flexion (L2) 4 Good Extension (S1) 5 Normal Abduction 4- Good- Adduction 5 Normal External Rotation 5 Normal Internal Rotation 5 Normal Knee Strength Knee Manual Muscle Testing Right Flexion (S2) 4+ Good+ Extension (L3) 4+ Good+ Left Flexion (S2) 5 Normal Extension (L3) 5 Normal Ankle/Foot Strength Ankle and Foot Manual Muscle Testing Right Dorsiflexion (L4) 5 Normal Plantarflexion (S1) 5 Normal Inversion 5 Normal Eversion (S1) 5 Normal Comments 20 heel raises w/difficulty Left Dorsiflexion (L4) 5 Normal Plantarflexion (S1) 4+ Good+ Inversion 5 Normal Eversion (S1) 5 Normal Comments 15 heel raises PT-OP-Q Treatments Start: 12/16/22 18:03 Freq: Status: Active Protocol: Document 02/15/23 13:02 [facility] (Rec: 02/15/23 13:48 [facility] [id number]) Manual Therapy Treatment Soft Tissue Mobilization thigh Body Location B quads, add, ITB Mobilization Type Rolling Intensity/Depth Moderate Joint Mobilizations hp Joint B ER hip on axis FM Comments manual facilition at end range tibfem Joint B APF M Taping KT Body Location 1 I under patella B Type of Tape Kinesio Tape PT-OP-R Modalities Start: 12/16/22 18:03 Freq: Status: Active Protocol: Document 01/05/23 13:01 [facility] (Rec: 01/05/23 14:30 [facility] [id number]) Hot Pack/Cold Pack Treatment Cold Pack Location B calf Patient Position Hooklying Treatment Duration (minutes) 10 PT-OP-T Assessment and Plan Start: 12/16/22 18:03 Freq: Status: Active Protocol: Document 02/15/23 13:02 [facility] (Rec: 02/15/23 13:48 [facility] [id number]) Physical Therapy Assessment Goals ROM Client Relationship Executive Goal (LTG) Pt will have DF to at least 7 deg B AROM in knee ext position to show improved ROM to allow for improved gait and less calf tension. 02/08-improving LTG Duration 03/13/23 strength Short Term Goal (STG) Pt will be indep w/HEP STG Duration achieved advancing as tolerated Client Relationship Executive Goal (LTG) Pt will score at least 4+/5 MMT on BLE MMT in order to show improved strength in order to allow pt to return to walking and standing activities w/less pain. 02/08-improving LTG Duration 03/13/23 walking Short Term Goal (STG) Pt will be able to return to walking .5 mile a couple times a week without inc pain greater than 2/10 in lower legs or B knees. 02/08-has not tried walkin but no pain w/daily activities. to start this week STG Duration 01/26/23 Client Relationship Executive Goal (LTG) Pt will be able to returnt o walking 2 miles w/o pain greater than 2/10 in lower leg or knees B LTG Duration 03/13/23 LEFS Impairment 54 Client Relationship Executive Goal (LTG) pt will improve score to at least 62/80 to show improved functional ability. 02/08-no change LTG Duration 03/13 Assessment Summary Assessment Pt did well with manual treatment but does have significant tightness of thigh muscles. Unable to be directly on mm as pt had on tight pants, but was able to do rolling btwn mm bellies to improve motion. Physical Therapy Plan Frequency and Duration Frequency of Treatment 2x/Week Duration of treatment (weeks) 12 Plan of Care Start Date 12/20/22 Plan of Care End Date 03/14/23 Next Visit Focus/Plan Next Note Type Discharge Summary Next Visit Plan review exercises for pt to do, manual to quad
--- NOTE | 2023-02-22 13:50 | PT.OTN ---
Current Diagnoses Pain in right knee (02/22/23) Pain in left knee (02/22/23) Pain in right lower leg (02/22/23) Pain in left lower leg (02/22/23) Difficulty in walking, not elsewhere classified (02/22/23) Weakness (02/22/23) Physical Therapy Treatment Note PT-OP-A Visit Information Start: 12/16/22 18:03 Freq: Status: Active Protocol: Document 02/22/23 13:01 [facility] (Rec: 02/22/23 13:50 [facility] [id number]) Out-Patient Physical Therapy Visit Information Visit Information Visit Type Discharge Summary Visit Start Time 13:01 Visit Stop Time 13:45 Total Visit Minutes 44 Visit Number 13 Number of INDUSTRIAL SEWER Visits 0 PT-OP-B Current Condition Start: 12/16/22 18:03 Freq: Status: Active Protocol: Document 12/20/22 13:41 [facility] (Rec: 12/20/22 15:13 [facility] [id number]) Current Condition History of Current Condition Onset Date Aug 2021 L knee, Sep 2022 R knee, calf pain B soon after she got back Current Complaints B knee and calf pain History of Current Condition Pt reports she started having B knee popping for a while. She twisted her L knee getting out of bed in the night and heard a pop. In [place] in Sep, she had pain and culdn't straighten R knee and had to hobble to the bathroom. Its gradually gotten better. She felt better the next day but is still limited with long walks. Now she is mostly irritated in B calves. SHe was doing a lot of walking when in [place] and is wondering if that caused it They tested for blood clots and it was neg. Xrays showed min arthritis. She has been wearing compression brace that looks like for knees but places it on calves and makes it so she can walk w/less pain. Since she has been compensating d/t pain in legs, her back has started to hurt. Pt typically likes to be able to walk 2-3 miles for 3 days a week. Has been riding her indoor bike about 3x/week for 20-25 min without issue. Prior Treatments and Tests IMPRESSION: [id number] tricompartmental osteoarthritis of right knee as above. No fracture or dislocation. No significant joint effusion. Treatment Goals Patient/Caregiver Goals Get back to walking without pain; be ready for her cruise to [place] in February PT-OP-C Subjective Start: 12/16/22 18:03 Freq: Status: Active Protocol: Document 02/22/23 13:01 [facility] (Rec: 02/22/23 13:50 [facility] [id number]) OP-PT Subjective Patient Comments Patient Comments Pt reports she didnt wear her socks yesterday and was sore in legs today. Better since putting on socks. L knee had one twinge PT-OP-D Balance Start: 12/16/22 18:03 Freq: Status: Active Protocol: Document 12/20/22 13:41 [facility] (Rec: 12/20/22 15:13 [facility] [id number]) Balance Tests Single Limb Standing Single Limb- Right 4 sec Single Limb- Left 4 sec PT-OP-F Manual Assessment Start: 12/16/22 18:03 Freq: Status: Active Protocol: Document 12/20/22 13:41 [facility] (Rec: 12/20/22 15:13 [facility] [id number]) Manual Assessments Soft Tissue Assessment Soft Tissue Mobility Assessment tenderness along med calf R, L tenderness lat calf-more proximally near knees Joint Mobility Assessment Joint Mobility Assessment R knee significant IR w/knee bending; R>L foot toes out in standing. Other Manual Assessments Other Manual Assessments R 29 cm; L 28.5-a round malleoli PT-OP-G Mobility & Gait Start: 12/16/22 18:03 Freq: Status: Active Protocol: Document 12/20/22 13:41 [facility] (Rec: 12/20/22 15:13 [facility] [id number]) OP Gait Assessment Comments Gait Comments Dec post dep, dec push off, hard foot slap PT-OP-K Range of Motion Start: 12/16/22 18:03 Freq: Status: Active Protocol: Document 02/22/23 13:01 [facility] (Rec: 02/22/23 13:50 [facility] [id number]) Ankle and Foot Goniometric Range of Motion Ankle and Foot Right Active Dorsiflexion with Knee Flexed 10 Dorsiflexion with Knee Extended 7 Left Active Dorsiflexion with Knee Flexed 6 Dorsiflexion with Knee Extended 3 PT-OP-L Special Tests Start: 01/19/23 18:03 Freq: Status: Active Protocol: Document 12/20/22 13:41 [facility] (Rec: 12/20/22 15:13 [facility] [id number]) Special Tests Knee Special Tests Apley's Compression Test Results neg B Ash Test Test Results neg B Thessaly Test 5 Degrees Test Results neg B ligamentous testing Test Results neg B Straight Leg Raise Test Results L 82: R 68 Bruce Test Results neg B PT-OP-M Strength Start: 12/16/22 18:03 Freq: Status: Active Protocol: Document 02/22/23 13:01 [facility] (Rec: 02/22/23 13:50 [facility] [id number]) Hip Strength Hip Manual Muscle Testing Right Flexion (L2) 4+ Good+ Extension (S1) 5 Normal Abduction 4+ Good+ Adduction 5 Normal External Rotation 5 Normal Internal Rotation 5 Normal Left Flexion (L2) 4+ Good+ Extension (S1) 5 Normal Abduction 5 Normal Adduction 5 Normal External Rotation 5 Normal Internal Rotation 5 Normal Knee Strength Knee Manual Muscle Testing Right Flexion (S2) 5 Normal Extension (L3) 5 Normal Left Flexion (S2) 5 Normal Extension (L3) 5 Normal Ankle/Foot Strength Ankle and Foot Manual Muscle Testing Right Dorsiflexion (L4) 5 Normal Plantarflexion (S1) 5 Normal Inversion 5 Normal Eversion (S1) 5 Normal Comments 20 heel raises w/difficulty B Left Dorsiflexion (L4) 5 Normal Plantarflexion (S1) 5 Normal Inversion 5 Normal Eversion (S1) 5 Normal PT-OP-Q Treatments Start: 12/16/22 18:03 Freq: Status: Active Protocol: Document 02/22/23 13:01 [facility] (Rec: 02/22/23 13:50 [facility] [id number]) Therapeutic Exercises Supine Exercises core Supine Exercise Name SL isometric Side bilateral Reps/Minutes 30 sec Comments cues for neutral foot/hip position stretch Supine Exercise Name bruce test Side bilateral Reps/Minutes 30 sec ea Sitting Exercises Hamstring stretch Side bilateral Reps/Minutes 30 ea Standing Exercises gait at wall Side bilateral Reps/Minutes 5 sec x3 Comments extra time for set up and form heel raises Standing Exercise Name SL Side bilateral Reps/Minutes 20 calf stretch Standing Exercise Name 1.stair 2. gastroc fwd lean 3. soleus fwd lean Side bilateral Reps/Minutes 30 sec ea Manual Therapy Treatment Soft Tissue Mobilization patellar tendon Body Location L Mobilization Type Rolling Joint Mobilizations tibfem Joint L IR FM and AP tib Taping KT Body Location 1 I under patella R & L y for med glide Type of Tape Kinesio Tape PT-OP-R Modalities Start: 12/16/22 18:03 Freq: Status: Active Protocol: Document 01/05/23 13:01 [facility] (Rec: 01/05/23 14:30 [facility] [id number]) Hot Pack/Cold Pack Treatment Cold Pack Location B calf Patient Position Hooklying Treatment Duration (minutes) 10 PT-OP-T Assessment and Plan Start: 12/16/22 18:03 Freq: Status: Active Protocol: Document 02/22/23 13:01 [facility] (Rec: 02/22/23 13:50 [facility] [id number]) Physical Therapy Assessment Goals ROM Fdc Goal (LTG) Pt will have DF to at least 7 deg B AROM in knee ext position to show improved ROM to allow for improved gait and less calf tension. 02/08-improving LTG Duration achieved R but sitll limited L - to do stretches strength Short Term Goal (STG) Pt will be indep w/HEP STG Duration achieved advancing as tolerated Fdc Goal (LTG) Pt will score at least 4+/5 MMT on BLE MMT in order to show improved strength in order to allow pt to return to walking and standing activities w/less pain. 02/08-improving LTG Duration achieved 02/22 walking Short Term Goal (STG) Pt will be able to return to walking .5 mile a couple times a week without inc pain greater than 2/10 in lower legs or B knees. 02/08-has not tried walkin but no pain w/daily activities. to start this week STG Duration achieved 02/22 Communication Instructor Goal (LTG) Pt will be able to returnt o walking 2 miles w/o pain greater than 2/10 in lower leg or knees B LTG Duration able to 1.5 miles w/o pain in socks LEFS Impairment 54 Fdc Goal (LTG) pt will improve score to at least 62/80 to show improved functional ability. 02/08-no change LTG Duration improved to 61/80 Assessment Summary Assessment Pt has made excellent progress w/PT and cont to advance w/ functional activities. She has limited pain except fro intermittent knee pain and calf pain only w/o stockings Physical Therapy Plan Discharge Physical Therapy Discharge Reasons Goals Met Discharge Comments most goals met or close to met and pt going on vacation
== END 2023-02-23 15:11 | disposition home or self-care (01) ==
LOC: PHYS 13:00
PROVIDERS: PCP Family Medicine; Referring Provider Family Medicine; Visit Provider Family Medicine
DX: M25.562 Pain in left knee (principal); R53.1 Weakness; M25.561 Pain in right knee; M79.661 Pain in right lower leg; M79.662 Pain in left lower leg; R26.2 Difficulty in walking, not elsewhere classified
CPT/HCPCS: 97110; 97112; 97140; 97162; 97535; 97750

== ENCOUNTER 2023-05-03 09:59 | Day surgery (SDC) | payer OTHER, SELFPAY ==
--- NOTE | 2023-05-03 | PATH_ITS ---
[facility] Accession Number: [id number] No. of containers..02 Tissue . 01 Material submitted: . PART A: rectum - RECTUM POLYP X 3 PART B: colon - ASCENDING COLON POLYP . 01 Diagnosis: A. Rectum, Polypectomy x3: Hyperplastic polyps. . B. Ascending Colon, Polypectomy: Tubular adenoma. MRV 05/06/2023 1704 Local . 01 Electronically signed: . Roxi Pond MD, Pathologist NPI- [id number] . 01 Gross description: . Part A: RECTUM POLYP X 3: Received in formalin are multiple fragment(s) of prakash, soft tissue measuring 0.1 x 0.1 x 0.1 cm to 0.3 x 0.3 x 0.2 cm submitted entirely in 1 cassette(s) Part B: ASCENDING COLON POLYP: Received in formalin is 1 fragment(s) of prakash, soft tissue measuring 0.3 x 0.3 x 0.3 cm submitted entirely in 1 cassette(s) /SILVESTRE 05/05/2023 2229 Local . 01 Pathologist provided ICD-10: D12.2 . 01 CPT . 505698, [id number] Specimen Comment: A courtesy copy of this report has been sent to [phone] Performed at: 01 [facility] [address] [place] [address] [address], [place], [place] [id number] MD Melchor Wilson MD Phone: [phone]
[2023-05-03] MEDS: LACTATED RINGERS 1,000 ML 200 ML IV (10:05)
[2023-05-03 10:25] VITALS: BP 185/92; PULSE 100; RESP 16; TEMP 36.6; O2SAT 98; BMI 40.3
--- NOTE | 2023-05-03 10:45 | PM.HP.1 ---
History of Present Illness History of Present Illness Date Patient Seen: 05/03/23 Time Patient Seen: 10:45 Chief complaint: [facility] Narrative: 72-year-old woman personal history of colonic polyps here for routine screening colonoscopy. Last colonoscopy was 5 years ago. No personal or family history of colon cancer. On further history denies any recent gastrointestinal symptoms. No nausea, vomiting, abdominal pain, loss of appetite, unexplained weight loss, change in bowel habits, or blood per rectum. [facility]LY [facility], [facility] Medical History Chicken pox (1959) Chronic back pain (05/2014) Depression (1994) Hemorrhoids (1983) Herpes (1968) HLD (hyperlipidemia) Hypertension (2005) Measles (1959) Mumps (1959) Rubella (1959) Statin myopathy Surgical History Anesthesia Status post delivery (1979) Status post delivery (1981) Status post delivery (1983) Status post cholecystectomy Status post tonsillectomy and adenoidectomy (1955) Family History Father Asbestos exposure Bladder cancer Congestive heart failure Heart failure Mother Age: 91 Diabetes mellitus Heart disease High cholesterol Sister Accident Sister No problems noted. Social History household members: spouse Smoking Status: Former smoker second hand exposure: No alcohol intake: current substance use type: does not use Meds Home Medications and Allergies Home Medications Medication Instructions Recorded Confirmed Type cholecalciferol (vitamin D3) 50 50 mcg PO DAILY ##0 03/17/12 05/03/23 History mcg (2,000 unit) capsule (Vitamin D3) coenzyme Q10 50 mg capsule (Co 50 mg PO DAILY ##0 03/17/12 05/03/23 History Q-10) multivitamin 1 cap PO DAILY ##0 03/17/12 05/03/23 History omega 3-cxr-tjj-fish oil 1,000 mg 1 cap PO DAILY ##0 03/17/12 05/03/23 History (120 mg-180 mg) capsule (Fish Oil) acyclovir 400 mg tablet 400 mg PO TID #30 tabs 02/04/20 05/03/23 Rx estradiol 0.01% (0.1 mg/gram) See Rx Instructions .Route 01/22/22 05/03/23 Rx vaginal cream .COMPLEX #42.5 grams hydrochlorothiazide 25 mg tablet See Rx Instructions .Route 12/14/22 05/03/23 Rx .COMPLEX #90 tabs lisinopril 5 mg tablet 5 mg PO DAILY #90 tabs 02/07/23 05/03/23 Rx metoprolol succinate 50 mg 100 mg .Route BID #360 tabs 02/07/23 05/03/23 Rx tablet,extended release 24 hr atorvastatin 10 mg tablet See Rx Instructions .Route 02/17/23 05/03/23 Rx .COMPLEX #90 tabs Allergies Allergy/AdvReac Type Severity Reaction Status Date / Time cefaclor [CEFACLOR] Allergy Severe HIVES Verified 05/03/23 10:13 Sulfa (Sulfonamide Allergy Severe hives Verified 05/03/23 10:13 Antibiotics) [SULFA (SULFONAMIDE ANTIBIOTICS)] codeine [CODEINE] AdvReac Mild GI DISTRESS Verified 05/03/23 10:13 erythromycin base AdvReac Mild STOMACH Verified 05/03/23 10:13 [ERYTHROMYCIN BASE] PAIN Exam Vital Signs (past 8 hours): - 05/03/23 10:25 Temperature 98 F Pulse Rate 100 H Respiratory Rate 16 Blood Pressure 185/92 H Pulse Oximetry 98 Oxygen Delivery Method Room Air Oxygen Delivery Method Room Air Narrative Exam Narrative: General adult woman alert oriented no acute distress Abdomen soft nontender nondistended Extremities warm well perfused Assessment & Plan Assessment and plan (1) History of colon polyps: Status: Acute Assessment & Plan narrative: The patient requires colorectal screening and colonoscopy is recommended. Technical details were discussed. Risks, benefits, alternatives explained. Risks including but not limited to myocardial infarction, aspiration, bleeding, pain, missed lesion, incomplete examination, need for further radiographic studies, colonic perforation, and need for major abdominal surgery were discussed. All questions were answered to their satisfaction, and they are in agreement with this plan.
--- NOTE | 2023-05-03 10:47 | P.OP.COLON_ITS ---
Operative Date/Time/Diagnoses Date of procedure: 05/03/23 Time of procedure: 10:47 Pre-op diagnosis: Personal history of colonic polyps Post-op diagnosis: other (Colonic polyps x4) Procedure & Clinicians Study performed: Colonoscopy and polypectomy Same procedure as scheduled: Yes Indications: Personal history of colonic polyps. Colorectal screening. Surgeon: Terrance Day Procedure Notes Procedure in detail: The history and physical was performed/updated and the patient is ASA class is 3. The procedure was discussed in detail with the patient. Potential risks complications including infection, bleeding, missed diagnosis, perforation, need for surgery, and were explained. Their questions were answered and informed consent was obtained. Patient was brought to the procedure room and placed standard monitoring equipment. The patient's vital signs were monitored continuously throughout the entire procedure. Prior to starting time-out was performed. The patient was placed in the left lateral recumbent position. Procedural sedation was administered by anesthesia. Examination began with a thorough inspection of the perianal area there was no evidence of fissures, fistulae, external hemorrhoids or cutaneous malignancy. The colonoscopy scope was then placed into the anal canal and was advanced to the cecum, which was identified by the ileocecal valve, the appendiceal orifice and the confluence of the taenia. The scope was then slowly withdrawn examining colon thoroughly in all directions, irrigating it of any residual stool. Within the rectum there were 3 less than 5 mm flat polyps which were removed wit h biopsy forceps in their entirety. Within the ascending colon there was a 3 mm polyp which was removed with biopsy forceps. The remainder of the colon was normal. There are internal hemorrhoids on retroflexion within the rectum. The patient tolerated the procedure well. They will be discharged once criteria are met. The prep was of good/excellent quality. The withdrawl time was 7 minutes. Specimen(s): other (Rectal polyps x3, ascending colonic polyp) Impression: Colonic polyps x4 Post-procedure Plan for aftercare: Follow-up is dependent on pathology findings Disposition: same day surgery
[2023-05-03 11:21] VITALS: BP 134/76; PULSE 70; RESP 16; TEMP 36.1; O2SAT 95
[2023-05-03 11:26] VITALS: BP 140/73; PULSE 69; RESP 16; O2SAT 96
[2023-05-03 11:32] VITALS: BP 124/72; PULSE 68; RESP 14; O2SAT 98
[2023-05-03 11:39] VITALS: BP 130/91; PULSE 67; RESP 18; O2SAT 99
[2023-05-03 11:41] VITALS: BP 112/76; PULSE 63; RESP 16; O2SAT 98
== END 2023-05-03 12:00 | disposition home or self-care (01) ==
PROVIDERS: PCP Family Medicine; Referring Provider Surgery; Visit Provider Surgery
PROC: 0DJD8ZZ Inspection of Lower Intestinal Tract, Via Natural or Artificial Opening Endoscopic (ICD-10-PCS; CPT 45378; principal; 2023-05-03 11:00)
DX: Z12.11 Encounter for screening for malignant neoplasm of colon (principal); Z86.010 Personal history of colon polyps; D12.2 Benign neoplasm of ascending colon
CPT/HCPCS: 45380; J2704; J3010

== ENCOUNTER → 2023-06-29 10:18 | Outpatient (CLI) | payer OTHER, SELFPAY ==
--- NOTE | 2023-06-29 10:18 | DI.RAD.S_ITS ---
PROCEDURE: XR LUMBAR SPINE MIN 4V INDICATIONS: spinal pain with radiculopathy and muscle spasms TECHNIQUE: 5 views of the lumbar spine were acquired, flexion and extension views COMPARISON: None. FINDINGS: Bones: 5 nonrib-bearing vertebrae are present. There is mild dextrocurvature of the lumbar spine centered at T2 vertebral body. There is multilevel disc space narrowing. Multilevel facet arthropathy , severe at L3, L4 and L5. No vertebral body compression fractures. No suspicious bony lesions. Soft tissues: Overlying bowel gas pattern is normal. Cholecystectomy clips are present. Vascular calcifications are present. Oblique images: No pars defects. IMPRESSION: Multilevel degenerative changes with severe facet arthropathy from L3-L5. Dictated by: Aide Gonzalez M.D. on 06/29/2023 at 13:48 Approved by: Aide Gonzalez M.D. on 06/29/2023 at 13:51
== END ==
PROVIDERS: PCP Family Medicine; Referring Provider Physician Assistant; Visit Provider Physician Assistant
DX: M47.816 Spondylosis without myelopathy or radiculopathy, lumbar region (principal); M54.50 Low back pain, unspecified
CPT/HCPCS: 72110

== ENCOUNTER → 2023-08-16 09:21 | Outpatient (CLI) | payer OTHER, SELFPAY ==
[2023-08-16 11:50] LABS: Alanine Aminotransferase 23 IU/L (<35); Albumin 4.3 g/dL (3.5-5.0); Albumin Globulin Ratio 1.5 (1.0-2.8); Alkaline Phosphatase 55 U/L (38-126); Aspartate Aminotransferase 20 IU/L (14-36); BUN Creatinine Ratio 22.9 (6-22); Bilirubin Total 1.1 mg/dL (0.2-1.3); Blood Urea Nitrogen 19 mg/dL (7-17); Carbon Dioxide 29 mmol/L (22-32); Chloride 101 mmol/L (98-107); Cholesterol 185 mg/dL (140-199); Estimated Glomerular Filt Rate > 60 mL/min (>60); Globulin 2.9 g/dL (1.7-4.1); Glucose 126 mg/dL (80-110); HDL Cholesterol 42 mg/dL (40-60); HEMOLYSIS < 15 (0-50); LDL Cholesterol Calculated 113 mg/dL (<100); Potassium 3.7 mmol/L (3.4-5.1); Sodium 137 mmol/L (137-145); Total Protein 7.2 g/dL (6.3-8.2); Triglycerides 150 mg/dL (35-150)
[2023-08-16 15:05] LABS: Creatinine Urine Random 262.1 mg/dL
[2023-08-16 15:09] LABS: Microalbumi Creatinin Ratio Ur 5.3 ug/mg CR (<30); Microalbumin Urine Random 1.4 mg/dL (0-1.6)
[2023-08-16 16:16] LABS: Hemoglobin A1C% w Est Avg Glu 5.7 % (4.0-6.0)
== END ==
PROVIDERS: PCP Family Medicine; Referring Provider Family Medicine; Visit Provider Family Medicine
DX: R73.03 Prediabetes (principal); I10 Essential (primary) hypertension
CPT/HCPCS: 36415; 80053; 80061; 82043; 82570; 83036

== ENCOUNTER → 2023-08-26 12:19 | Outpatient (CLI) | payer OTHER, SELFPAY ==
--- NOTE | 2023-08-26 12:20 | DI.RAD.S_ITS ---
PROCEDURE: XR CHEST 2V INDICATIONS: shortness of breath, cough TECHNIQUE: 2 views of the chest were acquired. COMPARISON: [facility], , CHEST 2 VIEW, 06/12/2014, 11:20. FINDINGS: Surgical changes and devices: None. Lungs and pleura: Lungs are clear. No pleural effusions or pneumothorax. Mediastinum: Mediastinal contours are normal. Heart size is normal. Bones and chest wall: No suspicious bony abnormalities. Soft tissues appear unremarkable. IMPRESSION: No acute radiographic abnormality. Dictated by: Rich Jeff M.D. on 08/26/2023 at 17:16 Approved by: Rich Jeff M.D. on 08/26/2023 at 17:17
== END ==
PROVIDERS: PCP Family Medicine; Referring Provider Family Medicine; Visit Provider Family Medicine
DX: R05.9 Cough, unspecified (principal); R06.02 Shortness of breath
CPT/HCPCS: 71046

== ENCOUNTER → 2023-11-11 15:18 | Outpatient (CLI) | payer OTHER, SELFPAY ==
--- NOTE | 2023-11-11 | DI.MG.S_ITS ---
BILATERAL DIGITAL SCREENING MAMMOGRAM 3D/2D WITH CAD: 11/11/2023 CLINICAL: Routine screening. Family history of breast cancer. Comparison is made to exams dated: 11/09/2022 mammogram, 11/06/2021 mammogram, and 11/04/2020 mammogram - [facility]. There are scattered areas of fibroglandular density in both breasts (category b / 25%-50% glandular tissue). Current study was also evaluated with a Computer Aided Detection (CAD) system. No significant masses, calcifications, or other findings are seen in either breast. There has been no significant interval change. IMPRESSION: NEGATIVE There is no mammographic evidence of malignancy. A 1 year screening mammogram is recommended. Based on the Tyrer Cuzick model (a risk assessment model) the patient's lifetime risk is 4.3% and her 10 year risk is 3.2%. According to the ACR, ACS, and NCCN guidelines, an annual breast MRI exam along with mammogram is recommended if the patient's lifetime risk is 20% or greater. This exam was interpreted at Station ID: [id number]. NOTE: For mammograms, a report in lay terms will be sent to the patient. Approximately 15% of breast malignancies will not be visualized mammographically. In the management of a palpable breast mass, a negative mammogram must not discourage biopsy of a clinically suspicious lesion. Electronically Signed By: Aide Gonzalez M.D., PH.D eb/robin:11/13/2023 14:56:52 copy to: Zunilda Keyes M.D., [facility] [employer] [facility], ph: [phone], fax: [phone] letter sent: Normal Exam ACR BI-RADS Category 1: Negative 3341
== END ==
PROVIDERS: PCP Family Medicine; Referring Provider Family Medicine; Visit Provider Family Medicine
DX: Z12.31 Encounter for screening mammogram for malignant neoplasm of breast (principal); Z80.3 Family history of malignant neoplasm of breast
CPT/HCPCS: 77063; 77067

== ENCOUNTER 2023-12-26 14:00 | Emergency (ER) | payer OTHER, SELFPAY ==
[2023-12-26 14:29] VITALS: BP 172/81; PULSE 83; RESP 16; TEMP 36.2; O2SAT 95; BMI 38.7
--- NOTE | 2023-12-26 14:53 | ED.BACK ---
HPI - Back Pain/Injury <Shilpa Max PA-C - Last Filed: 12/26/23 21:04> General Chief Complaint: Back Pain/Injury Stated Complaint: back/ L leg pain/numbness Time Seen by Provider: 12/26/23 14:52 Source: patient History of Present Illness HPI Narrative: 73-year-old woman with history of similar back pain presents with concern for left low back pain radiating into her left buttock and sometimes her left leg. Patient states that a week ago she was getting into their vehicle and the ground was full of slushy snow, she slipped in the snow and slid a little bit and as a result she ended up twisting her back. She says she did not fall to the ground she does not remember exactly how the slip happened but later that night and the next morning she was having intense low back pain more on the left side and associates it with this slipping twisting injury. She states she had a similar episode of pain in the same location last summer. She denies numbness or tingling of her lower extremity except that she says she has a numb sensation on the top of her left thigh that is not particularly painful but it is strange uncomfortable feeling. She also sometimes feels some pain down into her left buttock. She denies any change in bowel or bladder habits and states that her pain is better if she is lying completely flat or sometimes okay if she stands for a few minutes but if she walks around or bends it worsens and becomes extremely severe. She says she has seeing a specialist next week and has tried a muscle relaxer she had left over from last summer, Robaxin with limited improvement in symptoms but has not taken this for the past 5 days. She is also tried [id number]-[id number] meds with limited relief as well as heat and ice. She denies any fevers chills urinary symptoms or any other symptoms. Related Data Home Medications Medication Instructions Recorded Confirmed cholecalciferol (vitamin D3) 50 50 mcg PO DAILY ##0 03/17/12 09/07/23 mcg (2,000 unit) capsule (Vitamin D3) coenzyme Q10 50 mg capsule (Co 50 mg PO DAILY ##0 03/17/12 09/07/23 Q-10) multivitamin 1 cap PO DAILY ##0 03/17/12 09/07/23 omega 3-zmd-jom-fish oil 1,000 mg 1 cap PO DAILY ##0 03/17/12 09/07/23 (120 mg-180 mg) capsule (Fish Oil) Previous Rx's Medication Instructions Recorded acyclovir 400 mg tablet 400 mg PO TID #30 tabs 02/04/20 lisinopril 5 mg tablet 5 mg PO DAILY #90 tabs 02/07/23 methocarbamol 500 mg tablet 500 mg PO TID PRN muscle spasm #45 07/05/23 tabs hydrochlorothiazide 25 mg tablet See Rx Instructions .Route 08/08/23 .COMPLEX #90 tabs atorvastatin 20 mg tablet See Rx Instructions .Route 08/22/23 .COMPLEX #90 tabs estradiol 0.01% (0.1 mg/gram) See Rx Instructions .Route 10/10/23 vaginal cream .COMPLEX #42.5 grams metoprolol succinate 100 mg 100 mg PO BID #180 tabs 10/31/23 tablet,extended release 24 hr baclofen 10 mg tablet 10 mg PO TID PRN muscle spasm 10 12/26/23 days #30 tabs lidocaine 5 % topical patch 1 patch topical DAILY pain 10 days 12/26/23 #15 ea prednisone 20 mg tablet 40 mg (2 x 20 mg) PO DAILY 4 days 12/26/23 #8 tabs Allergies Allergy/AdvReac Type Severity Reaction Status Date / Time cefaclor [CEFACLOR] Allergy Severe HIVES Verified 09/07/23 13:30 Sulfa (Sulfonamide Allergy Severe hives Verified 09/07/23 13:30 Antibiotics) [SULFA (SULFONAMIDE ANTIBIOTICS)] codeine [CODEINE] AdvReac Mild GI DISTRESS Verified 09/07/23 13:30 erythromycin base AdvReac Mild STOMACH Verified 09/07/23 13:30 [ERYTHROMYCIN BASE] PAIN Review of Systems <Shilpa Max PA-C - Last Filed: 12/26/23 21:04> Review of Systems Narrative: See HPI Patient History <Shilpa Max PA-C - Last Filed: 12/26/23 21:04> Medical History HLD (hyperlipidemia) Chicken pox (1959) Herpes (1968) Measles (1959) Mumps (1959) Rubella (1959) Chronic back pain (05/2014) Depression (1994) Statin myopathy Hemorrhoids (1983) Hypertension (2005) Surgical History Anesthesia Status post tonsillectomy and adenoidectomy (1955) Status post cholecystectomy Status post delivery (1983) Status post delivery (1981) Status post delivery (1979) Family History Father Asbestos exposure Bladder cancer Congestive heart failure Heart failure Mother Age: 91 Diabetes mellitus Heart disease High cholesterol Sister Accident Sister No problems noted. Social History household members: spouse Smoking Status: Former smoker second hand exposure: No alcohol intake: current substance use type: does not use Smoking Status: Former smoker alcohol intake frequency: a few times a month Substance Use Type: does not use Exam <Shilpa Max PA-C - Last Filed: 12/26/23 21:04> Narrative Exam Narrative: GENERAL: [73] year old patient appears stated age. Well-developed patient, in mild distress. HEAD: Atraumatic. Normocephalic. EYES: Pupils equal round and reactive. Extraocular motions intact. No scleral icterus. No injection or drainage. ENT: Nose without bleeding, purulent drainage. Airway patent. NECK: Trachea midline. CARDIOVASCULAR: Regular rate and rhythm without murmurs, gallops, or rubs. RESPIRATORY: Clear to auscultation. Breath sounds equal bilaterally. No wheezes, rales, or rhonchi. GASTROINTESTINAL: Abdomen nondistended. EXTREMITIES: No edema or joint tenderness. BACK: There is no midline spinous process tenderness, patient has tenderness over the left SI joint, and left lumbar paraspinal muscle is tender and spasming. Strength is intact in bilateral lower extremities with flexion and extension however she has increased back pain with active hip flexion and extension of the left leg and back knee flexion-extension of the left leg. Otherwise Nontender without deformity or crepitance. No flank tenderness. NEURO: AOx3. SKIN: No rash or erythema of visible areas Initial Vital Signs Initial Vital Signs: Vital Signs Temperature 97.1 F L 12/26/23 14:29 Pulse Rate 83 12/26/23 14:29 Respiratory Rate 16 12/26/23 14:29 Blood Pressure 172/81 H 12/26/23 14:29 Pulse Oximetry 95 12/26/23 14:29 Oxygen Delivery Method Room Air 12/26/23 14:29 <Marilee Perez DO - Last Filed: 12/27/23 09:48> Initial Vital Signs Initial Vital Signs: Vital Signs Temperature 97.1 F L 12/26/23 14:29 Pulse Rate 83 12/26/23 14:29 Respiratory Rate 16 12/26/23 14:29 Blood Pressure 172/81 H 12/26/23 14:29 Pulse Oximetry 95 12/26/23 14:29 Oxygen Delivery Method Room Air 12/26/23 14:29 Course <Shilpa Max PA-C - Last Filed: 12/26/23 21:04> Orders Ordered: Discontinued Medications Baclofen (Baclofen 10 Mg Tablet) 10 mg PO NOW ONE Stop: 12/26/23 15:26 Last Admin: 12/26/23 15:51 Dose: 10 mg Documented By: NELA Ketorolac Tromethamine (Ketorolac 30 Mg/Ml Vial) 30 mg IM NOW ONE Stop: 12/26/23 15:26 Last Admin: 12/26/23 15:51 Dose: 30 mg Documented By: NELA Vital Signs Vital signs: Vital Signs - 8 hr 12/26/23 14:29 12/26/23 18:10 Temperature 97.1 F L Pulse Rate 83 60 Respiratory Rate 16 20 Blood Pressure 172/81 H 143/87 H Pulse Oximetry 95 99 Oxygen Delivery Method Room Air Room Air <Marilee Perez DO - Last Filed: 12/27/23 09:48> Orders Ordered: Discontinued Medications Baclofen (Baclofen 10 Mg Tablet) 10 mg PO NOW ONE Stop: 12/26/23 15:26 Last Admin: 12/26/23 15:51 Dose: 10 mg Documented By: NELA Ketorolac Tromethamine (Ketorolac 30 Mg/Ml Vial) 30 mg IM NOW ONE Stop: 12/26/23 15:26 Last Admin: 12/26/23 15:51 Dose: 30 mg Documented By: NELA Vital Signs Vital signs: Vital Signs - 8 hr 12/26/23 14:29 12/26/23 18:10 Temperature 97.1 F L Pulse Rate 83 60 Respiratory Rate 16 20 Blood Pressure 172/81 H 143/87 H Pulse Oximetry 95 99 Oxygen Delivery Method Room Air Room Air MDM - Back Pain/Injury <Shilpa Max PA-C - Last Filed: 12/26/23 21:04> Differential Diagnosis Differential diagnosis: Likely lumbar radiculopathy, sciatica, strain of lumbar region and discitis Medical Records Attestation: I reviewed the patient's medical records. Imaging Data X-ray lumbar spine: My Impression: See below, I also personally review the imaging and see no evidence of fracture or listhesis Radiologist's Impression: Unable to obtain printout of Radiology read due to system wide computer error not transferring to [email or web address]. Discussed the results with Radiology by phone and they advised there is no evidence of fracture on patient's lumbar spine imaging. No acute change since prior study. [facility] Narrative Medical decision making narrative: 73-year-old woman with history of similar back pain symptoms and disc space narrowing presents with concern for left low back pain that is intermittently severe for the past 7 days after twisting her back when she slipped on snow a ground. Patient is treated today with Toradol IM and baclofen p.o. with good result and symptom improvement. Her exam and history have no red flag findings and advanced imaging is not obtained today. Labs are also not obtained today, patient has no fever urinary symptoms or other findings would indicate need for this workup at this time. Lumbar spine x-ray is obtained and no evidence of acute injury or fracture per Radiology. Discussed options with the patient and prescription today for lidocaine, short course of prednisone, baclofen. Patient is advised to follow up closely with her primary care provider, monitor for new or worsening symptoms seek re-evaluation if these develop otherwise consider seeing orthopedics/spine specialists if her symptoms have not resolved in 10 days to 3 weeks' time. Return precautions provided, follow-up plan discussed, all questions answered. Discharge Plan Departure Patient Disposition: Home Clinical Impression: Muscle spasm Acute left-sided low back pain Qualifiers: Sciatica presence: unspecified whether sciatica present Qualified Code(s): M54.50 - Low back pain, unspecified Instructions: DI for Back Strain or Sprain Activity Restrictions/Additional Instructions: *You have been diagnosed with [back spasm] *What to do: *Please continue to take your regular medications as directed. [ 3] New medication prescriptions sent to your pharmacy: [Baclofen muscle relaxer, prednisone, lidocaine patch] [ ] New medication written as a paper prescription [ ] No new medications given *Please follow up with your primary care provider in 2-3 days, call for an appointment. Let them know you were seen in the Emergency Department and that we ask that you be seen in follow up. We will electronically transmit a record of today's note if your PCP is in our system. Please do not take the Robaxin at the same time as baclofen. I recommend taking the baclofen as needed for muscle spasms and pain this seemed to help you in the emergency department today. I have prescribed a short course of steroid medication, prednisone to help reduce inflammation and nerve compression which I suspect is causing some of your pain. I also prescribed lidocaine patches that you can use topically for up to 12 hours at a time. Your x-ray returned without any evidence of acute fracture/apparent new injury. You may want to try heat or ice to see if either or both of these is helpful for your symptoms. I recommend he follow up closely with your primary care provider. If you are not getting better within 3 weeks of your original injury you will probably need to see a clinical reimbursement specialist or orthopedic doctor or possibly have more advanced imaging. You can talk to your primary care provider about this. *If you do not have a primary care provider please contact the [facility] Resource line at [phone]. They will ask some questions about your medical history and help get you set up with a doctor in the community. *Return to Emergency Department if you should have any new, worsening or concerning symptoms, such as [fever greater than 101 F, shaking chills, worsening pain, persistent vomiting or other bothersome symptoms] Prescriptions: New baclofen 10 mg tablet 10 mg PO TID PRN (Reason: muscle spasm) 10 Days Qty: 30 0RF lidocaine 5 % adhesive patch,medicated 1 patch topical DAILY 10 Days Qty: 15 0RF Rx Instructions: leave on most painful area for up to 12 hrs prednisone 20 mg tablet 40 mg PO DAILY 4 Days Qty: 8 0RF No Action atorvastatin 20 mg tablet See Rx Instructions .ROUTE .COMPLEX Qty: 90 3RF Dose Instruction: take 1 tablet by mouth once daily Rx Instructions: take 1 tablet by mouth once daily coenzyme Q10 [Co Q-10] 50 mg Capsule 50 mg PO DAILY Qty: 0 multivitamin Capsule 1 cap PO DAILY Qty: 0 cholecalciferol (vitamin D3) [Vitamin D3] 50 mcg (2,000 unit) Capsule 50 mcg PO DAILY Qty: 0 omega 8-akp-eqg-fish oil [Fish Oil] 1,000 mg (120 mg-180 mg) Capsule 1 cap PO DAILY Qty: 0 acyclovir 400 mg tablet 400 mg PO TID Qty: 30 3RF lisinopril 5 mg tablet 5 mg PO DAILY Qty: 90 3RF methocarbamol 500 mg tablet 500 mg PO TID PRN (Reason: muscle spasm) Qty: 45 1RF Rx Instructions: Take 1-2 tablets up to 3 times a day as needed for muscle spasm hydrochlorothiazide 25 mg tablet See Rx Instructions .ROUTE .COMPLEX Qty: 90 3RF Dose Instruction: take 1 tablet by mouth once daily Rx Instructions: take 1 tablet by mouth once daily estradiol 0.01 % (0.1 mg/gram) cream See Rx Instructions .ROUTE .COMPLEX Qty: 42.5 2RF Dose Instruction: insert 1 gram vaginally two times a week Rx Instructions: insert 1 gram vaginally two times a week metoprolol succinate 100 mg tablet extended release 24 hr 100 mg PO BID Qty: 180 0RF Referrals: Zunilda Keyes MD [Primary Care Provider] - Stand Alone Forms: Patient Portal/API ED Sign-out <Mairlee Perez DO - Last Filed: 12/27/23 09:48> Cosign ED Attending Francisature Attestation: I was immediately available in the department for consultation.
--- NOTE | 2023-12-26 15:26 | DI.RAD.S_ITS ---
PROCEDURE: XR LUMBAR SPINE 2-3V INDICATIONS: LBP twist injury 7 d [employer], hx disc soace anrrowing TECHNIQUE: 3 views of the lumbar spine were acquired. COMPARISON: [facility], , XR LUMBAR SPINE MIN 4V, 06/29/2023, 10:24. FINDINGS: Bones: 5 [id number]-[id number]-[id number] vertebrae are present. There is normal bony alignment. No vertebral body compression fractures. No suspicious bony lesions. Soft tissues: Overlying bowel gas pattern is normal. No suspicious soft tissue calcifications. IMPRESSION: No acute fracture. No osseous lesion. If symptoms and/or clinical suspicion for pathology persist, further assessment with repeat, or advanced imaging (e.g., CT, MRI, or bone scan) may be helpful for further assessment. Dictated by: Mone Gilliland M.D. on 12/26/2023 at 16:36 Approved by: Mone Gilliland M.D. on 12/26/2023 at 16:36
[2023-12-26] MEDS: KETOROLAC 30 MG/ML VIAL IM (15:51)
[2023-12-26] MEDS: BACLOFEN 10 MG TABLET PO (15:51)
[2023-12-26 18:10] VITALS: BP 143/87; PULSE 60; RESP 20; O2SAT 99
== END 2023-12-26 18:36 | disposition home or self-care (01) ==
PROVIDERS: Emergency Provider Student in an Organized Health Care Education/Training Program; PCP Family Medicine
DX: M54.50 Low back pain, unspecified (principal); M62.830 Muscle spasm of back; W00.0XXA Fall on same level due to ice and snow, initial encounter
CPT/HCPCS: 72100; 96372; 99283; 99284; J1885

== ENCOUNTER → 2024-01-02 10:37 | Outpatient (CLI) | payer OTHER, SELFPAY | PROVIDERS: PCP Family Medicine; Visit Provider Physician Assistant | DX: R39.15 Urgency of urination (principal) | CPT/HCPCS: 87077; 87086; 87186 ==

== ENCOUNTER 2024-05-09 10:30 | Outpatient (RCR) | payer OTHER, SELFPAY ==
--- NOTE | 2024-03-28 15:38 | PT.OIE ---
Current Diagnoses Pain in right shoulder (03/28/24) Past Medical History (Last Reviewed 01/02/24 @ 10:51 by Christine Mascorro PA-C) Chicken pox (1959) Chronic back pain (05/2014) Depression (1994) Hemorrhoids (1983) Herpes (1968) HLD (hyperlipidemia) Hypertension (2005) Measles (1959) Mumps (1959) Rubella (1959) Statin myopathy Past Surgical History (Last Reviewed 01/02/24 @ 10:51 by Christine Mascorro PA-C) Anesthesia Status post delivery (1979) Status post delivery (1981) Status post delivery (1983) Status post cholecystectomy Status post tonsillectomy and adenoidectomy (1955) Visit Care Team Role Provider Type Zunilda Keyes MD Attending Provider Physician Family Provider Primary Care Provider Referring Provider Specialty: Family Practice Address: [address] [place] [address], [facility] Email: [email or web address] Physical Therapy Initial Evaluation PT-OP-A Visit Information Start: 03/28/24 08:17 Freq: Status: Active Protocol: Document 03/28/24 10:23 MB (Rec: 03/28/24 11:08 MB [id number]) Out-Patient Physical Therapy Visit Information Visit Information Visit Type Initial Evaluation Visit Note KSR Medicare Visit Start Time 10:30 Visit Stop Time 11:10 Visit Number 1 Number of 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 She grabbed a hold of the truck to prevent falling. Her back pain was really bad and she was in bed for [address] couldn't drive and she went to the ED in [place]. Steroid pack really helped her back pain. Pt then started to have right shoulder pain. She is right handed. Pt reports ache in the back to the shoulder blade and then ache down the arm to the inside of her elbow. She is taking ibuprofen in the afternoons. She is not icing. Pt has old right shoulder injury and MRI and she had some micro tears but had PT and it got better. Pt sleeps on her side with her arm propped up on a pillow. Putting the towel all around her to dry hurts. Pt did medical massage and ached and she has done acupuncture twice. Treatment Goals Patient/Caregiver Goals To decrease pain PT-OP-C Subjective Start: 03/28/24 08:17 Freq: Status: Active Protocol: Document 03/28/24 10:23 MB (Rec: 03/28/24 11:08 MB [id number]) OP-PT Subjective Patient Comments Patient Comments See history of current condition Patient Questionnaires Quick Dash- Upper Extremity Quick Dash UE Score 25 Quick Dash UE Impairment 20 to 39% Impaired (Score 20- 39) PT-OP-J Posture/Palpation/Skin Start: 03/28/24 08:17 Freq: Status: Active Protocol: Document 03/28/24 10:23 MB (Rec: 03/28/24 11:08 MB [id number]) Posture Evaluation Comments Posture Comments B shoulders are forward and left is higher than the right, right scapula lower than the left, Dowager's hump, decreased thoracic kyphosis, iliac crest mildly higher than the left. Right SC joint is lower and more protruded than the left and there appears to be some edema in the area. PT-OP-K Range of Motion Start: 03/28/24 08:17 Freq: Status: Active Protocol: Document 03/28/24 10:23 MB (Rec: 03/28/24 11:08 MB [id number]) Cervical Spine Range of Motion Cervical Spine Active Testing Position Standing Comments AROM neck is normal Shoulder Goniometric Range of Motion Shoulder Left Shoulder ROM WFL Yes Testing Position Standing Flexion 162 Abduction 162 Internal Rotation Behind Back (text) T9 Comments Supine passive ROM 90/90 normal and no pain Right Shoulder ROM WFL Yes Testing Position Standing Flexion 165 Abduction 165 Internal Rotation Behind Back (text) L2 and pain Comments Supine passive ROM 90/90 normal and pain with end-range in the infraspinatus area PT-OP-M Strength Start: 03/28/24 08:17 Freq: Status: Active Protocol: Document 03/28/24 10:23 MB (Rec: 03/28/24 11:08 MB [id number]) Shoulder Strength Shoulder Manual Muscle Testing Left Flexion 5 Normal Abduction (C5) 5 Normal External Rotation 4+ Good+ Internal Rotation 5 Normal Right Flexion 4 Good Abduction (C5) 4 Good External Rotation 3+ Fair+ Internal Rotation 4+ Good+ Comments Pain with flexion and abduction Elbow/Forearm Strength Elbow and Forearm Manual Muscle Testing Bilateral Flexion (C6) 5 Normal Extension (C7) 5 Normal Pronation 4+ Good+ Supination 4+ Good+ PT-OP-Q Treatments Start: 03/28/24 08:17 Freq: Status: Active Protocol: Document 03/28/24 10:23 MB (Rec: 03/28/24 11:08 MB [id number]) Therapeutic Exercises Standing Exercises Racquet ball massage Side right Comments Intrascapular area, infraspinatus Self-Care/Home Management Treatment Education Patient Education Body Mechanics,Home Exercise Program,Joint Protection,Pain Management,Posture Other Education Proper sleeping position and use of ice PT-OP-T Assessment and Plan Start: 03/28/24 08:17 Freq: Status: Active Protocol: Document 03/28/24 10:23 MB (Rec: 03/28/24 11:08 MB [id number]) Physical Therapy Assessment Rehab Potential Rehabilitation Potential Good Evaluation Complexity Number of Personal Factors/Comorbidities 1-2 Number of Body Systems Impaired 1-2 Clinical Presentation at Evaluation Evolving Impairments Impairments Edema,Pain,Posture,ROM, Sensation,Soft Tissue Mobility ,Strength Goals 3 Impairment Lack of HEP Shelter Goal (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 LTG Duration 8 weeks 2 Impairment Decreased right shoulder strength Embryology Professor Goal (LTG) Pt will present with improved right shoulder flexion, abduction, ER and IR strength equal to left shoulder to improve functional use of right arm. LTG Duration 8 weeks 1 Impairment QuickDASH reflects 37.5% impairment Embryology Professor Goal (LTG) Pt will present with QuickDASH score reflecting no more than 15% impairment to improve quality of life and function. LTG Duration 8 weeks Assessment Summary Assessment Pt is a 73 y/o female presenting with remote history of right shoulder injury with reports of micro tears and more recent right shoulder injury when she slipped on ice and caught herself via her right arm on automobile earlier this year. Pt has normal ROM with some pain with passive ER and IR end-range in supine with shoulder in 90/ 90, some discomfort with IR behind back in standing and limited ROM compared to left arm and decreased right shoulder strength. She has many areas of myofascial tension around shoulder girdle . She has not liked massage in the past and is unsure if acupuncture is helpful. She was open to self-myofascial work with [employer] ball today and PT does feel that she will benefit from gentle manual work to help pain and dysfuction. Pt will benefit from PT also for therapeutic exercise including postural, breathing, flexibility and strengthening training. Physical Therapy Plan Frequency and Duration Frequency of Treatment 2x/Week Duration of treatment (weeks) 8 Plan of Care Start Date 03/28/24 Plan of Care End Date 05/28/24 Therapeutic Interventions Therapeutic Interventions Balance Training,Canalithic Repositioning,Coordination Training,Home Exercise Program ,Joint Mobilizations,Manual Therapy,Neuromuscular Re- education,Patient/Caregiver Education,Self-Care/Home Management,Soft Tissue Mobilization,Taping, Therapeutic Activities, Therapeutic Exercises Modalities Cold Pack/Ice Massage,Electric Stimulation,Hot Packs, Ultrasound Next Visit Focus/Plan Next Note Type Treatment Note Next Visit Plan Manual assessment, progress exercises, likely thoracic mobility exercises
--- NOTE | 2024-03-28 15:38 | PT.OPPOC ---
Physical, Occupational & Speech Therapy At [facility] Current Diagnoses Pain in right shoulder (03/28/24) Visit Care Team Role Provider Type Zunilda Keyes MD Attending Provider Physician Family Provider Primary Care Provider Referring Provider Specialty: Family Practice Address: [address] [place] [address], [id number] Email: [email or web address] Plan Of Care PT-OP-T Assessment and Plan Start: 03/28/24 08:17 Freq: Status: Active Protocol: Document 03/28/24 10:23 MB (Rec: 03/28/24 11:08 MB [id number]) Physical Therapy Assessment Rehab Potential Rehabilitation Potential Good Evaluation Complexity Number of Personal Factors/Comorbidities 1-2 Number of Body Systems Impaired 1-2 Clinical Presentation at Evaluation Evolving Impairments Impairments Edema,Pain,Posture,ROM, Sensation,Soft Tissue Mobility ,Strength Goals 3 Impairment Lack of HEP Half-Way Goal (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 LTG Duration 8 weeks 2 Impairment Decreased right shoulder strength Half-Way Goal (LTG) Pt will present with improved right shoulder flexion, abduction, ER and IR strength equal to left shoulder to improve functional use of right arm. LTG Duration 8 weeks 1 Impairment QuickDASH reflects 37.5% impairment Half-Way Goal (LTG) Pt will present with QuickDASH score reflecting no more than 15% impairment to improve quality of life and function. LTG Duration 8 weeks Assessment Summary Assessment Pt is a 73 y/o female presenting with remote history of right shoulder injury with reports of micro tears and more recent right shoulder injury when she slipped on ice and caught herself via her right arm on automobile earlier this year. Pt has normal ROM with some pain with passive ER and IR end-range in supine with shoulder in 90/ 90, some discomfort with IR behind back in standing and limited ROM compared to left arm and decreased right shoulder strength. She has many areas of myofascial tension around shoulder girdle . She has not liked massage in the past and is unsure if acupuncture is helpful. She was open to self-myofascial work with racquet ball today and PT does feel that she will benefit from gentle manual work to help pain and dysfuction. Pt will benefit from PT also for therapeutic exercise including postural, breathing, flexibility and strengthening training. Physical Therapy Plan Frequency and Duration Frequency of Treatment 2x/Week Duration of treatment (weeks) 8 Plan of Care Start Date 03/28/24 Plan of Care End Date 05/28/24 Therapeutic Interventions Therapeutic Interventions Balance Training,Canalithic Repositioning,Coordination Training,Home Exercise Program ,Joint Mobilizations,Manual Therapy,Neuromuscular Re- education,Patient/Caregiver Education,Self-Care/Home Management,Soft Tissue Mobilization,Taping, Therapeutic Activities, Therapeutic Exercises Modalities Cold Pack/Ice Massage,Electric Stimulation,Hot Packs, Ultrasound Next Visit Focus/Plan Next Note Type Treatment Note Next Visit Plan Manual assessment, progress exercises, likely thoracic mobility exercises Plan of Care Dates Plan of Care Start Date 03/28/24 Plan of Care End Date 05/28/24 Electronically Signed by: Nia Walter PT 03/28/24 1101 If you are in agreement with this Plan of Care, please return a signed and dated copy. I have reviewed this Plan of Care and certify that the skilled therapy services above are required to meet the patient?s needs. Physician Signature Date Printed Name and Credentials Clinical Instructor Signature Printed Name and Credentials
--- NOTE | 2024-04-02 16:01 | PT.OTN ---
Current Diagnoses Pain in right shoulder (04/02/24) Physical Therapy Treatment Note PT-OP-A Visit Information Start: 03/28/24 08:17 Freq: Status: Active Protocol: Document 04/02/24 15:19 MB (Rec: 04/02/24 16:01 MB [id number]) Out-Patient Physical Therapy Visit Information Visit Information Visit Type Treatment Note Visit Note KSR Medicare Visit Start Time 15:19 Visit Stop Time 15:59 Visit Number 2 Precautions Precautions Pt felt worse after medical massages for right shoulder PT-OP-B Current Condition Start: 03/28/24 08:17 Freq: Status: Active Protocol: Document 03/28/24 10:23 MB (Rec: 03/28/24 11:08 MB [id number]) Current Condition History of Current Condition Onset Date November 2023 Current Complaints Right shoulder pain and ache with all right arm use and movement History of Current Condition In November, pt slipped on the ice and she did not fall but she jerked. She grabbed a hold of the truck to prevent falling. Her back pain was really bad and she was in bed for 3 weeks[address] She couldn't drive and she went to the ED in [place]. Steroid pack really helped her back pain. Pt then started to have right shoulder pain. She is right handed. Pt reports ache in the back to the shoulder blade and then ache down the arm to the inside of her elbow. She is taking ibuprofen in the afternoons. She is not icing. Pt has old right shoulder injury and MRI and she had some micro tears but had PT and it got better. Pt sleeps on her side with her arm propped up on a pillow. Putting the towel all around her to dry hurts. Pt did medical massage and ached and she has done acupuncture twice. Treatment Goals Patient/Caregiver Goals To decrease pain PT-OP-C Subjective Start: 03/28/24 08:17 Freq: Status: Active Protocol: Document 04/02/24 15:19 MB (Rec: 04/02/24 16:01 MB [id number]) OP-PT Subjective Patient Comments Patient Comments Pt states that her shoulder is about the same. PT-OP-J Posture/Palpation/Skin Start: 03/28/24 08:17 Freq: Status: Active Protocol: Document 03/28/24 10:23 MB (Rec: 03/28/24 11:08 MB [id number]) Posture Evaluation Comments Posture Comments B shoulders are forward and left is higher than the right, right scapula lower than the left, Dowager's hump, decreased thoracic kyphosis, iliac crest mildly higher than the left. Right SC joint is lower and more protruded than the left and there appears to be some edema in the area. PT-OP-K Range of Motion Start: 03/28/24 08:17 Freq: Status: Active Protocol: Document 03/28/24 10:23 MB (Rec: 03/28/24 11:08 MB [id number]) Cervical Spine Range of Motion Cervical Spine Active Testing Position Standing Comments AROM neck is normal Shoulder Goniometric Range of Motion Shoulder Left Shoulder ROM WFL Yes Testing Position Standing Flexion 162 Abduction 162 Internal Rotation Behind Back (text) T9 Comments Supine passive ROM 90/90 normal and no pain Right Shoulder ROM WFL Yes Testing Position Standing Flexion 165 Abduction 165 Internal Rotation Behind Back (text) L2 and pain Comments Supine passive ROM 90/90 normal and pain with end-range in the infraspinatus area PT-OP-M Strength Start: 03/28/24 08:17 Freq: Status: Active Protocol: Document 03/28/24 10:23 MB (Rec: 03/28/24 11:08 MB [id number]) Shoulder Strength Shoulder Manual Muscle Testing Left Flexion 5 Normal Abduction (C5) 5 Normal External Rotation 4+ Good+ Internal Rotation 5 Normal Right Flexion 4 Good Abduction (C5) 4 Good External Rotation 3+ Fair+ Internal Rotation 4+ Good+ Comments Pain with flexion and abduction Elbow/Forearm Strength Elbow and Forearm Manual Muscle Testing Bilateral Flexion (C6) 5 Normal Extension (C7) 5 Normal Pronation 4+ Good+ Supination 4+ Good+ PT-OP-Q Treatments Start: 03/28/24 08:17 Freq: Status: Active Protocol: Document 04/02/24 15:19 MB (Rec: 04/02/24 16:01 MB [id number]) Cardio Equipment Upper Body Ergometer (UBE) Other 1' forward and 1' backward for 6' Therapeutic Exercises Supine Exercises Pect stretch Comments Pt supine with head and legs supported: pect stretch B and active movement Sidelying Exercises Open book Comments 5 reps each side and hold at the end Standing Exercises Pool noodle on wall Equipment Used Red pool noodle behind back, chin tuck Comments 10 reps retraction with palms forward and 10 reps Vs Racquet ball massage Comments Reviewed today and re-ed in what the racquet ball is and she got different Manual Therapy Treatment Other Other Manual Treatments Pt supine with head and neck supported: grade II-III PA mobs cervical spine, STM B upper traps, cervical paraspinals, right pects PT-OP-T Assessment and Plan Start: 03/28/24 08:17 Freq: Status: Active Protocol: Document 04/02/24 15:19 MB (Rec: 04/02/24 16:01 MB [id number]) Physical Therapy Assessment Rehab Potential Rehabilitation Potential Good Evaluation Complexity Number of Personal Factors/Comorbidities 1-2 Number of Body Systems Impaired 1-2 Clinical Presentation at Evaluation Evolving Impairments Impairments Edema,Pain,Posture,ROM, Sensation,Soft Tissue Mobility ,Strength Goals 3 Impairment Lack of HEP Mcc Goal (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 LTG Duration 8 weeks 2 Impairment Decreased right shoulder strength Recruiting Manager Goal (LTG) Pt will present with improved right shoulder flexion, abduction, ER and IR strength equal to left shoulder to improve functional use of right arm. LTG Duration 8 weeks 1 Impairment QuickDASH reflects 37.5% impairment Recruiting Manager Goal (LTG) Pt will present with QuickDASH score reflecting no more than 15% impairment to improve quality of life and function. LTG Duration 8 weeks Assessment Summary Assessment Initiated thoracic mobility today, arm bike and manual work. Pt with discomfort with right pect work and she presents with myofascial tension Con't PT efforts. Physical Therapy Plan Frequency and Duration Frequency of Treatment 2x/Week Duration of treatment (weeks) 8 Plan of Care Start Date 03/28/24 Plan of Care End Date 05/28/24 Therapeutic Interventions Therapeutic Interventions Balance Training,Canalithic Repositioning,Coordination Training,Home Exercise Program ,Joint Mobilizations,Manual Therapy,Neuromuscular Re- education,Patient/Caregiver Education,Self-Care/Home Management,Soft Tissue Mobilization,Taping, Therapeutic Activities, Therapeutic Exercises Modalities Cold Pack/Ice Massage,Electric Stimulation,Hot Packs, Ultrasound Next Visit Focus/Plan Next Note Type Treatment Note Next Visit Plan Review how she felt after manual and ther-ex and consider progressing exercises : sitting thoracic rotation, standing Tband scapular retraction
--- NOTE | 2024-04-09 14:32 | PT.OTN ---
Current Diagnoses Pain in right shoulder (04/09/24) Physical Therapy Treatment Note PT-OP-A Visit Information Start: 03/28/24 08:17 Freq: Status: Active Protocol: Document 04/09/24 13:50 MB (Rec: 04/09/24 14:14 MB [id number]) Out-Patient Physical Therapy Visit Information Visit Information Visit Type Treatment Note Visit Note [employer] Medicare Do progress note with PT Visit Start Time 13:50 Visit Stop Time 14:30 Visit Number 4 Precautions Precautions Pt felt worse after medical massages for right shoulder, pt asked about US as it helped in the past PT-OP-B Current Condition Start: 03/28/24 08:17 Freq: Status: Active Protocol: Document 03/28/24 10:23 MB (Rec: 03/28/24 11:08 MB [id number]) Current Condition History of Current Condition Onset Date November 2023 Current Complaints Right shoulder pain and ache with all right arm use and movement History of Current Condition In November, pt slipped on the ice and she did not fall but she jerked. She grabbed a hold of the truck to prevent falling. Her back pain was really bad and she was in bed for [address] couldn't drive and she went to the ED in [place]. Steroid pack really helped her back pain. Pt then started to have right shoulder pain. She is right handed. Pt reports ache in the back to the shoulder blade and then ache down the arm to the inside of her elbow. She is taking ibuprofen in the afternoons. She is not icing. Pt has old right shoulder injury and MRI and she had some micro tears but had PT and it got better. Pt sleeps on her side with her arm propped up on a pillow. Putting the towel all around her to dry hurts. Pt did medical massage and ached and she has done acupuncture twice. Treatment Goals Patient/Caregiver Goals To decrease pain PT-OP-C Subjective Start: 03/28/24 08:17 Freq: Status: Active Protocol: Document 04/09/24 13:50 MB (Rec: 04/09/24 14:14 MB [id number]) OP-PT Subjective Patient Comments Patient Comments Pt states that after the acupuncture, she was good for four hours and then she took ibuprofen. She washed the sliding glass door and it was okay. She does not yet have a pool noodle. She got some racquet balls. She thinks her arm might be a little better. It is sore but not all the time. PT-OP-J Posture/Palpation/Skin Start: 03/28/24 08:17 Freq: Status: Active Protocol: Document 03/28/24 10:23 MB (Rec: 03/28/24 11:08 MB [id number]) Posture Evaluation Comments Posture Comments B shoulders are forward and left is higher than the right, right scapula lower than the left, Dowager's hump, decreased thoracic kyphosis, iliac crest mildly higher than the left. Right SC joint is lower and more protruded than the left and there appears to be some edema in the area. PT-OP-K Range of Motion Start: 03/28/24 08:17 Freq: Status: Active Protocol: Document 03/28/24 10:23 MB (Rec: 03/28/24 11:08 MB [id number]) Cervical Spine Range of Motion Cervical Spine Active Testing Position Standing Comments AROM neck is normal Shoulder Goniometric Range of Motion Shoulder Left Shoulder ROM WFL Yes Testing Position Standing Flexion 162 Abduction 162 Internal Rotation Behind Back (text) T9 Comments Supine passive ROM 90/90 normal and no pain Right Shoulder ROM WFL Yes Testing Position Standing Flexion 165 Abduction 165 Internal Rotation Behind Back (text) L2 and pain Comments Supine passive ROM 90/90 normal and pain with end-range in the infraspinatus area PT-OP-M Strength Start: 03/28/24 08:17 Freq: Status: Active Protocol: Document 03/28/24 10:23 MB (Rec: 03/28/24 11:08 MB [id number]) Shoulder Strength Shoulder Manual Muscle Testing Left Flexion 5 Normal Abduction (C5) 5 Normal External Rotation 4+ Good+ Internal Rotation 5 Normal Right Flexion 4 Good Abduction (C5) 4 Good External Rotation 3+ Fair+ Internal Rotation 4+ Good+ Comments Pain with flexion and abduction Elbow/Forearm Strength Elbow and Forearm Manual Muscle Testing Bilateral Flexion (C6) 5 Normal Extension (C7) 5 Normal Pronation 4+ Good+ Supination 4+ Good+ PT-OP-Q Treatments Start: 03/28/24 08:17 Freq: Status: Active Protocol: Document 04/09/24 13:50 MB (Rec: 05/13/24 14:14 MB [id number]) Cardio Equipment Upper Body Ergometer (UBE) Other 1' forward and 1' backward for 10' Therapeutic Exercises Sitting Exercises Pulleys Comments AAROM flexion, scaption, abduction, bicycle forward and back Other Exercises HEP review Comments Verbally reviewed HEP today PT-OP-R Modalities Start: 04/09/24 14:14 Freq: Status: Active Protocol: Document 04/09/24 13:50 MB (Rec: 04/09/24 14:30 MB [id number]) Ultrasound Therapy Treatment R Shoulder Patient Position Supine Coupling Medium Ultrasound Gel Frequency Setting (mHz) 3 Mode Setting Pulsed Duty Cycle 50% Intensity Setting (w/cm2) 1.5 Comments 8', anterior right shoulder over anterior delt, pect and biceps tendon PT-OP-T Assessment and Plan Start: 03/28/24 08:17 Freq: Status: Active Protocol: Document 04/09/24 13:50 MB (Rec: 04/09/24 14:14 MB [id number]) Physical Therapy Assessment Rehab Potential Rehabilitation Potential Good Evaluation Complexity Number of Personal Factors/Comorbidities 1-2 Number of Body Systems Impaired 1-2 Clinical Presentation at Evaluation Evolving Impairments Impairments Edema,Pain,Posture,ROM, Sensation,Soft Tissue Mobility ,Strength Goals 3 Impairment Lack of HEP Social Service Agency Director Goal (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 LTG Duration 8 weeks 2 Impairment Decreased right shoulder strength Residential Goal (LTG) Pt will present with improved right shoulder flexion, abduction, ER and IR strength equal to left shoulder to improve functional use of right arm. LTG Duration 8 weeks 1 Impairment QuickDASH reflects 37.5% impairment Social Service Agency Director Goal (LTG) Pt will present with QuickDASH score reflecting no more than 15% impairment to improve quality of life and function. LTG Duration 8 weeks Assessment Summary Assessment Pt is doing thoracic mobility exercises, open book and racquet ball massage. She also iced with peas. This is better compliance this week and she states she is feeling a little better. US today over anterior right shoulder and see how she responds, consider progress exercises next treatment date. Physical Therapy Plan Frequency and Duration Frequency of Treatment 2x/Week Duration of treatment (weeks) 8 Plan of Care Start Date 03/28/24 Plan of Care End Date 05/28/24 Therapeutic Interventions Therapeutic Interventions Balance Training,Canalithic Repositioning,Coordination Training,Home Exercise Program ,Joint Mobilizations,Manual Therapy,Neuromuscular Re- education,Patient/Caregiver Education,Self-Care/Home Management,Soft Tissue Mobilization,Taping, Therapeutic Activities, Therapeutic Exercises Modalities Cold Pack/Ice Massage,Electric Stimulation,Hot Packs, Ultrasound Next Visit Focus/Plan Next Note Type Treatment Note Next Visit Plan See if US was helpful. Consider progress exercises over pool noodle and then consider Tband scapular retraction.
--- NOTE | 2024-04-11 11:45 | PT.OTN ---
Current Diagnoses Pain in right shoulder (04/11/24) Physical Therapy Treatment Note PT-OP-A Visit Information Start: 03/28/24 08:17 Freq: Status: Active Protocol: Document 04/11/24 10:35 MB (Rec: 04/11/24 11:44 MB [id number]) Out-Patient Physical Therapy Visit Information Visit Information Visit Type Treatment Note Visit Note [employer] Medicare Do progress note with PT Visit Start Time 10:35 Visit Stop Time 11:28 Visit Number 5 Precautions Precautions Pt felt worse after medical massages for right shoulder, pt asked about US as it helped in the past PT-OP-B Current Condition Start: 03/28/24 08:17 Freq: Status: Active Protocol: Document 03/28/24 10:23 MB (Rec: 03/28/24 11:08 MB [id number]) Current Condition History of Current Condition Onset Date November 2023 Current Complaints Right shoulder pain and ache with all right arm use and movement History of Current Condition In November, pt slipped on the ice and she did not fall but she jerked. She grabbed a hold of the truck to prevent falling. Her back pain was really bad and she was in bed for 3 weeks[address] She couldn't drive and she went to the ED in [place]. Steroid pack really helped her back pain. Pt then started to have right shoulder pain. She is right handed. Pt reports ache in the back to the shoulder blade and then ache down the arm to the inside of her elbow. She is taking ibuprofen in the afternoons. She is not icing. Pt has old right shoulder injury and MRI and she had some micro tears but had PT and it got better. Pt sleeps on her side with her arm propped up on a pillow. Putting the towel all around her to dry hurts. Pt did medical massage and ached and she has done acupuncture twice. Treatment Goals Patient/Caregiver Goals To decrease pain PT-OP-C Subjective Start: 03/28/24 08:17 Freq: Status: Active Protocol: Document 04/11/24 10:35 MB (Rec: 04/11/24 11:44 MB [id number]) OP-PT Subjective Patient Comments Patient Comments Pt is doing the racquet ball and the open book and she felt her back pop and she thinks that is good as far as not being too tight. PT-OP-J Posture/Palpation/Skin Start: 03/28/24 08:17 Freq: Status: Active Protocol: Document 03/28/24 10:23 MB (Rec: 03/28/24 11:08 MB [id number]) Posture Evaluation Comments Posture Comments B shoulders are forward and left is higher than the right, right scapula lower than the left, Dowager's hump, decreased thoracic kyphosis, iliac crest mildly higher than the left. Right SC joint is lower and more protruded than the left and there appears to be some edema in the area. PT-OP-K Range of Motion Start: 03/28/24 08:17 Freq: Status: Active Protocol: Document 03/28/24 10:23 MB (Rec: 03/28/24 11:08 MB [id number]) Cervical Spine Range of Motion Cervical Spine Active Testing Position Standing Comments AROM neck is normal Shoulder Goniometric Range of Motion Shoulder Left Shoulder ROM WFL Yes Testing Position Standing Flexion 162 Abduction 162 Internal Rotation Behind Back (text) T9 Comments Supine passive ROM 90/90 normal and no pain Right Shoulder ROM WFL Yes Testing Position Standing Flexion 165 Abduction 165 Internal Rotation Behind Back (text) L2 and pain Comments Supine passive ROM 90/90 normal and pain with end-range in the infraspinatus area PT-OP-M Strength Start: 03/28/24 08:17 Freq: Status: Active Protocol: Document 03/28/24 10:23 MB (Rec: 03/28/24 11:08 MB [id number]) Shoulder Strength Shoulder Manual Muscle Testing Left Flexion 5 Normal Abduction (C5) 5 Normal External Rotation 4+ Good+ Internal Rotation 5 Normal Right Flexion 4 Good Abduction (C5) 4 Good External Rotation 3+ Fair+ Internal Rotation 4+ Good+ Comments Pain with flexion and abduction Elbow/Forearm Strength Elbow and Forearm Manual Muscle Testing Bilateral Flexion (C6) 5 Normal Extension (C7) 5 Normal Pronation 4+ Good+ Supination 4+ Good+ PT-OP-Q Treatments Start: 03/28/24 08:17 Freq: Status: Active Protocol: Document 04/11/24 10:35 MB (Rec: 04/11/24 11:44 MB [id number]) Cardio Equipment Upper Body Ergometer (UBE) Other 1' forward and 1' backward for 10' Therapeutic Exercises Supine Exercises Soft 6 foam roller AROM Supine Exercise Name Pain with active Ts right, so added TB Equipment Used Soft foam roller, level 1 TB Reps/Minutes 10 reps Comments Flexion, Ts, pect stretch, 1/2 X Pool noodle AROM Supine Exercise Name Too easy Equipment Used Red pool noodle Comments Flexion, Ts, pect stretch, 1/2 Xs Manual Therapy Treatment Other Other Manual Treatments Pt supine with head and neck supported: grade II-III PA mobs cervical spine, STM B upper traps, cervical paraspinals, positional release pects and infraspinatus, B 1st rib mob, MWM right pects with TrP pressure and shoulder ER and IR PT-OP-R Modalities Start: 04/09/24 14:14 Freq: Status: Active Protocol: Document 04/11/24 10:35 MB (Rec: 04/11/24 11:44 MB [id number]) Ultrasound Therapy Treatment R Shoulder Patient Position Supine Coupling Medium Ultrasound Gel Frequency Setting (mHz) 3 Mode Setting Pulsed Duty Cycle 50% Intensity Setting (w/cm2) 1.5 Comments 8', anterior right shoulder over anterior delt, pect and biceps tendon PT-OP-T Assessment and Plan Start: 03/28/24 08:17 Freq: Status: Active Protocol: Document 04/11/24 10:35 MB (Rec: 04/11/24 11:44 MB [id number]) Physical Therapy Assessment Rehab Potential Rehabilitation Potential Good Evaluation Complexity Number of Personal Factors/Comorbidities 1-2 Number of Body Systems Impaired 1-2 Clinical Presentation at Evaluation Evolving Impairments Impairments Edema,Pain,Posture,ROM, Sensation,Soft Tissue Mobility ,Strength Goals 3 Impairment Lack of HEP Mule Rider Goal (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 LTG Duration 8 weeks 2 Impairment Decreased right shoulder strength Mule Rider Goal (LTG) Pt will present with improved right shoulder flexion, abduction, ER and IR strength equal to left shoulder to improve functional use of right arm. LTG Duration 8 weeks 1 Impairment QuickDASH reflects 37.5% impairment [facility] Goal (LTG) Pt will present with QuickDASH score reflecting no more than 15% impairment to improve quality of life and function. LTG Duration 8 weeks Assessment Summary Assessment Pool noodle too easy and pect stretch on foam roller was too much and this was the case on a flat surface a couple of treatments ago as well. Ed pt to proceed carefully with pect stretch. It might be that anterior shoulder joint is flared up with position. Otherwise, use of band and scapular retraction for exercises does not increase pain. Physical Therapy Plan Frequency and Duration Frequency of Treatment 2x/Week Duration of treatment (weeks) 8 Plan of Care Start Date 03/28/24 Plan of Care End Date 05/28/24 Therapeutic Interventions Therapeutic Interventions Balance Training,Canalithic Repositioning,Coordination Training,Home Exercise Program ,Joint Mobilizations,Manual Therapy,Neuromuscular Re- education,Patient/Caregiver Education,Self-Care/Home Management,Soft Tissue Mobilization,Taping, Therapeutic Activities, Therapeutic Exercises Modalities Cold Pack/Ice Massage,Electric Stimulation,Hot Packs, Ultrasound Next Visit Focus/Plan Next Note Type Treatment Note Next Visit Plan Ongoing US if helpful. Review exercises over foam roller and consider adding band around wrists for shoulder muscles engagement and then flexion as well as chopping wood exercise for strengthening in similar position. Consider soulder ER over foam roller and standing exercises with theraband.
--- NOTE | 2024-04-23 08:04 | PT-OP ANOTE ---
PT reviews chart. Will perform OPPT progress note on 05/02/24, on pt's next treatment with primary PT.
--- NOTE | 2024-04-25 09:46 | PT.OTN ---
Current Diagnoses Pain in right shoulder (04/25/24) Physical Therapy Treatment Note PT-OP-A Visit Information Start: 03/28/24 08:17 Freq: Status: Active Protocol: Document 04/25/24 09:00 SP (Rec: 04/25/24 10:06 SP [id number]) Out-Patient Physical Therapy Visit Information Visit Information Visit Type Treatment Note Visit Note [employer] Medicare Need Progress Note with PT 05/02 Visit Start Time 09:00 Visit Stop Time 09:46 Visit Number 6 Number of GEL COAT SPRAYER Visits 1 Evaluation Information Evaluation Date 03/28/24 Precautions Precautions Pt felt worse after medical massages for right shoulder, pt asked about US as it helped in the past PT-OP-B Current Condition Start: 03/28/24 08:17 Freq: Status: Active Protocol: Document 03/28/24 10:23 MB (Rec: 03/28/24 11:08 MB [id number]) Current Condition History of Current Condition Onset Date November 2023 Current Complaints Right shoulder pain and ache with all right arm use and movement History of Current Condition In November, pt slipped on the ice and she did not fall but she jerked. She grabbed a hold of the truck to prevent falling. Her back pain was really bad and she was in bed for 3 weeks[address] She couldn't drive and she went to the ED in [place]. Steroid pack really helped her back pain. Pt then started to have right shoulder pain. She is right handed. Pt reports ache in the back to the shoulder blade and then ache down the arm to the inside of her elbow. She is taking ibuprofen in the afternoons. She is not icing. Pt has old right shoulder injury and MRI and she had some micro tears but had PT and it got better. Pt sleeps on her side with her arm propped up on a pillow. Putting the towel all around her to dry hurts. Pt did medical massage and ached and she has done acupuncture twice. Treatment Goals Patient/Caregiver Goals To decrease pain PT-OP-C Subjective Start: 03/28/24 08:17 Freq: Status: Active Protocol: Document 04/25/24 09:00 SP (Rec: 04/25/24 10:06 SP [id number]) OP-PT Subjective Patient Comments Patient Comments Pt reported shoulder feels better than when started but still hurts. Took 1 ibuprofen when went asleep but not every day. She had some acupuncture with electrodes. PT-OP-J Posture/Palpation/Skin Start: 03/28/24 08:17 Freq: Status: Active Protocol: Document 03/28/24 10:23 MB (Rec: 03/28/24 11:08 MB [id number]) Posture Evaluation Comments Posture Comments B shoulders are forward and left is higher than the right, right scapula lower than the left, Dowager's hump, decreased thoracic kyphosis, iliac crest mildly higher than the left. Right SC joint is lower and more protruded than the left and there appears to be some edema in the area. PT-OP-K Range of Motion Start: 03/28/24 08:17 Freq: Status: Active Protocol: Document 03/28/24 10:23 MB (Rec: 03/28/24 11:08 MB [id number]) Cervical Spine Range of Motion Cervical Spine Active Testing Position Standing Comments AROM neck is normal Shoulder Goniometric Range of Motion Shoulder Left Shoulder ROM WFL Yes Testing Position Standing Flexion 162 Abduction 162 Internal Rotation Behind Back (text) T9 Comments Supine passive ROM 90/90 normal and no pain Right Shoulder ROM WFL Yes Testing Position Standing Flexion 165 Abduction 165 Internal Rotation Behind Back (text) L2 and pain Comments Supine passive ROM 90/90 normal and pain with end-range in the infraspinatus area PT-OP-M Strength Start: 03/28/24 08:17 Freq: Status: Active Protocol: Document 03/28/24 10:23 MB (Rec: 03/28/24 11:08 MB [id number]) Shoulder Strength Shoulder Manual Muscle Testing Left Flexion 5 Normal Abduction (C5) 5 Normal External Rotation 4+ Good+ Internal Rotation 5 Normal Right Flexion 4 Good Abduction (C5) 4 Good External Rotation 3+ Fair+ Internal Rotation 4+ Good+ Comments Pain with flexion and abduction Elbow/Forearm Strength Elbow and Forearm Manual Muscle Testing Bilateral Flexion (C6) 5 Normal Extension (C7) 5 Normal Pronation 4+ Good+ Supination 4+ Good+ PT-OP-Q Treatments Start: 03/28/24 08:17 Freq: Status: Active Protocol: Document 04/25/24 09:00 SP (Rec: 04/25/24 10:06 SP [id number]) Cardio Equipment Upper Body Ergometer (UBE) Duration (Minutes) 8 RPM 65 Seat Position 13 Height 3.5 Other 1' forward and 1' backward for 10' Therapeutic Exercises Supine Exercises Soft 6 foam roller AROM Supine Exercise Name Pec stretch, Flexion, Ts, 1/2 X, Ws ([id number] /c ER/IR), ER close chain Resistance level 1 TB Equipment Used Soft foam roller Reps/Minutes 10 reps each- provided HO Comments cued slow pacing, proper scap retr/depress, slower pacing arm pnfree range Sidelying Exercises ER Side right Resistance AROM>2# DB Equipment Used towel roll under arm Reps/Minutes x10 Comments fine, easy- DC do over roller Manual Therapy Treatment Joint Mobilizations R scapulothoracic Direction depression & adduction/ retraction Ts, dep/UR FF Body Position L SL Other Other Manual Treatments Pt supine with head and neck supported: STM B upper traps, cervical paraspinals, positional release pects and infraspinatus, MWM right pects use TrP pressure & breath then humeral ER&IR. PT-OP-R Modalities Start: 04/09/24 14:14 Freq: Status: Active Protocol: Document 04/11/24 10:35 MB (Rec: 04/11/24 11:44 MB [id number]) Ultrasound Therapy Treatment R Shoulder Patient Position Supine Coupling Medium Ultrasound Gel Frequency Setting (mHz) 3 Mode Setting Pulsed Duty Cycle 50% Intensity Setting (w/cm2) 1.5 Comments 8', anterior right shoulder over anterior delt, pect and biceps tendon PT-OP-T Assessment and Plan Start: 03/28/24 08:17 Freq: Status: Active Protocol: Document 04/25/24 09:00 SP (Rec: 04/25/24 10:06 SP [id number]) Physical Therapy Assessment Goals 3 Impairment Lack of HEP Group 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 LTG Duration 8 weeks 2 Impairment Decreased right shoulder strength Receiver Stocker Goal (LTG) Pt will present with improved right shoulder flexion, abduction, ER and IR strength equal to left shoulder to improve functional use of right arm. LTG Duration 8 weeks 1 Impairment QuickDASH reflects 37.5% impairment Group Home Goal (LTG) Pt will present with QuickDASH score reflecting no more than 15% impairment to improve quality of life and function. LTG Duration 8 weeks Assessment Summary Assessment Pt responded well to manual, reports reduction in neck and R shld discomfort. Extra time spent tactile cues with R scap positioning during light resisted ther ex caution not over pressure into range beyond trunk for support to anterior shld comfort. Physical Therapy Plan Frequency and Duration Frequency of Treatment 2x/Week Duration of treatment (weeks) 8 Plan of Care Start Date 03/28/24 Plan of Care End Date 05/28/24 Therapeutic Interventions Therapeutic Interventions Balance Training,Canalithic Repositioning,Coordination Training,Home Exercise Program ,Joint Mobilizations,Manual Therapy,Neuromuscular Re- education,Patient/Caregiver Education,Self-Care/Home Management,Soft Tissue Mobilization,Taping, Therapeutic Activities, Therapeutic Exercises Modalities Cold Pack/Ice Massage,Electric Stimulation,Hot Packs, Ultrasound Next Visit Focus/Plan Next Note Type Treatment Note Next Visit Plan Ongoing US if helpful. Review exercises over foam roller and recheck use band and shoulder positioning. POC: recheck muscle engagement and then fi tolerated chopping wood exercise for strengthening in similar position. Consider standing exercises with theraband.
--- NOTE | 2024-04-30 09:42 | PT.OTN ---
Current Diagnoses Pain in right shoulder (04/30/24) Physical Therapy Treatment Note PT-OP-A Visit Information Start: 03/28/24 08:17 Freq: Status: Active Protocol: Document 04/30/24 09:02 SP (Rec: 04/30/24 09:52 SP [id number]) Out-Patient Physical Therapy Visit Information Visit Information Visit Type Treatment Note Visit Note KSR Medicare Need Progress Note with PT 05/02 Visit Start Time 09:02 Visit Stop Time 09:42 Visit Number 7 Number of SAFETY NET MAKER Visits 2 Evaluation Information Evaluation Date 03/28/24 Precautions Precautions Pt felt worse after medical massages for right shoulder, pt asked about US as it helped in the past PT-OP-B Current Condition Start: 03/28/24 08:17 Freq: Status: Active Protocol: Document 03/28/24 10:23 MB (Rec: 03/28/24 11:08 MB [id number]) Current Condition History of Current Condition Onset Date November 2023 Current Complaints Right shoulder pain and ache with all right arm use and movement History of Current Condition In November, pt slipped on the ice and she did not fall but she jerked. She grabbed a hold of the truck to prevent falling. Her back pain was really bad and she was in bed for 3 weeks[address] couldn't drive and she went to the ED in [place]. Steroid pack really helped her back pain. Pt then started to have right shoulder pain. She is right handed. Pt reports ache in the back to the shoulder blade and then ache down the arm to the inside of her elbow. She is taking ibuprofen in the afternoons. She is not icing. Pt has old right shoulder injury and MRI and she had some micro tears but had PT and it got better. Pt sleeps on her side with her arm propped up on a pillow. Putting the towel all around her to dry hurts. Pt did medical massage and ached and she has done acupuncture twice. Treatment Goals Patient/Caregiver Goals To decrease pain PT-OP-C Subjective Start: 03/28/24 08:17 Freq: Status: Active Protocol: Document 04/30/24 09:02 SP (Rec: 04/30/24 09:52 SP [id number]) OP-PT Subjective Patient Comments Patient Comments Pt reports her shoulder sore after last tx but went away in not much time without ibuprofen. Neck is good, much better than when started. Hasn 't had to take ibuprofen but didn;t sleep well, not due to shld just couldn't sleep, unsure why. She reports ok now to put items away in cupboard and reach don car seat belt. She stated drying back with R UE abd/ ER has pain. PT-OP-J Posture/Palpation/Skin Start: 03/28/24 08:17 Freq: Status: Active Protocol: Document 03/28/24 10:23 MB (Rec: 03/28/24 11:08 MB [id number]) Posture Evaluation Comments Posture Comments B shoulders are forward and left is higher than the right, right scapula lower than the left, Dowager's hump, decreased thoracic kyphosis, iliac crest mildly higher than the left. Right SC joint is lower and more protruded than the left and there appears to be some edema in the area. PT-OP-K Range of Motion Start: 03/28/24 08:17 Freq: Status: Active Protocol: Document 03/28/24 10:23 MB (Rec: 03/28/24 11:08 MB [id number]) Cervical Spine Range of Motion Cervical Spine Active Testing Position Standing Comments AROM neck is normal Shoulder Goniometric Range of Motion Shoulder Left Shoulder ROM WFL Yes Testing Position Standing Flexion 162 Abduction 162 Internal Rotation Behind Back (text) T9 Comments Supine passive ROM 90/90 normal and no pain Right Shoulder ROM WFL Yes Testing Position Standing Flexion 165 Abduction 165 Internal Rotation Behind Back (text) L2 and pain Comments Supine passive ROM 90/90 normal and pain with end-range in the infraspinatus area PT-OP-M Strength Start: 03/28/24 08:17 Freq: Status: Active Protocol: Document 03/28/24 10:23 MB (Rec: 03/28/24 11:08 MB [id number]) Shoulder Strength Shoulder Manual Muscle Testing Left Flexion 5 Normal Abduction (C5) 5 Normal External Rotation 4+ Good+ Internal Rotation 5 Normal Right Flexion 4 Good Abduction (C5) 4 Good External Rotation 3+ Fair+ Internal Rotation 4+ Good+ Comments Pain with flexion and abduction Elbow/Forearm Strength Elbow and Forearm Manual Muscle Testing Bilateral Flexion (C6) 5 Normal Extension (C7) 5 Normal Pronation 4+ Good+ Supination 4+ Good+ PT-OP-Q Treatments Start: 03/28/24 08:17 Freq: Status: Active Protocol: Document 04/30/24 09:02 SP (Rec: 04/30/24 09:52 SP [id number]) Therapeutic Exercises Supine Exercises Soft 6 foam roller AROM Supine Exercise Name Pec stretch, Flexion, Ts, 1/2 X, Ws ([id number] /c ER/IR), ER close chain Resistance level 1 TB Equipment Used Soft foam roller Reps/Minutes 20 SH stretch then 10 reps each Comments cued slow pacing, proper scap retr/depress, slower pacing arm pnfree range Standing Exercises shld IR& ER Standing Exercise Name added to HEP Side right Resistance Tb #1 light blue Reps/Minutes 10 Comments cued rhomboid fac, tactile cues little more range than neutral front- pnfre shld ext Standing Exercise Name added to HEP Side bilateral Resistance Tb #1 light blue Reps/Minutes x10 Comments cued rhomboid fac Manual Therapy Treatment Other Other Manual Treatments Pt supine with head and neck supported: STM right pects major, minor use TrP pressure & breath. PT-OP-R Modalities Start: 04/09/24 14:14 Freq: Status: Active Protocol: Document 04/30/24 09:02 SP (Rec: 04/30/24 09:52 SP [id number]) Ultrasound Therapy Treatment R Shoulder Patient Position Supine Coupling Medium Ultrasound Gel Frequency Setting (mHz) 3 Mode Setting Pulsed Duty Cycle 50% Intensity Setting (w/cm2) 1.5 Comments 8', anterior right shoulder over anterior delt, pect and biceps tendon PT-OP-T Assessment and Plan Start: 03/28/24 08:17 Freq: Status: Active Protocol: Document 04/30/24 09:02 SP (Rec: 04/30/24 09:52 SP [id number]) Physical Therapy Assessment Goals 3 Impairment Lack of HEP Impairment . Care 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 04/30/24: resisted ext over foam roller, added shld ext and ER standing TB #1. LTG Duration 8 weeks progressing 04/30/24 2 Impairment Decreased right shoulder strength Impairment . Care Home Goal (LTG) Pt will present with improved right shoulder flexion, abduction, ER and IR strength equal to left shoulder to improve functional use of right arm. LTG Duration 8 weeks 1 Impairment QuickDASH reflects 37.5% impairment Impairment . Care Home Goal (LTG) Pt will present with QuickDASH score reflecting no more than 15% impairment to improve quality of life and function. LTG Duration 8 weeks Assessment Summary Assessment Pt good response to US R shld for light soreness anterior reduction. Pt requires chair support on/off floor. Cued slower pacing eccentric during ther ex over foam roller all pnfree, increase resistance next tx. No pain during added resisted shld ext and ER to progress functional ROM standing tactile cue for pnfree range during ER. Pt requested progress future abd ER to assist drying back in shower. Physical Therapy Plan Frequency and Duration Frequency of Treatment 2x/Week Duration of treatment (weeks) 8 Plan of Care Start Date 03/28/24 Plan of Care End Date 05/28/24 Therapeutic Interventions Therapeutic Interventions Balance Training,Canalithic Repositioning,Coordination Training,Home Exercise Program ,Joint Mobilizations,Manual Therapy,Neuromuscular Re- education,Patient/Caregiver Education,Self-Care/Home Management,Soft Tissue Mobilization,Taping, Therapeutic Activities, Therapeutic Exercises Modalities Cold Pack/Ice Massage,Electric Stimulation,Hot Packs, Ultrasound Next Visit Focus/Plan Next Note Type Treatment Note Next Visit Plan Ongoing US if helpful. Review HEP foam roller and added TB ext and ER standing. FUture abd ER to support pnfree drying back, OH positioning, pnfree supine. POC: recheck muscle engagement and then fi tolerated chopping wood exercise for strengthening in similar position. Consider standing exercises with theraband.
--- NOTE | 2024-05-02 13:41 | PT.OTN ---
Current Diagnoses Pain in right shoulder (05/02/24) Physical Therapy Treatment Note PT-OP-A Visit Information Start: 03/28/24 08:17 Freq: Status: Active Protocol: Document 05/02/24 13:02 MB (Rec: 05/02/24 13:41 MB [id number]) Out-Patient Physical Therapy Visit Information Visit Information Visit Type Progress Note Visit Note KSR Medicare Visit Start Time 13:02 Visit Stop Time 13:40 Visit Number 8 Number of AUTOMATIC SCREWMAKER Visits 0 Evaluation Information Evaluation Date 03/28/24 Precautions Precautions Pt felt worse after medical massages for right shoulder, pt asked about US as it helped in the past PT-OP-B Current Condition Start: 03/28/24 08:17 Freq: Status: Active Protocol: Document 03/28/24 10:23 MB (Rec: 03/28/24 11:08 MB [id number]) Current Condition History of Current Condition Onset Date November 2023 Current Complaints Right shoulder pain and ache with all right arm use and movement History of Current Condition In November, pt slipped on the ice and she did not fall but she jerked. She grabbed a hold of the truck to prevent falling. Her back pain was really bad and she was in bed for 3 weeks[address] She couldn't drive and she went to the ED in [place]. Steroid pack really helped her back pain. Pt then started to have right shoulder pain. She is right handed. Pt reports ache in the back to the shoulder blade and then ache down the arm to the inside of her elbow. She is taking ibuprofen in the afternoons. She is not icing. Pt has old right shoulder injury and MRI and she had some micro tears but had PT and it got better. Pt sleeps on her side with her arm propped up on a pillow. Putting the towel all around her to dry hurts. Pt did medical massage and ached and she has done acupuncture twice. Treatment Goals Patient/Caregiver Goals To decrease pain PT-OP-C Subjective Start: 03/28/24 08:17 Freq: Status: Active Protocol: Document 05/02/24 13:02 MB (Rec: 05/02/24 13:41 MB [id number]) OP-PT Subjective Patient Comments Patient Comments Pt is doing okay today. She had some spasming in back after last PT treatment into the evening that she feels is related to the bolster (foam roller). She is cautious about using the roller as a result. She had acupuncture yesterday . She would like to cut down to one time a week. She is not doing exercises everyday but towards the end of the week. She would like to do them three times a week. She is going out on the RV in the next month. PT-OP-J Posture/Palpation/Skin Start: 03/28/24 08:17 Freq: Status: Active Protocol: Document 03/28/24 10:23 MB (Rec: 03/28/24 11:08 MB [id number]) Posture Evaluation Comments Posture Comments B shoulders are forward and left is higher than the right, right scapula lower than the left, Dowager's hump, decreased thoracic kyphosis, iliac crest mildly higher than the left. Right SC joint is lower and more protruded than the left and there appears to be some edema in the area. PT-OP-K Range of Motion Start: 03/28/24 08:17 Freq: Status: Active Protocol: Document 03/28/24 10:23 MB (Rec: 03/28/24 11:08 MB [id number]) Cervical Spine Range of Motion Cervical Spine Active Testing Position Standing Comments AROM neck is normal Shoulder Goniometric Range of Motion Shoulder Left Shoulder ROM WFL Yes Testing Position Standing Flexion 162 Abduction 162 Internal Rotation Behind Back (text) T9 Comments Supine passive ROM 90/90 normal and no pain Right Shoulder ROM WFL Yes Testing Position Standing Flexion 165 Abduction 165 Internal Rotation Behind Back (text) L2 and pain Comments Supine passive ROM 90/90 normal and pain with end-range in the infraspinatus area PT-OP-M Strength Start: 03/28/24 08:17 Freq: Status: Active Protocol: Document 03/28/24 10:23 MB (Rec: 03/28/24 11:08 MB [id number]) Shoulder Strength Shoulder Manual Muscle Testing Left Flexion 5 Normal Abduction (C5) 5 Normal External Rotation 4+ Good+ Internal Rotation 5 Normal Right Flexion 4 Good Abduction (C5) 4 Good External Rotation 3+ Fair+ Internal Rotation 4+ Good+ Comments Pain with flexion and abduction Elbow/Forearm Strength Elbow and Forearm Manual Muscle Testing Bilateral Flexion (C6) 5 Normal Extension (C7) 5 Normal Pronation 4+ Good+ Supination 4+ Good+ PT-OP-Q Treatments Start: 03/28/24 08:17 Freq: Status: Active Protocol: Document 05/02/24 13:02 MB (Rec: 05/02/24 13:41 MB [id number]) Cardio Equipment Upper Body Ergometer (UBE) Duration (Minutes) 10 Other 1' forward and 1' backward Therapeutic Exercises Supine Exercises Pool noodle exercises Supine Exercise Name Flexion, Ts, 1/2Xs, pect stretch Resistance AROM then used level 1 band Equipment Used Red pool noodle Other Exercises MMT today Comments See goals for findings PT-OP-R Modalities Start: 04/09/24 14:14 Freq: Status: Active Protocol: Document 04/30/24 09:02 SP (Rec: 04/30/24 09:52 SP [id number]) Ultrasound Therapy Treatment R Shoulder Patient Position Supine Coupling Medium Ultrasound Gel Frequency Setting (mHz) 3 Mode Setting Pulsed Duty Cycle 50% Intensity Setting (w/cm2) 1.5 Comments 8', anterior right shoulder over anterior delt, pect and biceps tendon PT-OP-T Assessment and Plan Start: 03/28/24 08:17 Freq: Status: Active Protocol: Document 05/02/24 13:02 MB (Rec: 05/02/24 13:41 MB [id number]) Physical Therapy Assessment Goals 3 Impairment Lack of HEP Impairment 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 05/02/24: Pt is performing open book and she has not started TB exercise, the foam roller bothered her and need to review LTG Duration Progressing 2 Impairment Decreased right shoulder strength Impairment Blank space [employer] Attendant Goal (LTG) Pt will present with improved right shoulder flexion, abduction, ER and IR strength equal to left shoulder to improve functional use of right arm. 05/02/24: Right shoulder 4+/5, left 5/5; abduction B 5/5 with reports of discomfort right shoulder; ER and IR with arms at side and neutral rotation ( 0 deg): 5/5 B LTG Duration Progressing 1 Impairment QuickDASH reflects 37.5% impairment Impairment Blank space [employer] Attendant Goal (LTG) Pt will present with QuickDASH score reflecting no more than 15% impairment to improve quality of life and function. 6/5/24: QuickDASH score reflects 15.09% impairment, which is improved since eval LTG Duration Progressing Assessment Summary Assessment Pt is progressing towards all goals. Pool noodle works better for pt than foam roller . Con't HEP progression. Physical Therapy Plan Frequency and Duration Frequency of Treatment 1x/Week Duration of treatment (weeks) 4 Plan of Care Start Date 05/02/24 Plan of Care End Date 05/28/24 Therapeutic Interventions Therapeutic Interventions Balance Training,Canalithic Repositioning,Coordination Training,Home Exercise Program ,Joint Mobilizations,Manual Therapy,Neuromuscular Re- education,Patient/Caregiver Education,Self-Care/Home Management,Soft Tissue Mobilization,Taping, Therapeutic Activities, Therapeutic Exercises Modalities Cold Pack/Ice Massage,Electric Stimulation,Hot Packs, Ultrasound Next Visit Focus/Plan Next Note Type Treatment Note Next Visit Plan Review pool noodle and standing exercises POC: recheck muscle engagement and then if tolerated chopping wood exercise for strengthening in similar position. Consider standing exercises with theraband.
--- NOTE | 2024-05-02 13:42 | PT.OPPOC ---
Physical, Occupational & Speech Therapy At [facility] Current Diagnoses Pain in right shoulder (05/02/24) Visit Care Team Role Provider Type Zunilda Keyes MD Attending Provider Physician Family Provider Primary Care Provider Referring Provider Specialty: Family Practice Address: [address] [place] [address], [id number] Email: [email or web address] Plan Of Care PT-OP-T Assessment and Plan Start: 03/28/24 08:17 Freq: Status: Active Protocol: Document 05/02/24 13:02 MB (Rec: 05/02/24 13:41 MB [id number]) Physical Therapy Assessment Goals 3 Impairment Lack of HEP Impairment Blank 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 05/02/24: Right shoulder 4+/5, left 5/5; abduction B 5/5 with reports of discomfort right shoulder; ER and IR with arms at side and neutral rotation ( 0 deg): 5/5 B LTG Duration Progressing 1 Impairment QuickDASH reflects 37.5% impairment Impairment Blank space Nursing Home Goal (LTG) Pt will present with QuickDASH score reflecting no more than 15% impairment to improve quality of life and function. 05/02/24: QuickDASH score reflects 15.09% impairment, which is improved since eval LTG Duration Progressing Assessment Summary Assessment Pt is progressing towards all goals. Pool noodle works better for pt than foam roller . Con't HEP progression. Physical Therapy Plan Frequency and Duration Frequency of Treatment 1x/Week Duration of treatment (weeks) 4 Plan of Care Start Date 05/02/24 Plan of Care End Date 05/28/24 Therapeutic Interventions Therapeutic Interventions Balance Training,Canalithic Repositioning,Coordination Training,Home Exercise Program ,Joint Mobilizations,Manual Therapy,Neuromuscular Re- education,Patient/Caregiver Education,Self-Care/Home Management,Soft Tissue Mobilization,Taping, Therapeutic Activities, Therapeutic Exercises Modalities Cold Pack/Ice Massage,Electric Stimulation,Hot Packs, Ultrasound Next Visit Focus/Plan Next Note Type Treatment Note Next Visit Plan Review pool noodle and standing exercises POC: recheck muscle engagement and then if tolerated chopping wood exercise for strengthening in similar position. Consider standing exercises with theraband. Plan of Care Dates Plan of Care Start Date 05/02/24 Plan of Care End Date 05/28/24 Electronically Signed by: Nia Walter, PT 05/02/24 [id number] If you are in agreement with this Plan of Care, please return a signed and dated copy. I have reviewed this Plan of Care and certify that the skilled therapy services above are required to meet the patient?s needs. Physician Signature Date Printed Name and Credentials Clinical Instructor Signature Printed Name and Credentials
--- NOTE | 2024-05-09 11:15 | PT.OTN ---
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 She grabbed a hold of the truck to prevent falling. Her back pain was really bad and she was in bed for 3 weeks[address] couldn't drive and she went to the ED in [place]. Steroid pack really helped her back pain. Pt then started to have right shoulder pain. She is right handed. Pt reports ache in the back to the shoulder blade and then ache down the arm to the inside of her elbow. She is taking ibuprofen in the afternoons. She is not icing. Pt has old right shoulder injury and MRI and she had some micro tears but had PT and it got better. Pt sleeps on her side with her arm propped up on a pillow. Putting the towel all around her to dry hurts. Pt did medical massage and ached and she has done acupuncture twice. Treatment Goals Patient/Caregiver Goals To decrease pain PT-OP-C Subjective Start: 03/28/24 08:17 Freq: Status: Active Protocol: Document 05/09/24 10:35 MB (Rec: 05/09/24 11:13 MB [id number]) OP-PT Subjective Patient Comments Patient Comments Back pain is better now that she is using pool noodle instead of foam roller. PT-OP-J Posture/Palpation/Skin Start: 03/28/24 08:17 Freq: Status: Active Protocol: Document 03/28/24 10:23 MB (Rec: 03/28/24 11:08 MB [id number]) Posture Evaluation Comments Posture Comments B shoulders are forward and left is higher than the right, right scapula lower than the left, Dowager's hump, decreased thoracic kyphosis, iliac crest mildly higher than the left. Right SC joint is lower and more protruded than the left and there appears to be some edema in the area. PT-OP-K Range of Motion Start: 03/28/24 08:17 Freq: Status: Active Protocol: Document 03/28/24 10:23 MB (Rec: 03/28/24 11:08 MB [id number]) Cervical Spine Range of Motion Cervical Spine Active Testing Position Standing Comments AROM neck is normal Shoulder Goniometric Range of Motion Shoulder Left Shoulder ROM WFL Yes Testing Position Standing Flexion 162 Abduction 162 Internal Rotation Behind Back (text) T9 Comments Supine passive ROM 90/90 normal and no pain Right Shoulder ROM WFL Yes Testing Position Standing Flexion 165 Abduction 165 Internal Rotation Behind Back (text) L2 and pain Comments Supine passive ROM 90/90 normal and pain with end-range in the infraspinatus area PT-OP-M Strength Start: 03/28/24 08:17 Freq: Status: Active Protocol: Document 03/28/24 10:23 MB (Rec: 03/28/24 11:08 MB [id number]) Shoulder Strength Shoulder Manual Muscle Testing Left Flexion 5 Normal Abduction (C5) 5 Normal External Rotation 4+ Good+ Internal Rotation 5 Normal Right Flexion 4 Good Abduction (C5) 4 Good External Rotation 3+ Fair+ Internal Rotation 4+ Good+ Comments Pain with flexion and abduction Elbow/Forearm Strength Elbow and Forearm Manual Muscle Testing Bilateral Flexion (C6) 5 Normal Extension (C7) 5 Normal Pronation 4+ Good+ Supination 4+ Good+ PT-OP-Q Treatments Start: 03/28/24 08:17 Freq: Status: Active Protocol: Document 05/09/24 10:35 MB (Rec: 05/09/24 11:13 MB [id number]) Cardio Equipment Upper Body Ergometer (UBE) Duration (Minutes) 10 Other 1' forward and 1' backward Therapeutic Exercises Supine Exercises Pool noodle exercises Supine Exercise Name Flexion, Ts, 1/2Xs, pect stretch Resistance AROM then used level 1 band, then level 2 Equipment Used Red pool noodle Comments Horizontal abduction and shoulder ER with band Manual Therapy Treatment Other Other Manual Treatments Pt supine with head and neck supported: STM right pect, traps, levator PT-OP-R Modalities Start: 04/09/24 14:14 Freq: Status: Active Protocol: Document 05/09/24 10:35 MB (Rec: 05/09/24 11:13 MB [id number]) Ultrasound Therapy Treatment R Shoulder Patient Position Supine Coupling Medium Ultrasound Gel Frequency Setting (mHz) 3 Mode Setting Pulsed Duty Cycle 50% Intensity Setting (w/cm2) 1.5 Comments 8', anterior right shoulder over anterior delt, pect and biceps tendon PT-OP-T Assessment and Plan Start: 03/28/24 08:17 Freq: Status: Active Protocol: Document 05/09/24 10:35 MB (Rec: 05/09/24 11:13 MB [id number]) Physical Therapy Assessment Goals 3 Impairment Lack of HEP Impairment Blank space [employer] Goal (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 05/02/24: Pt is performing open book and she has not started TB exercise, the foam roller bothered her and need to review LTG Duration Progressing 2 Impairment Decreased right shoulder strength Impairment Blank space [employer] Goal (LTG) Pt will present with improved right shoulder flexion, abduction, ER and IR strength equal to left shoulder to improve functional use of right arm. 05/02/24: Right shoulder 4+/5, left 5/5; abduction B 5/5 with reports of discomfort right shoulder; ER and IR with arms at side and neutral rotation ( 0 deg): 5/5 B LTG Duration Progressing 1 Impairment QuickDASH reflects 37.5% impairment Impairment Blank space Snf Goal (LTG) Pt will present with QuickDASH score reflecting no more than 15% impairment to improve quality of life and function. 05/02/24: QuickDASH score reflects 15.09% impairment, which is improved since eval LTG Duration Progressing Assessment Summary Assessment Progressed strengthening over pool noodle today. Con't per plan below. Physical Therapy Plan Frequency and Duration Frequency of Treatment 1x/Week Duration of treatment (weeks) 4 Plan of Care Start Date 05/02/24 Plan of Care End Date 05/28/24 Therapeutic Interventions Therapeutic Interventions Balance Training,Canalithic Repositioning,Coordination Training,Home Exercise Program ,Joint Mobilizations,Manual Therapy,Neuromuscular Re- education,Patient/Caregiver Education,Self-Care/Home Management,Soft Tissue Mobilization,Taping, Therapeutic Activities, Therapeutic Exercises Modalities Cold Pack/Ice Massage,Electric Stimulation,Hot Packs, Ultrasound Next Visit Focus/Plan Next Note Type Treatment Note Next Visit Plan Consider TB resisted PNF (like half X) in pool noodle, B shoulder flexion with band around wrists and chopping wood, standing intrascapular strengthening
--- NOTE | 2024-05-21 15:34 | PT.OPDS ---
Current Diagnoses Pain in right shoulder (05/09/24) Visit Care Team Role Provider Type Zunilda Keyes MD Attending Provider Physician Family Provider Primary Care Provider Referring Provider Specialty: Family Practice Address: [address] [place] [address], [facility], [place], [address] Email: [email or web address] Visit Number Visit Number 9 Discharge Summary PT-OP-B Current Condition Start: 03/28/24 08:17 Freq: Status: Active Protocol: Document 03/28/24 10:23 MB (Rec: 03/28/24 11:08 MB [id number]) Current Condition History of Current Condition Onset Date November 2023 Current Complaints Right shoulder pain and ache with all right arm use and movement History of Current Condition In November, pt slipped on the ice and she did not fall but she jerked. She grabbed a hold of the truck to prevent falling. Her back pain was really bad and she was in bed for 3 weeks[address] She couldn't drive and she went to the ED in [place]. Steroid pack really helped her back pain. Pt then started to have right shoulder pain. She is right handed. Pt reports ache in the back to the shoulder blade and then ache down the arm to the inside of her elbow. She is taking ibuprofen in the afternoons. She is not icing. Pt has old right shoulder injury and MRI and she had some micro tears but had PT and it got better. Pt sleeps on her side with her arm propped up on a pillow. Putting the towel all around her to dry hurts. Pt did medical massage and ached and she has done acupuncture twice. Treatment Goals Patient/Caregiver Goals To decrease pain PT-OP-C Subjective Start: 03/28/24 08:17 Freq: Status: Active Protocol: Document 05/09/24 10:35 MB (Rec: 05/09/24 11:13 MB [id number]) OP-PT Subjective Patient Comments Patient Comments Back pain is better now that she is using pool noodle instead of foam roller. PT-OP-J Posture/Palpation/Skin Start: 03/28/24 08:17 Freq: Status: Active Protocol: Document 03/28/24 10:23 MB (Rec: 03/28/24 11:08 MB [id number]) Posture Evaluation Comments Posture Comments B shoulders are forward and left is higher than the right, right scapula lower than the left, Dowager's hump, decreased thoracic kyphosis, iliac crest mildly higher than the left. Right SC joint is lower and more protruded than the left and there appears to be some edema in the area. PT-OP-K Range of Motion Start: 03/28/24 08:17 Freq: Status: Active Protocol: Document 03/28/24 10:23 MB (Rec: 03/28/24 11:08 MB [id number]) Cervical Spine Range of Motion Cervical Spine Active Testing Position Standing Comments AROM neck is normal Shoulder Goniometric Range of Motion Shoulder Left Shoulder ROM WFL Yes Testing Position Standing Flexion 162 Abduction 162 Internal Rotation Behind Back (text) T9 Comments Supine passive ROM 90/90 normal and no pain Right Shoulder ROM WFL Yes Testing Position Standing Flexion 165 Abduction 165 Internal Rotation Behind Back (text) L2 and pain Comments Supine passive ROM 90/90 normal and pain with end-range in the infraspinatus area PT-OP-M Strength Start: 03/28/24 08:17 Freq: Status: Active Protocol: Document 03/28/24 10:23 MB (Rec: 03/28/24 11:08 MB [id number]) Shoulder Strength Shoulder Manual Muscle Testing Left Flexion 5 Normal Abduction (C5) 5 Normal External Rotation 4+ Good+ Internal Rotation 5 Normal Right Flexion 4 Good Abduction (C5) 4 Good External Rotation 3+ Fair+ Internal Rotation 4+ Good+ Comments Pain with flexion and abduction Elbow/Forearm Strength Elbow and Forearm Manual Muscle Testing Bilateral Flexion (C6) 5 Normal Extension (C7) 5 Normal Pronation 4+ Good+ Supination 4+ Good+ PT-OP-T Assessment and Plan Start: 03/28/24 08:17 Freq: Status: Active Protocol: Document 05/21/24 15:33 MB (Rec: 05/21/24 15:34 MB [id number]) Physical Therapy Assessment Assessment Summary Assessment Pt canceled her last appointment d/t her LB is spasming and she leaves for vacation. Will d/c PT.
== END 2024-05-22 08:43 | disposition home or self-care (01) ==
LOC: PHYS 10:30
PROVIDERS: Family Provider Family Medicine; PCP Family Medicine; Referring Provider Family Medicine; Visit Provider Family Medicine
DX: M25.511 Pain in right shoulder (principal)
CPT/HCPCS: 97035; 97110; 97140; 97161; 97535

== ENCOUNTER → 2024-11-26 15:32 | Outpatient (CLI) | payer OTHER, SELFPAY ==
--- NOTE | 2024-11-26 15:33 | DI.MG.S_ITS ---
BILATERAL DIGITAL SCREENING MAMMOGRAM 3D/2D WITH CAD: 11/26/2024 CLINICAL: Routine screening. Family history of breast cancer. Comparison is made to exams dated: 11/11/2023 mammogram, 11/09/2022 mammogram, and 11/06/2021 mammogram - [facility]. There are scattered areas of fibroglandular density (category b / 25%-50% glandular tissue). Current study was also evaluated with a Computer Aided Detection (CAD) system. No significant masses, calcifications, or other findings are seen in either breast. There has been no significant interval change. IMPRESSION: NEGATIVE There is no mammographic evidence of malignancy. A 1 year screening mammogram is recommended. Based on the Tyrer Cuzick model (a risk assessment model) the patient's lifetime risk is 4.0% and her 10 year risk is 3.3%. According to the ACR, ACS, and NCCN guidelines, an annual breast MRI exam along with mammogram is recommended if the patient's lifetime risk is 20% or greater. This exam was interpreted at Station ID: [id number]. NOTE: For mammograms, a report in lay terms will be sent to the patient. Approximately 15% of breast malignancies will not be visualized mammographically. In the management of a palpable breast mass, a negative mammogram must not discourage biopsy of a clinically suspicious lesion. Electronically Signed By: Christopher martel/robin:11/27/2024 07:56:18 copy to: Zunilda Keyes M.D., [facility] [place], ph: [phone], fax: [phone] letter sent: Normal Exam ACR BI-RADS Category 1: Negative
== END ==
LOC: MAMMO 15:32
PROVIDERS: Family Provider Family Medicine; PCP Family Medicine; Referring Provider Family Medicine; Visit Provider Family Medicine
DX: Z12.31 Encounter for screening mammogram for malignant neoplasm of breast (principal); Z80.3 Family history of malignant neoplasm of breast
CPT/HCPCS: 77063; 77067